=== PATIENT | female | born 1960 | race African-American/Black ===

== ENCOUNTER 2017-10-08 20:39 | Emergency (ER) | payer OTHER ==
[2017-10-08] MEDS ORDERED: TETRACAINE HCL 0.5% 2ML OPTH ONE (21:23)
[2017-10-08] MEDS ORDERED: TETANUS & DIPHTHERIA TOX,ADULT 0.5 ML VIAL ONE (21:24)
[2017-10-08] MEDS ORDERED: FLUORESCEIN SODIUM 0.6 MG/WRAP ONE (21:24)
--- NOTE | 2017-10-08 22:22 | ER ---
Nurse's Notes [facility] Name: Funmi Stoner Age: 57 yrs Sex: Female : 1960 Arrival Date: 10/08/2017 Time: 20:43 Bed 7 Private MD: Diagnosis: Injury of conjunctiva and corneal abrasion without foreign body, right eye Presentation: 10/08 20:45 Presenting complaint: Patient states: she has a contact lens stuck in her R eye since aa1 last night. Transition of care: patient was not received from another setting of care. Onset of symptoms was October 07, 2017. Care prior to arrival: None. 20:45 Method Of Arrival: Ambulatory aa1 20:45 Acuity: LINDSAY 4 aa1 Triage Assessment: 20:48 General: Appears in no apparent distress. comfortable, Behavior is calm, cooperative, aa1 appropriate for age. 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 SPECIALIST: 20:48 LMP N/A - Post-menopause aa1 Historical: - Allergies: 20:48 Sulfa (Sulfonamide Antibiotics); aa1 20:48 Albuterol; aa1 - Home Meds: 20:48 amlodipine 10 mg tab [Active]; lisinopril 20 mg Oral tab [Active]; metoprolol tartrate aa1 25 mg Oral tab [Active]; aspirin 81 mg Oral chew [Active]; Advair Diskus 100-50 mcg/dose Inhl dsdv [Active]; gabapentin 600 mg Oral tab [Active]; Prednisone Oral [Active]; Hydrocodone-Acetaminophen Oral [Active]; Klonopin 0.5 mg Oral tab [Active]; - PMHx: 20:48 Anxiety; Asthma; Diabetes - NIDDM; hot flashes; Hypertension; Irregular heart rate; aa1 - PSHx: 20:48 Tubal ligation; cardiac catherization; aa1 - Immunization history:: Flu vaccine is not up to date. Patient has never been vaccinated. - Social history:: Smoking status: Patient uses tobacco products, denies chronic smoking, but will smoke occasionally. Screenin:14 Abuse screen: Denies threats or abuse. Denies injuries from another. Nutritional bs1 screening: No deficits noted. Tuberculosis screening: Fall Risk None identified. Assessment: 21:12 General: Appears in no apparent distress. Behavior is cooperative, appropriate for age, bs1 anxious. Pain: Complains of pain in right eye. Neuro: Level of Consciousness is awake, alert, obeys commands, Oriented to person, place, time, situation, Appropriate for age Environmental Services Specialist are equal bilaterally Moves all extremities. Cardiovascular: Heart tones S1 S2 present Capillary refill < 3 seconds Patient's skin is warm and dry. Respiratory: Airway is patent Trachea midline Respiratory effort is even, unlabored, Respiratory pattern is regular, symmetrical, Breath sounds are clear bilaterally. GI: No deficits noted. No signs and/or symptoms were reported involving the gastrointestinal system. : No deficits noted. No signs and/or symptoms were reported regarding the genitourinary system. EENT: Eyes bilateral eyes equally red, patient states that right eye hurts. . Derm: Skin is intact. Musculoskeletal: Circulation, motion, and sensation intact. Capillary refill < 3 seconds, Range of motion: intact in all extremities. 22:12 Reassessment: Patient appears in no apparent distress at this time. No changes from bs1 previously documented assessment. Patient and/or family updated on plan of care and expected duration. Pain level reassessed. Patient is alert, oriented x 3, equal unlabored respirations, skin warm/dry/pink. 22:30 Reassessment: CORPORATE BANKING OFFICER at bedside performing eye exam. bs1 Vital Signs: 20:48 BP 124 / 76; Pulse 72; Resp 18; Temp 97.5; Pulse Ox 100% on R/A; Weight 111.13 kg; aa1 Height 5 ft. 5 in. (165.10 cm); Pain 7/10; 22:06 BP 132 / 92; Pulse 73; Resp 14; Pulse Ox 100% on R/A; Pain 0/10; bs1 20:48 Body Mass Index 40.77 (111.13 kg, 165.10 cm) aa1 Visual Acuity: 21:06 Left Eye Visual acuity 20/20, Normal, React To Light; Right Eye Visual acuity 20/40, mt Normal, React To Light; Both Eyes Visual acuity 20/20; Without Lenses; ED Course: 20:43 Patient arrived in ED. al2 20:46 Triage completed. aa1 20:48 Arm band placed on left wrist. Patient placed in an exam room, on a stretcher. aa1 20:50 Codey Roche NP is PHCP. pm1 20:50 Lencho Castillo MD is Attending Physician. pm1 21:01 Yi, Yaima, RN is Primary Nurse. bs1 21:14 Patient has correct armband on for positive identification. Bed in low position. Call bs1 light in reach. Side rails up X 1. Pulse ox on. NIBP on. 22:47 No provider procedures requiring assistance completed. Patient did not have IV access bs1 during this emergency room visit. 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 Exp: bs1 02/16/2020. Lot #: [id number]. } Route: IM; Site: right deltoid; 22:46 Follow up: Response: No adverse reaction bs1 22:00 Drug: Tetracaine Drops 0.5 % 1 drops Route: Ophthalmic; Site: right eye; bs1 22:46 Follow up: Response: No adverse reaction bs1 22:46 Drug: Gentamicin Drops 0.3 % 2 drops Route: Ophthalmic; Site: right eye; bs1 22:47 Follow up: Response: No adverse reaction bs1 Outcome: 22:22 Discharge ordered by MD. pm1 22:47 Discharged to home ambulatory. bs1 22:47 Condition: stable 22:47 Discharge instructions given to patient, Instructed on discharge instructions, follow up and referral plans. medication usage, Demonstrated understanding of instructions, follow-up care, medications, Prescriptions given X 2. 22:49 Patient left the ED. bs1 Signatures: Divya Roth, RN RN aa1 Codey Roche, CORPORATE BANKING OFFICER CORPORATE BANKING OFFICER pm1 Dionne Moore mt, Brittany, RN RN bs1 Iraida Kay
--- NOTE | 2017-10-08 22:23 | EDPHYS ---
Physician Documentation [facility] Name: Funmi Stoner Age: 57 yrs Sex: Female : 1960 Arrival Date: 10/08/2017 Time: 20:43 Bed 7 Private MD: ED Physician Lencho Castillo HPI: 10/08 22:00 This 57 yrs old Black Female presents to ER via Ambulatory with complaints of Eye pm1 Problem. 22:00 caused by contact lens, Pain. Onset: The symptoms/episode began/occurred yesterday. pm1 Duration: the symptoms are continuous. Aggravated by nothing. Alleviated by nothing. Associated signs and symptoms: Pertinent negatives: fever. Patient wears glasses, wears soft contacts. Severity of symptoms: in the emergency department the symptoms are unchanged. The patient has not experienced similar symptoms in the past. Patient feels that a contact was lost in her right eye yesterday. Patient continued to touch her eye with her finger nail to see if she could feel for it and remove it. 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: 20:48 LMP N/A - Post-menopause aa1 Historical: - Allergies: 20:48 Sulfa (Sulfonamide Antibiotics); aa1 20:48 Albuterol; aa1 - Home Meds: 20:48 amlodipine 10 mg tab [Active]; lisinopril 20 mg Oral tab [Active]; metoprolol tartrate aa1 25 mg Oral tab [Active]; aspirin 81 mg Oral chew [Active]; Advair Diskus 100-50 mcg/dose Inhl dsdv [Active]; gabapentin 600 mg Oral tab [Active]; Prednisone Oral [Active]; Hydrocodone-Acetaminophen Oral [Active]; Klonopin 0.5 mg Oral tab [Active]; - PMHx: 20:48 Anxiety; Asthma; Diabetes - NIDDM; hot flashes; Hypertension; Irregular heart rate; aa1 - PSHx: 20:48 Tubal ligation; cardiac catherization; aa1 - Immunization history:: Flu vaccine is not up to date. Patient has never been vaccinated. - Social history:: Smoking status: Patient uses tobacco products, denies chronic smoking, but will smoke occasionally. ROS: 22:00 Constitutional: Negative for fever, chills, and weight loss. pm1 22:00 ENT: Negative for injury, pain, and discharge, Neck: Negative for injury, pain, and swelling, Cardiovascular: Negative for chest pain, palpitations, and edema, Respiratory: Negative for shortness of breath, cough, wheezing, and pleuritic chest pain, Abdomen/GI: Negative for abdominal pain, nausea, vomiting, diarrhea, and constipation, Back: Negative for injury and pain, MS/Extremity: Negative for injury and deformity, Skin: Negative for injury, rash, and discoloration, Neuro: Negative for headache, weakness, numbness, tingling, and seizure. 22:00 Eyes: Positive for foreign body sensation, pain, Negative for blurry vision, discharge. Exam: 22:00 Visual Acuity: I have reviewed the nursing documentation. pm1 22:00 Constitutional: This is a well developed, well nourished patient who is awake, alert, and in no acute distress. Head/Face: Normocephalic, atraumatic. 22:00 ENT: Nares patent. No nasal discharge, no septal abnormalities noted. Tympanic membranes are normal and external auditory canals are clear. Oropharynx with no redness, swelling, or masses, exudates, or evidence of obstruction, uvula midline. Mucous membranes moist. Neck: Trachea midline, no thyromegaly or masses palpated, and no cervical lymphadenopathy. Supple, full range of motion without nuchal rigidity, or vertebral point tenderness. No Meningismus. Chest/axilla: Normal chest wall appearance and motion. Nontender with no deformity. No lesions are appreciated. Cardiovascular: Regular rate and rhythm with a normal S1 and S2. No gallops, murmurs, or rubs. Normal PMI, no JVD. No pulse deficits. Respiratory: Lungs have equal breath sounds bilaterally, clear to auscultation and percussion. No rales, rhonchi or wheezes noted. No increased work of breathing, no retractions or nasal flaring. Back: No spinal tenderness. No costovertebral tenderness. Full range of motion. Skin: Warm, dry with normal turgor. Normal color with no rashes, no lesions, and no evidence of cellulitis. MS/ Extremity: Pulses equal, no cyanosis. Neurovascular intact. Full, normal range of motion. 22:00 Eyes: Periorbital structures: appear normal, Pupils: no acute changes, equal, round, and reactive to light and accomodation, Extraocular movements: intact throughout, Conjunctiva: injected, Corneas: abrasion, that is small, approximately 2 mm(s), on the right, at 7 o'clock, foreign body, is not appreciated, a fluorescein strip employed to appreciate the findings, Sclera: no appreciated abnormality, Anterior chamber: normal. 22:00 Neuro: Orientation: is normal, Motor: is normal, Gait: is steady, at a normal pace, without difficulty. Vital Signs: 20:48 BP 124 / 76; Pulse 72; Resp 18; Temp 97.5; Pulse Ox 100% on R/A; Weight 111.13 kg; aa1 Height 5 ft. 5 in. (165.10 cm); Pain 7/10; 22:06 BP 132 / 92; Pulse 73; Resp 14; Pulse Ox 100% on R/A; Pain 0/10; bs1 20:48 Body Mass Index 40.77 (111.13 kg, 165.10 cm) aa1 Visual Acuity: 21:06 Left Eye Visual acuity 20/20, Normal, React To Light; Right Eye Visual acuity 20/40, mt Normal, React To Light; Both Eyes Visual acuity 20/20; Without Lenses; MDM: 20:54 Patient medically screened. pm1 22:21 Data reviewed: vital signs. Data interpreted: Pulse oximetry: on room air is 100 %. pm1 Interpretation: normal. Counseling: I had a detailed discussion with the patient and/or guardian regarding: the historical points, exam findings, and any diagnostic results supporting the discharge/admit diagnosis, the need for outpatient follow up, for definitive care, an opthalmologist, to return to the emergency department if symptoms worsen or persist or if there are any questions or concerns that arise at home. 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 Exp: bs1 02/16/2020. Lot #: [id number]. } Route: IM; Site: right deltoid; 22:46 Follow up: Response: No adverse reaction bs1 22:00 Drug: Tetracaine Drops 0.5 % 1 drops Route: Ophthalmic; Site: right eye; bs1 22:46 Follow up: Response: No adverse reaction bs1 22:46 Drug: Gentamicin Drops 0.3 % 2 drops Route: Ophthalmic; Site: right eye; bs1 22:47 Follow up: Response: No adverse reaction bs1 Disposition: 10/09 03:49 Co-signature as Attending Physician, Lencho Castillo MD. pkraiza Disposition: 10/08/17 22:22 Discharged to Home. Impression: Injury of conjunctiva and corneal abrasion without foreign body, right eye. - Condition is Stable. - Discharge Instructions: Corneal Abrasion. - Prescriptions for Vigamox 0.5 % Ophthalmic Drops - instill 1 drop by OPHTHALMIC route every 8 hours for 7 days; 5 milliliter. Tylenol- Codeine #3 300-30 mg Oral Tablet - take 2 tablets by ORAL route every 6 hours As needed; 20 tablet. - Medication Reconciliation Form, Thank You Letter, Antibiotic Education, Prescription Opioid Use form. - Follow up: Emergency Department; When: As needed; Reason: Worsening of condition. Follow up: Private Physician; When: 1 - 2 days; Reason: Recheck today's complaints, Continuance of care, Re-evaluation by your physician. - Problem is new. - Symptoms have improved. Signatures: Divya Roth, RN RN aa1 Lencho Castillo MD MD pkl Codey Roche NP ELECTRICAL ACCESSORIES ASSEMBLER pm1 Yaima Yi RN RN bs1
[2017-10-08] MEDS ORDERED: GENTAMICIN 0.3% OPTH DROP 5ML ONE (23:01)
== END 2017-10-08 22:49 | disposition home or self-care (01) ==
LOC: ER 20:39
DX: S05.01XA Injury of conjunctiva and corneal abrasion without foreign body, right eye, initial encounter (principal); I10 Essential (primary) hypertension; E11.9 Type 2 diabetes mellitus without complications; F41.9 Anxiety disorder, unspecified; J45.909 Unspecified asthma, uncomplicated; Z23 Encounter for immunization; Z72.0 Tobacco use; Z88.2 Allergy status to sulfonamides; Z88.8 Allergy status to other drugs, medicaments and biological substances
CPT/HCPCS: 90714; 99283

== ENCOUNTER 2017-11-12 10:17 | Emergency (ER) | payer OTHER ==
[2017-11-12] MEDS ORDERED: SUCRALFATE 1GM/10ML UCUP PO SCH (12:00)
[2017-11-12 12:09] LABS: Absolute Lymphocytes (CBC) 3.7 K/uL (0.7-4.9); Absolute Monocytes 0.8 K/uL (0.1-1.3); Absolute Neutrophil 4.2 K/uL (1.8-8.0); Basophils % 0.4 % (0-1.3); Eosinophils % 1.6 % (0-4.4); MCH 25.9 pg (27.0-35.0); MCV 79.4 fL (80-100); MPV 8.7 fL (7.6-11.3); Monocytes % 9.4 % (3.3-12.3); RBC Red Blood Cell Count 5.41 M/uL (3.86-4.86)
[2017-11-12 12:28] LABS: Bicarbonate 27 mEq/L (21-31); Glucose Level 84 mg/dL (65-120); Lipase 29 U/L (22-51); Sodium Level 140 mEq/L (135-145)
[2017-11-12 12:34] LABS: ALT/SGPT 43 IU/L (10-60); AST/SGOT 49 IU/L (10-42); Albumin 4.2 g/dL (3.2-5.5); Alkaline Phosphatase 77 IU/L (42-121); BUN Blood Urea Nitrogen 19 mg/dL (6-20); Bilirubin Direct 0.1 mg/dL (0-0.2); Bilirubin Total 0.4 mg/dL (0.3-1.2); Protein, Total 7.9 g/dL (6.0-8.3)
--- NOTE | 2017-11-12 14:33 | RAD REPORT ---
EXAM DESCRIPTION: CT - Stone Protocol - 11/12/2017 2:21 pm CLINICAL HISTORY: Abdominal pain, epigastric pain COMPARISON: None. TECHNIQUE: Axial 5 mm thick images were obtained without oral or IV contrast. The [id number] span s the entirety of the system partially obscuring uppermost abdomen and lung bases. All CT scans are performed using dose optimization technique as appropriate and may include automated exposure control or mA/KV adjustment according to patient size. FINDINGS: No hydronephrosis is present and no obstructing ureteral calculi. No suspicious renal mass es. Isodense masses and pyelonephritis are not excluded on a stone protocol CT scan. Urinary bladder is contracted. Uterus and ovaries show no suspicious findings. Tubal occlusion device is in place. Th ere are numerous phleboliths along the pelvic floor. Imaged portions of the liver, spleen and pancreas show no suspicious findings on non-contrast imaging . Gallbladder is contracted. Gallstones can be occult on CT imaging. No biliary tree dilatation. No s ignificant adrenal finding. No gastric dilatation. Edwards of the antrum are prominent. This is an area that is difficult to evalua te on CT imaging in the absence of oral and IV contrast. A mild antritis or gastritis would be possib le. There is no edema or stranding in the adjacent fatty tissues. Duodenum and remainder of small bow el unremarkable. Appendix is normal. No acute colon process. No mass or bulky lymphadenopathy. The patient has a very small incidental umbilical hernia. Disc and bony degenerative changes are present without acute finding. Vascular calcifications are seen. No acute lung base finding. No pericardial thickening or effusion. IMPRESSION: No obstruction, free air or surgically emergent finding. Edwards of the gastric antrum are prominent though this can be a peristalsis artifact. Given the epigas tric pain pattern, mild antritis or gastritis would be possible. Assessment is limited in the absence of oral and IV contrast. Remainder the GI system is unremarkable. Gallbladder is contracted and gallstones can be occult. No acute finding on noncontrast imaging. Isodense masses and pyelonephritis are not excluded on stone protocol technique.
[2017-11-12 14:43] LABS: Urine Bacteria <20 /HPF (<20); Urine RBC <5 /HPF (NONE SEEN)
[2017-11-12 14:44] LABS: Urine Culture Reflex Order NOT NEEDED
--- NOTE | 2017-11-12 15:51 | EDPHYS ---
Physician Documentation [facility] Name: Funmi Stoner Age: 57 yrs Sex: Female : 1960 Arrival Date: 11/12/2017 Time: 10:21 Bed 13 Private MD: Vini Sanches ED Physician Chris Ulrich HPI: 11/12 15:17 This 57 yrs old Black Female presents to ER via Ambulatory with complaints of Abdominal gs Pain. 15:17 The patient presents with abdominal pain in the epigastric area. Onset: The gs symptoms/episode began/occurred yesterday. The symptoms do not radiate. Associated signs and symptoms: Pertinent negatives: nausea and vomiting. The symptoms are described as crampy. The symptoms are described as burning. Modifying factors: The symptoms are alleviated by nothing, the symptoms are aggravated by nothing. Severity of pain: At its worst the pain was moderate in the emergency department the pain has improved moderately. The patient has experienced similar episodes in the past, a few times. 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 LMP N/A - Post-menopause hb Historical: - Allergies: 10:27 Albuterol; hb 10:27 Sulfa (Sulfonamide Antibiotics); hb - Home Meds: 10:27 Advair Diskus 100-50 mcg/dose Inhl dsdv [Active]; amlodipine 10 mg tab [Active]; hb aspirin 81 mg Oral chew [Active]; gabapentin 600 mg Oral tab [Active]; Hydrocodone-Acetaminophen Oral [Active]; Klonopin 0.5 mg Oral tab [Active]; lisinopril 20 mg Oral tab [Active]; metoprolol tartrate 25 mg Oral tab [Active]; Prednisone Oral [Active]; Cymbalta oral oral [Active]; - PMHx: 10:27 Anxiety; Asthma; Diabetes - NIDDM; hot flashes; Hypertension; Irregular heart rate; hb - PSHx: 10:27 Tubal ligation; cardiac catherization; hb - Immunization history:: Adult Immunizations up to date. - Social history:: Smoking status: Patient/guardian denies using tobacco. ROS: 15:17 All other systems are negative. gs Exam: 15:17 Head/Face: Normocephalic, atraumatic. Eyes: Pupils equal round and reactive to light, gs extra-ocular motions intact. Lids and lashes normal. Conjunctiva and sclera are non-icteric and not injected. Cornea within normal limits. Periorbital areas with no swelling, redness, or edema. ENT: Nares patent. No nasal discharge, no septal abnormalities noted. Tympanic membranes are normal and external auditory canals are clear. Oropharynx with no redness, swelling, or masses, exudates, or evidence of obstruction, uvula midline. Mucous membranes moist. Neck: Trachea midline, no thyromegaly or masses palpated, and no cervical lymphadenopathy. Supple, full range of motion without nuchal rigidity, or vertebral point tenderness. No Meningismus. Chest/axilla: Normal chest wall appearance and motion. Nontender with no deformity. No lesions are appreciated. Cardiovascular: Regular rate and rhythm with a normal S1 and S2. No gallops, murmurs, or rubs. Normal PMI, no JVD. No pulse deficits. Respiratory: Lungs have equal breath sounds bilaterally, clear to auscultation and percussion. No rales, rhonchi or wheezes noted. No increased work of breathing, no retractions or nasal flaring. Back: No spinal tenderness. No costovertebral tenderness. Full range of motion. Skin: Warm, dry with normal turgor. Normal color with no rashes, no lesions, and no evidence of cellulitis. MS/ Extremity: Pulses equal, no cyanosis. Neurovascular intact. Full, normal range of motion. Neuro: Awake and alert, GCS 15, oriented to person, place, time, and situation. Cranial nerves II-XII grossly intact. Motor strength 5/5 in all extremities. Sensory grossly intact. Cerebellar exam normal. Normal gait. 15:17 Constitutional: The patient appears alert, awake. 15:17 ECG was reviewed by the Attending Physician. 15:17 Abdomen/GI: Palpation: moderate abdominal tenderness, in the epigastric area. Vital Signs: 10:25 BP 118 / 79; Pulse 77; Resp 16; Temp 97.4(O); Pulse Ox 100% on R/A; Weight 66.22 kg; hb Height 5 ft. 5 in. (165.10 cm); Pain 10/10; 12:19 BP 101 / 79; Pulse 65; Resp 16; Pulse Ox 100% on R/A; ae1 13:00 BP 118 / 71; Pulse 71; Resp 18; Pulse Ox 100% on R/A; ae1 13:30 BP 113 / 76; Pulse 64; Resp 17; Pulse Ox 99% on R/A; ae1 15:08 BP 123 / 84; Pulse 65; Resp 17; Pulse Ox 100% on R/A; ae1 10:25 Body Mass Index 24.30 (66.22 kg, 165.10 cm) hb MDM: 10:41 Patient medically screened. 15:17 Differential diagnosis: diverticulitis, gastroesophageal reflux disease, non-specific gs abd pain. Data reviewed: vital signs, nurses notes. Response to treatment: the patient's symptoms have markedly improved after treatment, and as a result, I will discharge patient. 11/12 10:48 Order name: Basic Metabolic Panel; Complete Time: 13:36 11/12 10:48 Order name: CBC with Diff; Complete Time: 13:36 11/12 10:48 Order name: Hepatic Function; Complete Time: 13:36 11/12 10:48 Order name: Lipase; Complete Time: 13:36 11/12 10:48 Order name: Urine Microscopic Only; Complete Time: 15:50 11/12 13:47 Order name: Troponin (emerg Dept Use Only); Complete Time: 15:50 11/12 10:48 Order name: EKG; Complete Time: 10:49 11/12 10:48 Order name: EKG - Nurse/Tech; Complete Time: 12:31 11/12 10:48 Order name: IV Saline Lock; Complete Time: 11:44 11/12 10:48 Order name: Labs collected and sent; Complete Time: 12:31 11/12 10:48 Order name: Urine Dipstick-Ancillary (obtain specimen); Complete Time: 14:18 11/12 14:09 Order name: CT Stone Protocol; Complete Time: 14:37 11/12 14:25 Order name: Urine Dipstick--Ancillary (enter results) eb EC:17 Rate is 63 beats/min. Rhythm is regular. UT interval is normal. QRS interval is normal. gs T waves are Normal. No ST changes noted. Clinical impression: Abnormal EKG without significant change. Interpreted by me. Administered Medications: 11:44 Drug: CarafATE 1 grams Route: PO; ae1 13:39 Follow up: Response: Pain is unchanged, physician notified ae1 Disposition: 11/12/17 15:51 Discharged to Home. Impression: Epigastric pain. - Condition is Stable. - Discharge Instructions: Abdominal Pain, Adult. - Prescriptions for Carafate 100 mg/mL Oral suspension - take 10 milliliter by ORAL route 4 times per day As needed on an empty stomach 1 hour before meals and at bedtime; 250 milliliter. - Medication Reconciliation Form, Thank You Letter, Antibiotic Education, Prescription Opioid Use form. - Follow up: Private Physician; When: 2 - 3 days; Reason: Re-evaluation by your physician. Signatures: Dispatcher [employer] EDMS Tricia Oakes RN RN Mitchell Su RN RN ae1 Chris Ulrich MD MD
--- NOTE | 2017-11-12 15:51 | ER ---
Nurse's Notes [facility] Name: Funmi Stoner Age: 57 yrs Sex: Female : 1960 Arrival Date: 11/12/2017 Time: 10:21 Bed 13 Private MD: Vini Sanches Diagnosis: Epigastric pain Presentation: 11/12 10:23 Presenting complaint: Patient states: Intermittent epigastric pain x 2 days. Pain is hb worse after eating. Hx GERD. Recently started taking cider vinegar pills, black seed oil s pills, and detox cleanse pills. Transition of care: patient was not received from another setting of care. Onset of symptoms was November 11, 2017. Initial Sepsis Screen: Does the patient meet any 2 criteria? No. Patient's initial sepsis screen is negative. Does the patient have a suspected source of infection? No. Patient's initial sepsis screen is negative. Care prior to arrival: None. 10:23 Method Of Arrival: Ambulatory hb 10:23 Acuity: LINDSAY 3 hb Triage Assessment: 16:02 General: Appears. 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 N/A - Post-menopause hb Historical: - Allergies: 10:27 Albuterol; hb 10:27 Sulfa (Sulfonamide Antibiotics); hb - Home Meds: 10:27 Advair Diskus 100-50 mcg/dose Inhl dsdv [Active]; amlodipine 10 mg tab [Active]; hb aspirin 81 mg Oral chew [Active]; gabapentin 600 mg Oral tab [Active]; Hydrocodone-Acetaminophen Oral [Active]; Klonopin 0.5 mg Oral tab [Active]; lisinopril 20 mg Oral tab [Active]; metoprolol tartrate 25 mg Oral tab [Active]; Prednisone Oral [Active]; Cymbalta oral oral [Active]; - PMHx: 10:27 Anxiety; Asthma; Diabetes - NIDDM; hot flashes; Hypertension; Irregular heart rate; hb - PSHx: 10:27 Tubal ligation; cardiac catherization; hb - Immunization history:: Adult Immunizations up to date. - Social history:: Smoking status: Patient/guardian denies using tobacco. Screenin:16 Abuse screen: Denies threats or abuse. Nutritional screening: No deficits noted. ae1 Tuberculosis screening: Never had TB. Possible symptoms: recent fever, cough for more than 2 weeks. Fall Risk. Sepsis Screening: . Infection: Patient has suspected or documented infection. SIRS - Systemic Inflammatory Response Syndrome: 2 or more indicates positive screen:. Assessment: 10:50 General: Appears in no apparent distress. uncomfortable, obese, well groomed, Behavior ae1 is cooperative. Pain: Complains of pain in epigastric area. Neuro: Level of Consciousness is awake, alert, obeys commands, Oriented to person, place, time, situation. Cardiovascular: Heart tones S1 S2 present Patient's skin is warm and dry. Rhythm is regular. Respiratory: Airway is patent Respiratory effort is even, unlabored, Respiratory pattern is regular, symmetrical, Breath sounds are clear bilaterally. GI: Bowel sounds present X 4 quads. Abd is soft and non tender X 4 quads. Reports upper abdominal pain. : No signs and/or symptoms were reported regarding the genitourinary system. EENT: No signs and/or symptoms were reported regarding the EENT system. wears glasses. Derm: Skin is normal. Musculoskeletal: No signs and/or symptoms reported regarding the musculoskeletal system. 12:25 Reassessment: Patient and/or family updated on plan of care and expected duration. Pain ae1 level reassessed. Patient states she still has discomfort to the epigastric area. 13:00 Reassessment: Provider notified. Patient states feeling better. Patient states symptoms ae1 have improved. 14:44 Pain: Complains of pain in epigastric area Quality of pain is described as burning, ae1 Provider notified, new orders received. Vital Signs: 10:25 BP 118 / 79; Pulse 77; Resp 16; Temp 97.4(O); Pulse Ox 100% on R/A; Weight 66.22 kg; hb Height 5 ft. 5 in. (165.10 cm); Pain 10/10; 12:19 BP 101 / 79; Pulse 65; Resp 16; Pulse Ox 100% on R/A; ae1 13:00 BP 118 / 71; Pulse 71; Resp 18; Pulse Ox 100% on R/A; ae1 13:30 BP 113 / 76; Pulse 64; Resp 17; Pulse Ox 99% on R/A; ae1 15:08 BP 123 / 84; Pulse 65; Resp 17; Pulse Ox 100% on R/A; ae1 10:25 Body Mass Index 24.30 (66.22 kg, 165.10 cm) hb ED Course: 10:21 Patient arrived in ED. mr 10:21 Vini Sanches DO is Private Physician. mr 10:25 Triage completed. hb 10:27 Arm band placed on right wrist. hb 10:30 Chris Ulrich MD is Attending Physician. gs 10:37 Mitchell Su, RN is Primary Nurse. ae1 10:47 Bed in low position. Call light in reach. Side rails up X 1. Pulse ox on. NIBP on. ae1 11:00 Inserted saline lock: 22 gauge in right hand, using aseptic technique. Blood collected. ae1 14:20 CT completed. Patient moved to CT via wheelchair. Patient moved back from CT. cw1 14:20 CT Stone Protocol In Process Unspecified. EDMS 16:07 No provider procedures requiring assistance completed. IV discontinued, intact, ae1 bleeding controlled, No redness/swelling at site. Pressure dressing applied. Administered Medications: 11:44 Drug: CarafATE 1 grams Route: PO; ae1 13:39 Follow up: Response: Pain is unchanged, physician notified ae1 Outcome: 15:51 Discharge ordered by . gs 16:08 Discharged to home ambulatory. ae1 16:08 Condition: stable 16:08 Discharge instructions given to patient, Instructed on discharge instructions, follow up and referral plans. Demonstrated understanding of instructions. 16:09 Patient left the ED. ae1 Signatures: Dispatcher [employer] [facility] Kristan Borja Shaila Lazaro cw1 Tricia Oakes RN RN Mitchell Su, ANGEL RN ae1 Chris Ulrich MD MD
[2017-11-12 18:58] LABS: Urine Blood NEGATIVE (NEG); Urine Glucose NEGATIVE (NEG); Urine Protein NEGATIVE (NEG); Urine Specific Gravity 1.015 (1.005-1.030); Urine pH 5.5 (5.0-7.0)
--- NOTE | 2017-11-13 07:18 | EKG ---
Test Date: 2017-11-12 Test Time: 12:05:18 Wildlife Refuge Specialist: MEASUREMENT RESULTS: Intervals: Rate: 63 TX: 156 QRSD: 76 QT: 436 QTc: 446 [place]: P: 58 TX: 156 QRS: 70 T: 42 INTERPRETIVE STATEMENTS: Normal sinus rhythm Possible Left atrial enlargement Borderline ECG Compared to ECG 09/25/2017 15:26:56 No significant changes Electronically Signed On 11-13-17 07:17:28 CDT by Mario Alberto Whittington
== END 2017-11-12 16:09 | disposition home or self-care (01) ==
LOC: ER 10:17
DX: R10.13 Epigastric pain (principal); I10 Essential (primary) hypertension; E11.9 Type 2 diabetes mellitus without complications; F41.9 Anxiety disorder, unspecified; J45.909 Unspecified asthma, uncomplicated; Z79.82 Long term (current) use of aspirin; Z88.2 Allergy status to sulfonamides; Z88.8 Allergy status to other drugs, medicaments and biological substances
CPT/HCPCS: 36415; 74176; 76377; 80048; 80076; 81003; 81015; 83690; 84484; 85025; 93005; 99284

== ENCOUNTER 2018-04-16 14:01 | Emergency (ER) | payer OTHER ==
--- NOTE | 2018-04-16 15:32 | EKG ---
Test Date: 2018-04-16 Test Time: 14:15:08 Ticket Manager: BETHANY MEASUREMENT RESULTS: Intervals: Rate: 75 VT: 152 QRSD: 68 QT: 404 QTc: 451 [place]: P: 54 VT: 152 QRS: 63 T: 38 INTERPRETIVE STATEMENTS: Normal sinus rhythm Possible Left atrial enlargement Borderline ECG Compared to ECG 11/12/2017 12:05:18 No significant changes Electronically Signed On 04-16-18 15:31:15 CDT by Mario Alberto Whittington
[2018-04-16 15:35] LABS: Absolute Lymphocytes (CBC) 5.5 K/uL (0.7-4.9); Absolute Monocytes 1.1 K/uL (0.1-1.3); Absolute Neutrophil 4.5 K/uL (1.8-8.0); BUN Blood Urea Nitrogen 14 mg/dL (7-18); Basophils % 0.7 % (0-1.3); Bicarbonate 28 mmol/L (21-32); Eosinophils % 1.8 % (0-4.4); Glucose Level 85 mg/dL (74-106); Hematocrit 41.6 % (36.0-45.0); Lymphocytes % 48.2 % (15.3-44.8); MCH 26.7 pg (27.0-35.0); MCV 80.4 fL (80-100); MPV 10.3 fL (7.6-11.3); Monocytes % 9.9 % (3.3-12.3); NT PRO-BNP 300 pg/mL (<125); Potassium 4.4 mmol/L (3.5-5.1); RBC Red Blood Cell Count 5.17 M/uL (3.86-4.86); Sodium Level 142 mmol/L (136-145); Troponin (Emerg Dept Use Only) < 0.02 ng/mL (0.0-0.045)
--- NOTE | 2018-04-16 16:15 | RAD REPORT ---
EXAM DESCRIPTION: RAD - Chest Single View - 04/16/2018 4:04 pm CLINICAL HISTORY: CHEST PAIN Chest pain. COMPARISON: Chest Single View dated 09/25/2017; Chest Single View dated 07/06/2016 FINDINGS: Portable technique limits examination quality. The lungs are grossly clear. The heart is normal in size. No displaced fractures. IMPRESSION: No acute intrathoracic process suspected.
[2018-04-16 16:23] LABS: Platelet Estimate ADEQ; Urine White Blood Cell Casts OK
[2018-04-16 16:24] LABS: Blood Morphology Comment NOT SEEN (NOT SEEN)
--- NOTE | 2018-04-16 17:11 | ER ---
Nurse's Notes [facility] Name: Funmi Stoner Age: 57 yrs Sex: Female : 1960 Arrival Date: 04/16/2018 Time: 14:02 Bed 16 Private MD: Vini Sanches Diagnosis: Chest pain, unspecified Presentation: 04/16 14:07 Presenting complaint: Patient states: [place]. I recently found dm5 out I had a heart attack 30-90 days ago based on my EKG from my doctor's office. Pain is going into left arm. Rated at 5/10 at this time. Transition of care: patient was not received from another setting of care. Onset of symptoms was April 16, 2018 at 13:50. 14:07 Method Of Arrival: Ambulatory dm5 14:07 Acuity: LINDSAY 2 dm5 15:47 Risk Assessment: Do you want to hurt yourself or someone else? Patient reports no tw2 desire to harm self or others. Initial Sepsis Screen: Does the patient meet any 2 criteria? No. Patient's initial sepsis screen is negative. Does the patient have a suspected source of infection? No. Patient's initial sepsis screen is negative. Care prior to arrival: None. Triage Assessment: 14:29 General: Appears in no apparent distress. Behavior is calm, cooperative. Pain: dm5 Complains of pain in chest. Neuro: Level of Consciousness is awake, alert, obeys commands, Oriented to person, place, time, Moves all extremities. Cardiovascular: Reports tightness in chest Capillary refill < 3 seconds. Respiratory: Airway is patent Respiratory effort is even, unlabored, Respiratory pattern is regular, symmetrical. Derm: Skin is pink, warm \T\ dry. 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 tw2 Historical: - Allergies: 14:29 Albuterol; dm5 14:29 Sulfa (Sulfonamide Antibiotics); dm5 - Home Meds: 15:21 Advair Diskus 100-50 mcg/dose Inhl dsdv [Active]; amlodipine 10 mg tab [Active]; tw2 aspirin 81 mg Oral chew [Active]; Cymbalta Oral [Active]; gabapentin 600 mg Oral tab [Active]; Hydrocodone-Acetaminophen Oral [Active]; Klonopin 0.5 mg Oral tab [Active]; metoprolol tartrate 25 mg Oral tab [Active]; Prednisone Oral [Active]; lisinopril 20 mg Oral tab [Active]; - PMHx: 14:29 Anxiety; Asthma; Diabetes - NIDDM; hot flashes; Hypertension; Irregular heart rate; dm5 Myocardial infarction; - PSHx: 15:21 Tubal ligation; cardiac catherization; tw2 - Immunization history:: Adult Immunizations. - Social history:: Smoking status: . - Ebola Screening: : Patient denies travel to an Ebola-affected area in the 21 days before illness onset. - Family history:: not pertinent. - Hospitalizations: : No recent hospitalization is reported. Screenin:00 Abuse screen: Denies threats or abuse. Nutritional screening: No deficits noted. tw2 Tuberculosis screening: No symptoms or risk factors identified. Fall Risk Secondary diagnosis (15 points) impaired mobility. Assessment: 14:40 General: Appears in no apparent distress. Behavior is calm, cooperative. Pain: Pain dm5 radiates to left arm Pain began 30 min ago. 15:24 Reassessment: Patient appears in no apparent distress at this time. Patient and/or tw2 family updated on plan of care and expected duration. Pain level reassessed. Patient is alert, oriented x 3, equal unlabored respirations, skin warm/dry/pink. 15:25 General: Appears in no apparent distress. Behavior is calm. Pain: Complains of pain in tw2 chest. Neuro: Level of Consciousness is awake, alert, obeys commands, Oriented to person, place, time, situation. Cardiovascular: Reports chest pain, Heart tones S1 S2 Patient's skin is warm and dry. Respiratory: Airway is patent Respiratory effort is even, unlabored, Respiratory pattern is regular, symmetrical, Breath sounds are clear bilaterally. GI: Abdomen is round Bowel sounds present X 4 quads. : No signs and/or symptoms were reported regarding the genitourinary system. EENT: No signs and/or symptoms were reported regarding the EENT system. Derm: No signs and/or symptoms reported regarding the dermatologic system. Musculoskeletal: Range of motion: intact in all extremities. 16:36 Reassessment: Patient appears in no apparent distress at this time. Patient and/or tw2 family updated on plan of care and expected duration. Pain level reassessed. Patient is alert, oriented x 3, equal unlabored respirations, skin warm/dry/pink. 17:10 Reassessment: Patient appears in no apparent distress at this time. Patient and/or tw2 family updated on plan of care and expected duration. Pain level reassessed. Patient is alert, oriented x 3, equal unlabored respirations, skin warm/dry/pink. Vital Signs: 14:29 BP 102 / 72; Pulse 72; Resp 14; Pulse Ox 99% on R/A; Weight 113.4 kg (R); Height 5 ft. dm5 5 in. (165.10 cm); Pain 5/10; 14:45 BP 109 / 85; Pulse 75; Resp 17; Pulse Ox 100% on R/A; tw2 15:24 BP 113 / 75; Pulse 66; Resp 21; Pulse Ox 100% on R/A; tw2 15:46 Temp 97.7(O); tw2 16:34 BP 128 / 85; Pulse 73; Resp 19; Pulse Ox 97% on R/A; tw2 17:09 BP 123 / 87; Pulse 68; Resp 17; Pulse Ox 100% on R/A; tw2 14:29 Body Mass Index 41.60 (113.40 kg, 165.10 cm) dm5 ED Course: 14:02 Patient arrived in ED. sb2 14:02 Vini Sanches DO is Private Physician. sb2 14:15 EKG completed in triage. Results shown to MD. hb 14:28 Triage completed. dm5 14:29 Arm band placed on right wrist. dm5 14:31 EKG done, by ED staff, reviewed by Meir Irene MD. dh3 14:33 Meir Irene MD is Attending Physician. rn 14:40 Patient has correct armband on for positive identification. Call light in reach. dm5 radiation monitor on. Pulse ox on. NIBP on. 14:40 Inserted saline lock: 22 gauge in right hand, using aseptic technique. Blood collected. dm5 Missed attempt(s): 20 gauge in left forearm. Bleeding controlled, band aid applied, catheter tip intact. 14:55 Basic Metabolic Panel Sent. ss 14:55 CBC with Diff Sent. ss 15:05 Glo Champagne, ANGEL is Primary Nurse. tw2 15:48 No provider procedures requiring assistance completed. Patient maintains SpO2 tw2 saturation greater than 95% on room air. 16:03 XRAY Chest (1 view) In Process Unspecified. EDMS 17:16 IV discontinued, intact, bleeding controlled, No redness/swelling at site. Pressure tw2 dressing applied. Administered Medications: No medications were administered Outcome: 17:10 Discharge ordered by MD. rn 17:16 Discharged to home ambulatory, with significant other. tw2 17:16 Condition: stable 17:16 Discharge instructions given to patient, significant other, Instructed on discharge instructions, follow up and referral plans. Demonstrated understanding of instructions, follow-up care. 17:19 Patient left the ED. tw2 Signatures: Dispatcher [employer] EDTN Katina Gomes RN RN dm5 Meir Irene MD MD rn Smirch, Shelby, RN RN ss Tricia Oakes RN RN hb Wise, Tara, RN RN tw2 Yaz Small 3 Aurea Beck sb2 Corrections: (The following items were deleted from the chart) 14:27 14:20 EKG completed in triage. Results shown to MD. hb hb
--- NOTE | 2018-04-16 17:11 | EDPHYS ---
Physician Documentation [facility] Name: Funmi Stoner Age: 57 yrs Sex: Female : 1960 Arrival Date: 04/16/2018 Time: 14:02 Bed 16 Private MD: Vini Sanches ED Physician Meir Irene HPI: 04/16 15:51 This 57 yrs old Black Female presents to ER via Ambulatory with complaints of Chest rn Pain. 15:51 The patient or guardian reports chest pain that is located primarily in the substernal rn area. Onset: this morning. The pain does not radiate. Associated signs and symptoms: Pertinent positives: palpitations, Pertinent negatives: abdominal pain, diaphoresis, syncope, vomiting. The chest pain is described as a pressure. Duration: The patient or guardian reports multiple episodes, that are intermittent, the episodes last approximately 2 minute(s). Modifying factors: The symptoms are alleviated by nothing. the symptoms are aggravated by nothing. Severity of pain: At its worst the pain was mild in the emergency department the pain has resolved. The patient has not experienced similar symptoms in the past. Reports shopping, felt chest pressure/tightness, intermittent, lasts for 2 minutes, goes away on its own, not worse with exertion, has appt with cardiology in 2 days given her hx of palpitations (neg holter), and recent outpt ecg showed possible old infarct by pcp. Today was first time she had chest pressure so came in for evaluation, resolved prior to arrival.. 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 tw2 Historical: - Allergies: 14:29 Albuterol; dm5 14:29 Sulfa (Sulfonamide Antibiotics); dm5 - Home Meds: 15:21 Advair Diskus 100-50 mcg/dose Inhl dsdv [Active]; amlodipine 10 mg tab [Active]; tw2 aspirin 81 mg Oral chew [Active]; Cymbalta Oral [Active]; gabapentin 600 mg Oral tab [Active]; Hydrocodone-Acetaminophen Oral [Active]; Klonopin 0.5 mg Oral tab [Active]; metoprolol tartrate 25 mg Oral tab [Active]; Prednisone Oral [Active]; lisinopril 20 mg Oral tab [Active]; - PMHx: 14:29 Anxiety; Asthma; Diabetes - NIDDM; hot flashes; Hypertension; Irregular heart rate; dm5 Myocardial infarction; - PSHx: 15:21 Tubal ligation; cardiac catherization; tw2 - Immunization history:: Adult Immunizations. - Social history:: Smoking status: . - Ebola Screening: : Patient denies travel to an Ebola-affected area in the 21 days before illness onset. - Family history:: not pertinent. - Hospitalizations: : No recent hospitalization is reported. ROS: 15:54 Constitutional: Negative for fever, chills, and weight loss, Eyes: Negative for injury, rn pain, redness, and discharge, Neck: Negative for injury, pain, and swelling, Cardiovascular: + chest pain and palpitations Respiratory: Negative for shortness of breath, cough, wheezing, and pleuritic chest pain, Abdomen/GI: Negative for abdominal pain, nausea, vomiting, diarrhea, and constipation, MS/Extremity: Negative for injury and deformity, Skin: Negative for injury, rash, and discoloration, Neuro: Negative for headache, weakness, numbness, tingling, and seizure. Exam: 15:54 Constitutional: This is a well developed, well nourished patient who is awake, alert, rn and in no acute distress. Head/Face: Normocephalic, atraumatic. Eyes: Pupils equal round and reactive to light, extra-ocular motions intact. Lids and lashes normal. Conjunctiva and sclera are non-icteric and not injected. Cornea within normal limits. Periorbital areas with no swelling, redness, or edema. Cardiovascular: Regular rate and rhythm with a normal S1 and S2. No gallops, murmurs, or rubs. Normal PMI, no JVD. No pulse deficits. Respiratory: Lungs have equal breath sounds bilaterally, clear to auscultation and percussion. No rales, rhonchi or wheezes noted. No increased work of breathing, no retractions or nasal flaring. Abdomen/GI: Soft, non-tender, with normal bowel sounds. No distension or tympany. No guarding or rebound. No evidence of tenderness throughout. Skin: Warm, dry with normal turgor. Normal color with no rashes, no lesions, and no evidence of cellulitis. MS/ Extremity: Pulses equal, no cyanosis. Neurovascular intact. Full, normal range of motion. Equal circumference. Neuro: Awake and alert, GCS 15, oriented to person, place, time, and situation. Cranial nerves II-XII grossly intact. Motor strength 5/5 in all extremities. Sensory grossly intact. Vital Signs: 14:29 BP 102 / 72; Pulse 72; Resp 14; Pulse Ox 99% on R/A; Weight 113.4 kg (R); Height 5 ft. dm5 5 in. (165.10 cm); Pain 5/10; 14:45 BP 109 / 85; Pulse 75; Resp 17; Pulse Ox 100% on R/A; tw2 15:24 BP 113 / 75; Pulse 66; Resp 21; Pulse Ox 100% on R/A; tw2 15:46 Temp 97.7(O); tw2 16:34 BP 128 / 85; Pulse 73; Resp 19; Pulse Ox 97% on R/A; tw2 17:09 BP 123 / 87; Pulse 68; Resp 17; Pulse Ox 100% on R/A; tw2 14:29 Body Mass Index 41.60 (113.40 kg, 165.10 cm) dm5 MDM: 14:33 Patient medically screened. rn 17:07 Differential diagnosis: abnormal EKG, acute myocardial infarction, acute pericarditis, rn anxiety, coronary artery disease chest wall pain, congestive heart failure costochondritis, esophagitis, gastroesophageal reflux disease (GERD), pericarditis, pleurisy, pneumothorax, stable angina. Data reviewed: vital signs, nurses notes, lab test result(s), EKG, radiologic studies, plain films, and as a result, I will discharge patient. Counseling: I had a detailed discussion with the patient and/or guardian regarding: the historical points, exam findings, and any diagnostic results supporting the discharge/admit diagnosis, lab results, radiology results, the need for outpatient follow up, to return to the emergency department if symptoms worsen or persist or if there are any questions or concerns that arise at home. Response to treatment: the patient's symptoms have resolved after treatment, the patient's condition has returned to base line, the patient is now symptom free, and as a result, I will discharge patient. Special discussion: Based on the patient's history, exam, and Dx evaluation, there is no indication for emergent intervention or inpatient Tx. It is understood by the patient/guardian that if the Sx's persist or worsen they need to return immediately for re-evaluation. I discussed with the patient/guardian in detail that at this point there is no indication for admission to the hospital. It is understood, however, that if the symptoms persist or worsen the patient needs to return immediately for re-evaluation. ED course: Pt with neg w/u here, she has f/u appt in 2 days, understands needs to keep it because may need stress test or holter, asymptomatic, understands return precautions if worsens or changed prior to cardiology evaluation.. 04/16 14:44 Order name: Basic Metabolic Panel rn 04/16 14:44 Order name: CBC with Diff rn 04/16 14:44 Order name: NT PRO-BNP; Complete Time: 16:29 rn 04/16 14:44 Order name: Troponin (emerg Dept Use Only); Complete Time: 16:29 rn 04/16 14:45 Order name: Basic Metabolic Panel; Complete Time: 16:29 EDMS 04/16 14:45 Order name: CBC with Automated Diff; Complete Time: 16:29 EDMS 04/16 14:44 Order name: XRAY Chest (1 view); Complete Time: 16:29 rn 04/16 14:44 Order name: EKG; Complete Time: 14:45 rn 04/16 14:44 Order name: Cardiac monitoring; Complete Time: 14:56 rn 04/16 14:44 Order name: EKG - Nurse/Tech; Complete Time: 14:56 rn 04/16 14:44 Order name: IV Saline Lock; Complete Time: 14:56 rn 04/16 14:44 Order name: Labs collected and sent; Complete Time: 14:56 rn 04/16 14:44 Order name: O2 Per Protocol; Complete Time: 14:56 rn 04/16 16:02 Order name: CBC Smear Scan; Complete Time: 16:29 EDMS 04/16 14:44 Order name: O2 Sat Monitoring; Complete Time: 14:56 rn Administered Medications: No medications were administered Disposition: 04/16/18 17:10 Discharged to Home. Impression: Chest pain, unspecified. - Condition is Stable. - Discharge Instructions: Nonspecific Chest Pain. - Medication Reconciliation Form, Thank You Letter, Antibiotic Education, Prescription Opioid Use form. - Follow up: Private Physician; When: 1 - 2 days; Reason: Recheck today's complaints, Re-evaluation by your physician. - Problem is new. - Symptoms have improved. Signatures: Dispatcher [employer] Katina Dickson RN RN dm5 Meir Irene MD MD rn Glo Champagne RN RN tw2 Corrections: (The following items were deleted from the chart) 17:19 17:10 04/16/2018 17:10 Discharged to Home. Impression: Chest pain, unspecified. tw2 Condition is Stable. Forms are Medication Reconciliation Form, Thank You Letter, Antibiotic Education, Prescription Opioid Use. Follow up: Private Physician; When: 1 - 2 days; Reason: Recheck today's complaints, Re-evaluation by your physician. Problem is new. Symptoms have improved. rn
== END 2018-04-16 17:19 | disposition home or self-care (01) ==
LOC: ER 14:01
DX: R07.9 Chest pain, unspecified (principal); I10 Essential (primary) hypertension; E11.9 Type 2 diabetes mellitus without complications; F41.9 Anxiety disorder, unspecified; I25.2 Old myocardial infarction; J45.909 Unspecified asthma, uncomplicated; Z79.82 Long term (current) use of aspirin
CPT/HCPCS: 36415; 71045; 80048; 83880; 84484; 85025; 93005; 99285

== ENCOUNTER 2018-08-16 16:04 | Emergency (ER) | payer OTHER ==
[2018-08-16] MEDS ORDERED: MORPHINE 4 MG/ML SYR ONE (17:17)
[2018-08-16] MEDS ORDERED: ONDANSETRON 4 MG/2 ML VIAL ONE (17:17)
[2018-08-16] MEDS ORDERED: DIAZEPAM 5 MG TABLET ONE (17:17)
--- NOTE | 2018-08-16 17:22 | RAD REPORT ---
EXAM DESCRIPTION: RAD - Chest Single View - 08/16/2018 5:16 pm CLINICAL HISTORY: Chest pain, left arm pain and numbness COMPARISON: April 2018 TECHNIQUE: AP portable chest image was obtained 1709 hours . FINDINGS: Lungs are clear. Heart and vasculature are normal. No measurable pleural effusion and no p neumothorax. No acute bony abnormality seen. No acute aortic findings suspected. IMPRESSION: No acute cardiopulmonary process. No significant interval change.
[2018-08-16 17:32] LABS: Absolute Lymphocytes (CBC) 5.9 K/uL (0.7-4.9); Absolute Monocytes 0.9 K/uL (0.1-1.3); Absolute Neutrophil 4.8 K/uL (1.8-8.0); Basophils % 0.7 % (0-1.3); Eosinophils % 2.8 % (0-4.4); Hematocrit 41.3 % (36.0-45.0); Lymphocytes % 49.3 % (15.3-44.8); MPV 8.7 fL (7.6-11.3); Monocytes % 7.2 % (3.3-12.3); RBC Red Blood Cell Count 5.12 M/uL (3.86-4.86)
[2018-08-16 17:39] LABS: Protime INR 0.93
[2018-08-16 17:50] LABS: ALT/SGPT 60 U/L (12-78); AST/SGOT 47 U/L (15-37); Albumin 3.4 g/dL (3.4-5.0); Alkaline Phosphatase 91 U/L (45-117); BUN Blood Urea Nitrogen 18 mg/dL (7-18); Bicarbonate 23 mmol/L (21-32); Bilirubin Direct < 0.1 mg/dL (0-0.2); Bilirubin Total 0.2 mg/dL (0.2-1.0); Glucose Level 103 mg/dL (74-106); Magnesium 2.3 mg/dL (1.8-2.4); NT PRO-BNP 214 pg/mL (<125); Protein, Total 7.4 g/dL (6.4-8.2); Sodium Level 142 mmol/L (136-145); Troponin (Emerg Dept Use Only) < 0.02 ng/mL (0.0-0.045)
--- NOTE | 2018-08-16 18:21 | RAD REPORT ---
EXAM DESCRIPTION: CT - [id number] - 08/16/2018 6:10 pm CLINICAL HISTORY: Headache, neck pain COMPARISON: None. TECHNIQUE: Axial 5 mm thick images of the head were obtained. Axial 2 mm thick images of the cervic al spine were obtained with sagittal and coronal reconstruction images generated and reviewed. All CT scans are performed using dose optimization technique as appropriate and may include automated exposure control or mA/KV adjustment according to patient size. FINDINGS: No intracranial hemorrhage, mass, edema or acute intracranial finding. No suspicion for acute infarct ion. No extra-axial fluid collections. Mastoid air cells and paranasal sinuses are clear. No globe or orbit abnormality seen. Ventricles are normal. Cervical body height and alignment are normal. C5-6 and C6-7 disc space narrowing and endplate spurri ng changes are present. No fracture or acute bony abnormality. No significant bony foraminal encroach ment. No paraspinal mass or hematoma. IMPRESSION: Negative CT head examination for acute or significant finding. No fracture or acute cervical spine finding. C5-6 and C6-7 degenerative disc and endplate changes are present.
--- NOTE | 2018-08-16 18:44 | EDPHYS ---
Physician Documentation [facility] Name: Funmi Stoner Age: 58 yrs Sex: Female : 1960 Arrival Date: 08/16/2018 Time: 16:05 Bed 26 Private MD: Vini Sanches ED Physician Jesus Paul HPI: 08/16 16:54 This 58 yrs old Black Female presents to ER via Ambulatory with complaints of Numbness jmm Of Arm. 16:54 The patient or guardian complains of injury, pain. Onset: The symptoms/episode jmm began/occurred gradually, 3 day(s) ago. Treatment prior to arrival includes: no previous treatment. This is a 58 year old female with a history of anxiety, asthma, DM, chronic back pain, htn that presents to the ED with complaints of left shoulder pain radiating to her chest and left arm. Symptoms began this past Monday and was evaluated by PCP. Patient was also reevaluated by pain management yesterday. Patient also complaints of numbness to the left lateral thigh. Patient denies weakness to the extremity. . Historical: - Allergies: 16:21 Albuterol; ph 16:21 Sulfa (Sulfonamide Antibiotics); ph - Home Meds: 18:18 Advair Diskus 100-50 mcg/dose Inhl dsdv [Active]; aspirin 81 mg Oral chew [Active]; tw2 Cymbalta Oral [Active]; amlodipine 10 mg tab [Active]; Hydrocodone-Acetaminophen Oral [Active]; gabapentin 600 mg Oral tab [Active]; lisinopril 20 mg Oral tab [Active]; Klonopin 0.5 mg Oral tab [Active]; metoprolol tartrate 25 mg Oral tab [Active]; Prednisone Oral [Active]; - PMHx: 16:21 Anxiety; Asthma; Diabetes - NIDDM; hot flashes; Hypertension; Irregular heart rate; ph Myocardial infarction; - PSHx: 16:21 Tubal ligation; cardiac catherization; ph - Immunization history:: Adult Immunizations up to date. - Social history:: Smoking status: unknown. - Ebola Screening: : Patient negative for fever greater than or equal to 101.5 degrees Fahrenheit, and additional compatible Ebola Virus Disease symptoms Patient denies exposure to infectious person Patient denies travel to an Ebola-affected area in the 21 days before illness onset. ROS: 16:54 Constitutional: Negative for fever, chills, and weight loss. m 16:54 Respiratory: Negative for shortness of breath, cough, wheezing, and pleuritic chest pain, Abdomen/GI: Negative for abdominal pain, nausea, vomiting, diarrhea, and constipation, Back: Negative for injury and pain. 16:54 Cardiovascular: Positive for chest pain, with movement. 16:54 MS/extremity: Positive for pain, paresthesias. 16:54 All other systems are negative. Exam: 16:54 Head/Face: atraumatic. jmm 16:54 Chest/axilla: Normal chest wall appearance and motion. 16:54 Constitutional: The patient appears alert, awake, anxious, uncomfortable. 16:54 Neck: C-spine: appears grossly normal, ROM/movement: limited range of motion, that is mild, in any direction. 16:54 Cardiovascular: Rate: normal, Rhythm: regular. 16:54 Respiratory: the patient does not display signs of respiratory distress, Respirations: normal, Breath sounds: are clear throughout. 16:54 Abdomen/GI: Inspection: abdomen appears normal, Bowel sounds: normal, Palpation: abdomen is soft and non-tender. 16:54 Musculoskeletal/extremity: painful rom of the left shoulder, the left trapezius is tender to palpation, FROM appreciated to all extremities. 16:54 Skin: Appearance: Color: normal in color. 16:54 Neuro: Orientation: is normal, Mentation: is normal, Memory: is normal. 16:54 Psych: Behavior/mood is pleasant, cooperative. Vital Signs: 16:21 BP 146 / 113; Pulse 80; Resp 18; Temp 97.9; Pulse Ox 100% on R/A; Weight 107.5 kg; ph Height 5 ft. 5 in. (165.10 cm); Pain 10/10; 16:45 BP 153 / 106; Pulse 74; Resp 17; Pulse Ox 100% on R/A; rv 17:15 BP 137 / 80; Pulse 70; Resp 18; Pulse Ox 100% on R/A; rv 18:15 BP 124 / 82; Pulse 75; Resp 17; Pulse Ox 100% on R/A; tw2 16:21 Body Mass Index 39.44 (107.50 kg, 165.10 cm) ph MDM: 16:54 Patient medically screened. [facility] 18:40 Data reviewed: vital signs, nurses notes. Counseling: I had a detailed discussion with [facility] the patient and/or guardian regarding: the historical points, exam findings, and any diagnostic results supporting the discharge/admit diagnosis, lab results, radiology results, the need for outpatient follow up, to return to the emergency department if symptoms worsen or persist or if there are any questions or concerns that arise at home. ED course: Symptoms appear consistent with cervical radiculopathy. Due to paresthesias of the left lateral thigh, patient is advised to follow up with neurology for further evaluation. Patient's pain is relieved in the ED. I discussed findings with the patient. patient understood and agrees with the plan of care. . 08/16 16:55 Order name: Basic Metabolic Panel; Complete Time: 17:52 [facility] 08/16 16:55 Order name: CBC with Diff; Complete Time: 17:52 [facility] 08/16 16:55 Order name: LFT's; Complete Time: 17:52 [facility] 08/16 16:55 Order name: Magnesium; Complete Time: 17:52 [facility] 08/16 16:55 Order name: NT PRO-BNP; Complete Time: 17:52 [facility] 08/16 16:55 Order name: PT-INR; Complete Time: 17:52 [facility] 08/16 16:55 Order name: Troponin (emerg Dept Use Only); Complete Time: 17:52 [facility] 08/16 16:55 Order name: XRAY Chest (1 view); Complete Time: 17:52 [facility] 08/16 16:55 Order name: EKG; Complete Time: 16:56 [facility] 08/16 16:55 Order name: Cardiac monitoring; Complete Time: 17:10 [facility] 08/16 16:55 Order name: CT Head C Spine; Complete Time: 18:30 [facility] 08/16 16:55 Order name: EKG - Nurse/Tech; Complete Time: 17:10 [facility] 08/16 16:55 Order name: IV Saline Lock; Complete Time: 17:10 [facility] 08/16 16:55 Order name: Labs collected and sent; Complete Time: 17:11 [facility] 08/16 16:55 Order name: O2 Per Protocol; Complete Time: 17:11 [facility] 08/16 16:55 Order name: O2 Sat Monitoring; Complete Time: 17:11 jmm Administered Medications: 17:15 Drug: morphine 4 mg Route: IVP; Site: right hand; rv 18:32 Follow up: Response: Pain is decreased rv 17:15 Drug: Zofran 4 mg Route: IVP; Site: right hand; rv 18:33 Follow up: Response: Pain is decreased rv 17:15 Drug: Valium 5 mg Route: IVP; Site: right hand; rv 18:32 Follow up: Response: Pain is decreased rv Disposition: 08/17 06:42 Co-signature as Attending Physician, Jesus Paul MD I agree with the assessment and kdr plan of care. Disposition: 08/16/18 18:42 Discharged to Home. Impression: Radicular Pain, paresthesias. - Condition is Stable. - Discharge Instructions: Cervical Radiculopathy, Paresthesia. - Prescriptions for Zanaflex 4 mg Oral Tablet - take 1 tablet by ORAL route every 8 hours As needed; 20 tablet. - Medication Reconciliation Form, Thank You Letter, Antibiotic Education, Prescription Opioid Use form. - Follow up: Vini Sanches DO; When: Tomorrow; Reason: Recheck today's complaints, Continuance of care, Re-evaluation by your physician. Follow up: Tariq Odonnell MD; When: 1 - 2 days; Reason: Recheck today's complaints, Continuance of care, Re-evaluation by your physician. Signatures: Dispatcher [employer] EDJesus Hernandez MD MD kdr Mickail, Joel, PA PA jmm Rosemray Zayas RN RN Glo Champagne RN RN tw2 Aleksander Valerio RN RN rv Corrections: (The following items were deleted from the chart) 08/16 18:51 18:42 08/16/2018 18:42 Discharged to Home. Impression: Radicular Pain; paresthesias. tw2 Condition is Stable. Forms are Medication Reconciliation Form, Thank You Letter, Antibiotic Education, Prescription Opioid Use. Follow up: Vini Sanches; When: Tomorrow; Reason: Recheck today's complaints, Continuance of care, Re-evaluation by your physician. Follow up: Tariq Odonnell; When: 1 - 2 days; Reason: Recheck today's complaints, Continuance of care, Re-evaluation by your physician. jmm
--- NOTE | 2018-08-16 18:44 | ER ---
Nurse's Notes [facility] Name: Funmi Stoner Age: 58 yrs Sex: Female : 1960 Arrival Date: 08/16/2018 Time: 16:05 Bed 26 Private MD: Vini Sanches Diagnosis: Radicular Pain;paresthesias Presentation: 08/16 16:19 Presenting complaint: Patient states: L arm pain and numbness that radiates to L side ph of neck x 1 week, also c/o pain and numbness in L outer thigh, seen by PCP and pain management, states, " I take gabapentin and hydrocodone and it doesn't help.". Transition of care: patient was not received from another setting of care. Onset of symptoms was August 16, 2018. Risk Assessment: Do you want to hurt yourself or someone else? Patient reports no desire to harm self or others. Initial Sepsis Screen: Does the patient meet any 2 criteria? No. Patient's initial sepsis screen is negative. Does the patient have a suspected source of infection? No. Patient's initial sepsis screen is negative. Care prior to arrival: None. 16:19 Method Of Arrival: Ambulatory ph 16:19 Acuity: LINDSAY 3 ph Historical: - Allergies: 16:21 Albuterol; ph 16:21 Sulfa (Sulfonamide Antibiotics); ph - Home Meds: 18:18 Advair Diskus 100-50 mcg/dose Inhl dsdv [Active]; aspirin 81 mg Oral chew [Active]; tw2 Cymbalta Oral [Active]; amlodipine 10 mg tab [Active]; Hydrocodone-Acetaminophen Oral [Active]; gabapentin 600 mg Oral tab [Active]; lisinopril 20 mg Oral tab [Active]; Klonopin 0.5 mg Oral tab [Active]; metoprolol tartrate 25 mg Oral tab [Active]; Prednisone Oral [Active]; - PMHx: 16:21 Anxiety; Asthma; Diabetes - NIDDM; hot flashes; Hypertension; Irregular heart rate; ph Myocardial infarction; - PSHx: 16:21 Tubal ligation; cardiac catherization; ph - Immunization history:: Adult Immunizations up to date. - Social history:: Smoking status: unknown. - Ebola Screening: : Patient negative for fever greater than or equal to 101.5 degrees Fahrenheit, and additional compatible Ebola Virus Disease symptoms Patient denies exposure to infectious person Patient denies travel to an Ebola-affected area in the 21 days before illness onset. Screenin:26 Abuse screen: Denies threats or abuse. Denies injuries from another. Nutritional rv screening: No deficits noted. Tuberculosis screening: No symptoms or risk factors identified. Fall Risk None identified. Assessment: 17:25 General: Appears in no apparent distress. uncomfortable, Behavior is calm, cooperative. rv Pain: Complains of pain in left arm and left leg. Neuro: Level of Consciousness is awake, alert, obeys commands, Oriented to person, place, time, situation. Cardiovascular: Capillary refill < 3 seconds. Respiratory: Airway is patent. GI: No signs and/or symptoms were reported involving the gastrointestinal system. : No signs and/or symptoms were reported regarding the genitourinary system. EENT: No signs and/or symptoms were reported regarding the EENT system. Derm: Skin is intact. Musculoskeletal: Reports pain in left arm and left leg. 18:15 Reassessment: Patient appears in no apparent distress at this time. No changes from tw2 previously documented assessment. Patient and/or family updated on plan of care and expected duration. Pain level reassessed. Patient is alert, oriented x 3, equal unlabored respirations, skin warm/dry/pink. 18:51 Reassessment: Patient appears in no apparent distress at this time. Patient and/or tw2 family updated on plan of care and expected duration. Pain level reassessed. Patient is alert, oriented x 3, equal unlabored respirations, skin warm/dry/pink. Patient states feeling better. Patient states symptoms have improved. Vital Signs: 16:21 BP 146 / 113; Pulse 80; Resp 18; Temp 97.9; Pulse Ox 100% on R/A; Weight 107.5 kg; ph Height 5 ft. 5 in. (165.10 cm); Pain 10/10; 16:45 BP 153 / 106; Pulse 74; Resp 17; Pulse Ox 100% on R/A; rv 17:15 BP 137 / 80; Pulse 70; Resp 18; Pulse Ox 100% on R/A; rv 18:15 BP 124 / 82; Pulse 75; Resp 17; Pulse Ox 100% on R/A; tw2 16:21 Body Mass Index 39.44 (107.50 kg, 165.10 cm) ph ED Course: 16:05 Patient arrived in ED. sb2 16:07 Vini Sanches DO is Private Physician. sb2 16:13 Glo Champagne, ANGEL is Primary Nurse. tw2 16:21 Triage completed. ph 16:22 Arm band placed on Patient placed in an exam room, on a stretcher. ph 16:35 Huy Gibson PA is PHCP. jmm 16:35 Jesus Paul MD is Attending Physician. jmm 17:15 Inserted saline lock: 20 gauge in right hand, using aseptic technique. rv 17:19 XRAY Chest (1 view) In Process Unspecified. EDMS 17:27 Patient has correct armband on for positive identification. Placed in gown. Bed in low rv position. Call light in reach. Side rails up X 1. Pulse ox on. NIBP on. 18:[address] via wheelchair. nj 18:08 CT completed. Patient tolerated procedure well. Patient moved back from CT. nj 18:10 CT Head C Spine In Process Unspecified. EDMS 18:41 Vini Sanches DO is Referral Physician. jmm 18:41 Tariq Odonnell MD is Referral Physician. jmm 18:50 No provider procedures requiring assistance completed. IV discontinued, intact, tw2 bleeding controlled, No redness/swelling at site. Pressure dressing applied. Administered Medications: 17:15 Drug: morphine 4 mg Route: IVP; Site: right hand; rv 18:32 Follow up: Response: Pain is decreased rv 17:15 Drug: Zofran 4 mg Route: IVP; Site: right hand; rv 18:33 Follow up: Response: Pain is decreased rv 17:15 Drug: Valium 5 mg Route: IVP; Site: right hand; rv 18:32 Follow up: Response: Pain is decreased rv Outcome: 18:42 Discharge ordered by . jmm 18:50 Discharged to home ambulatory. tw2 18:50 Condition: stable 18:50 Discharge instructions given to patient, Instructed on discharge instructions, follow up and referral plans. no drinking with medication, no driving heavy equipment, medication usage, Demonstrated understanding of instructions, follow-up care, medications, Prescriptions given X 1. 18:51 Patient left the ED. tw2 Signatures: Dispatcher [employer] EDMS Hyu Gibson PA PA jmm Hall, Patricia, RN RN ph Glo Champagne RN RN tw2 Quan Matson Sheri sb2 Aleksander Valerio RN RN rv
--- NOTE | 2018-08-17 07:01 | EKG ---
Test Date: 2018-08-16 Test Time: 17:18:59 Concierge: DAVIDET MEASUREMENT RESULTS: Intervals: Rate: 61 DE: 154 QRSD: 78 QT: 458 QTc: 461 Antigo: P: 54 DE: 154 QRS: 54 T: 33 INTERPRETIVE STATEMENTS: Normal sinus rhythm Possible Left atrial enlargement Borderline ECG Compared to ECG 04/16/2018 14:15:08 No significant changes Electronically Signed On 08-17-18 06:53:33 DISPENSING AUDIOLOGIST by Mario Alberto Whittington
== END 2018-08-16 18:51 | disposition home or self-care (01) ==
LOC: ER 16:04
DX: M54.10 Radiculopathy, site unspecified (principal); R20.2 Paresthesia of skin; I10 Essential (primary) hypertension; E11.9 Type 2 diabetes mellitus without complications; J45.909 Unspecified asthma, uncomplicated; I25.2 Old myocardial infarction; Z79.82 Long term (current) use of aspirin; Z88.2 Allergy status to sulfonamides; Z88.8 Allergy status to other drugs, medicaments and biological substances
CPT/HCPCS: 36415; 70450; 71045; 72125; 80048; 80076; 83735; 83880; 84484; 85025; 85610; 93005; 96374; 96375; 99284; J2405

== ENCOUNTER 2018-10-28 22:04 | Emergency (ER) | payer OTHER ==
--- OUTSIDE RECORDS SUMMARY | 2018-10-28 22:06 | XMS REPORT ---
:1960 [facility] Address [address] [place] [address] [address] [place] [address] Care Team Providers Name Role Phone Unavailable Unavailable Unavailable Problems This patient has no known problems. Allergies, Adverse Reactions, Alerts This patient has no known allergies or adverse reactions. Medications This patient has no known medications.
[2018-10-28] MEDS ORDERED: METHYLPREDNISOLONE 125 MG INJ ONE (22:50)
[2018-10-28] MEDS ORDERED: LEVALBUTEROL 1.25 MG/3 ML NEB ONE (22:51)
[2018-10-28 23:25] LABS: Absolute Lymphocytes (CBC) 5.1 K/uL (0.7-4.9); Absolute Monocytes 1.2 K/uL (0.1-1.3); Eosinophils % 1.9 % (0-4.4); Lymphocytes % 48.3 % (15.3-44.8); MPV 9.2 fL (7.6-11.3); Monocytes % 11.2 % (3.3-12.3); RBC Red Blood Cell Count 5.11 M/uL (3.86-4.86)
[2018-10-28 23:41] LABS: BUN Blood Urea Nitrogen 22 mg/dL (7-18); Bicarbonate 26 mmol/L (21-32); Glucose Level 93 mg/dL (74-106); NT PRO-BNP 147 pg/mL (<125); Potassium 3.7 mmol/L (3.5-5.1); Sodium Level 143 mmol/L (136-145); Troponin (Emerg Dept Use Only) < 0.02 ng/mL (0.0-0.045)
--- NOTE | 2018-10-28 23:58 | ER ---
Nurse's Notes [facility] Name: Funmi Stoner Age: 58 yrs Sex: Female : 1960 Arrival Date: 10/28/2018 Time: 22:13 Bed 5 Private MD: Diagnosis: Unspecified asthma with (acute) exacerbation Presentation: 10/28 22:05 Presenting complaint: Patient states: that she has had a cough with green drainage for fc 3 days and is on Amoxil that her dr called in. Today she started to have episodes of shortness of breath and chest tightness which lasted only a few minutes. She used her inhaler a few times and then became very anxious. Transition of care: patient was not received from another setting of care. Onset of symptoms was October 28, 2018. Risk Assessment: Do you want to hurt yourself or someone else? Patient reports no desire to harm self or others. Initial Sepsis Screen: Does the patient meet any 2 criteria? RR > 20 per min. Yes Does the patient have a suspected source of infection? No. Patient's initial sepsis screen is negative. Care prior to arrival: None. 22:05 Method Of Arrival: EMS: [facility] 22:05 Acuity: LINDSAY 3 fc Historical: - Allergies: 22:21 Albuterol; fc 22:21 Sulfa (Sulfonamide Antibiotics); fc - Home Meds: 22:21 Advair Diskus 100-50 mcg/dose Inhl dsdv 1 puff 2 times per day [Active]; amlodipine 10 fc mg tab 1 tab once daily [Active]; lisinopril 20 mg Oral tab 1 tab once daily [Active]; metoprolol tartrate 25 mg Oral tab 1 tab 2 times per day [Active]; gabapentin 400 mg oral cap 1 cap 3 times per day [Active]; hydrocodone-acetaminophen 10-325 mg oral tab 1 tab 3-4 times a day [Active]; omeprazole 20 mg Oral cpDR 1 cap once daily [Active]; Furosemide Oral daily prn [Active]; Klonopin 0.5 mg Oral tab 1 tab 2 times per day [Active]; - PMHx: 22:21 Anxiety; Diabetes - NIDDM; hot flashes; Hypertension; Irregular heart rate; Myocardial fc infarction; Asthma; Rheumatoid Arthritis; Panic Attacks; - PSHx: 22:21 Tubal ligation; cardiac catherization; fc - Immunization history:: Last tetanus immunization: unknown, Flu vaccine is not up to date. - Social history:: Smoking status: Patient/guardian denies using tobacco, Patient/guardian denies using alcohol, street drugs. - Ebola Screening: : Patient negative for fever greater than or equal to 101.5 degrees Fahrenheit, and additional compatible Ebola Virus Disease symptoms Patient denies exposure to infectious person Patient denies travel to an Ebola-affected area in the 21 days before illness onset. - Family history:: not pertinent. - Hospitalizations: : No recent hospitalization is reported. Screenin:05 Abuse screen: Denies threats or abuse. Nutritional screening: No deficits noted. fc Tuberculosis screening: No symptoms or risk factors identified. Fall Risk None identified. Assessment: 22:21 Reassessment: Patient states feeling better. General: Appears in no apparent distress. lp1 comfortable, Behavior is calm, cooperative, appropriate for age. Pain: Complains of pain in chest. Neuro: Level of Consciousness is awake, alert, obeys commands, Oriented to person, place, time, situation. Cardiovascular: Patient's skin is warm and dry. Rhythm is sinus rhythm. Respiratory: Reports shortness of breath cough that is productive, Airway is patent Respiratory effort is even, unlabored, Respiratory pattern is regular, Breath sounds with wheezes bilaterally. Onset: The symptoms/episode began/occurred gradually, the patient has mild shortness of breath. GI: Abdomen is non-distended. : No signs and/or symptoms were reported regarding the genitourinary system. EENT: No signs and/or symptoms were reported regarding the EENT system. Derm: Skin is intact, Skin is dry, Skin is normal. Musculoskeletal: No deficits noted. 23:30 Reassessment: Patient and/or family updated on plan of care and expected duration. Pain lp1 level reassessed. Patient denies pain at this time. Patient states feeling better. Patient states symptoms have improved. 10/29 00:25 Reassessment: Patient appears in no apparent distress at this time. Patient and/or tl2 family updated on plan of care and expected duration. Pain level reassessed. Patient is alert, oriented x 3, equal unlabored respirations, skin warm/dry/pink. pt verbalized understanding of discharge instructions, need for follow up and prescription usage Patient states feeling better. Vital Signs: 10/28 22:05 BP 139 / 88; Pulse 74; Resp 22; Temp 98.0(O); Pulse Ox 100% on R/A; Weight 104.33 kg fc (R); Height 5 ft. 5 in. (165.10 cm) (R); Pain 8/10; 23:38 BP 109 / 71; Pulse 88; Resp 19; Pulse Ox 100% on R/A; tl2 10/29 00:25 BP 113 / 77; Pulse 87; Resp 18; Pulse Ox 100% on R/A; tl2 10/28 22:05 Body Mass Index 38.27 (104.33 kg, 165.10 cm) ED Course: 10/28 22:05 Arm band placed on Patient placed in an exam room, on a stretcher. fc 22:05 Patient has correct armband on for positive identification. Placed in gown. Bed in low fc position. Call light in reach. Side rails up X2. child monitor on. Pulse ox on. NIBP on. 22:05 No provider procedures requiring assistance completed. fc 22:13 Patient arrived in ED. fc 22:16 Triage completed. fc 22:17 Meir Irene MD is Attending Physician. rn 22:20 Karoline Bautista RN is Primary Nurse. lp1 22:42 Inserted saline lock: 22 gauge in right forearm, using aseptic technique. Blood tl2 collected. 23:24 X-ray completed. Portable x-ray completed in exam room. Patient tolerated procedure kw well. 23:32 Chest Single View In Process Unspecified. EDMS 10/29 00:25 IV discontinued, intact, bleeding controlled, No redness/swelling at site. Pressure tl2 dressing applied. Administered Medications: 10/28 22:45 Drug: SOLU-Medrol 125 mg Route: IVP; Site: right forearm; lp1 10/29 00:27 Follow up: Response: No adverse reaction; Marked relief of symptoms tl2 10/28 22:45 Drug: Xopenex (3) 1.25 mg Route: Inhalation; lp1 10/29 00:28 Follow up: Response: No adverse reaction; Marked relief of symptoms tl2 Outcome: 10/28 23:58 Discharge ordered by . rn 10/29 00:25 Discharged to home ambulatory, with family. tl2 Condition: stable Discharge instructions given to patient, family, Instructed on discharge instructions, follow up and referral plans. medication usage, Demonstrated understanding of instructions, follow-up care, medications, Prescriptions given X 1. 00:28 Patient left the ED. tl2 Signatures: Dispatcher [employer] EDMS Mia Sherman RN RN Meir Cantu MD MD rn Whitley, Kimberlee kw Pena, Laura, RN RN lp1 Rekha Lancaster RN RN tl2 Corrections: (The following items were deleted from the chart) 10/28 22:22 22:21 Respiratory: Reports shortness of breath cough that is productive, Airway is lp1 patent Respiratory effort is even, unlabored, Respiratory pattern is regular, Breath sounds with wheezes bilaterally. Onset: The symptoms/episode began/occurred gradually, lp1
--- NOTE | 2018-10-28 23:59 | EDPHYS ---
Physician Documentation [facility] Name: Funmi Stoner Age: 58 yrs Sex: Female : 1960 Arrival Date: 10/28/2018 Time: 22:13 Bed 5 Private MD: ED Physician Meir Irene HPI: 10/28 23:35 This 58 yrs old Black Female presents to ER via EMS with complaints of Shortness Of rn Breath. 23:35 The patient has shortness of breath at rest. rn 23:35 Onset: The symptoms/episode began/occurred 3 day(s) ago. Duration: The symptoms are rn continuous. The patient's shortness of breath is aggravated by coughing, exertion. Associated signs and symptoms: Pertinent positives: productive cough, Pertinent negatives: fever, hemoptysis. Severity of symptoms: At their worst the symptoms were moderate in the emergency department the symptoms are unchanged. The patient has experienced similar episodes in the past. REports cough and wheezing for 3 days, seen by pcp, put on amoxicillin, reports green sputum, no steroids recently. No hemoptysis. Reports felt short of breath, took her inhaler 3-4 times, and reports afterwards felt heart race and chest tightness. NO previous MO, HAd neg cath a few years ago. NO current chest pain, only sob. . Historical: - Allergies: 22:21 Albuterol; fc 22:21 Sulfa (Sulfonamide Antibiotics); fc - Home Meds: 22:21 Advair Diskus 100-50 mcg/dose Inhl dsdv 1 puff 2 times per day [Active]; amlodipine 10 fc mg tab 1 tab once daily [Active]; lisinopril 20 mg Oral tab 1 tab once daily [Active]; metoprolol tartrate 25 mg Oral tab 1 tab 2 times per day [Active]; gabapentin 400 mg oral cap 1 cap 3 times per day [Active]; hydrocodone-acetaminophen 10-325 mg oral tab 1 tab 3-4 times a day [Active]; omeprazole 20 mg Oral cpDR 1 cap once daily [Active]; Furosemide Oral daily prn [Active]; Klonopin 0.5 mg Oral tab 1 tab 2 times per day [Active]; - PMHx: 22:21 Anxiety; Diabetes - NIDDM; hot flashes; Hypertension; Irregular heart rate; Myocardial fc infarction; Asthma; Rheumatoid Arthritis; Panic Attacks; - PSHx: 22:21 Tubal ligation; cardiac catherization; fc - Immunization history:: Last tetanus immunization: unknown, Flu vaccine is not up to date. - Social history:: Smoking status: Patient/guardian denies using tobacco, Patient/guardian denies using alcohol, street drugs. - Ebola Screening: : Patient negative for fever greater than or equal to 101.5 degrees Fahrenheit, and additional compatible Ebola Virus Disease symptoms Patient denies exposure to infectious person Patient denies travel to an Ebola-affected area in the 21 days before illness onset. - Family history:: not pertinent. - Hospitalizations: : No recent hospitalization is reported. ROS: 23:35 Constitutional: Negative for fever, chills, and weight loss, Eyes: Negative for injury, rn pain, redness, and discharge, Neck: Negative for injury, pain, and swelling, Cardiovascular: Negative for edema Respiratory: + sob and cough Abdomen/GI: Negative for abdominal pain, nausea, vomiting, diarrhea, and constipation, MS/Extremity: Negative for injury and deformity, Skin: Negative for injury, rash, and discoloration, Neuro: Negative for headache, weakness, numbness, tingling, and seizure. Exam: 23:35 Constitutional: This is a well developed, well nourished patient who is awake, alert, rn and in no acute distress. Head/Face: Normocephalic, atraumatic. Eyes: Pupils equal round and reactive to light, extra-ocular motions intact. Lids and lashes normal. Conjunctiva and sclera are non-icteric and not injected. Cornea within normal limits. Periorbital areas with no swelling, redness, or edema. ENT: MMM, no stridor Cardiovascular: Regular rate and rhythm with a normal S1 and S2. No gallops, murmurs, or rubs. Normal PMI, no JVD. No pulse deficits. Respiratory: + bilateral wheezing, mild tachypnea, speaking full sentences. Abdomen/GI: soft, non-tender MS/ Extremity: Pulses equal, no cyanosis. Neurovascular intact. Full, normal range of motion. Equal circumference. Neuro: Awake and alert, GCS 15, oriented to person, place, time, and situation. Cranial nerves II-XII grossly intact. Motor strength 5/5 in all extremities. Sensory grossly intact. Vital Signs: 22:05 BP 139 / 88; Pulse 74; Resp 22; Temp 98.0(O); Pulse Ox 100% on R/A; Weight 104.33 kg fc (R); Height 5 ft. 5 in. (165.10 cm) (R); Pain 8/10; 23:38 BP 109 / 71; Pulse 88; Resp 19; Pulse Ox 100% on R/A; tl2 10/29 00:25 BP 113 / 77; Pulse 87; Resp 18; Pulse Ox 100% on R/A; tl2 10/28 22:05 Body Mass Index 38.27 (104.33 kg, 165.10 cm) fc MDM: 10/28 22:17 Patient medically screened. rn 23:57 Differential diagnosis: Anxiety Reaction Myocardial Infarction pneumonia, Pneumothorax rn pulmonary edema, reactive airway disease. Data reviewed: vital signs, nurses notes, lab test result(s), EKG, radiologic studies, plain films, and as a result, I will discharge patient. Counseling: I had a detailed discussion with the patient and/or guardian regarding: the historical points, exam findings, and any diagnostic results supporting the discharge/admit diagnosis, lab results, radiology results, the need for outpatient follow up, to return to the emergency department if symptoms worsen or persist or if there are any questions or concerns that arise at home. Special discussion: I discussed with the patient/guardian in detail that at this point there is no indication for admission to the hospital. It is understood, however, that if the symptoms persist or worsen the patient needs to return immediately for re-evaluation. ED course: Pt improved, already on abx, will prescribe steroids for asthma exacerbation. Trop and ecg without ischemia.. 10/28 23:16 Order name: Basic Metabolic Panel; Complete Time: 23:57 EDMS 10/28 23:16 Order name: Troponin (Emerg Dept Use Only); Complete Time: 23:57 EDMS 10/28 22:24 Order name: IV Start; Complete Time: 22:42 rn 10/28 22:24 Order name: EKG; Complete Time: 00:54 rn 10/28 23:04 Order name: Chest Single View EDMS 10/28 23:16 Order name: NT PRO-BNP; Complete Time: 23:57 EDMS 10/28 23:16 Order name: CBC with Automated Diff; Complete Time: 23:35 EDMS 10/28 22:24 Order name: EKG - Nurse/Tech; Complete Time: 22:31 rn Administered Medications: 22:45 Drug: SOLU-Medrol 125 mg Route: IVP; Site: right forearm; lp1 10/29 00:27 Follow up: Response: No adverse reaction; Marked relief of symptoms tl2 10/28 22:45 Drug: Xopenex (3) 1.25 mg Route: Inhalation; lp1 10/29 00:28 Follow up: Response: No adverse reaction; Marked relief of symptoms tl2 Disposition: 10/28/18 23:58 Discharged to Home. Impression: Unspecified asthma with (acute) exacerbation. - Condition is Stable. - Discharge Instructions: Asthma, Adult, Bronchospasm, Adult. - Prescriptions for Prednisone 20 mg Oral Tablet - take 3 tablet by ORAL route once daily for 5 days; 15 tablet. - Medication Reconciliation Form, Thank You Letter, Antibiotic Education, Prescription Opioid Use form. - Follow up: Private Physician; When: As needed; Reason: Recheck today's complaints, Re-evaluation by your physician. - Problem is an ongoing problem. - Symptoms have improved. Signatures: Dispatcher [employer] [facility] Mia Sherman RN RN Meir Irene MD MD rn Pena, Laura, RN RN lp1 Rekha Lancaster RN RN tl2 Corrections: (The following items were deleted from the chart) 00:28 10/28 23:58 10/28/2018 23:58 Discharged to Home. Impression: Unspecified asthma with tl2 (acute) exacerbation. Condition is Stable. Forms are Medication Reconciliation Form, Thank You Letter, Antibiotic Education, Prescription Opioid Use. Follow up: Private Physician; When: As needed; Reason: Recheck today's complaints, Re-evaluation by your physician. Problem is an ongoing problem. Symptoms have improved. rn
--- NOTE | 2018-10-29 08:11 | EKG ---
Test Date: 2018-10-28 Test Time: 22:13:17 Bright Cutter: ISACC MEASUREMENT RESULTS: Intervals: Rate: 71 NE: 138 QRSD: 82 QT: 430 QTc: 467 [place]: P: 50 NE: 138 QRS: 67 T: 45 INTERPRETIVE STATEMENTS: Normal sinus rhythm Possible Left atrial enlargement Borderline ECG Compared to ECG 08/16/2018 17:18:59 No significant changes Electronically Signed On 10-29-18 07:43:43 CDT by Mario Alberto Whittington
--- NOTE | 2018-10-29 08:14 | RAD REPORT ---
EXAM DESCRIPTION: RAD - Chest Single View - 10/28/2018 11:32 pm CLINICAL HISTORY: COUGH, CHEST PAIN Chest pain. COMPARISON: Chest Single View dated 08/16/2018; Chest Single View dated 04/16/2018; Chest Single View dated 09/25/2017; Chest Single View dated 07/06/2016 FINDINGS: Portable technique limits examination quality. The lungs are grossly clear. The heart is normal in size. No displaced fractures. IMPRESSION: No acute intrathoracic process suspected.
== END 2018-10-29 00:28 | disposition home or self-care (01) ==
LOC: ER 22:04
DX: J45.901 Unspecified asthma with (acute) exacerbation (principal); F41.9 Anxiety disorder, unspecified; E11.9 Type 2 diabetes mellitus without complications; I10 Essential (primary) hypertension; I25.2 Old myocardial infarction; Z88.2 Allergy status to sulfonamides; Z88.8 Allergy status to other drugs, medicaments and biological substances
CPT/HCPCS: 93005; 85025; 80048; 36415; 84484; 83880; 71045; 96374; 99285; J2930

== ENCOUNTER 2019-03-19 18:51 | Emergency (ER) | payer OTHER ==
--- OUTSIDE RECORDS SUMMARY | 2019-03-19 19:02 | XMS REPORT ---
:1960 [facility] Address [address] [place] [address] [address] [place] [address] Care Team Providers Name Role Phone Unavailable Unavailable Unavailable Problems This patient has no known problems. Allergies, Adverse Reactions, Alerts This patient has no known allergies or adverse reactions. Medications This patient has no known medications.
--- NOTE | 2019-03-19 20:05 | RAD REPORT ---
EXAM DESCRIPTION: RAD - Hand Right 3 View - 03/19/2019 7:56 pm CLINICAL HISTORY: Nontraumatic right hand pain COMPARISON: January 09, 2019 FINDINGS: No fracture is identified. There is no dislocation or periosteal reaction noted. No acute bone or joint finding seen. No significant change from the comparison. No air or foreign body in the soft tissues. IMPRESSION: Negative right hand examination. No identifiable change from January 09 imaging.
--- NOTE | 2019-03-19 20:44 | ER ---
Nurse's Notes [facility] Name: Funmi Stoner Age: 58 yrs Sex: Female : 1960 Arrival Date: 03/19/2019 Time: 18:53 Bed 20 Private MD: Diagnosis: Pain in right hand Presentation: 03/19 18:55 Presenting complaint: Worsening right hand pain and swelling x 2 days. Transition of hb care: patient was not received from another setting of care. Onset of symptoms was March 18, 2019. Risk Assessment: Do you want to hurt yourself or someone else? Patient reports no desire to harm self or others. Initial Sepsis Screen: Does the patient meet any 2 criteria? No. Patient's initial sepsis screen is negative. Does the patient have a suspected source of infection? No. Patient's initial sepsis screen is negative. Care prior to arrival: None. 18:55 Method Of Arrival: Ambulatory hb 18:55 Acuity: LINDSAY 3 hb Triage Assessment: 19:29 General: Appears in no apparent distress. comfortable, Behavior is calm, cooperative, cc3 appropriate for age. Pain: Complains of pain in right hand. Historical: - Allergies: 18:57 Sulfa (Sulfonamide Antibiotics); hb - Home Meds: 18:57 Advair Diskus 100-50 mcg/dose Inhl dsdv 1 puff 2 times per day [Active]; amlodipine 10 hb mg tab 1 tab once daily [Active]; Furosemide Oral daily prn [Active]; gabapentin 400 mg Oral cap 1 cap 3 times per day [Active]; hydrocodone-acetaminophen 10-325 mg Oral tab 1 tab 3-4 times a day [Active]; Klonopin 0.5 mg Oral tab 1 tab 2 times per day [Active]; lisinopril 20 mg Oral tab 1 tab once daily [Active]; metoprolol tartrate 25 mg Oral tab 1 tab 2 times per day [Active]; omeprazole 20 mg Oral cpDR 1 cap once daily [Active]; - PMHx: 18:57 Asthma; Anxiety; hot flashes; Hypertension; Diabetes - NIDDM; Irregular heart rate; hb Myocardial infarction; Rheumatoid Arthritis; Panic Attacks; - PSHx: 18:57 Tubal ligation; cardiac catherization; hb - Immunization history:: Adult Immunizations up to date. - Social history:: Smoking status: Patient/guardian denies using tobacco. - Ebola Screening: : No symptoms or risks identified at this time. Screenin:29 Abuse screen: Denies threats or abuse. Denies injuries from another. Nutritional cc3 screening: No deficits noted. Tuberculosis screening: No symptoms or risk factors identified. Fall Risk Ambulatory Aid- None/Bed Rest/Nurse Assist (0 pts). Gait- Normal/Bed Rest/Wheelchair (0 pts) Mental Status- Oriented to own ability (0 pts). Assessment: 19:10 General: Appears in no apparent distress. comfortable, Behavior is calm, cooperative, cc3 appropriate for age. Pain: Complains of pain in right hand. Neuro: Level of Consciousness is awake, alert, obeys commands, Oriented to person, place, time, situation, Appropriate for age. Cardiovascular: Denies chest pain, Capillary refill < 3 seconds Patient's skin is warm and dry. Respiratory: Airway is patent Respiratory effort is even, unlabored, Respiratory pattern is regular, symmetrical. GI: Abdomen is round non-distended. : No signs and/or symptoms were reported regarding the genitourinary system. EENT: No signs and/or symptoms were reported regarding the EENT system. Derm: Skin is intact, is healthy with good turgor, Skin is normal, black. Musculoskeletal: Circulation, motion, and sensation intact. Range of motion: limited in right hand. 20:18 Reassessment: Patient appears in no apparent distress at this time. Patient and/or cc3 family updated on plan of care and expected duration. Pain level reassessed. Patient is alert, oriented x 3, equal unlabored respirations, skin warm/dry/pink. 21:20 Reassessment: Patient appears in no apparent distress at this time. Patient and/or cc3 family updated on plan of care and expected duration. Pain level reassessed. Patient is alert, oriented x 3, equal unlabored respirations, skin warm/dry/pink. Dr. Hatch discharged the patient home with prescription given. No IV cannula in situ. Patient left ER vitally stable and ambulatory. No valuables left in the patient's room. Patient denies pain at this time. Patient states feeling better. Patient states symptoms have improved. Vital Signs: 18:57 BP 131 / 94; Pulse 78; Resp 16; Temp 97.2; Pulse Ox 100% on R/A; Weight 105.23 kg; hb Height 5 ft. 5 in. (165.10 cm); Pain 10/10; 19:27 BP 103 / 75; Pulse 74; Resp 16 S; Pulse Ox 99% on R/A; cc3 20:50 BP 123 / 74; Pulse 75; Resp 17 S; Pulse Ox 99% on R/A; cc3 18:57 Body Mass Index 38.61 (105.23 kg, 165.10 cm) hb ED Course: 18:53 Patient arrived in ED. rg4 18:56 Triage completed. hb 18:57 Arm band placed on left wrist. hb 19:06 Gigi Hatch MD is Attending Physician. tw4 19:07 Marcos Moraes, ANGEL is Primary Nurse. [facility] 19:09 Nehal Castillo is Primary Nurse. cc3 19:30 Patient has correct armband on for positive identification. Bed in low position. Call cc3 light in reach. Side rails up X 1. Pulse ox on. NIBP on. 20:36 Serge Bautista MD is Referral Physician. tw4 21:20 No provider procedures requiring assistance completed. Patient did not have IV access cc3 during this emergency room visit. Administered Medications: 21:10 CANCELLED (Patient Refused): Motrin 600 mg PO once cc3 Outcome: 20:36 Discharge ordered by . tw4 21:20 Discharged to home ambulatory. cc3 21:20 Condition: stable 21:20 Discharge instructions given to patient, Instructed on discharge instructions, follow up and referral plans. medication usage, Demonstrated understanding of instructions, follow-up care, medications, Prescriptions given X 1. 21:27 Patient left the ED. cc3 Signatures: Tricia Oakes, RN RN Faye Todd [facility] Gigi Hatch MD MD [facility] Marcos Moraes, ANGEL RN [facility] Nehal Castillo cc3
--- NOTE | 2019-03-19 20:45 | EDPHYS ---
Physician Documentation [facility] Name: Funmi Stoner Age: 58 yrs Sex: Female : 1960 Arrival Date: 03/19/2019 Time: 18:53 Bed 20 Private MD: ED Physician Gigi Hatch HPI: 03/19 20:33 This 58 yrs old Black Female presents to ER via Ambulatory with complaints of Hand Pain.tw4 20:33 The patient or guardian reports pain. The patient or guardian reports swelling, tw4 tenderness. The complaints affect the MCP of right middle finger. Context: resulted from an unknown cause. Onset: The symptoms/episode began/occurred 3 day(s) ago. Modifying factors: The symptoms are alleviated by nothing, the symptoms are aggravated by nothing. Associated signs and symptoms: The patient has no apparent associated signs or symptoms. Severity of symptoms: At their worst the symptoms were moderate, in the emergency department the symptoms are unchanged. The patient has not experienced similar symptoms in the past. Historical: - Allergies: 18:57 Sulfa (Sulfonamide Antibiotics); hb - Home Meds: 18:57 Advair Diskus 100-50 mcg/dose Inhl dsdv 1 puff 2 times per day [Active]; amlodipine 10 hb mg tab 1 tab once daily [Active]; Furosemide Oral daily prn [Active]; gabapentin 400 mg Oral cap 1 cap 3 times per day [Active]; hydrocodone-acetaminophen 10-325 mg Oral tab 1 tab 3-4 times a day [Active]; Klonopin 0.5 mg Oral tab 1 tab 2 times per day [Active]; lisinopril 20 mg Oral tab 1 tab once daily [Active]; metoprolol tartrate 25 mg Oral tab 1 tab 2 times per day [Active]; omeprazole 20 mg Oral cpDR 1 cap once daily [Active]; - PMHx: 18:57 Asthma; Anxiety; hot flashes; Hypertension; Diabetes - NIDDM; Irregular heart rate; hb Myocardial infarction; Rheumatoid Arthritis; Panic Attacks; - PSHx: 18:57 Tubal ligation; cardiac catherization; hb - Immunization history:: Adult Immunizations up to date. - Social history:: Smoking status: Patient/guardian denies using tobacco. - Ebola Screening: : No symptoms or risks identified at this time. ROS: 20:33 Constitutional: Negative for fever, chills, and weight loss, Eyes: Negative for injury, tw4 pain, redness, and discharge, Cardiovascular: Negative for chest pain, palpitations, and edema, Respiratory: Negative for shortness of breath, cough, wheezing, and pleuritic chest pain, Abdomen/GI: Negative for abdominal pain, nausea, vomiting, diarrhea, and constipation, Back: Negative for injury and pain, Skin: Negative for injury, rash, and discoloration, Neuro: Negative for headache, weakness, numbness, tingling, and seizure. 20:33 MS/extremity: Positive for pain, swelling, tenderness. Exam: 20:33 Constitutional: This is a well developed, well nourished patient who is awake, alert, tw4 and in no acute distress. Head/Face: Normocephalic, atraumatic. Chest/axilla: Normal chest wall appearance and motion. Nontender with no deformity. No lesions are appreciated. Cardiovascular: Regular rate and rhythm with a normal S1 and S2. No gallops, murmurs, or rubs. Normal PMI, no JVD. No pulse deficits. Respiratory: Lungs have equal breath sounds bilaterally, clear to auscultation and percussion. No rales, rhonchi or wheezes noted. No increased work of breathing, no retractions or nasal flaring. Abdomen/GI: Soft, non-tender, with normal bowel sounds. No distension or tympany. No guarding or rebound. No evidence of tenderness throughout. Back: No spinal tenderness. No costovertebral tenderness. Full range of motion. 20:33 Musculoskeletal/extremity: Extremities: noted in the palm of right hand: pain, tenderness, ROM: limited active range of motion due to pain, in the right hand, limited passive range of motion due to pain, in the right hand, Circulation is intact in all extremities. Vital Signs: 18:57 BP 131 / 94; Pulse 78; Resp 16; Temp 97.2; Pulse Ox 100% on R/A; Weight 105.23 kg; hb Height 5 ft. 5 in. (165.10 cm); Pain 10/10; 19:27 BP 103 / 75; Pulse 74; Resp 16 S; Pulse Ox 99% on R/A; cc3 20:50 BP 123 / 74; Pulse 75; Resp 17 S; Pulse Ox 99% on R/A; cc3 18:57 Body Mass Index 38.61 (105.23 kg, 165.10 cm) hb MDM: 19:06 Patient medically screened. tw4 20:33 Differential diagnosis: dislocation, open fracture. Data reviewed: vital signs, nurses tw4 notes. Data interpreted: Pulse oximetry: Interpretation: normal. Test interpretation: by ED physician or midlevel provider: plain radiologic studies. Counseling: I had a detailed discussion with the patient and/or guardian regarding: the historical points, exam findings, and any diagnostic results supporting the discharge/admit diagnosis. Special discussion: I discussed with the patient/guardian in detail that at this point there is no indication for admission to the hospital. It is understood, however, that if the symptoms persist or worsen the patient needs to return immediately for re-evaluation. 03/19 19:24 Order name: Hand Right 3 View XRAY tw4 Administered Medications: 21:10 CANCELLED (Patient Refused): Motrin 600 mg PO once cc3 Disposition: 03/19/19 20:36 Discharged to Home. Impression: Pain in right hand. - Condition is Stable. - Discharge Instructions: Musculoskeletal Pain, Pain Without a Known Cause. - Prescriptions for Tylenol- Codeine #3 300-30 mg Oral Tablet - take 2 tablet by ORAL route every 6 hours As needed; 6 tablet. - Medication Reconciliation Form, Thank You Letter, Antibiotic Education, Prescription Opioid Use form. - Follow up: Private Physician; When: Upon discharge from the Emergency Department; Reason: If symptoms return, Recheck today's complaints, Continuance of care. Follow up: Serge Bautista MD; When: Upon discharge from the Emergency Department; Reason: If symptoms return, Recheck today's complaints, Continuance of care. - Problem is new. - Symptoms have improved. Signatures: Dispatcher [employer] EDMS Tricia Oakes RN RN Gigi Perry MD MD tw4 Nehal Castillo cc3 Corrections: (The following items were deleted from the chart) 21:10 20:54 Motrin 600 mg PO once ordered. cc3 cc3 21:27 20:36 03/19/2019 20:36 Discharged to Home. Impression: Pain in right hand. Condition is cc3 Stable. Forms are Medication Reconciliation Form, Thank You Letter, Antibiotic Education, Prescription Opioid Use. Follow up: Private Physician; When: Upon discharge from the Emergency Department; Reason: If symptoms return, Recheck today's complaints, Continuance of care. Follow up: Serge Bautista; When: Upon discharge from the Emergency Department; Reason: If symptoms return, Recheck today's complaints, Continuance of care. Problem is new. Symptoms have improved. tw4
[2019-03-19] MEDS ORDERED: IBUPROFEN 400 MG TAB ONE (20:56)
[2019-03-19] MEDS ORDERED: IBUPROFEN 200 MG TAB PO ONE (20:56)
== END 2019-03-19 21:27 | disposition home or self-care (01) ==
LOC: ER 18:51
DX: M25.541 Pain in joints of right hand (principal); J45.909 Unspecified asthma, uncomplicated; E11.9 Type 2 diabetes mellitus without complications; I25.2 Old myocardial infarction; Z88.2 Allergy status to sulfonamides
CPT/HCPCS: 99283

== ENCOUNTER 2019-04-29 08:40 | Emergency (ER) | payer OTHER ==
[2019-04-29] MEDS ORDERED: NA CHLORIDE 0.9% 1,000 ML ONE (08:50)
[2019-04-29 09:12] LABS: Basophils % 0.6 % (0-1.3); Hematocrit 41.1 % (36.0-45.0); Lymphocytes % 35.1 % (15.3-44.8); MPV 9.1 fL (7.6-11.3); RBC Red Blood Cell Count 5.17 M/uL (3.86-4.86)
[2019-04-29 09:18] LABS: Protime INR 1.04
[2019-04-29] MEDS ORDERED: CEFTRIAXONE/SWI 1gm 2 GM/20 ML SYR ONE (09:21)
[2019-04-29] MEDS ORDERED: ALBUTEROL 2.5 MG/3 ML NEB SOL ONE ×2 (09:21→10:18)
[2019-04-29] MEDS ORDERED: IPRATROPIUM BROM 0.5MG/2.5ML ONE (09:21)
[2019-04-29] MEDS ORDERED: METHYLPREDNISOLONE 125 MG INJ ONE (09:21)
[2019-04-29] MEDS ORDERED: AZITHROMYCIN 500 MG/250 ML BAG IV SCH (09:30)
[2019-04-29 09:43] LABS: ALT/SGPT 58 U/L (12-78); AST/SGOT 44 U/L (15-37); Alkaline Phosphatase 81 U/L (45-117); BUN Blood Urea Nitrogen 11 mg/dL (7-18); Bicarbonate 24 mmol/L (21-32); Bilirubin Direct 0.2 mg/dL (0-0.2); Bilirubin Total 0.5 mg/dL (0.2-1.0); Glucose Level 109 mg/dL (74-106); Lipase 175 U/L (73-393); Magnesium 2.2 mg/dL (1.8-2.4); NT PRO-BNP 330 pg/mL (<125); Potassium 3.7 mmol/L (3.5-5.1); Protein, Total 8.1 g/dL (6.4-8.2); Sodium Level 139 mmol/L (136-145); Troponin (Emerg Dept Use Only) < 0.02 ng/mL (0.0-0.045)
--- NOTE | 2019-04-29 10:00 | EKG ---
Test Date: 2019-04-29 Test Time: 08:50:30 [employer] Coating: JAMA MEASUREMENT RESULTS: Intervals: Rate: 85 AL: 144 QRSD: 72 QT: 382 QTc: 454 [place]: P: 53 AL: 144 QRS: 76 T: 42 INTERPRETIVE STATEMENTS: Normal sinus rhythm Possible Left atrial enlargement Borderline ECG Compared to ECG 10/28/2018 22:13:17 No significant changes Electronically Signed On 04-29-19 09:59:51 CDT by Mario Alberto Whittington
[2019-04-29 10:18] LABS: Blood Morphology Comment NOTED (NOT SEEN); Hypochromasia 1+; Platelet Estimate ADEQ; Target Cells 1+
[2019-04-29] MEDS ORDERED: predniSONE 20 MG TAB ONE (10:18)
--- NOTE | 2019-04-29 10:26 | RAD REPORT ---
EXAM DESCRIPTION: RAD - Chest Single View - 04/29/2019 9:57 am CLINICAL HISTORY: Chest pain, cough and congestion COMPARISON: October 28 TECHNIQUE: AP portable chest image was obtained 0945 hours . FINDINGS: Body habitus and film technique are somewhat limiting factors. No acute lung parenchymal p rocess seen. Failure and volume overload are not suspected. Heart and vasculature are normal. No екатерина urable pleural effusion and no pneumothorax. No acute bony abnormality seen. No acute aortic findings suspected. IMPRESSION: No acute cardiopulmonary process. No significant change from comparison.
--- NOTE | 2019-04-29 10:49 | EDPHYS ---
Physician Documentation [facility] Name: Funmi Stoner Age: 58 yrs Sex: Female : 1960 Arrival Date: 04/29/2019 Time: 08:42 Bed 15 Private MD: Unknown, Unknown ED Physician Avel Kaminski HPI: 04/29 09:17 This 58 yrs old Black Female presents to ER via Ambulatory with complaints of Chest maycol Tightness, Congestion. 09:17 The patient or guardian reports chest pain that is located primarily in the anterior maycol chest wall, bilaterally. Onset: last night. The pain does not radiate. Associated signs and symptoms: The patient has no apparent associated signs or symptoms. The chest pain is described as a heaviness. Modifying factors: The symptoms are alleviated by nothing. the symptoms are aggravated by nothing. Severity of pain: At its worst the pain was mild moderate in the emergency department the pain is unchanged. The patient has experienced similar episodes in the past, multiple times. Historical: - Allergies: 08:54 Sulfa (Sulfonamide Antibiotics); ss - Home Meds: 08:54 Advair Diskus 100-50 mcg/dose Inhl dsdv 1 puff 2 times per day [Active]; amlodipine 10 ss mg tab 1 tab once daily [Active]; gabapentin 400 mg Oral cap 1 cap 3 times per day [Active]; Klonopin 0.5 mg Oral tab 1 tab 2 times per day [Active]; metoprolol tartrate 25 mg Oral tab 1 tab 2 times per day [Active]; omeprazole 20 mg Oral cpDR 1 cap once daily [Active]; lisinopril 20 mg Oral tab 1 tab once daily [Active]; hydrocodone-acetaminophen 10-325 mg Oral tab 1 tab 3-4 times a day [Active]; - PMHx: 08:54 Anxiety; Asthma; Hypertension; Myocardial infarction; Irregular heart rate; Panic ss Attacks; Rheumatoid Arthritis; - PSHx: 08:54 Tubal ligation; cardiac catherization; ss - Immunization history:: Adult Immunizations up to date. - Social history:: Smoking status: Patient/guardian denies using tobacco. - Ebola Screening: : Patient denies exposure to infectious person Patient denies travel to an Ebola-affected area in the 21 days before illness onset. - Family history:: not pertinent. ROS: 09:17 Constitutional: Negative for fever, chills, and weight loss, Eyes: Negative for injury, maycol pain, redness, and discharge, ENT: Negative for injury, pain, and discharge, Neck: Negative for injury, pain, and swelling, Abdomen/GI: Negative for abdominal pain, nausea, vomiting, diarrhea, and constipation, Back: Negative for injury and pain, : Negative for injury, bleeding, discharge, and swelling, MS/Extremity: Negative for injury and deformity, Skin: Negative for injury, rash, and discoloration, Neuro: Negative for headache, weakness, numbness, tingling, and seizure, Psych: Negative for depression, anxiety, suicide ideation, homicidal ideation, and hallucinations, Allergy/Immunology: Negative for hives, rash, and allergies, Endocrine: Negative for neck swelling, polydipsia, polyuria, polyphagia, and marked weight changes, Hematologic/Lymphatic: Negative for swollen nodes, abnormal bleeding, and unusual bruising. 09:17 Cardiovascular: Positive for chest pain. 09:17 Respiratory: Positive for cough, shortness of breath, at rest. Exam: 09:17 Constitutional: This is a well developed, well nourished patient who is awake, alert, maycol and in no acute distress. Head/Face: Normocephalic, atraumatic. Eyes: Pupils equal round and reactive to light, extra-ocular motions intact. Lids and lashes normal. Conjunctiva and sclera are non-icteric and not injected. Cornea within normal limits. Periorbital areas with no swelling, redness, or edema. ENT: Nares patent. No nasal discharge, no septal abnormalities noted. Tympanic membranes are normal and external auditory canals are clear. Oropharynx with no redness, swelling, or masses, exudates, or evidence of obstruction, uvula midline. Mucous membranes moist. Neck: Trachea midline, no thyromegaly or masses palpated, and no cervical lymphadenopathy. Supple, full range of motion without nuchal rigidity, or vertebral point tenderness. No Meningismus. Chest/axilla: Normal chest wall appearance and motion. Nontender with no deformity. No lesions are appreciated. Cardiovascular: Regular rate and rhythm with a normal S1 and S2. No gallops, murmurs, or rubs. Normal PMI, no JVD. No pulse deficits. Abdomen/GI: Soft, non-tender, with normal bowel sounds. No distension or tympany. No guarding or rebound. No evidence of tenderness throughout. Back: No spinal tenderness. No costovertebral tenderness. Full range of motion. Female : Normal external genitalia. Skin: Warm, dry with normal turgor. Normal color with no rashes, no lesions, and no evidence of cellulitis. MS/ Extremity: Pulses equal, no cyanosis. Neurovascular intact. Full, normal range of motion. Neuro: Awake and alert, GCS 15, oriented to person, place, time, and situation. Cranial nerves II-XII grossly intact. Motor strength 5/5 in all extremities. Sensory grossly intact. Cerebellar exam normal. Normal gait. Psych: Awake, alert, with orientation to person, place and time. Behavior, mood, and affect are within normal limits. 09:17 Respiratory: mild respiratory distress is noted, moderate respiratory distress is noted, Respirations: labored breathing, that is mild, Breath sounds: decreased breath sounds, rhonchi, + upper airway congestion. wheezing: inspiratory expiratory Vital Signs: 08:54 BP 141 / 93; Pulse 88; Resp 18; Temp 97.6(TE); Pulse Ox 99% on R/A; Height 5 ft. 5 in. ss (165.10 cm); Pain 8/10; 09:50 BP 120 / 70; Pulse 95; Resp 22; Pulse Ox 100% on Nebulizer Mask; sv 11:02 BP 109 / 59; Pulse 106; Resp 22; Pulse Ox 97% ; sv MDM: 08:47 Patient medically screened. [facility] 09:20 Data reviewed: vital signs, nurses notes, lab test result(s), EKG, radiologic studies, maycol plain films. 04/29 08:48 Order name: Basic Metabolic Panel [facility] 04/29 08:48 Order name: CBC with Diff [facility] 04/29 08:48 Order name: LFT's [facility] 04/29 08:48 Order name: Magnesium [facility] 04/29 08:48 Order name: NT PRO-BNP; Complete Time: 10:01 [facility] 04/29 08:48 Order name: PT-INR; Complete Time: 10: [facility] 04/29 08:48 Order name: Troponin (emerg Dept Use Only); Complete Time: 10:01 [facility] 04/29 08:48 Order name: Lipase; Complete Time: 10: [facility] 04/29 08:49 Order name: Basic Metabolic Panel; Complete Time: 10:01 [facility]MS 04/29 08:49 Order name: CBC with Automated Diff; Complete Time: 10:20 [facility]OR 04/29 08:49 Order name: Liver (Hepatic) Function; Complete Time: 10:01 [facility]OR 04/29 08:49 Order name: Magnesium; Complete Time: 10:01 [facility] 04/29 09:17 Order name: Blood Culture Adult (2) [facility] 04/29 09:17 Order name: Influenza Screen (a \T\ B); Complete Time: 10:08 [facility] 04/29 08:48 Order name: XRAY Chest (1 view); Complete Time: 10:47 [facility] 04/29 08:48 Order name: EKG; Complete Time: 08:49 [facility] 04/29 10:08 Order name: Manual Differential; Complete Time: 10:20 [facility]OR 04/29 10:14 Order name: Troponin (emerg Dept Use Only): due at 1100 sv 04/29 10:30 Order name: Urine Microscopic Only; Complete Time: 11:50 [facility] 04/29 10:30 Order name: Urine Culture [facility] 04/29 10:30 Order name: Urine Dipstick--Ancillary (enter results); Complete Time: 11:50 04/29 10:30 Order name: Urine --Ancillary (enter results); Complete Time: 11:50 04/29 08:48 Order name: Cardiac monitoring; Complete Time: 09:08 [facility] 04/29 08:48 Order name: EKG - Nurse/Tech; Complete Time: 09:08 [facility] 04/29 08:48 Order name: IV Saline Lock; Complete Time: 09:09 [facility] 04/29 08:48 Order name: Labs collected and sent; Complete Time: 09:09 [facility] 04/29 08:48 Order name: O2 Per Protocol; Complete Time: 09:09 [facility] 04/29 08:48 Order name: O2 Sat Monitoring; Complete Time: 09: [facility] 04/29 08:48 Order name: Urine Dipstick-Ancillary (obtain specimen); Complete Time: 10:28 [facility] Administered Medications: 09:40 Drug: NS 0.9% 1000 ml Route: IV; Rate: 125 ml/hr; Site: right forearm; sv 12:00 Follow up: Response: No adverse reaction; IV Status: Order to discontinue infusion sv 09:40 Drug: SOLU-Medrol 125 mg Route: IVP; Site: right forearm; sv 10:15 Follow up: Response: No adverse reaction sv 09:40 Drug: Albuterol - atroVENT (3:1) (2.5 mg - 0.5 mg) 3 ml Route: Nebulizer; sv 10:15 Follow up: Response: No adverse reaction sv 09:43 Drug: Rocephin 2 grams Route: IV; Rate: per protocol; Site: right forearm; sv 09:47 Follow up: Response: No adverse reaction; IV Status: Completed infusion; IV Intake: 20mlsv 09:47 Drug: Zithromax 500 mg Route: IVPB; Infused Over: 1 hrs; Site: right forearm; sv 10:59 Follow up: Response: No adverse reaction; IV Status: Completed infusion sv 11:02 Follow up: Response: No adverse reaction; IV Status: Completed infusion; IV Intake: sv 250ml 10:22 Drug: predniSONE 40 mg Route: PO; sv 10:28 Follow up: Response: No adverse reaction sv 10:22 Drug: Albuterol 5 mg Route: Inhalation; sv 12:06 Not Given (Physician Discretion; pt scheduled to have neck sx next week and is supposed sv to be off of it): Aspirin Chewable Tablet 162 mg PO once Disposition: 04/29/19 10:47 Discharged to Home. Impression: Asthma, Bronchitis, not specified as acute or chronic, Chest pain, unspecified. - Condition is Stable. - Discharge Instructions: Acute Bronchitis, Adult, Asthma, Adult, Nonspecific Chest Pain, How to Use an Inhaler, Metered Dose Inhaler with Spacer, Upper Respiratory Infection, Adult, Urinary Tract Infection, Adult, Chest Wall Pain, Itmp-sy-[id number], Urinary Tract Infection, Adult, Fpww-bn-Ywmq, Nonspecific Chest Pain, Rzdg-dj-Asvy, Upper Respiratory Infection, Adult, Rmlv-rn-Xrjz, Asthma, Adult, Hxfr-uq-Lmtu, Aspirin and Your Heart. - Prescriptions for Albuterol Sulfate 2.5 mg /3 mL (0.083 %) Inhalation Solution for Nebulization - inhale 1 unit by NEBULIZATION route every 8 hours As needed; 1 box. Prednisone 20 mg Oral Tablet - take 2 tablets by ORAL route once daily for 7 days; 14 tablet. Albuterol Sulfate 90 mcg/actuation - inhale 1-2 puff by INHALATION route every 4-6 hours; 1 Inhaler. Levaquin 500 mg Oral Tablet - take 1 tablet by ORAL route once daily for 7 days; 7 tablet. - Medication Reconciliation Form, Thank You Letter, Antibiotic Education, Prescription Opioid Use form. - Follow up: Private Physician; When: 2 - 3 days; Reason: Recheck today's complaints, Continuance of care, Re-evaluation by your physician. Follow up: [place] Garrison; When: 2 - 3 days; Reason: Recheck today's complaints, Re-evaluation by your physician. - Problem is new. - Symptoms have improved. Signatures: Dispatcher [employer] EDJulita Cano RN RN Avel Luna MD MD cha Smirch, Shelby, RN RN ss Corrections: (The following items were deleted from the chart) 12:07 10:47 04/29/2019 10:47 Discharged to Home. Impression: Asthma; Bronchitis, not sv specified as acute or chronic; Chest pain, unspecified. Condition is Stable. Discharge Instructions: Acute Bronchitis, Adult, Asthma, Adult, Nonspecific Chest Pain, How to Use an Inhaler, Metered Dose Inhaler with Spacer, Upper Respiratory Infection, Adult, Chest Wall Pain, Vnda-qi-Nmom, Nonspecific Chest Pain, Xpzb-vq-Vcms, Upper Respiratory Infection, Adult, Lngp-fy-Qgff, Asthma, Adult, Jkfe-rs-Xkci, Aspirin and Your Heart, Urinary Tract Infection, Adult, Urinary Tract Infection, Adult, Xbxp-bl-Gsiz. Prescriptions for Albuterol Sulfate 2.5 mg /3 mL (0.083 %) Inhalation Solution for Nebulization - inhale 1 unit by NEBULIZATION route every 8 hours As needed; 1 box, Prednisone 20 mg Oral Tablet - take 2 tablet by ORAL route once daily for 5 days; 10 tablet, Albuterol Sulfate 90 mcg/actuation - inhale 1-2 puff by INHALATION route every 4-6 hours; 1 Inhaler, Levaquin 500 mg Oral Tablet - take 1 tablet by ORAL route once daily for 7 days; 7 tablet. and Forms are Medication Reconciliation Form, Thank You Letter, Antibiotic Education, Prescription Opioid Use. Follow up: Private Physician; When: 2 - 3 days; Reason: Recheck today's complaints, Continuance of care, Re-evaluation by your physician. Follow up: [place] Garrison; When: 2 - 3 days; Reason: Recheck today's complaints, Re-evaluation by your physician. Problem is new. Symptoms have improved. maycol
--- NOTE | 2019-04-29 10:49 | ER ---
Nurse's Notes [facility] Name: Funmi Stoner Age: 58 yrs Sex: Female : 1960 Arrival Date: 04/29/2019 Time: 08:42 Bed 15 Private MD: Unknown, Unknown Diagnosis: Asthma;Bronchitis, not specified as acute or chronic;Chest pain, unspecified Presentation: 04/29 08:52 Presenting complaint: Patient states: cough, congestion x 3 days. Patient reports fever ss a few days ago, but has since resolved. Transition of care: patient was not received from another setting of care. Onset of symptoms was April 26, 2019. Risk Assessment: Do you want to hurt yourself or someone else? Patient reports no desire to harm self or others. Initial Sepsis Screen: Does the patient meet any 2 criteria? No. Patient's initial sepsis screen is negative. Does the patient have a suspected source of infection? No. Patient's initial sepsis screen is negative. Care prior to arrival: None. 08:52 Method Of Arrival: Ambulatory ss 08:52 Acuity: LINDSAY 3 ss Historical: - Allergies: 08:54 Sulfa (Sulfonamide Antibiotics); ss - Home Meds: 08:54 Advair Diskus 100-50 mcg/dose Inhl dsdv 1 puff 2 times per day [Active]; amlodipine 10 ss mg tab 1 tab once daily [Active]; gabapentin 400 mg Oral cap 1 cap 3 times per day [Active]; Klonopin 0.5 mg Oral tab 1 tab 2 times per day [Active]; metoprolol tartrate 25 mg Oral tab 1 tab 2 times per day [Active]; omeprazole 20 mg Oral cpDR 1 cap once daily [Active]; lisinopril 20 mg Oral tab 1 tab once daily [Active]; hydrocodone-acetaminophen 10-325 mg Oral tab 1 tab 3-4 times a day [Active]; - PMHx: 08:54 Anxiety; Asthma; Hypertension; Myocardial infarction; Irregular heart rate; Panic ss Attacks; Rheumatoid Arthritis; - PSHx: 08:54 Tubal ligation; cardiac catherization; ss - Immunization history:: Adult Immunizations up to date. - Social history:: Smoking status: Patient/guardian denies using tobacco. - Ebola Screening: : Patient denies exposure to infectious person Patient denies travel to an Ebola-affected area in the 21 days before illness onset. - Family history:: not pertinent. Screenin:08 Abuse screen: Denies threats or abuse. Denies injuries from another. Nutritional sv screening: No deficits noted. Tuberculosis screening: No symptoms or risk factors identified. Fall Risk None identified. Assessment: 08:50 General: Appears in no apparent distress. uncomfortable, well developed, Behavior is sv calm, cooperative, appropriate for age. Pain: Complains of pain in chest Pain radiates to left arm Pain currently is 8 out of 10 on a pain scale. Quality of pain is described as tingling, Pain began 2-3 days ago. Is intermittent. Neuro: Level of Consciousness is awake, alert, obeys commands, Oriented to person, place, time, situation, Gait is steady, Speech is normal. Cardiovascular: Patient's skin is warm and dry. Rhythm is sinus rhythm. Respiratory: Reports cough that is non-productive, pain with cough Airway is patent Respiratory effort is even, unlabored, Respiratory pattern is regular, symmetrical. Derm: Skin is pink, warm \T\ dry. 09:40 Reassessment: Patient appears in no apparent distress at this time. Patient and/or sv family updated on plan of care and expected duration. Pain level reassessed. Patient is alert, oriented x 3, equal unlabored respirations, skin warm/dry/pink. 10:22 Reassessment: Patient appears in no apparent distress at this time. Patient and/or sv family updated on plan of care and expected duration. Pain level reassessed. Patient is alert, oriented x 3, equal unlabored respirations, skin warm/dry/pink. Still reports SOB with exertion. Patient states symptoms have improved. 11:03 Reassessment: Patient appears in no apparent distress at this time. Patient and/or sv family updated on plan of care and expected duration. Pain level reassessed. Patient is alert, oriented x 3, equal unlabored respirations, skin warm/dry/pink. Pt up for discharge but troped that was to be repeated at this time is being sent to lab. Pt to be discharged once result is back and negative. Patient states symptoms have improved. 12:07 Reassessment: Patient appears in no apparent distress at this time. Patient and/or sv family updated on plan of care and expected duration. Pain level reassessed. Patient is alert, oriented x 3, equal unlabored respirations, skin warm/dry/pink. Patient states feeling better. Patient states symptoms have improved. Vital Signs: 08:54 BP 141 / 93; Pulse 88; Resp 18; Temp 97.6(TE); Pulse Ox 99% on R/A; Height 5 ft. 5 in. ss (165.10 cm); Pain 8/10; 09:50 BP 120 / 70; Pulse 95; Resp 22; Pulse Ox 100% on Nebulizer Mask; sv 11:02 BP 109 / 59; Pulse 106; Resp 22; Pulse Ox 97% ; sv ED Course: 08:42 Patient arrived in ED. ag5 08:43 Unknown, Unknown is Private Physician. ag5 08:46 Avel Kaminski MD is Attending Physician. maycol 08:47 Julita Bingham, ANGEL is Primary Nurse. sv 08:50 Patient has correct armband on for positive identification. Placed in gown. Bed in low sv position. Call light in reach. quality assurance monitor body on. Pulse ox on. NIBP on. Door closed. Warm blanket given. Head of bed elevated. 08:50 EKG done, by ED staff, reviewed by Avel Kaminski MD. Patient maintains SpO2 saturation sv greater than 95% on room air. 08:53 Triage completed. ss 08:54 Arm band placed on right wrist. ss 08:55 Inserted saline lock: 22 gauge in right forearm, using aseptic technique. ,using sv aseptic technique. diffusics Blood collected. Flushed right forearm with 5 ml normal saline. 09:08 Awaiting ED provider evaluation. sv 09:10 Basic Metabolic Panel Sent. sv 09:10 CBC with Diff Sent. sv 09:10 LFT's Sent. sv 09:10 Magnesium Sent. sv 09:13 ED physician to see patient. sv 09:20 Flu and/or RSV swab sent to lab. sg 09:25 First set of blood cultures drawn by me, by venipuncture 21G to left forearm. dh3 09:40 Second set of blood cultures drawn by me, by venipuncture 21G to left forearm. dh3 09:50 X-ray(s) taken. sv 09:55 XRAY Chest (1 view) In Process Unspecified. EDMS 10:24 Urine collected: clean catch specimen, clear. dh3 10:47 Chico Garrison MD is Referral Physician. maycol 11:02 Repeat lab(s) drawn. by ED staff, sent to lab. sv 12:07 No provider procedures requiring assistance completed. IV discontinued, intact, sv bleeding controlled, No redness/swelling at site. Pressure dressing applied. Administered Medications: 09:40 Drug: NS 0.9% 1000 ml Route: IV; Rate: 125 ml/hr; Site: right forearm; sv 12:00 Follow up: Response: No adverse reaction; IV Status: Order to discontinue infusion sv 09:40 Drug: SOLU-Medrol 125 mg Route: IVP; Site: right forearm; sv 10:15 Follow up: Response: No adverse reaction sv 09:40 Drug: Albuterol - atroVENT (3:1) (2.5 mg - 0.5 mg) 3 ml Route: Nebulizer; sv 10:15 Follow up: Response: No adverse reaction sv 09:43 Drug: Rocephin 2 grams Route: IV; Rate: per protocol; Site: right forearm; sv 09:47 Follow up: Response: No adverse reaction; IV Status: Completed infusion; IV Intake: 20mlsv 09:47 Drug: Zithromax 500 mg Route: IVPB; Infused Over: 1 hrs; Site: right forearm; sv 10:59 Follow up: Response: No adverse reaction; IV Status: Completed infusion sv 11:02 Follow up: Response: No adverse reaction; IV Status: Completed infusion; IV Intake: sv 250ml 10:22 Drug: predniSONE 40 mg Route: PO; sv 10:28 Follow up: Response: No adverse reaction sv 10:22 Drug: Albuterol 5 mg Route: Inhalation; sv 12:06 Not Given (Physician Discretion; pt scheduled to have neck sx next week and is supposed sv to be off of it): Aspirin Chewable Tablet 162 mg PO once Intake: 09:47 IV: 20ml; Total: 20ml. sv 11:02 IV: 250ml; Total: 270ml. sv Outcome: 10:47 Discharge ordered by . maycol 12:07 Discharged to home ambulatory, with family. sv 12:07 Condition: stable 12:07 Condition: improved 12:07 Discharge instructions given to patient, Instructed on discharge instructions, follow up and referral plans. medication usage, Demonstrated understanding of instructions, follow-up care, medications, Prescriptions given X 4. 12:07 Patient left the ED. sv Signatures: Dispatcher [employer] Julita Crow RN RN sv Gay, Steven, RN RN sg Anderson, Corey, MD MD cha Smirch, Shelby, RN RN Yaz Small [facility] Jodie De Leon [facility]
[2019-04-29] MEDS ORDERED: ASPIRIN 81 MG CHEWABLE TABLET ONE (10:57)
[2019-04-29 10:59] LABS: Urine Bacteria 20-50 /HPF (<20); Urine Culture Reflex Order NOT NEEDED; Urine RBC <5 /HPF (NONE SEEN)
[2019-04-29 11:32] LABS: Urine Blood NEGATIVE (NEG); Urine Glucose NEGATIVE (NEG); Urine Protein 1+ (NEG); Urine Specific Gravity >1.030 (1.005-1.030)
[2019-04-29 12:13] VITALS: TEMP 97.6
[2019-04-29 12:16] VITALS: BP 109/59; O2SAT 97
[2019-04-29] MEDS ORDERED: LORAZEPAM 1 MG TABLET ONE (18:21)
[2019-04-29] MEDS ORDERED: ALPRAZOLAM 1 MG TABLET ONE (18:35)
== END 2019-04-29 12:07 | disposition home or self-care (01) ==
LOC: ER 08:40
DX: J40 Bronchitis, not specified as acute or chronic (principal); J45.909 Unspecified asthma, uncomplicated; I10 Essential (primary) hypertension; I25.2 Old myocardial infarction; F41.9 Anxiety disorder, unspecified; Z88.2 Allergy status to sulfonamides
CPT/HCPCS: 96365; 96361; 93005; 87040 ×2; 87088; 85025; 87086; 80048; 36415; 83735; 81025; 85610; 80076; 84484 ×2; 83690; 83880; 87804 ×2; 71045; 94640; 96375; 99285; J0696; J0456; J7030; J2930; 81003; 81015; J7512

== ENCOUNTER 2019-04-29 17:35 | Emergency (ER) | payer OTHER ==
--- NOTE | 2019-04-29 18:27 | EDPHYS ---
Physician Documentation [facility] Name: Funmi Stoner Age: 58 yrs Sex: Female : 1960 Arrival Date: 04/29/2019 Time: 17:37 Bed 25 Private MD: Vini Sanches ED Physician Marleen Celeste HPI: 04/29 18:24 This 58 yrs old Black Female presents to ER via Ambulatory with complaints of ma2 SHAKY/MUSCLE SPASM. 18:24 Onset: The symptoms/episode began/occurred gradually, 1 day(s) ago. Severity of ma2 symptoms: At their worst the symptoms were very mild in the emergency department the symptoms are unchanged. The patient has not experienced similar symptoms in the past. Historical: - Allergies: 17:50 Sulfa (Sulfonamide Antibiotics); ss - PMHx: 17:50 Anxiety; Asthma; Diabetes - NIDDM; hot flashes; Hypertension; Irregular heart rate; ss Myocardial infarction; Panic Attacks; Rheumatoid Arthritis; - Immunization history:: Adult Immunizations up to date. - Social history:: Smoking status: unknown Patient uses Patient/guardian denies using alcohol, street drugs, The patient lives with family. - Ebola Screening: : No symptoms or risks identified at this time. - Family history:: not pertinent. ROS: 18:24 Constitutional: Negative for fever, chills, and weight loss. ma2 18:24 All other systems are negative. Exam: 18:24 Constitutional: This is a well developed, well nourished patient who is awake, alert, ma2 and in no acute distress. Head/Face: Normocephalic, atraumatic. Neck: Trachea midline, no thyromegaly or masses palpated, and no cervical lymphadenopathy. Supple, full range of motion without nuchal rigidity, or vertebral point tenderness. No Meningismus. Chest/axilla: Normal chest wall appearance and motion. Nontender with no deformity. No lesions are appreciated. Cardiovascular: Regular rate and rhythm with a normal S1 and S2. No gallops, murmurs, or rubs. Normal PMI, no JVD. No pulse deficits. Respiratory: Lungs have equal breath sounds bilaterally, clear to auscultation and percussion. No rales, rhonchi or wheezes noted. No increased work of breathing, no retractions or nasal flaring. Abdomen/GI: Soft, non-tender, with normal bowel sounds. No distension or tympany. No guarding or rebound. No evidence of tenderness throughout. Back: No spinal tenderness. No costovertebral tenderness. Full range of motion. MS/ Extremity: Pulses equal, no cyanosis. Neurovascular intact. Full, normal range of motion. Neuro: Awake and alert, GCS 15, oriented to person, place, time, and situation. Cranial nerves II-XII grossly intact. Motor strength 5/5 in all extremities. Sensory grossly intact. Cerebellar exam normal. Normal gait. Vital Signs: 17:50 BP 151 / 101; Pulse 98; Resp 24; Temp 97.8; Pulse Ox 98% ; Weight 111.13 kg; Height 5 ss ft. 5 in. (165.10 cm); 19:06 BP 126 / 84; Pulse 94; Resp 18; Pulse Ox 100% on R/A; aj1 17:50 Body Mass Index 40.77 (111.13 kg, 165.10 cm) ss MDM: 17:54 Patient medically screened. ma2 18:24 Differential Diagnosis muscle spasm. Data reviewed: vital signs, nurses notes. ma2 Counseling: I had a detailed discussion with the patient and/or guardian regarding: the historical points, exam findings, and any diagnostic results supporting the discharge/admit diagnosis, the presence of at least one elevated blood pressure reading (>120/80) during this emergency department visit, the need for outpatient follow up. Response to treatment: the patient's symptoms have mildly improved after treatment. 04/29 18:06 Order name: O2 Per Protocol: non rebreather; Complete Time: 18:20 ma2 Administered Medications: 18:26 Not Given (Patient Refused): Ativan 2 mg PO once aj1 18:40 Drug: XANax Tablet 2 mg Route: PO; aj1 20:27 Follow up: Response: No adverse reaction aj1 Disposition: 04/29/19 19:11 Discharged to Home. Impression: Muscle spasm. - Condition is Stable. - Discharge Instructions: Muscle Pain, Adult. - Prescriptions for Tylenol- Codeine #3 300-30 mg Oral Tablet - take 2 tablet by ORAL route every 6 hours As needed; 6 tablet. - Medication Reconciliation Form, Thank You Letter, Antibiotic Education, Prescription Opioid Use form. - Follow up: Private Physician; When: Tomorrow; Reason: Continuance of care. Signatures: Jessica Longoria RN RN aj1 Hemalatha Medina RN RN Marleen Celeste MD MD ma2 Corrections: (The following items were deleted from the chart) 18:30 18:26 04/29/2019 18:26 Discharged to Home. Impression: Other muscle spasm. Condition is ma2 Stable. Forms are Medication Reconciliation Form, Thank You Letter, Antibiotic Education, Prescription Opioid Use. Follow up: Private Physician; When: Tomorrow; Reason: Continuance of care. ma2 20:27 19:11 04/29/2019 19:11 Discharged to Home. Impression: Muscle spasm. Condition is aj1 Stable. Prescriptions for Tylenol-Codeine #3 300-30 mg Oral Tablet - take 2 tablet by ORAL route every 6 hours As needed; 6 tablet. and Forms are Medication Reconciliation Form, Thank You Letter, Antibiotic Education, Prescription Opioid Use. Follow up: Private Physician; When: Tomorrow; Reason: Continuance of care. ma2
--- NOTE | 2019-04-29 18:27 | ER ---
Nurse's Notes [facility] Name: Funmi Stoner Age: 58 yrs Sex: Female : 1960 Arrival Date: 04/29/2019 Time: 17:37 Bed 25 Private MD: Vini Sanches Diagnosis: Muscle spasm Presentation: 04/29 17:49 Presenting complaint: Patient states: PT SEEN THIS AM FOR URI, WENT TO PCP AND ss REDIRECTED TO ER FOR HAND CRAMPS. Transition of care: patient was not received from another setting of care. Onset of symptoms was April 29, 2019. Risk Assessment: Do you want to hurt yourself or someone else? Patient reports no desire to harm self or others. Initial Sepsis Screen: Does the patient meet any 2 criteria? No. Patient's initial sepsis screen is negative. Does the patient have a suspected source of infection? No. Patient's initial sepsis screen is negative. Care prior to arrival: None. 17:49 Method Of Arrival: Ambulatory ss 17:49 Acuity: LINDSAY 3 ss Historical: - Allergies: 17:50 Sulfa (Sulfonamide Antibiotics); ss - PMHx: 17:50 Anxiety; Asthma; Diabetes - NIDDM; hot flashes; Hypertension; Irregular heart rate; ss Myocardial infarction; Panic Attacks; Rheumatoid Arthritis; - Immunization history:: Adult Immunizations up to date. - Social history:: Smoking status: unknown Patient uses Patient/guardian denies using alcohol, street drugs, The patient lives with family. - Ebola Screening: : No symptoms or risks identified at this time. - Family history:: not pertinent. Screenin:00 Abuse screen: Denies threats or abuse. Denies injuries from another. Nutritional aj1 screening: No deficits noted. Tuberculosis screening: No symptoms or risk factors identified. 20:26 Fall Risk None identified. aj1 Assessment: 18:00 General: Appears in no apparent distress. uncomfortable, Behavior is cooperative, aj1 anxious. Pain: Complains of pain in right hand and left hand. Neuro: Level of Consciousness is awake, alert, obeys commands, Oriented to person, place, time, situation, Gait is steady, Speech is normal. Cardiovascular: Patient's skin is warm and dry. Respiratory: Airway is patent Respiratory effort is even, unlabored, Respiratory pattern is regular, symmetrical. GI: No signs and/or symptoms were reported involving the gastrointestinal system. : No signs and/or symptoms were reported regarding the genitourinary system. EENT: No signs and/or symptoms were reported regarding the EENT system. Derm: Skin is pink, warm \T\ dry. normal. Musculoskeletal: Reports cramping in both of her hands. 18:26 Reassessment: Patient states that she cannot take Ativan because it makes her more aj1 anxious. States that she has taken Xanax and Klonopin in the past without an issue. Notified Dr. Celeste. 19:05 Reassessment: Patient appears in no apparent distress at this time. No changes from aj1 previously documented assessment. Patient and/or family updated on plan of care and expected duration. Pain level reassessed. Patient is alert, oriented x 3, equal unlabored respirations, skin warm/dry/pink. 19:30 Reassessment: Patient discharge pending her ride arriving as patient received aj1 benzodiapine medication. 20:05 Reassessment: Patient appears in no apparent distress at this time. No changes from aj1 previously documented assessment. Patient and/or family updated on plan of care and expected duration. Pain level reassessed. Patient is alert, oriented x 3, equal unlabored respirations, skin warm/dry/pink. Vital Signs: 17:50 BP 151 / 101; Pulse 98; Resp 24; Temp 97.8; Pulse Ox 98% ; Weight 111.13 kg; Height 5 ss ft. 5 in. (165.10 cm); 19:06 BP 126 / 84; Pulse 94; Resp 18; Pulse Ox 100% on R/A; aj1 17:50 Body Mass Index 40.77 (111.13 kg, 165.10 cm) ED Course: 17:37 Patient arrived in ED. ag5 17:39 Vini Sanches DO is Private Physician. ag5 17:50 Triage completed. ss 17:50 Arm band placed on. ss 17:53 Jessica Longoria, ANGEL is Primary Nurse. aj1 17:54 Marleen Celeste MD is Attending Physician. ma2 18:00 Patient has correct armband on for positive identification. Bed in low position. Call aj1 light in reach. Side rails up X 1. 18:00 No provider procedures requiring assistance completed. aj1 20:26 Patient did not have IV access during this emergency room visit. aj1 Administered Medications: 18: Not Given (Patient Refused): Ativan 2 mg PO once aj1 18:40 Drug: XANax Tablet 2 mg Route: PO; aj1 20:27 Follow up: Response: No adverse reaction aj1 Outcome: 18:26 Discharge ordered by . ma2 19:11 Discharge ordered by . ma2 20:26 Discharged to home ambulatory. aj1 20:26 Condition: good 20:26 Discharge instructions given to patient, Instructed on discharge instructions, follow up and referral plans. no drinking with medication, no driving heavy equipment, medication usage, Demonstrated understanding of instructions, follow-up care, medications, Prescriptions given X 1. 20:27 Patient left the ED. aj1 Signatures: Jessica Longoria RN RN aj1 Hemalatha Medina RN RN ss Alzahri, Mohammad, MD MD ma2 Gaskin, Ajare ag5
[2019-04-29 20:43] VITALS: TEMP 97.8
[2019-04-29 20:44] VITALS: BP 126/84; O2SAT 100
== END 2019-04-29 20:27 | disposition home or self-care (01) ==
LOC: ER 17:35
DX: M62.838 Other muscle spasm (principal); Z88.2 Allergy status to sulfonamides
CPT/HCPCS: 99283

== ENCOUNTER 2019-04-30 08:36 | Observation (INO) | payer OTHER ==
--- NOTE | 2019-04-30 09:36 | EDPHYS ---
Physician Documentation [facility] Name: Funmi Stoner Age: 58 yrs Sex: Female : 1960 Arrival Date: 04/30/2019 Time: 08:39 Bed 20 Private MD: ED Physician Avel Kaminski HPI: 04/30 09:31 This 58 yrs old Black Female presents to ER via EMS with complaints of Shortness Of maycol Breath. 09:31 The patient has shortness of breath at rest, with light activity. Onset: The maycol symptoms/episode began/occurred 2 day(s) ago. Duration: The symptoms are continuous, and are steadily getting worse. The patient's shortness of breath has no apparent modifying factors. Associated signs and symptoms: The patient has no apparent associated signs or symptoms. Severity of symptoms: At their worst the symptoms were mild moderate in the emergency department the symptoms are unchanged. The patient has not experienced similar symptoms in the past. Historical: - Allergies: 08:43 Sulfa (Sulfonamide Antibiotics); hb - Home Meds: 08:43 Advair Diskus 100-50 mcg/dose Inhl dsdv 1 puff 2 times per day [Active]; amlodipine 10 hb mg tab 1 tab once daily [Active]; Furosemide Oral daily prn [Active]; gabapentin 400 mg Oral cap 1 cap 3 times per day [Active]; hydrocodone-acetaminophen 10-325 mg Oral tab 1 tab 3-4 times a day [Active]; Klonopin 0.5 mg Oral tab 1 tab 2 times per day [Active]; lisinopril 20 mg Oral tab 1 tab once daily [Active]; metoprolol tartrate 25 mg Oral tab 1 tab 2 times per day [Active]; omeprazole 20 mg Oral cpDR 1 cap once daily [Active]; - PMHx: 08:43 Anxiety; Asthma; Diabetes - NIDDM; hot flashes; Hypertension; Irregular heart rate; hb Myocardial infarction; Panic Attacks; Rheumatoid Arthritis; - Immunization history:: Adult Immunizations up to date. - Social history:: Smoking status: Patient/guardian denies using tobacco. - Ebola Screening: : No symptoms or risks identified at this time. - Family history:: not pertinent. ROS: 09:31 Constitutional: Negative for fever, chills, and weight loss, Eyes: Negative for injury, maycol pain, redness, and discharge, ENT: Negative for injury, pain, and discharge, Neck: Negative for injury, pain, and swelling, Cardiovascular: Negative for chest pain, palpitations, and edema, Abdomen/GI: Negative for abdominal pain, nausea, vomiting, diarrhea, and constipation, Back: Negative for injury and pain, : Negative for injury, bleeding, discharge, and swelling, MS/Extremity: Negative for injury and deformity, Skin: Negative for injury, rash, and discoloration, Neuro: Negative for headache, weakness, numbness, tingling, and seizure, Psych: Negative for depression, anxiety, suicide ideation, homicidal ideation, and hallucinations, Allergy/Immunology: Negative for hives, rash, and allergies, Endocrine: Negative for neck swelling, polydipsia, polyuria, polyphagia, and marked weight changes, Hematologic/Lymphatic: Negative for swollen nodes, abnormal bleeding, and unusual bruising. 09:31 Respiratory: Positive for cough, shortness of breath, wheezing, inspiratory, expiratory. Exam: 09:31 Constitutional: This is a well developed, well nourished patient who is awake, alert, maycol and in no acute distress. Head/Face: Normocephalic, atraumatic. Eyes: Pupils equal round and reactive to light, extra-ocular motions intact. Lids and lashes normal. Conjunctiva and sclera are non-icteric and not injected. Cornea within normal limits. Periorbital areas with no swelling, redness, or edema. ENT: Nares patent. No nasal discharge, no septal abnormalities noted. Tympanic membranes are normal and external auditory canals are clear. Oropharynx with no redness, swelling, or masses, exudates, or evidence of obstruction, uvula midline. Mucous membranes moist. Neck: Trachea midline, no thyromegaly or masses palpated, and no cervical lymphadenopathy. Supple, full range of motion without nuchal rigidity, or vertebral point tenderness. No Meningismus. Chest/axilla: Normal chest wall appearance and motion. Nontender with no deformity. No lesions are appreciated. Abdomen/GI: Soft, non-tender, with normal bowel sounds. No distension or tympany. No guarding or rebound. No evidence of tenderness throughout. Back: No spinal tenderness. No costovertebral tenderness. Full range of motion. Female : Normal external genitalia. Skin: Warm, dry with normal turgor. Normal color with no rashes, no lesions, and no evidence of cellulitis. MS/ Extremity: Pulses equal, no cyanosis. Neurovascular intact. Full, normal range of motion. Neuro: Awake and alert, GCS 15, oriented to person, place, time, and situation. Cranial nerves II-XII grossly intact. Motor strength 5/5 in all extremities. Sensory grossly intact. Cerebellar exam normal. Normal gait. Psych: Awake, alert, with orientation to person, place and time. Behavior, mood, and affect are within normal limits. 09:31 Cardiovascular: Rate: tachycardic, Rhythm: regular, Pulses: Pulses are 4+ in bilateral radial, brachial, femoral, popliteal, posterior tibial and and dorsalis pedis arteries.. Heart sounds: normal, normal S1and S2, no S3 or S4, no murmur, no rub, no gallop, Edema: is not appreciated, JVD: is not appreciated. Vital Signs: 08:41 BP 146 / 99; Pulse 118; Resp 24; Temp 98.2; Pulse Ox 97% on R/A; Weight 111.13 kg; hb Height 5 ft. 5 in. (165.10 cm); Pain 8/10; 10:00 BP 115 / 66; Pulse 101; Resp 18; Pulse Ox 95% on R/A; aj1 11:00 BP 125 / 65; Pulse 93; Resp 20; Pulse Ox 100% ; aj1 12:00 BP 143 / 82; Pulse 110; Resp 20; Pulse Ox 95% on R/A; aj1 13:00 BP 116 / 54; Pulse 102; Resp 20; Pulse Ox 100% on R/A; aj1 08:41 Body Mass Index 40.77 (111.13 kg, 165.10 cm) Procedures: 11:08 Peripheral line: by aseptic technique a peripheral line was placed in the left external maycol jugular vein. MDM: 09:01 Patient medically screened. [facility] 09:33 Data reviewed: vital signs, nurses notes, lab test result(s), EKG, radiologic studies, [facility] plain films. 04/30 09: Order name: Basic Metabolic Panel [facility] 04/30 09: Order name: CBC with Diff; Complete Time: 11:42 [facility] 04/30 09:26 Order name: LFT's [facility] 04/30 09: Order name: Magnesium [facility] 10/15 09:26 Order name: NT PRO-BNP [facility] 04/30 09:26 Order name: PT-INR; Complete Time: 11:42 [facility] 04/30 09:26 Order name: Troponin (emerg Dept Use Only) [facility] 04/30 09:26 Order name: XRAY Chest (1 view); Complete Time: 11:42 [facility] 04/30 09:26 Order name: EKG; Complete Time: 09:27 [facility] 04/30 09:26 Order name: Cardiac monitoring; Complete Time: 09:30 [facility] 04/30 09:26 Order name: EKG - Nurse/Tech; Complete Time: 09:30 [facility] 04/30 09:26 Order name: IV Saline Lock; Complete Time: 11:31 [facility] 04/30 09:26 Order name: Labs collected and sent; Complete Time: :31 [facility] 04/30 09:26 Order name: O2 Per Protocol; Complete Time: 09:30 [facility] 04/30 09:26 Order name: O2 Sat Monitoring; Complete Time: 09:30 [facility] Administered Medications: 11:30 Drug: levofloxacin 500 mg Volume: 100 ml; Route: IVPB; Infused Over: 60 mins; Site: aj left jugular; 13:27 Follow up: IV Status: Completed infusion; IV Intake: 100ml aj1 11:30 Drug: Decadron - Dexamethasone 10 mg Route: IVP; Site: left jugular; aj1 13:26 Follow up: Response: No adverse reaction aj1 11:31 Drug: SOLU-Medrol 125 mg Route: IVP; Site: left jugular; aj1 13:27 Follow up: Response: No adverse reaction aj1 11:31 Drug: Xopenex 3.75 mg Route: Inhalation; aj1 13:27 Follow up: Response: No adverse reaction aj1 11:31 Drug: AtroVENT Aerosol 0.5 mg Route: Inhalation; aj1 13:27 Follow up: Response: No adverse reaction aj1 Disposition: 04/30/19 09:34 Hospitalization ordered by Harlan Patton for Inpatient Admission. Preliminary diagnosis are Dyspnea, Asthma - failed outpatient treatment, Hypoxemia. - Bed requested for Telemetry/MedSurg (Inpatient). - Status is Inpatient Admission. aj1 - Condition is Fair. - Problem is new. - Symptoms have improved. UTI on Admission? No Signatures: Dispatcher [employer] Jessica Liu RN RN aj1 Brooklyn Farley RN RN dw Anderson, Corey, MD MD cha Baxter, Heather, RN ANGEL Corrections: (The following items were deleted from the chart) 12:36 09:34 Hospitalization Ordered by Harlan Patton DO for Inpatient Admission. Preliminary dw diagnosis is Dyspnea; Asthma - failed outpatient treatment; Hypoxemia. Bed requested for Telemetry/MedSurg (Inpatient). Status is Inpatient Admission. Condition is Fair. Problem is new. Symptoms have improved. UTI on Admission? No. maycol 13:59 12:36 04/30/2019 09:34 Hospitalization Ordered by Harlan Patton DO for Inpatient aj1 Admission. Preliminary diagnosis is Dyspnea; Asthma - failed outpatient treatment; Hypoxemia. Bed requested for Telemetry/MedSurg (Inpatient). Status is Inpatient Admission. Condition is Fair. Problem is new. Symptoms have improved. UTI on Admission? No. dw
--- NOTE | 2019-04-30 09:36 | ER ---
Nurse's Notes [facility] Name: Fumni Stoner Age: 58 yrs Sex: Female : 1960 Arrival Date: 04/30/2019 Time: 08:39 Bed 20 Private MD: Diagnosis: Dyspnea;Asthma-failed outpatient treatment;Hypoxemia Presentation: 04/30 08:39 Presenting complaint: EMS states: Worsening SOB x 3 days, seen in ED x 2 yesterday with hb same s/s, has not yet picked up prescriptions. BP 162/101, HR 110, R 30, SpO2 95% on RA, improved to 97% after A\T\A neb x 1. Transition of care: patient was not received from another setting of care. Onset of symptoms was April 30, 2019. Risk Assessment: Do you want to hurt yourself or someone else? Patient reports no desire to harm self or others. Care prior to arrival: Medication(s) given: Albuterol Neb x 1, Atrovent Neb. 08:39 Method Of Arrival: EMS: [facility] 08:39 Acuity: LINDSAY 3 hb 08:43 Initial Sepsis Screen: Does the patient meet any 2 criteria? No. Patient's initial hb sepsis screen is negative. Does the patient have a suspected source of infection? No. Patient's initial sepsis screen is negative. Historical: - Allergies: 08:43 Sulfa (Sulfonamide Antibiotics); hb - Home Meds: 08:43 Advair Diskus 100-50 mcg/dose Inhl dsdv 1 puff 2 times per day [Active]; amlodipine 10 hb mg tab 1 tab once daily [Active]; Furosemide Oral daily prn [Active]; gabapentin 400 mg Oral cap 1 cap 3 times per day [Active]; hydrocodone-acetaminophen 10-325 mg Oral tab 1 tab 3-4 times a day [Active]; Klonopin 0.5 mg Oral tab 1 tab 2 times per day [Active]; lisinopril 20 mg Oral tab 1 tab once daily [Active]; metoprolol tartrate 25 mg Oral tab 1 tab 2 times per day [Active]; omeprazole 20 mg Oral cpDR 1 cap once daily [Active]; - PMHx: 08:43 Anxiety; Asthma; Diabetes - NIDDM; hot flashes; Hypertension; Irregular heart rate; hb Myocardial infarction; Panic Attacks; Rheumatoid Arthritis; - Immunization history:: Adult Immunizations up to date. - Social history:: Smoking status: Patient/guardian denies using tobacco. - Ebola Screening: : No symptoms or risks identified at this time. - Family history:: not pertinent. Screenin:43 Abuse screen: Denies threats or abuse. Denies injuries from another. Nutritional hb screening: No deficits noted. Tuberculosis screening: No symptoms or risk factors identified. Fall Risk None identified. Assessment: 08:41 General: Appears in no apparent distress. distressed, uncomfortable, Behavior is calm, da2 cooperative, Reports Denies. Pain: Complains of pain in head Pain currently is 8 out of 10 on a pain scale. Quality of pain is described as throbbing, Pain began 1 hour ago. Is intermittent. Neuro: Level of Consciousness is awake, alert, obeys commands, Oriented to person, place, time. Cardiovascular: Patient's skin is warm and dry. Cardiovascular: Rhythm is sinus tachycardia. Respiratory: Airway is patent Breath sounds with wheezes bilaterally. 10:00 General: Appears in no apparent distress. uncomfortable, Behavior is calm, cooperative, aj1 appropriate for age. Pain: Complains of pain in face. Neuro: Level of Consciousness is awake, alert, obeys commands, Oriented to person, place, time, situation, Speech is normal, Facial symmetry appears normal. Cardiovascular: Denies chest pain, Heart tones S1 S2 present Patient's skin is warm and dry. Rhythm is sinus tachycardia. Respiratory: Reports shortness of breath at rest cough that is persistent Airway is patent Respiratory effort is even, unlabored, Respiratory pattern is regular, symmetrical, Breath sounds with wheezes bilaterally. the patient has mild shortness of breath. GI: No signs and/or symptoms were reported involving the gastrointestinal system. : No signs and/or symptoms were reported regarding the genitourinary system. EENT: No signs and/or symptoms were reported regarding the EENT system. Derm: No signs and/or symptoms reported regarding the dermatologic system. Skin is pink, warm \T\ dry. normal. Musculoskeletal: No signs and/or symptoms reported regarding the musculoskeletal system. Circulation, motion, and sensation intact. 11:00 Reassessment: Patient appears in no apparent distress at this time. No changes from aj1 previously documented assessment. Patient and/or family updated on plan of care and expected duration. Pain level reassessed. Patient is alert, oriented x 3, equal unlabored respirations, skin warm/dry/pink. 12:00 Reassessment: Patient appears in no apparent distress at this time. No changes from aj1 previously documented assessment. Patient and/or family updated on plan of care and expected duration. Pain level reassessed. Patient is alert, oriented x 3, equal unlabored respirations, skin warm/dry/pink. 13:00 Reassessment: Patient and/or family updated on plan of care and expected duration. Pain aj1 level reassessed. General: Appears in no apparent distress. uncomfortable, Behavior is calm, cooperative, appropriate for age. Neuro: Level of Consciousness is awake, alert, obeys commands, Oriented to person, place, time, situation. Cardiovascular: Patient's skin is warm and dry. Rhythm is sinus tachycardia. Respiratory: Airway is patent Respiratory effort is even, unlabored, Respiratory pattern is regular, symmetrical. Derm: No signs and/or symptoms reported regarding the dermatologic system. Skin is pink, warm \T\ dry. normal. Musculoskeletal: No signs and/or symptoms reported regarding the musculoskeletal system. Circulation, motion, and sensation intact. Vital Signs: 08:41 BP 146 / 99; Pulse 118; Resp 24; Temp 98.2; Pulse Ox 97% on R/A; Weight 111.13 kg; hb Height 5 ft. 5 in. (165.10 cm); Pain 8/10; 10:00 BP 115 / 66; Pulse 101; Resp 18; Pulse Ox 95% on R/A; aj1 11:00 BP 125 / 65; Pulse 93; Resp 20; Pulse Ox 100% ; aj1 12:00 BP 143 / 82; Pulse 110; Resp 20; Pulse Ox 95% on R/A; aj1 13:00 BP 116 / 54; Pulse 102; Resp 20; Pulse Ox 100% on R/A; aj1 08:41 Body Mass Index 40.77 (111.13 kg, 165.10 cm) hb Vitals: 09:48 Cardiac Rhythm Assessment Regular. da2 ED Course: 08:39 Patient arrived in ED. hb 08:40 EKG done, by traffic control technician. reviewed by Avel Kaminski MD. at1 08:41 Triage completed. hb 08:41 Arm band placed on. hb 08:41 Bed in low position. Call light in reach. Side rails up X 1. sinter feeder on. Pulse da2 ox on. NIBP on. Head of bed Elevated. 09:01 Avel Kaminski MD is Attending Physician. [facility] 09:33 Harlan Patton DO is Hospitalizing Provider. maycol 09:56 XRAY Chest (1 view) In Process Unspecified. EDMS 10:00 No provider procedures requiring assistance completed. aj1 10:00 Report received from ANGEL Dillard. aj1 10:15 Missed attempt(s): 22 gauge in left forearm. Bleeding controlled, band aid applied, aj1 catheter tip intact. 10:20 Missed attempt(s): 22 gauge in right wrist. Bleeding controlled, band aid applied, aj1 catheter tip intact. 10:34 Jessica Longoria RN is Primary Nurse. aj1 11:30 Inserted saline lock: 18 gauge in left EJ, using aseptic technique. ,using aseptic aj1 technique. by Dr. Kaminski. 13:23 Report given to ANGEL Madrid on 4th floor. aj1 13:25 Patient admitted, IV remains in place. aj1 Administered Medications: 11:30 Drug: levofloxacin 500 mg Volume: 100 ml; Route: IVPB; Infused Over: 60 mins; Site: aj1 left jugular; 13:27 Follow up: IV Status: Completed infusion; IV Intake: 100ml aj1 11:30 Drug: Decadron - Dexamethasone 10 mg Route: IVP; Site: left jugular; aj1 13:26 Follow up: Response: No adverse reaction aj1 11:31 Drug: SOLU-Medrol 125 mg Route: IVP; Site: left jugular; aj1 13:27 Follow up: Response: No adverse reaction aj1 11:31 Drug: Xopenex 3.75 mg Route: Inhalation; aj1 13:27 Follow up: Response: No adverse reaction aj1 11:31 Drug: AtroVENT Aerosol 0.5 mg Route: Inhalation; aj1 13:27 Follow up: Response: No adverse reaction aj1 Intake: 13:27 IV: 100ml; Total: 100ml. aj1 Outcome: 09:34 Decision to Hospitalize by Provider. maycol 13:26 Admitted to Tele accompanied by tech, via wheelchair, with chart. aj1 13:26 Condition: good 13:26 Discharge instructions given to patient, Instructed on the need for admit, Demonstrated understanding of instructions. 13:59 Patient left the ED. aj1 Signatures: Dispatcher [employer] Jessica Liu RN RN aj1 Avel Kaminski MD MD cha Gonzales, Amanda, centrifuge separator tender EKG Tat1 Tricia Oakes RN RN Acob, ANGEL Dillard RN da2 Corrections: (The following items were deleted from the chart) 08:48 08:39 Presenting complaint: EMS states: Worsening SOB x 3 days, seen in ED x 3 in last hb 24 hrs with same s/s, has not yet picked up prescriptions. BP 162/101, HR 110, R 30, SpO2 95% on RA, improved to 97% after A\T\A neb x 1 hb 09:49 09:48 Cardiac Rhythm Assessment Regular Sinus rhythm da2 da2
--- NOTE | 2019-04-30 10:34 | RAD REPORT ---
EXAM DESCRIPTION: RAD - Chest Single View - 04/30/2019 9:56 am COMPARISON: None. TECHNIQUE: AP portable chest image was obtained . FINDINGS: No focal lung parenchymal process. No failure or volume overload. Heart and vasculature ar e normal. No measurable pleural effusion and no pneumothorax. No acute bony abnormality seen. No acut e aortic findings suspected. No significant change from the prior study. IMPRESSION: No acute cardiopulmonary process.
--- NOTE | 2019-04-30 10:47 | P.HP ---
Certification for Inpatient Patient admitted to: Observation With expected LOS: <2 Midnights Patient will require the following post-hospital care: None Practitioner: I am a practitioner with admitting privileges, knowledge of patient current condition, hospital course, and medical plan of care. Services: Services provided to patient in accordance with Admission requirements found in Title 42 Section 412.3 of the Code of Federal Regulations Patient History Date of Service: 04/30/19 Primary Care Provider: Dr. Sanches Reason for admission: Shortness of breath History of Present Illness: 58-year-old female presented to the emergency room with shortness of breath. Patient with history of asthma, hypertension, chronic pain and anxiety. Patient presented to this ER with increasing shortness of breath. Patient reported cough, wheezing since Monday. She also reports granddaughter sick. Over the weekend she tried using her inhaler without any improvement. Yesterday shortness of breath got worse with exertion. She start to have increased phlegm as well. She was seen in the ER at the time and given treatments with improvement. She was sent home with medication. She was not able to get her medication last night. She spoke to her PCP who recommended to return if shortness of breath got worse. This morning she started to have increasing shortness of breath. She came to the ER for further evaluation. Increase cough, congestion with green phlegm noted. In the ER patient was evaluated. Increase wheezing noted. Vital signs stable. Due to failed outpatient treatment and worsening shortness of breath patient was admitted for further evaluation and treatment. When I saw the patient ER, she was much improved after given medication. Wheezing noted. Patient does not appear septic or with acute respiratory distress. Allergies Sulfa (Sulfonamide Ant Allergy (Mild, Uncoded 10/08/17 22:53) Unknown Albuterol Allergy (Uncoded 09/25/17 17:41) Unknown Sulfa (Sulfon Allergy (Uncoded 09/25/17 17:41) Unknown Sulfa (Sulfonamide Antibiotics) Allergy (Uncoded 11/12/17 16:13) Unknown Home medications list reviewed: Yes - Past Medical/Surgical History Diabetic: No -: Hypertension -: Asthma -: GERD -: Chronic pain -: Anxiety -: Former tobacco use -: Alcohol use -: Tubal ligation Psychosocial/ Personal History: Patient is single. She is currently disabled. - Family History Family History: Reviewed- Non-Contributory - Social History Smoking Status: Former smoker Alcohol use: Yes CD- Drugs: No Caffeine use: Yes Place of Residence: Home Review of Systems General: As per HPI Eyes: Unremarkable ENT: Nose Congestion, As per HPI Respiratory: Cough, Shortness of Breath, SOB with Excertion, Sputum, Wheezing, As per HPI Cardiovascular: Unremarkable Gastrointestinal: Unremarkable Genitourinary: Unremarkable Musculoskeletal: Back Pain, As per HPI Integumentary: Unremarkable Neurological: Unremarkable Lymphatics: Unremarkable Physical Examination - Physical Exam General: Alert, In no apparent distress, Oriented x3, Cooperative HEENT: Atraumatic, Normocephalic, PERRLA, Other (Dry mucous membranes) Neck: Supple, No Thyromegaly Respiratory: Expiratory wheezes (Bilateral), Inspiratory wheezes (Bilateral) Cardiovascular: Normal pulses, Regular rate/rhythm Gastrointestinal: Normal bowel sounds, Soft and benign, Non-distended, No tenderness, No masses, No rebound, No guarding Musculoskeletal: No erythema, No tenderness, No warmth Integumentary: No tenderness/swelling, No erythema, No warmth, No cyanosis Neurological: Normal speech, Normal strength at 5/5 x4 extr, Normal tone, Normal affect Lymphatics: No axilla or inguinal lymphadenopathy Assessment and Plan - Plan Impression: Cough, shortness of breath secondary to asthma exacerbation with failed outpatient treatment Hypertension GERD Chronic pain Former tobacco use Plan: Cough, shortness of breath secondary to asthma exacerbation with failed outpatient treatment: Patient will be admitted for observation. Will continue asthma treatment-prednisone/Brovana/albuterol/Atrovent. Will send cultures for further analysis. Will repeat chest x-ray. Will evaluate for infectious process. Continue DVT prophylaxis-Lovenox. Will continue to reassess and wean off oxygen. Will consult renal social worker to help arrange for nebulizer machine at discharge with medication. Anticipate discharge within the next 24 hr with clinical improvement. Hypertension: Continue home medication of lisinopril 20 mg daily, metoprolol XL 25 mg daily and Norvasc 10 mg daily. GERD: Will provide PPI. Chronic pain: Continue home medication of gabapentin 400 mg 3 times a day and hydrocodone. Former tobacco use: Patient no longer smokes. Discharge Plan: Home Plan to discharge in: 24 Hours - Advance Directives Does patient have a Living Will: No Does patient have a Durable POA for Healthcare: No - Code Status/Comfort Care Code Status Assessed: Yes (Patient is full code) Time Spent Managing Pts Care (In Minutes): 55
[2019-04-30 11:18] LABS: Absolute Lymphocytes (CBC) 3.2 K/uL (0.7-4.9); Basophils % 0.1 % (0-1.3); Hematocrit 40.6 % (36.0-45.0); Lymphocytes % 17.8 % (15.3-44.8); MPV 9.3 fL (7.6-11.3); RBC Red Blood Cell Count 5.05 M/uL (3.86-4.86)
[2019-04-30 11:31] LABS: Protime INR 0.96
[2019-04-30 12:05] LABS: ALT/SGPT 51 U/L (12-78); AST/SGOT 32 U/L (15-37); Albumin 3.5 g/dL (3.4-5.0); Alkaline Phosphatase 74 U/L (45-117); BUN Blood Urea Nitrogen 17 mg/dL (7-18); Bicarbonate 26 mmol/L (21-32); Bilirubin Direct 0.1 mg/dL (0-0.2); Bilirubin Total 0.2 mg/dL (0.2-1.0); Glucose Level 102 mg/dL (74-106); Magnesium 2.4 mg/dL (1.8-2.4); NT PRO-BNP 501 pg/mL (<125); Protein, Total 7.8 g/dL (6.4-8.2); Sodium Level 141 mmol/L (136-145); Troponin (Emerg Dept Use Only) < 0.02 ng/mL (0.0-0.045)
--- NOTE | 2019-04-30 12:12 | EKG ---
Test Date: 2019-04-30 Test Time: 08:35:10 Construction Field Engineer: MARTÍNEZ MEASUREMENT RESULTS: Intervals: Rate: 116 NJ: 140 QRSD: 68 QT: 346 QTc: 480 Blanco: P: 66 NJ: 140 QRS: 79 T: 46 INTERPRETIVE STATEMENTS: Sinus tachycardia Biatrial enlargement Abnormal ECG Compared to ECG 04/29/2019 08:50:30 Sinus rhythm no longer present Electronically Signed On 04-30-19 12:10:11 CDT by Addi Goldstein
[2019-04-30] MEDS ORDERED: ONDANSETRON 4 MG/2 ML VIAL IV PRN (12:53)
[2019-04-30] MEDS ORDERED: ACETAMINOPHEN 500 MG TAB PO PRN (12:53)
[2019-04-30] MEDS ORDERED: BENZONATATE 100 MG CAP PO PRN (12:53)
[2019-04-30] MEDS ORDERED: NA CHLORIDE 0.9% 1,000 ML IV SCH (12:53)
[2019-04-30] MEDS: GABAPENTIN 400 MG CAP PO SCH ×2 (13:59→21:27)
[2019-04-30] MEDS: GUAIFENESIN 600 MG SA TAB PO SCH ×2 (13:59→21:27)
[2019-04-30] MEDS: ENOXAPARIN 40 MG/0.4 ML SQ SCH (14:00)
[2019-04-30 14:17] VITALS: BMI 40.7
[2019-04-30] MEDS: predniSONE 20 MG TAB PO SCH ×2 (14:18→21:25)
[2019-04-30 14:52] LABS: Thyroid Stimulating Hormone 0.353 uIU/mL (0.360-3.740)
[2019-04-30 14:52] LABS: Urine Appearance CLEAR; Urine Bilirubin NEGATIVE (NEG); Urine Blood NEGATIVE (NEG); Urine Color YELLOW; Urine Glucose NEGATIVE (NEG); Urine Protein NEGATIVE (NEG); Urine Urobilinogen 0.2 mg/dL (0.2-1.0); Urine pH 5.5 (5.0-7.0)
[2019-04-30 14:53] LABS: Urine Microscopic Reflex ORDER UMIC
[2019-04-30] MEDS: HYDROCODONE/APAP 10/325 TAB PO PRN ×2 (15:05→21:30)
[2019-04-30 15:13] LABS: Urine Bacteria 20-50 /HPF (<20); Urine Culture Reflex Order REFLEXED; Urine Mucus 1+ /HPF (NONE SEEN); Urine RBC <5 /HPF (NONE SEEN)
[2019-04-30] MEDS: ALBUTEROL 2.5 MG/3 ML NEB SOL NEB PRN ×2 (15:45→19:40)
[2019-04-30] MEDS: IPRATROPIUM BROM 0.5MG/2.5ML NEB PRN ×2 (15:45→19:40)
[2019-04-30] MEDS ORDERED: NA CHLORIDE 0.9% 1,000 ML IV ONE (16:26)
[2019-04-30] MEDS ORDERED: LACTULOSE 20 GM/30 ML UCUP PO PRN (16:27)
[2019-04-30] MEDS ORDERED: Levofloxacin500mg IV 500 MG/100 ML BAG IV SCH (17:00)
[2019-04-30] MEDS: NA CHLORIDE 0.9% 1,000 ML IV SCH (18:00)
[2019-04-30] MEDS: ARFORMOTEROL TARTRATE 15 MCG/2 ML VIAL.NEB NEB SCH (19:40)
[2019-04-30] MEDS ORDERED: METOPROLOL XL 25 MG TAB PO SCH (21:00)
[2019-04-30] MEDS: ALPRAZOLAM 0.25 MG TABLET PO PRN (21:27)
[2019-05-01] MEDS: HYDROCODONE/APAP 10/325 TAB PO PRN ×2 (03:22→09:29)
[2019-05-01 04:38] LABS: Absolute Lymphocytes (CBC) 1.8 K/uL (0.7-4.9); Basophils % 0.1 % (0-1.3); Hematocrit 36.6 % (36.0-45.0); Lymphocytes % 14.4 % (15.3-44.8); MPV 9.8 fL (7.6-11.3); RBC Red Blood Cell Count 4.51 M/uL (3.86-4.86)
[2019-05-01 05:08] LABS: Magnesium 2.3 mg/dL (1.8-2.4)
[2019-05-01] MEDS: ALBUTEROL 2.5 MG/3 ML NEB SOL NEB PRN ×2 (05:20→11:15)
[2019-05-01] MEDS: IPRATROPIUM BROM 0.5MG/2.5ML NEB PRN ×2 (05:20→11:15)
[2019-05-01] MEDS: NA CHLORIDE 0.9% 1,000 ML IV SCH ×2 (06:14→13:00)
[2019-05-01] MEDS ORDERED: PANTOPRAZOLE 40MG TABLET PO SCH (07:30)
[2019-05-01] MEDS: ARFORMOTEROL TARTRATE 15 MCG/2 ML VIAL.NEB NEB SCH (08:00)
[2019-05-01] MEDS ORDERED: NA CHLORIDE 0.9% 1,000 ML IV ONE (08:14)
--- NOTE | 2019-05-01 08:32 | RAD REPORT ---
EXAM DESCRIPTION: Hansel Wilson And Ramu (2 Views)05/01/2019 7:04 am CLINICAL HISTORY: Shortness of breath COMPARISON: April 30, 2019 FINDINGS: Area of subsegmental atelectasis left lung base The remainder of the lungs appear clear of acute infiltrate. The heart is normal size
[2019-05-01] MEDS ORDERED: DOCUSATE NA 100 MG CAP PO SCH (09:00)
[2019-05-01] MEDS ORDERED: AMLODIPINE 10 MG TAB PO SCH (09:00)
[2019-05-01] MEDS: ENOXAPARIN 40 MG/0.4 ML SQ SCH (09:00)
[2019-05-01] MEDS ORDERED: LISINOPRIL 20 MG TAB PO SCH (09:00)
--- NOTE | 2019-05-01 09:16 | P.DS ---
Admission Date: 04/30/19 Discharge Date: 05/01/19 Primary Care Provider: Dr. Sanches Disposition: ROUTINE DISCHARGE Discharge Condition: GOOD Reason for Admission: Shortness of breath Consultations: none Procedures: CXR: COMPARISON: April 30, 2019 FINDINGS: Area of subsegmental atelectasis left lung base The remainder of the lungs appear clear of acute infiltrate. The heart is normal size Medical Problem List: Cough, shortness of breath secondary to asthma exacerbation with failed outpatient treatment UTI Hypertension GERD Chronic pain Former tobacco use Brief History of Present Illness: 58-year-old female presented to the emergency room with shortness of breath. Patient with history of asthma, hypertension, chronic pain and anxiety. Patient presented to this ER with increasing shortness of breath. Patient reported cough, wheezing since Monday. She also reports granddaughter sick. Over the weekend she tried using her inhaler without any improvement. Yesterday shortness of breath got worse with exertion. She start to have increased phlegm as well. She was seen in the ER at the time and given treatments with improvement. She was sent home with medication. She was not able to get her medication last night. She spoke to her PCP who recommended to return if shortness of breath got worse. This morning she started to have increasing shortness of breath. She came to the ER for further evaluation. Increase cough, congestion with green phlegm noted. In the ER patient was evaluated. Increase wheezing noted. Vital signs stable. Due to failed outpatient treatment and worsening shortness of breath patient was admitted for further evaluation and treatment. When I saw the patient ER, she was much improved after given medication. Wheezing noted. Patient does not appear septic or with acute respiratory distress. Upon further evaluation urinalysis was abnormal for UTI. Hospital Course: Patient presented with cough, shortness of breath. Patient recently seen in the ER and sent home with medication. Her condition did not improve. Patient was evaluated in the emergency room and found to have asthma exacerbation with failed outpatient treatment. Patient was given asthma treatment with improvement noted. Chest x-ray unremarkable. Influenza test and strep test negative. Pro calcitonin was negative. At discharge she is without any significant chest pain or shortness of breath. At discharge, social work will help to arrange for the patient to get a nebulizer machine. At discharge it was noted that the patient had allergy to sulfa. Albuterol has a small component of sulfa. Therefore at discharge patient will be switched over to Xopenex. At discharge patient will continue with Xopenex/Atrovent nebs 1 unit dose 3 times a day as needed for shortness of breath. Patient will continue with Advair 1 puff twice daily. Patient will also be given prednisone 20 mg 1 pill twice daily for 5 days then 1 pill once daily for 5 days. Education on asthma will be provided. Recommend to follow up with PCP in 1-2 weeks to follow up this hospitalization. Patient may benefit with pulmonology evaluation as an outpatient to further monitor. Patient also found to have a UTI. Pro calcitonin negative. White count elevated but improved. Patient was started on antibiotic therapy. At discharge she will continue with Levaquin 500 mg 1 pill once daily for 5 days. Recommend to follow up with her PCP to go over urine culture results. UTI prevention will be provided. Patient appeared slightly dehydrated. She was given IV fluids during the course of her stay. Renal function stable at this time. Patient with hypertension. Blood pressure remained stable. At discharge she will continue with her medications of lisinopril 20 mg daily, metoprolol XL 25 mg daily, and Norvasc 10 mg daily. Recommend to monitor her blood pressure closely. Further adjustment can be done by her PCP. Patient with underlying GERD. Patient may continue with her medication- Prilosec daily. Patient with chronic pain. Patient may continue with gabapentin 400 mg 3 times a day and hydrocodone as directed. Patient to follow up with her specialist as the patient will have surgery in the future to her neck. Vital Signs/Physical Exam: Temp Pulse Resp BP Pulse Ox 97.8 F 91 H 20 145/73 H 95 05/01/19 04:00 05/01/19 04:00 05/01/19 04:16 05/01/19 04:00 05/01/19 04:16 General: Alert, In no apparent distress, Oriented x3, Cooperative HEENT: Atraumatic Neck: Supple Respiratory: Clear to auscultation bilaterally, Normal air movement Cardiovascular: Normal pulses, Regular rate/rhythm Gastrointestinal: Normal bowel sounds, Soft and benign, Non-distended, No tenderness, No masses, No rebound, No guarding Musculoskeletal: No erythema, No tenderness, No warmth Integumentary: No tenderness/swelling, No erythema, No warmth, No cyanosis Neurological: Normal speech, Normal strength at 5/5 x4 extr, Normal tone, Normal affect Laboratory Data at Discharge: WBC 12.2 K/uL (4.3-10.9) H D 05/01/19 03:43 Hgb 12.0 g/dL (12.0-15.0) 05/01/19 03:43 Hct 36.6 % (36.0-45.0) 05/01/19 03:43 Plt Count 244 K/uL (152-406) 05/01/19 03:43 PT 11.3 SECONDS (9.5-12.5) 04/30/19 11:05 INR 0.96 04/30/19 11:05 Sodium 141 mmol/L (136-145) 05/01/19 03:43 Potassium 4.0 mmol/L (3.5-5.1) 05/01/19 03:43 BUN 18 mg/dL (7-18) 05/01/19 03:43 Creatinine 1.02 mg/dL (0.55-1.3) 05/01/19 03:43 Glucose 149 mg/dL (74-106) H 05/01/19 03:43 Magnesium 2.3 mg/dL (1.8-2.4) 05/01/19 03:43 Total Bilirubin 0.2 mg/dL (0.2-1.0) 04/30/19 11:05 AST 32 U/L (15-37) 04/30/19 11:05 ALT 51 U/L (12-78) 04/30/19 11:05 Alkaline Phosphatase 74 U/L (45-117) 04/30/19 11:05 Home Medications: ALPRAZolam [Xanax*] 1 tab PO DAILY 04/30/19 Amlodipine [Norvasc*] 1 tab PO DAILY 04/30/19 Fluticasone/Salmeterol [Advair Hfa 45-21 Mcg Inhaler] 1 puff IH BID 04/30/19 Gabapentin [Neurontin*] 1 tab PO TID 04/30/19 Hydrocodone APAP 325 [[place] 103[address]*] 1 tab PO QID 04/30/19 Lisinopril [Prinivil*] 1 tab PO DAILY 04/30/19 Metoprolol Succinate 1 tab PO DAILY 04/30/19 Omeprazole [Prilosec] 2 tab PO DAILY 04/30/19 Ipratropium Neb [Atrovent*] 0.5 mg NEB TID PRN #90 amp 05/01/19 Levalbuterol HCl [Xopenex] 0.63 mg IH TID PRN #90 vial.neb 05/01/19 levoFLOXacin [Levaquin] 500 mg PO DAILY #5 tab 05/01/19 predniSONE [Prednisone*] 20 mg PO SEECOM #15 tab 05/01/19 New Medications: Ipratropium Neb [Atrovent*] 0.5 mg NEB TID PRN #90 amp PRN Reason: Shortness Of Breath Levalbuterol HCl [Xopenex] 0.63 mg IH TID PRN #90 vial.neb PRN Reason: Shortness Of Breath levoFLOXacin [Levaquin] 500 mg PO DAILY #5 tab predniSONE [Prednisone*] 20 mg PO SEECOM #15 tab Patient Discharge Instructions: 1. Recommend follow up with PCP in 1 week to follow up this hospitalization. 2. Patient presented with cough, shortness of breath. Patient recently seen in the ER and sent home with medication. Her condition did not improve. Patient was evaluated in the emergency room and found to have asthma exacerbation with failed outpatient treatment. Patient was given asthma treatment with improvement noted. Chest x-ray unremarkable. Influenza test and strep test negative. Pro calcitonin was negative. At discharge she is without any significant chest pain or shortness of breath. At discharge, social work will help to arrange for the patient to get a nebulizer machine. At discharge it was noted that the patient had allergy to sulfa. Albuterol has a small component of sulfa. Therefore at discharge patient will be switched over to Xopenex. At discharge patient will continue with Xopenex/ Atrovent nebs 1 unit dose 3 times a day as needed for shortness of breath. Patient will continue with Advair 1 puff twice daily. Patient will also be given prednisone 20 mg 1 pill twice daily for 5 days then 1 pill once daily for 5 days. Education on asthma will be provided. Recommend to follow up with PCP in 1-2 weeks to follow up this hospitalization. Patient may benefit with pulmonology evaluation as an outpatient to further monitor. 3. Patient also found to have a UTI. Pro calcitonin negative. White count elevated but improved. Patient was started on antibiotic therapy. At discharge she will continue with Levaquin 500 mg 1 pill once daily for 5 days. Recommend to follow up with her PCP to go over urine culture results. UTI prevention will be provided. 4. Patient appeared slightly dehydrated. She was given IV fluids during the course of her stay. Renal function stable at this time. 5. Patient with hypertension. Blood pressure remained stable. At discharge she will continue with her medications of lisinopril 20 mg daily, metoprolol XL 25 mg daily, and Norvasc 10 mg daily. Recommend to monitor her blood pressure closely. Further adjustment can be done by her PCP. 6. Patient with underlying GERD. Patient may continue with her medication-Prilosec daily. 7. Patient with chronic pain. Patient may continue with gabapentin 400 mg 3 times a day and hydrocodone as directed. Patient to follow up with her specialist as the patient will have surgery in the future to her neck. Diet: AHA Activity: Ad mora Time spent managing pt's care (in minutes): 55
[2019-05-01 09:19] VITALS: O2SAT 94
[2019-05-01] MEDS: GUAIFENESIN 600 MG SA TAB PO SCH (09:26)
[2019-05-01] MEDS: GABAPENTIN 400 MG CAP PO SCH ×2 (09:26→13:12)
[2019-05-01] MEDS: predniSONE 20 MG TAB PO SCH (09:27)
[2019-05-01] MEDS: ALPRAZOLAM 0.25 MG TABLET PO PRN (13:19)
[2019-05-01 16:23] VITALS: BP 129/58; TEMP 97.5
--- OUTSIDE RECORDS SUMMARY | 2019-05-25 21:10 | XMS REPORT ---
:1960 [facility] Address [address] [place] [address] Care Team Providers Name Role Phone Unavailable Unavailable Unavailable Problems This patient has no known problems. Allergies, Adverse Reactions, Alerts This patient has no known allergies or adverse reactions. Medications This patient has no known medications.
== END 2019-05-01 16:55 | disposition home or self-care (01) ==
LOC: ER 08:36 → ERHOLD 10:31 → 4TH 13:28
PROVIDERS: ADMIT Family Medicine; ATTEND Family Medicine
DX: J45.901 Unspecified asthma with (acute) exacerbation (principal); N39.0 Urinary tract infection, site not specified; I10 Essential (primary) hypertension; K21.9 Gastro-esophageal reflux disease without esophagitis; G89.29 Other chronic pain; Z87.891 Personal history of nicotine dependence; E86.0 Dehydration; Z88.2 Allergy status to sulfonamides
CPT/HCPCS: 96365; 93005; 87070; 87088; 85025 ×2; 80048 ×2; 36415; 83735 ×2; 85610; 80076; 87081; 83605 ×4; 84443; 84484; 84439; 84145; 83880; 87804 ×2; 71045; 71046; 94640; 96375; 99285; 96366; J7605 ×2; J7030 ×4; G0378 ×3; 81003; 81015; 87086; J1650; J7512

== ENCOUNTER 2019-09-01 21:18 | Emergency (ER) | payer OTHER ==
--- OUTSIDE RECORDS SUMMARY | 2019-09-01 21:20 | XMS REPORT ---
:1960 [facility] Address [address] [place] [address] [address] [place] [address] Care Team Providers Name Role Phone Unavailable Unavailable Unavailable Problems This patient has no known problems. Allergies, Adverse Reactions, Alerts This patient has no known allergies or adverse reactions. Medications This patient has no known medications.
--- OUTSIDE RECORDS SUMMARY | 2019-09-01 21:20 | XMS REPORT | Summary of Care ---
:1960 Author Organization [facility] Address [address] [place] [address] Care Team Providers Name Role Phone Leonel Howe Primary Care Provider Reason for Visit Reason Comments Follow-up Encounter Details Date Type Department Care Team Description 08/01/2019 Office Visit [facility]aryanViv, Postmenopausal bleeding (Primary Dx); Healthcare- [facility] Encounter to discuss test results [address], [address] [facility] [address] [id number] [place], [place] [phone] Allergies Active Allergy Reactions Severity Noted Date Comments Sulfa (Sulfonamide Antibiotics) Unknown - See comments 03/14/2007 documented as of this encounter (statuses as of 08/01/2019) Medications Medication Sig Dispensed Refills Start Date End Date Status amLODIPine (NORVASC) 10 Take 10 mg by 0 Active mg tablet mouth daily. aspirin 81 mg EC tablet Take 81 mg by 0 Active mouth daily. HYDROcodone-acetaminophe Take 1 Tab by 0 Active n (NORCO) 10-325 mg mouth every 6 tablet (six) hours as needed. lisinopril Take 20 mg by 0 Active (PRINIVIL,ZESTRIL) 20 mg mouth daily. tablet metoprolol succinate XL Take 25 mg by 0 Active (TOPROL XL) 25 mg 24 hr mouth daily. tablet clonazePAM 0.5 mg tablet 0 11/23/2017 Active DULoxetine 30 mg capsule 0 11/02/2017 Active ADVAIR HFA 45-21 2 10/24/2017 Active mcg/actuation inhaler methylPREDNISolone Take by mouth 21 Each 0 08/28/2018 Active (MEDROL, ANT,) 4 mg SEE-INSTRUCTIONS tabletsIndications: . follow package Radiculopathy affecting directions upper extremity ALPRAZolam (XANAX) 1 mg Take 1 mg by 0 Active tablet mouth 2 (two) times daily. gabapentin 400 mg Take 1 capsule 0 Active capsule by mouth. clindamycin 300 mg TAKE 1 CAPSULE 0 05/23/2019 Active capsule BY MOUTH EVERY 8 HOURS FOR 7 DAYS albuterol (VENTOLIN HFA) INHALE 2 PUFFS 4 0 02/04/2019 Active 90 mcg/actuation inhaler TIMES A DAY NEEDED DYSPNEA ipratropium 0.02 % 2.5 mL. 0 Active nebulizer solution levoFLOXacin 500 mg 0 04/29/2019 Active tablet montelukast 10 mg tablet 0 05/06/2019 Active predniSONE 20 mg tablet 0 05/29/2019 Active omeprazole 40 mg capsule 0 06/02/2019 Active COMP-AIR NEBULIZER USE DIRECTED 0 05/01/2019 Active COMPRESSOR Meghna FOR BREATHING TREATMENTS levalbuterol 0.63 mg/3 USE 1 VIAL IN 0 05/06/2019 Active mL nebulizer solution NEBULIZER 3 TIMES A DAY (J45.50) azelastine 0.05 % 0 06/10/2019 Active ophthalmic solution documented as of this encounter (statuses as of 08/01/2019) Active Problems Problem Noted Date Morbid obesity with body mass index of 40.0-49.9 07/01/2019 documented as of this encounter (statuses as of 08/01/2019) Resolved Problems Problem Noted Date Resolved Date Chest pain 10/13/2005 08/01/2019 Overview: ICD10 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 documented as of this encounter Last Filed Vital Signs Vital Sign Reading Time Taken Comments Blood Pressure 115/75 08/01/2019 11:47 AM SURGICAL ASST Pulse - - Temperature 36.9 C (98.4 F) 08/01/2019 11:47 AM SURGICAL ASST Respiratory Rate 18 08/01/2019 11:47 AM SURGICAL ASST Oxygen Saturation - - Inhaled Oxygen Concentration - - Weight 116.6 kg (257 lb) 08/01/2019 11:47 AM SURGICAL ASST Height 165.1 cm (5' 5") 08/01/2019 11:47 AM SURGICAL ASST Body Mass Index 42.77 08/01/2019 11:47 AM SURGICAL ASST documented in this encounter Patient Instructions Patient InstructionsLyubov Okeefe MA - 08/01/2019 11:15 AM CST Hysteroscopy Hysteroscopy is a procedure that is done to see inside your uterus. It can help find the cause of problems in the uterus. This helps your healthcare provider decide on the best treatment. In some casesit can be used to perform treatment. Hysteroscopy may be done in your healthcare provider's office or in the hospital. Why might I need hysteroscopy? Hysteroscopy may be done based on the results of other tests. It can help find the cause of problems. These can include: Unusually heavy or long menstrual periods Bleeding between periods Postmenopausal bleeding Trouble becoming (infertility) or carrying a to term To locate an IUD (intrauterine device) To perform sterilization What are the risks and complications of hysteroscopy? Problems with the procedure are rare. But all procedures have risks. Risks of hysteroscopy include: Infection Bleeding Tearing of the uterine wall Damage to internal organs Scarring of the uterus Fluid overload Problems with anesthesia, the medicine that prevents pain during the procedure How do I get ready for hysteroscopy? Tell your healthcare provider if you have any health problems. These include diabetes, heart disease, or bleeding problems. Tell your healthcare provider about all the medicines you take. This includes any qdxo-abd-oacctdw medicines, prescription medicines, vitamins, herbs , or supplements. You may be told not to use vaginal creams or medicine. And you may be told not to have sex or wash out your vagina (douche). You may be told not to eat or drink the night before the procedure. You may be tested for and infection. You may be asked to sign a consent form. You may be given a pain reliever to take an hour before the procedure. This helps relieve cramping that may occur. What happens during a hysteroscopy? Youll lie on an exam table with your feet in stirrups. You may be given general anesthesia or medicines to help you relax or sleep. In some cases, an IV(intravenous) line will be put into a vein in your arm or hand. This line is then used to give fluids and medicines. A tool called a speculum is inserted into the vagina to hold it open. A tool called a dilator maybe used to widen the cervix. Numbingmedicine may be applied to the cervix. A long, thin lighted tube (hysteroscope) is inserted through the vagina and into the uterus. It is used to see inside the uterus. Images of the uterus are viewed on a monitor. A gas or fluid may be injected into the uterus to expand it. Other tools may be put through the hysteroscope. These are used to take tissue samples, remove growths, or place implants for the purpose of sterilization. What happens after hysteroscopy? You may have cramps and bleeding for 24 hours after the procedure. This is normal. Use pads instead of tampons. Don't douche or use tampons until your healthcare provider says its OK. Don't use any vaginal medicines until you are told its OK. Ask your healthcare provider when its OK to have sex again. Call your healthcare provider if you have: Heavy bleeding (more than 1 pad an hour for 2 or more hours) A fever of 100.4F (38.0C) or higher, or as directed by your provider Increasing belly (abdominal) pain or soreness Bad-smelling discharge Follow-up care Schedule a follow-up visit with your healthcare provider. Based on your test results, you may need more treatment. Be sure to follow instructions and keep your appointments. [employer] last reviewed this educational content on 12/15/201619993575-3817 [employer]. [address] [place] [address], [place] [address]. All rights reserved. This information is not intended as a substitute for professional medical care. Always follow your healthcare professional's instructions. Endometrial Biopsy Endometrial biopsy is a procedure used to study the lining of the uterus. The uterus is also called the endometrium. The biopsy is usually done in your healthcare providers office. During the biopsy, small tissue samples are taken from inside the uterus. These are then sent to a lab for study. If any problems are found, you and your healthcare provider will discuss treatment options. The biopsy usually takes only a fewminutes, and you can often go back to your normal routine as soon as the procedure is over. Reasons for the procedure Endometrial biopsy may help pinpoint the cause of certain problems. These include: Abnormal Pap test results Bleeding after menopause Bleeding associated with hormone therapy Having certain types of cancer Heavy or irregular menstrual periods Prolonged bleeding Trouble getting (fertility problems) Damage to the uterine wall (very rare) What are the risks? Problems with endometrial biopsy are rare, but can include: Bleeding Damage to the uterine wall (very rare) Infection Getting ready for the procedure Yourhealthcare providerwill ask about your health and any medicines you take , like blood thinners. Before your biopsy, you may have tests to make sure you re not or have an infection. You may also be asked to sign a consent form. You should do the following 1 to 2 days before the biopsy: Don't use creams or other vaginal medicines. Don't douche. Ask your healthcare provider if you should take pain medicines shortly before the test. During the biopsy During the biopsy, you will likely experience the following: You will be asked to lie on an exam table with your knees bent, just as you do for a Pap test. You may have a brief pelvic exam. An instrument called a speculum is then inserted into the vagina to hold it open. An antiseptic solution may be applied to the cervix. The cervix may also be numbed with an anesthetic or dilated to widen the opening. A small tube is passed through the cervix into the uterus. It is normal to feel some cramping when the tube is inserted. But tell your healthcare provider if you have severe cramping or are very uncomfortable. Using mild suction, samples are taken from the uterine lining. You may feel pinching or additional cramping when this is done. The tube and speculum are then removed and the samples are sent to a lab for study. After the procedure After the procedure, you may experience the following: If you feel lightheaded or dizzy, you can rest on the table until youre ready to get dressed. For a few hours, you may feel some mild cramping. This can usually be relieved with [id number] pain medicines. You may have some bleeding for a few days. Use pads instead of tampons. Dont douche or use any vaginal medicines unless your healthcare provider says its OK. Ask your healthcare provider when its OK to have sex again. Follow-up care It will take about a week for the biopsy results to come back from the lab. Then you and your healthcare provider can discuss the results. These may show that no treatment is required. Or you may be scheduled for a follow-up appointment and more tests. If your biopsy was done for fertility problems, be sure to record the day when your next period begins. Call your healthcare provider Call your healthcare provider if you have any of the following: Fever of100.4F (38C) or higher, or as directed by your healthcare provider Foul-smelling or unusual vaginal discharge Heavy bleeding (soaking more than 1 pad an hour for 2 hours) Severe cramping or increasing pain [employer] last reviewed this educational content on 12/15/201619995764-0129 [employer]. [address] [place] [address]. All rights reserved. This information is not intended as a substitute for professional medical care. Always follow your healthcare professional's instructions. ICAL ASST documented in this encounter Progress Notes Viv Yates PA-C - 08/01/2019 11:15 AM CST Chief complaint: Chief Complaint Patient presents with Follow-up HPI Funmi Stoner is a 59 year old female coming in to discuss results from her pap smear and blood work. Patient also had medical records sent over here from [place] from her previous EMBX. Patient is concerned since she has went through menopause almost 10 years ago and is still having on and off spotting. Patient also reports has not had any sexual activity x 3 years. 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 Palpitation Substance abuse THC / Cocaine Family History Problem Relation Age of Onset Hypertension Mother Heart Mother Thyroid Father Kidney disease Diabetes Father High cholesterol Father Thyroid Other Diabetes Other Hypertension Other Coronary Heart Disease Other Arthritis NoFHx Asthma NoFHx defects NoFHx Breast Cancer NoFHx Colon Cancer NoFHx Ovarian Cancer NoFHx Uterine Cancer NoFHx Cancer NoFHx Depression NoFHx Genetic NoFHx Mental retardation NoFHx Neurological NoFHx Osteoporosis NoFHx Psychiatry NoFHx Other - see comments NoFHx Family Status Relation Name Status Mo Alive Fa OTHER Brothers NoFHx (Not Specified) Past Surgical History: Procedure Laterality Date COLONOSCOPY 2014 polyps / negative ESOPHAGOGASTRODUODENOSCOPY 11/2017 OR EXC TUMOR SOFT TISS FACE&SCALP SUBFASCIAL 2+CM SPINE SURGERY 2019 TUBAL LIGATION Social History Socioeconomic History Marital status: Single Spouse name: Not on file Number of children: Not on file Years of education: 11 Highest education level: Not on file Occupational History Occupation: Disabled Comment: [employer] Social Needs Financial resource strain: Not on file Food insecurity: Worry: Not on file Inability: Not on file Transportation needs: Medical: Not on file Non-medical: Not on file Tobacco Use Smoking status: Former Smoker Types: Cigarettes Smokeless tobacco: Never Used Tobacco comment: quit smoking 2019 Substance and Sexual Activity Alcohol use: Not Currently Alcohol/week: 0.0 standard drinks Drug use: Not Currently Types: Marijuana, Cocaine Comment: past use Sexual activity: Not Currently Partners: Male Comment: No sex in > 3 year Lifestyle Physical activity: Days per week: Not on file Minutes per session: Not on file Stress: Not on file Relationships Social connections: Talks on phone: Not on file Gets together: Not on file Attends hindu service: Not on file Active member of club or organization: Not on file Attends meetings of clubs or organizations: Not on file Relationship status: Not on file Intimate partner violence: Fear of current or ex partner: Not on file Emotionally abused: Not on file Physically abused: Not on file Forced sexual activity: Not on file Other Topics Concern Service Not Asked Blood Transfusions Not Asked Caffeine Concern Not Asked Occupational Exposure Not Asked Hobby Hazards Not Asked Sleep Concern Not Asked Stress Concern Not Asked Weight Concern Not Asked Special Diet Not Asked Back Care Not Asked Exercise Not Asked Bike Helmet Not Asked Seat Belt Yes Self-Exams Yes Social History Narrative Denies domestic or physical violence within the home Gnosticism Preference: Presybeterian Social History Substance and Sexual Activity Sexual Activity Not Currently Partners: Male Comment: No sex in > 3 year Labs none Radiology none Allergies Funmi is allergic to sulfa (sulfonamide antibiotics). Medications Funmi has a current medication list which includes the following prescription(s): albuterol, alprazolam, azelastine, clindamycin, comp-air nebulizer compressor, gabapentin, ipratropium, levalbuterol, levofloxacin, montelukast, omeprazole, prednisone, methylprednisolone, advair hfa, clonazepam, duloxetine, metoprolol succinate xl, lisinopril, amlodipine, aspirin, and hydrocodone-acetaminophen. Review of Systems Constitutional: Negative for appetite change, fatigue and fever. HENT: Negative for rhinorrhea and sore throat. Eyes: Negative for pain and itching. Respiratory: Negative for cough, chest tightness and shortness of breath. Breasts: Negative for discharge, mass and pain. Cardiovascular: Negative for chest pain, palpitations and leg swelling. Gastrointestinal: Negative for abdominal pain, constipation, diarrhea and nausea. Genitourinary: Positive for vaginal bleeding. Negative for bladder incontinence , dysuria, vaginal discharge, difficulty urinating, vaginal pain and pelvic pain. Musculoskeletal: Negative for gait problem and myalgias. Skin: Negative for rash. Neurological: Negative for dizziness and headaches. Psychiatric/Behavioral: Negative for suicidal ideas. The patient is not nervous/ anxious. Endocrine: Negative for hair loss. BP 115/75 (BP Location: Left arm, Patient Position: Sitting, BP CUFF SIZE: Adult Small) | Temp 36.9C (98.4 F) (Oral) | Resp 18 | Ht 5' 5" (1.651 m) | Wt 257 lb (116.6 kg) | BMI 42.77 kg/m Pregravid BMI: Could not be calculated Physical Exam Vitals reviewed. Constitutional: She is oriented to person, place, and time. Her body habitus is obese. Pulmonary/Chest: Normal inspiratory effort. Neuro/Psychiatric: She has a normal mood and affect. She is oriented to person, place, and time. Skin: Skin normal. Assessment/Plan Postmenopausal bleeding (primary encounter diagnosis) Encounter to discuss test results TSH and prolactin wnl Pap and HPV neg. Repeat in 5 years. Mammogram and US no done yet. Will have PSS help in scheduling APPOINTMENT. Discussed being evaluated with EMBX or hysteroscopy. Patient reports will do research and let us know next week if she wants to do either or. Patient to FOLLOW-UP with Dr. Castillo for possible EMBX or preop for hysteroscopy in [place]. Return to clinic in 1 wk Discussed treatment options. Reviewed patient instructions and provided printed copy. This visit did involve counseling and coordination that comprised more than 50% of the visit time. Viv Yates PA-C 08/01/2019 1:33 PM documented in this encounter Plan of Treatment Date Type Specialty Care Team Description 07/01/2020 Office Visit Obstetrics & Gynecology Viv Yates PA-C [address] [place] [phone] Health Maintenance Due Date Last Done Comments HEPATITIS C (HCV) SCREEN 1960 DTaP,Tdap,and Td Vaccines (1 1973 - Tdap) Breast Cancer Screening 2002 (MAMMOGRAM) COLONOSCOPY 2012 Zoster Recombinant Vaccine 2012 (SHINGRIX) (1 of 2) LUNG CANCER SCREEN: 2017 Recommended for age 55-80 with 30 + pack year history INFLUENZA VACCINE (#1) 2019 PAP SMEAR 07/01/2022 07/01/2019, 02/03/2016 PNEUMOCOCCAL 0-64 YEARS Aged Out No longer eligible based COMBINED SERIES on patient's age to complete this topic documented as of this encounter Results Not on filedocumented in this encounter Visit Diagnoses Diagnosis Postmenopausal bleeding - Primary Encounter to discuss test results Other specified counseling documented in this encounter Insurance Payer Benefit Plan Subscriber ID Effective Phone Address Type / Group Dates MEDICARE MEDICARE PART xxxxxxxxxxx 2016-Jessica [phone] Medicare A & B nt [id number] ISA GOLDMAN [id number] [facility] xxxxxxxxx 2015-Jessica Medicaid [facility] STAR PLUS nt PLAN - MANAGED MEDICAID documented as of this encounter
--- OUTSIDE RECORDS SUMMARY | 2019-09-01 21:20 | XMS REPORT | Summary of Care ---
:1960 Author Organization [facility] Address [address] [place] [address] Care Team Providers Name Role Phone Leonel Howe Primary Care Provider Reason for Visit Reason Comments Medical Records Encounter Details Date Type Department Care Team Description 07/30/2019 Case Management [facility] Viv Yates, Medical Records Healthcare- [address] [place] [phone] [place], [place] [phone] Allergies Active Allergy Reactions Severity Noted Date Comments Sulfa (Sulfonamide Antibiotics) Unknown - See comments 03/14/2007 documented as of this encounter (statuses as of 07/30/2019) Medications Medication Sig Dispensed Refills Start Date [...] as of this encounter (statuses as of 07/30/2019) Active Problems Problem Noted Date Morbid obesity with body mass index of 40.0-49.9 07/01/2019 Chest pain 10/13/2005 Overview: ICD10 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 She was concerned about postcoidal bleeding with intercourse. Patient reports she went through menopause over 2 years ago. 05/26/2015- biopsy of uterine lining EMBX DX: endometrium biopsy-scan fragmented pieces of inactive endometrium in a background of predominantly blood cloth. No evidence of hyperplasia, atypia, or malignancy identified. Clinical correlation is recommended due to relatively scant sampling of endometiral glands present for evaluation. US on 10/23/14 3.8 cm myometrial fibroid. Otherwise unremarkable pelvic us documented in this encounter Plan of Treatment Date Type Specialty Care Team Description 07/01/2020 Office Visit Obstetrics & Gynecology Viv Yates PA-C [address] [place] [phone] Health Maintenance Due Date Last Done [...] Results Not on filedocumented in this encounter Insurance Payer Benefit Plan Subscriber ID Effective Phone Address Type / Group Dates MEDICARE MEDICARE PART xxxxxxxxxxx 2016-Jessica [phone] Medicare A & B nt [id number] ISA GOLDMAN [id number] [facility] xxxxxxxxx [facility] STAR PLUS nt PLAN - MANAGED MEDICAID documented as of this encounter
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
--- OUTSIDE RECORDS SUMMARY | 2019-09-01 21:21 | XMS REPORT | Summary of Care ---
:1960 Author Organization [facility] - Health Address [address] [place] [address] Care Team Providers Name Role Phone Leonel Howe Primary Care Provider Encounter Details Date Type Department Care Team Description 08/08/2019 Orders Only [facility] Doctor Unassigned, No [address] [facility] [place] [address] [address] [place] [address] Allergies Active Allergy Reactions Severity Noted Date Comments Sulfa (Sulfonamide Antibiotics) Unknown - See comments 03/14/2007 documented as of this encounter (statuses as of 08/08/2019) Medications Medication Sig Dispensed Refills Start Date [...] as of this encounter (statuses as of 08/08/2019) Active Problems Problem Noted Date Morbid obesity with body mass index of 40.0-49.9 07/01/2019 documented as of this encounter (statuses as of 08/08/2019) Resolved Problems Problem Noted Date Resolved Date Chest pain 10/13/2005 08/01/2019 Overview: ICD10 Diagnosis Term General Doc Utility documented as of this encounter (statuses as of 08/08/2019) Social History Tobacco Use Types Packs/Day Years [...] Signs Not on filedocumented in this encounter Plan of Treatment Date Type Specialty Care Team Description 08/12/2019 Appointment Radiology Viv Yates PA-C [address] [place] [phone] 08/12/2019 Appointment Radiology Viv Yates PA-C [address] [facility] [place] [phone] 09/09/2019 Office Visit Obstetrics & Gynecology Chio Castillo MD [address] [place] [address]. [facility] [address] [place] [address] [phone] 07/01/2020 Office Visit Obstetrics & Gynecology Viv Yates PA-C [address] [facility] [place] [phone] Health Maintenance Due Date Last Done Comments [...] this topic documented as of this encounter Procedures Procedure Name Priority Date/Time Associated Diagnosis Comments EXTERNAL PROVIDER Routine 08/08/2019 12:01 AM PRICING CONSULTANT RECORDS documented in this encounter Results Not on filedocumented in this encounter Insurance Payer Benefit Plan Subscriber ID Effective Phone Address Type / Group Dates MEDICARE MEDICARE PART xxxxxxxxxxx 2016-Jessica [phone] Medicare A & B nt [id number] ISA GOLDMAN [id number] [facility] xxxxxxxxx 2015-Jessica Medicaid [facility] STAR PLUS nt PLAN - MANAGED MEDICAID documented as of this encounter
[2019-09-01] MEDS ORDERED: LORazepam 2 MG/ML VIAL ONE (22:07)
[2019-09-01 22:15] LABS: Protime INR 0.98
[2019-09-01 22:16] LABS: Absolute Lymphocytes (CBC) 5.5 K/uL (0.7-4.9); Basophils % 0.8 % (0-1.3); Hematocrit 42.6 % (36.0-45.0); Lymphocytes % 52.7 % (15.3-44.8); MPV 9.2 fL (7.6-11.3); RBC Red Blood Cell Count 5.17 M/uL (3.86-4.86)
[2019-09-01 22:31] LABS: ALT/SGPT 65 U/L (12-78); AST/SGOT 65 U/L (15-37); Albumin 3.6 g/dL (3.4-5.0); Alkaline Phosphatase 78 U/L (45-117); BUN Blood Urea Nitrogen 15 mg/dL (7-18); Bicarbonate 26 mmol/L (21-32); Bilirubin Direct < 0.1 mg/dL (0-0.2); Bilirubin Total 0.2 mg/dL (0.2-1.0); Glucose Level 96 mg/dL (74-106); Magnesium 2.2 mg/dL (1.8-2.4); NT PRO-BNP 360 pg/mL (<125); Potassium 3.7 mmol/L (3.5-5.1); Protein, Total 7.5 g/dL (6.4-8.2); Sodium Level 142 mmol/L (136-145); Troponin (Emerg Dept Use Only) < 0.02 ng/mL (0.0-0.045)
--- NOTE | 2019-09-02 02:09 | ER ---
Nurse's Notes [facility] Name: Funmi Stoner Age: 59 yrs Sex: Female : 1960 Arrival Date: 09/01/2019 Time: 21:19 Bed 20 Private MD: Diagnosis: Chest pain, unspecified;Palpitations Presentation: 09/01 21:33 Presenting complaint: Patient states: she thought she was having an anxiety attack but bb then she felt like her heart was beating irregularly and she is having chest tightness. Transition of care: patient was not received from another setting of care. Onset of symptoms was September 01, 2019 at 20:00. Risk Assessment: Do you want to hurt yourself or someone else? Patient reports no desire to harm self or others. Initial Sepsis Screen: Does the patient meet any 2 criteria? No. Patient's initial sepsis screen is negative. Does the patient have a suspected source of infection? No. Patient's initial sepsis screen is negative. Care prior to arrival: None. 21:33 Method Of Arrival: Ambulatory bb 21:33 Acuity: LINDSAY 3 bb Historical: - Allergies: 21:39 Sulfa (Sulfonamide Antibiotics); bb - Home Meds: 21:39 Advair Diskus 100-50 mcg/dose Inhl dsdv 1 puff 2 times per day [Active]; amlodipine 10 bb mg tab 1 tab once daily [Active]; gabapentin 400 mg Oral cap 1 cap 3 times per day [Active]; hydrocodone-acetaminophen 10-325 mg Oral tab 1 tab 3-4 times a day [Active]; lisinopril 20 mg Oral tab 1 tab once daily [Active]; metoprolol tartrate 25 mg Oral tab 1 tab 2 times per day [Active]; omeprazole 20 mg Oral cpDR 1 cap once daily [Active]; Albuterol Inhl [Active]; Xanax Oral [Active]; Aspirin Oral [Active]; - PMHx: 21:39 Anxiety; Asthma; Diabetes - NIDDM; hot flashes; Hypertension; Irregular heart rate; bb Myocardial infarction; Panic Attacks; Rheumatoid Arthritis; 21:41 heart valve problem; bb - PSHx: 21:39 C2 disc removal; bb - Immunization history:: Adult Immunizations up to date, Flu vaccine is not up to date. - Coronavirus screen:: The patient has NOT traveled to [place] in the past 14 days. Proceed with normal triage process as indicated. - Social history:: Smoking status: Patient denies any tobacco usage or history of. - Ebola Screening: : No symptoms or risks identified at this time. Screenin:40 Abuse screen: Denies threats or abuse. Denies injuries from another. Nutritional rr5 screening: No deficits noted. Tuberculosis screening: No symptoms or risk factors identified. Fall Risk IV access (20 points). Total Schroeder Fall Scale indicates No Risk (0-24 pts). Assessment: 21:40 General: Appears in no apparent distress. uncomfortable, Behavior is cooperative, rr5 anxious. Pain: Complains of pain in chest Pain does not radiate. Pain currently is 8 out of 10 on a pain scale. Quality of pain is described as aching, Pain began gradually, Is intermittent. 21:40 Neuro: Level of Consciousness is awake, alert, obeys commands, Oriented to person, rr5 place, time, situation, Reports anxiety attack. Cardiovascular: Reports chest pain, tightness Capillary refill < 3 seconds Patient's skin is warm and dry. Respiratory: Airway is patent Respiratory effort is even, unlabored, Respiratory pattern is regular, symmetrical. GI: No signs and/or symptoms were reported involving the gastrointestinal system. : No signs and/or symptoms were reported regarding the genitourinary system. EENT: No signs and/or symptoms were reported regarding the EENT system. Derm: Skin is intact, is healthy with good turgor, Skin temperature is warm. Musculoskeletal: Circulation, motion, and sensation intact. Capillary refill < 3 seconds. 23:21 Reassessment: Patient appears in no apparent distress at this time. Patient is alert, rr5 oriented x 3, equal unlabored respirations, skin warm/dry/pink. for repeat troponin at 0100H Patient denies pain at this time. Patient states feeling better. Patient states symptoms have improved. 09/02 01:25 Reassessment: Patient appears in no apparent distress at this time. Patient and/or rr5 family updated on plan of care and expected duration. Pain level reassessed. no complaints made, repeat ECG and troponin done and sent. 02:18 Reassessment: Patient appears in no apparent distress at this time. Patient is alert, rr5 oriented x 3, equal unlabored respirations, skin warm/dry/pink. discharge instruction given and explained without complaints made, verbalized understading Patient states feeling better. Patient states symptoms have improved. Vital Signs: 09/01 21:39 BP 123 / 83; Pulse 79; Resp 18 S; Temp 98.2(O); Pulse Ox 98% on R/A; Weight 112.49 kg bb (R); Height 5 ft. 5 in. (165.10 cm); Pain 8/10; 22:00 BP 122 / 90; Pulse 78; Resp 17; Pulse Ox 99% ; rr5 23:00 BP 101 / 57; Pulse 72; Resp 17; Pulse Ox 98% on R/A; Pain 0/10; rr5 0217 00:00 BP 107 / 61; Pulse 69; Resp 17; Pulse Ox 99% on R/A; rr5 01:05 BP 119 / 65; Pulse 70; Resp 17; Pulse Ox 99% ; rr5 02:18 BP 106 / 77; Pulse 75; Resp 16; Temp 98; Pulse Ox 99% ; Pain 0/10; rr5 09/01 21:39 Body Mass Index 41.27 (112.49 kg, 165.10 cm) bb ED Course: 09/01 21:19 Patient arrived in ED. cl3 21:27 Pramod Diez, ANGEL is Primary Nurse. rr5 21:35 Triage completed. bb 21:39 Arm band placed on Patient placed in an exam room, on a stretcher, on medical sales, bb on pulse oximetry. EKG completed in triage. Results shown to MD. Family accompanied patient. 21:44 Lashanda Mosqueda FNP-C is [facility]. snw 21:44 Marleen Celeste MD is Attending Physician. snw 21:45 Patient has correct armband on for positive identification. Placed in gown. Bed in low rr5 position. Call light in reach. Side rails up X2. quality coordinator on. Pulse ox on. NIBP on. 22:00 Inserted saline lock: 22 gauge in left hand, using aseptic technique. Blood collected. rr5 09/02 00:46 XRAY Chest (1 view) In Process Unspecified. EDMS 01:15 Inserted saline lock: 24 gauge in right wrist, using aseptic technique. Blood collected.ds4 01:27 Troponin (emerg Dept Use Only) Sent. ds4 01:57 Troponin (emerg Dept Use Only) Sent. ds4 02:19 No provider procedures requiring assistance completed. IV discontinued, intact, rr5 bleeding controlled, No redness/swelling at site. Pressure dressing applied. Patient maintains SpO2 saturation greater than 95% on room air. Administered Medications: 09/01 22:10 Drug: Ativan 0.5 mg Route: IVP; Site: left hand; rr5 23:10 Follow up: Response: No adverse reaction rr5 Outcome: 09/02 02:08 Discharge ordered by MD. burden 02:20 Patient left the ED. rr5 Signatures: Dispatcher [employer] EDMS Lashanda Mosqueda, FISH CLEANER MACHINE TENDER-C FISH CLEANER MACHINE TENDER-Csnw Haydee Medina RN RN Donal Linn ds4 Pramod Diez RN RN rr5 Dara Majano cl3 Corrections: (The following items were deleted from the chart) 09/01 23:25 23:00 BP 101 / 57; Pulse 72bpm; Resp 17bpm; Pulse Ox 98% RA; rr5 rr5
--- NOTE | 2019-09-02 02:10 | EDPHYS ---
Physician Documentation [facility] Name: Funmi Stoner Age: 59 yrs Sex: Female : 1960 Arrival Date: 09/01/2019 Time: 21:19 Bed 20 Private MD: ED Physician Marleen Celeste HPI: 09/01 21:57 This 59 yrs old Black Female presents to ER via Ambulatory with complaints of Chest snw Pain. 21:57 Onset: The symptoms/episode began/occurred acutely. Associated signs and symptoms: snw Pertinent positives: palpitations. It is unknown whether or not the patient has had similar symptoms in the past. The patient has been recently seen by a physician:. stopped ASA a few days ago as she is scheduled for endoscopy and colonoscopy (5 yr check up 2nd to polyps). Historical: - Allergies: 21:39 Sulfa (Sulfonamide Antibiotics); bb - Home Meds: 21:39 Advair Diskus 100-50 mcg/dose Inhl dsdv 1 puff 2 times per day [Active]; amlodipine 10 bb mg tab 1 tab once daily [Active]; gabapentin 400 mg Oral cap 1 cap 3 times per day [Active]; hydrocodone-acetaminophen 10-325 mg Oral tab 1 tab 3-4 times a day [Active]; lisinopril 20 mg Oral tab 1 tab once daily [Active]; metoprolol tartrate 25 mg Oral tab 1 tab 2 times per day [Active]; omeprazole 20 mg Oral cpDR 1 cap once daily [Active]; Albuterol Inhl [Active]; Xanax Oral [Active]; Aspirin Oral [Active]; - PMHx: 21:39 Anxiety; Asthma; Diabetes - NIDDM; hot flashes; Hypertension; Irregular heart rate; bb Myocardial infarction; Panic Attacks; Rheumatoid Arthritis; 21:41 heart valve problem; bb - PSHx: 21:39 C2 disc removal; bb - Immunization history:: Adult Immunizations up to date, Flu vaccine is not up to date. - Coronavirus screen:: The patient has NOT traveled to [place] in the past 14 days. Proceed with normal triage process as indicated. - Social history:: Smoking status: Patient denies any tobacco usage or history of. - Ebola Screening: : No symptoms or risks identified at this time. ROS: 21:57 Constitutional: Negative for fever, chills, and weight loss, Eyes: Negative for injury, snw pain, redness, and discharge, ENT: Negative for injury, pain, and discharge, Neck: Negative for injury, pain, and swelling, Respiratory: Negative for shortness of breath, cough, wheezing, and pleuritic chest pain, Abdomen/GI: Negative for abdominal pain, nausea, vomiting, diarrhea, and constipation, Back: Negative for injury and pain, : Negative for injury, bleeding, discharge, and swelling, MS/Extremity: Negative for injury and deformity, Skin: Negative for injury, rash, and discoloration, Neuro: Negative for headache, weakness, numbness, tingling, and seizure, Psych: Negative for depression, anxiety, suicide ideation, homicidal ideation, and hallucinations. 21:57 Cardiovascular: Positive for chest pain, "fluttering" midsternal. Exam: 21:56 Constitutional: This is a well developed, well nourished patient who is awake, alert, snw and in no acute distress. Head/Face: Normocephalic, atraumatic. Eyes: Pupils equal round and reactive to light, extra-ocular motions intact. Lids and lashes normal. Conjunctiva and sclera are non-icteric and not injected. Cornea within normal limits. Periorbital areas with no swelling, redness, or edema. ENT: Nares patent. No nasal discharge, no septal abnormalities noted. Tympanic membranes are normal and external auditory canals are clear. Oropharynx with no redness, swelling, or masses, exudates, or evidence of obstruction, uvula midline. Mucous membranes moist. Neck: Trachea midline, no thyromegaly or masses palpated, and no cervical lymphadenopathy. Supple, full range of motion without nuchal rigidity, or vertebral point tenderness. No Meningismus. Chest/axilla: Normal chest wall appearance and motion. Nontender with no deformity. No lesions are appreciated. Respiratory: Lungs have equal breath sounds bilaterally, clear to auscultation and percussion. No rales, rhonchi or wheezes noted. No increased work of breathing, no retractions or nasal flaring. Abdomen/GI: Soft, non-tender, with normal bowel sounds. No distension or tympany. No guarding or rebound. No evidence of tenderness throughout. Back: No spinal tenderness. No costovertebral tenderness. Full range of motion. Skin: Warm, dry with normal turgor. Normal color with no rashes, no lesions, and no evidence of cellulitis. MS/ Extremity: Pulses equal, no cyanosis. Neurovascular intact. Full, normal range of motion. Neuro: Awake and alert, GCS 15, oriented to person, place, time, and situation. Cranial nerves II-XII grossly intact. Motor strength 5/5 in all extremities. Sensory grossly intact. Cerebellar exam normal. Normal gait. Psych: Awake, alert, with orientation to person, place and time. Behavior, mood, and affect are within normal limits. 21:56 Cardiovascular: Rate: normal, Rhythm: regular, Pulses: no pulse deficits are appreciated, Heart sounds: normal, Edema: is not appreciated. Vital Signs: 21:39 BP 123 / 83; Pulse 79; Resp 18 S; Temp 98.2(O); Pulse Ox 98% on R/A; Weight 112.49 kg bb (R); Height 5 ft. 5 in. (165.10 cm); Pain 8/10; 22:00 BP 122 / 90; Pulse 78; Resp 17; Pulse Ox 99% ; rr5 23:00 BP 101 / 57; Pulse 72; Resp 17; Pulse Ox 98% on R/A; Pain 0/10; rr5 0217 00:00 BP 107 / 61; Pulse 69; Resp 17; Pulse Ox 99% on R/A; rr5 01:05 BP 119 / 65; Pulse 70; Resp 17; Pulse Ox 99% ; rr5 02:18 BP 106 / 77; Pulse 75; Resp 16; Temp 98; Pulse Ox 99% ; Pain 0/10; rr5 09/01 21:39 Body Mass Index 41.27 (112.49 kg, 165.10 cm) bb MDM: 09/01 21:49 Patient medically screened. snw 09/02 02:08 Data reviewed: vital signs, nurses notes. Data interpreted: Pulse oximetry: on room air snw is 99 %. Interpretation: normal. Counseling: I had a detailed discussion with the patient and/or guardian regarding: the historical points, exam findings, and any diagnostic results supporting the discharge/admit diagnosis, lab results, radiology results, the need for outpatient follow up, to return to the emergency department if symptoms worsen or persist or if there are any questions or concerns that arise at home. Special discussion: Based on the patient's history, exam, and Dx evaluation, there is no indication for emergent intervention or inpatient Tx. It is understood by the patient/guardian that if the Sx's persist or worsen they need to return immediately for re-evaluation. Based on the history and exam findings, there is no indication for further emergent testing or inpatient evaluation. I discussed with the patient/guardian the need to see the dyeing machine tender for further evaluation of the symptoms. I discussed with the patient/guardian the need to see the primary care provider for further evaluation of the symptoms. 09/01 21:48 Order name: Basic Metabolic Panel [facility] 09/01 21:48 Order name: CBC with Diff 09/01 21:48 Order name: LFT's 09/01 21:48 Order name: Magnesium [facility] 09/01 21:48 Order name: NT PRO-BNP [facility] 09/01 21:48 Order name: PT-INR [facility] 09/01 21:48 Order name: Troponin (emerg Dept Use Only) [facility] 09/01 22:23 Order name: CBC with Automated Diff; Complete Time: 22:28 EDSD 09/01 22:23 Order name: Protime (+INR); Complete Time: 22:28 EDSD 09/01 22:32 Order name: Basic Metabolic Panel; Complete Time: 22:37 EDSD 09/01 22:32 Order name: Liver (Hepatic) Function; Complete Time: 22:37 EDSD 09/01 22:32 Order name: Troponin (Emerg Dept Use Only); Complete Time: 22:37 EDSD 09/01 22:32 Order name: NT PRO-BNP; Complete Time: 22:37 SD 09/01 22:32 Order name: Magnesium; Complete Time: 22:37 EDSD 09/01 21:48 Order name: XRAY Chest (1 view) [facility] 09/01 21:48 Order name: EKG; Complete Time: 21:50 09/01 21:48 Order name: Cardiac monitoring; Complete Time: 22:10 [facility] 09/01 21:48 Order name: EKG - Nurse/Tech; Complete Time: 22:10 [facility] 09/01 21:48 Order name: IV Saline Lock; Complete Time: 22:10 [facility] 09/01 21:48 Order name: Labs collected and sent; Complete Time: 22:10 snw 09/01 21:48 Order name: O2 Per Protocol; Complete Time: 22:10 snw 09/01 21:48 Order name: O2 Sat Monitoring; Complete Time: 22:10 snw 09/02 00:37 Order name: Repeat Cardiac Enzymes at: 0100, EKG at that time as well; Complete Time: snw 01:12 09/02 01:05 Order name: Troponin (emerg Dept Use Only); Complete Time: 02:03 rv 09/02 01:24 Order name: EKG; Complete Time: 01:25 snw Administered Medications: 09/01 22:10 Drug: Ativan 0.5 mg Route: IVP; Site: left hand; rr5 23:10 Follow up: Response: No adverse reaction rr5 Disposition: 09/02 19:03 Co-signature as Attending Physician, Marleen Celeste MD. ma2 Disposition: 09/02/19 02:08 Discharged to Home. Impression: Chest pain, unspecified, Palpitations. - Condition is Stable. - Discharge Instructions: Nonspecific Chest Pain, Palpitations, Aspirin and Your Heart. - Medication Reconciliation Form, Thank You Letter, Antibiotic Education, Prescription Opioid Use form. - Follow up: Emergency Department; When: As needed; Reason: Worsening of condition. Follow up: Private Physician; When: 2 - 3 days; Reason: Recheck today's complaints, Continuance of care, Re-evaluation by your physician. Signatures: Dispatcher [employer] EDMS Lashanda Mosqueda, FARZAD-C OUTSIDE CUTTER HAND-Csnw Haydee Medina RN RN bb Alzahri, Mohammad, MD MD ma2 Pramod Diez RN RN rr5 Corrections: (The following items were deleted from the chart) 02:20 02:08 09/02/2019 02:08 Discharged to Home. Impression: Chest pain, unspecified; rr5 Palpitations. Condition is Stable. Discharge Instructions: Nonspecific Chest Pain, Palpitations, Aspirin and Your Heart. Forms are Medication Reconciliation Form, Thank You Letter, Antibiotic Education, Prescription Opioid Use. Follow up: Emergency Department; When: As needed; Reason: Worsening of condition. Follow up: Private Physician; When: 2 - 3 days; Reason: Recheck today's complaints, Continuance of care, Re-evaluation by your physician. snw
[2019-09-02 02:37] VITALS: O2SAT 99
[2019-09-02 02:40] VITALS: BP 106/77; TEMP 98
--- NOTE | 2019-09-02 08:04 | RAD REPORT ---
EXAM DESCRIPTION: [place] Single View09/01/2019 10:24 pm CLINICAL HISTORY: Chest pain COMPARISON: 2018 FINDINGS: The lungs appear clear of acute infiltrate. The heart is normal size IMPRESSION: No acute abnormalities displayed
--- NOTE | 2019-09-02 08:09 | EKG ---
Test Date: 2019-09-02 Test Time: 01:33:23 Pill Packer: ISACC MEASUREMENT RESULTS: Intervals: Rate: 68 GA: 172 QRSD: 74 QT: 432 QTc: 459 [place]: P: 50 GA: 172 QRS: 66 T: 43 INTERPRETIVE STATEMENTS: Normal sinus rhythm Possible Left atrial enlargement Borderline ECG Compared to ECG 09/01/2019 21:30:09 No significant changes Electronically Signed On 09-02-19 08:08:34 PHOTOGRAPHIC DOUBLE by Mario Alberto Whittington
--- NOTE | 2019-09-02 08:10 | EKG ---
Test Date: 2019-09-01 Test Time: 21:30:09 Solar Pool Heating Installer: RV MEASUREMENT RESULTS: Intervals: Rate: 76 DC: 156 QRSD: 78 QT: 410 QTc: 461 [place]: P: 50 DC: 156 QRS: 68 T: 36 INTERPRETIVE STATEMENTS: Normal sinus rhythm Possible Left atrial enlargement Borderline ECG Compared to ECG 04/30/2019 08:35:10 Sinus tachycardia no longer present Electronically Signed On 09-02-19 08:09:07 NEON TUBE PUMPER by Mario Alberto Whittington
== END 2019-09-02 02:20 | disposition home or self-care (01) ==
LOC: ER 21:18
DX: R07.9 Chest pain, unspecified (principal); R00.2 Palpitations; Z88.2 Allergy status to sulfonamides; I25.2 Old myocardial infarction; F41.9 Anxiety disorder, unspecified; J45.909 Unspecified asthma, uncomplicated
CPT/HCPCS: 36415; 71045; 80048; 80076; 83735; 83880; 84484; 85025; 85610; 93005; 96374; 99285

== ENCOUNTER 2019-11-26 09:31 | Emergency (ER) | payer OTHER ==
[2019-11-26] MEDS ORDERED: DIAZEPAM 5 MG TABLET ONE (09:58)
[2019-11-26] MEDS ORDERED: MORPHINE 4 MG/ML SYR ONE (09:59)
--- OUTSIDE RECORDS SUMMARY | 2019-11-26 10:16 | XMS REPORT ---
:1960 Author Organization [facility] t Address [address] [place] [address] [address] [place] [address] Care Team Providers Name Role Phone Unavailable Unavailable Unavailable Problems This patient has no known problems. Allergies, Adverse Reactions, Alerts This patient has no known allergies or adverse reactions. Medications This patient has no known medications.
[2019-11-26] MEDS ORDERED: FENTANYL CITR 100 MCG/2 ML ONE (10:48)
--- NOTE | 2019-11-26 11:13 | EKG ---
Test Date: 2019-11-26 Test Time: 10:57:31 [employer] Teacher: YURY T MEASUREMENT RESULTS: Intervals: Rate: 71 CA: 154 QRSD: 76 QT: 420 QTc: 456 [place]: P: 48 CA: 154 QRS: 64 T: 47 INTERPRETIVE STATEMENTS: Normal sinus rhythm Possible Left atrial enlargement Borderline ECG Compared to ECG 09/02/2019 01:33:23 No significant changes Electronically Signed On 11-26-19 11:12:21 CDT by Addi Goldstein
[2019-11-26 11:35] LABS: Absolute Lymphocytes (CBC) 3.3 K/uL (0.7-4.9); Lymphocytes % 33.6 % (15.3-44.8); MPV 8.7 fL (7.6-11.3); RBC Red Blood Cell Count 4.81 M/uL (3.86-4.86)
[2019-11-26 11:36] LABS: Protime INR 0.9
--- NOTE | 2019-11-26 11:58 | RAD REPORT ---
EXAM DESCRIPTION: CT - Angio Aorta For Dissection - 11/26/2019 11:37 am CLINICAL HISTORY: Chest pain radiating to the back. left thoracic pain COMPARISON: No comparisons TECHNIQUE: CT angiography of the aorta was performed with MIPs. All CT scans are performed using dose optimization technique as appropriate and may include automated exposure control or mA/KV adjustment according to patient size. FINDINGS: A left aortic arch is present with normal branching pattern of the great vessels.No acute aortic finding is seen such as aneurysm, penetrating ulcer or dissection. The celiac axis, SMA, MARIA C and renal arteries are patent. Moderate atheromatous plaquing is noted distal abdominal aorta and lef t common iliac artery. No evidence of pulmonary embolism. The lungs are clear. The liver demonstrates no focal mass or biliary dilatation.The spleen, pancreas, adrenal glands and k idneys are within normal limits for arterial phase imaging. No bowel obstruction, free fluid or abscess.Normal appendix.No pathologic enlarged lymphadenopathy id entified. Mild lower lumbar spondylosis IMPRESSION: No acute aortic finding is demonstrated.
[2019-11-26 12:02] LABS: ALT/SGPT 46 U/L (12-78); AST/SGOT 44 U/L (15-37); Albumin 3.4 g/dL (3.4-5.0); Alkaline Phosphatase 69 U/L (45-117); BUN Blood Urea Nitrogen 12 mg/dL (7-18); Bicarbonate 24 mmol/L (21-32); Bilirubin Direct 0.1 mg/dL (0-0.2); Bilirubin Total 0.3 mg/dL (0.2-1.0); Glucose Level 95 mg/dL (74-106); Magnesium 2.2 mg/dL (1.8-2.4); NT PRO-BNP 207 pg/mL (<125); Potassium 4.2 mmol/L (3.5-5.1); Protein, Total 7.7 g/dL (6.4-8.2); Sodium Level 141 mmol/L (136-145); Troponin (Emerg Dept Use Only) < 0.02 ng/mL (0.0-0.045)
--- NOTE | 2019-11-26 12:13 | ER ---
Nurse's Notes [facility] Name: Funmi Stoner Age: 59 yrs Sex: Female : 1960 Arrival Date: 11/26/2019 Time: 09:39 Bed 13 Private MD: Diagnosis: Strain of muscle and tendon of back wall of thorax Presentation: 11/25 09:39 Chief complaint: EMS states: SPONTANEOUS LEFT LUMBAR PAIN. Coronavirus screen: Proceed bp with normal triage. Ebola Screen: No symptoms or risks identified at this time. Initial Sepsis Screen: Does the patient meet any 2 criteria? No. Patient's initial sepsis screen is negative. Does the patient have a suspected source of infection? No. Patient's initial sepsis screen is negative. Risk Assessment: Do you want to hurt yourself or someone else? Patient reports no desire to harm self or others. Onset of symptoms is unknown. 09:39 Method Of Arrival: EMS: [facility] bp 09:39 Acuity: LINDSAY 4 bp Triage Assessment: 09:41 General: Appears in no apparent distress. uncomfortable, Behavior is cooperative, bp appropriate for age, anxious. Pain: Complains of pain in left low back. EENT: No deficits noted. Neuro: No deficits noted. Cardiovascular: No deficits noted. Respiratory: No deficits noted. GI: No signs and/or symptoms were reported involving the gastrointestinal system. : No signs and/or symptoms were reported regarding the genitourinary system. Derm: No deficits noted. Musculoskeletal: Circulation, motion, and sensation intact. Range of motion: intact in all extremities. Historical: - Allergies: 09:41 Sulfa (Sulfonamide Antibiotics); bp - PMHx: 09:41 Anxiety; Asthma; Diabetes - NIDDM; Heart Valve problem; hot flashes; Hypertension; bp Irregular heart rate; Myocardial infarction; Panic Attacks; Rheumatoid Arthritis; - Immunization history:: Adult Immunizations up to date. - Social history:: Smoking status: Patient denies any tobacco usage or history of. Screenin:43 Abuse screen: Denies threats or abuse. Denies injuries from another. Nutritional bp screening: No deficits noted. Tuberculosis screening: No symptoms or risk factors identified. Fall Risk None identified. Assessment: 09:43 General: SEE TRIAGE NOTE. Neuro: Level of Consciousness is awake, alert, obeys bp commands, Oriented to Appropriate for age. 10:33 Reassessment: ALL CURRENT ORDERS COMPLETE, PT STATES NO RELIEF OF S/S. bp 11:30 Reassessment: PIV PLACED, CT PENDING. bp 12:43 Reassessment: PT D/C HOME VIA W/C, DX WITH MUSCLE AND TENDON STRAIN. bp Vital Signs: 09:39 BP 138 / 78; Pulse 75; Resp 16; Temp 97.7; Pulse Ox 98% ; Weight 110.22 kg; Height 5 bp ft. 5 in. (165.10 cm); 10:33 BP 122 / 68; Pulse 71; Resp 16; Pulse Ox 97% ; bp 11:29 BP 119 / 71; Pulse 73; Resp 16; Pulse Ox 100% ; bp 12:43 BP 118 / 81; Pulse 76; Resp 16; Pulse Ox 98% ; bp 09:39 Body Mass Index 40.44 (110.22 kg, 165.10 cm) bp ED Course: 09:39 Patient arrived in ED. bp 09:39 Huy Gibson PA is PHCP. jm 09:39 Avel Kaminski MD is Attending Physician. jmm 09:40 Triage completed. bp 09:41 Arm band placed on. bp 09:43 Patient has correct armband on for positive identification. Bed in low position. Call bp light in reach. Side rails up X2. 09:49 Marco Solis, ANGEL is Primary Nurse. bp 11:29 Inserted saline lock: 22 gauge in right forearm, using aseptic technique. Blood bp collected. 11:38 CT Aorta for Dissection In Process Unspecified. EDMS 12:43 No provider procedures requiring assistance completed. IV discontinued, intact, bp bleeding controlled, No redness/swelling at site. Pressure dressing applied. Administered Medications: 09:55 Drug: morphine 4 mg Route: IM; Site: right deltoid; bp 10:34 Follow up: Response: No adverse reaction bp 09:55 Drug: Valium 5 mg Route: PO; bp 10:34 Follow up: Response: No adverse reaction bp 11:31 Drug: fentaNYL (PF) 25 mcg Route: IVP; Site: right forearm; bp 12:45 Follow up: Response: Pain is decreased bp Outcome: 12:12 Discharge ordered by . jmm 12:43 Discharged to home via wheelchair. bp 12:43 Condition: stable 12:43 Discharge instructions given to patient, Instructed on discharge instructions, follow up and referral plans. medication usage, Demonstrated understanding of instructions, follow-up care, medications, Prescriptions given X 1. 12:46 Patient left the ED. bp Signatures: Dispatcher [employer] EDHuy Cummins PA PA jmm Peltier, Brian, RN RN bp
--- NOTE | 2019-11-26 12:13 | EDPHYS ---
Physician Documentation [facility] Name: Funmi Stoner Age: 59 yrs Sex: Female : 1960 Arrival Date: 11/26/2019 Time: 09:39 Bed 13 Private MD: ED Physician Avel Kaminski HPI: 11/25 09:39 This 59 yrs old Black Female presents to ER via EMS with complaints of Back Pain. jmm 09:39 The patient presents with pain that is acute. Onset: The symptoms/episode jmm began/occurred acutely, this morning. The pain does not radiate. Associated signs and symptoms: Pertinent negatives: chest pain. This is a 59 year old female with no chronic medical conditions that presents to the ED with complaints of left upper back pain beginning this morning upon turning. Patient states she felt her back pulls yesterday but had no pain at the time. Patient states pain was not alieved with home gabapentin. Historical: - Allergies: 09:41 Sulfa (Sulfonamide Antibiotics); bp - PMHx: 09:41 Anxiety; Asthma; Diabetes - NIDDM; Heart Valve problem; hot flashes; Hypertension; bp Irregular heart rate; Myocardial infarction; Panic Attacks; Rheumatoid Arthritis; - Immunization history:: Adult Immunizations up to date. - Social history:: Smoking status: Patient denies any tobacco usage or history of. ROS: 09:39 Constitutional: Negative for fever, chills, and weight loss, Cardiovascular: Negative jmm for chest pain, palpitations, and edema, Respiratory: Negative for shortness of breath, cough, wheezing, and pleuritic chest pain, Abdomen/GI: Negative for abdominal pain, nausea, vomiting, diarrhea, and constipation. 09:39 Back: Positive for pain with movement. 09:39 All other systems are negative. Exam: 09:39 Head/Face: atraumatic. Eyes: EOMI, no conjunctival erythema appreciated ENT: Moist jmm Mucus Membranes Neck: Trachea midline, Supple Chest/axilla: Normal chest wall appearance and motion. Cardiovascular: Regular rate and rhythm. No edema appreciated Respiratory: Normal respirations, no respiratory distress appreciated Abdomen/GI: Non distended, soft Back: Normal ROM Skin: General appearance color normal MS/ Extremity: Moves all extremities, no obvious deformities appreciated, no edema noted to the lower extremities Neuro: Awake and alert, normal gait Psych: Behavior is normal, Mood is normal, Patient is cooperative and pleasant 09:39 Constitutional: The patient appears alert, awake, anxious, in obvious pain, uncomfortable. 09:39 Back: left paraspinal thoracic pain on palpation. . Vital Signs: 09:39 BP 138 / 78; Pulse 75; Resp 16; Temp 97.7; Pulse Ox 98% ; Weight 110.22 kg; Height 5 bp ft. 5 in. (165.10 cm); 10:33 BP 122 / 68; Pulse 71; Resp 16; Pulse Ox 97% ; bp 11:29 BP 119 / 71; Pulse 73; Resp 16; Pulse Ox 100% ; bp 12:43 BP 118 / 81; Pulse 76; Resp 16; Pulse Ox 98% ; bp 09:39 Body Mass Index 40.44 (110.22 kg, 165.10 cm) bp MDM: 09:39 Patient medically screened. [facility] 12:10 Data reviewed: vital signs, nurses notes. [facility] 12:10 Counseling: I had a detailed discussion with the patient and/or guardian regarding: the [facility] historical points, exam findings, and any diagnostic results supporting the discharge/admit diagnosis, lab results, radiology results, the need for outpatient follow up, to return to the emergency department if symptoms worsen or persist or if there are any questions or concerns that arise at home. ED course: Pain is alleviated in the ED. CT aorta negative. Most likely Musculoskeletal. Patient advised to follow up with pcp and otherwise given strict return precautions. Patient understood and agrees with the plan of care. . 11/25 10:36 Order name: Basic Metabolic Panel; Complete Time: 12:04 [facility] 11/25 10:36 Order name: CBC with Diff; Complete Time: 11: [facility] 11/25 10:36 Order name: LFT's; Complete Time: 12:04 [facility] 11/25 10:36 Order name: Magnesium; Complete Time: 12:04 [facility] 11/25 10:36 Order name: NT PRO-BNP; Complete Time: 12:04 [facility] 11/25 10:36 Order name: PT-INR; Complete Time: 11:52 [facility] 11/25 10:36 Order name: Saline Lock; Complete Time: 11:31 [facility] 11/25 10:36 Order name: Troponin (emerg Dept Use Only); Complete Time: 12:04 [facility] 11/25 10:36 Order name: EKG; Complete Time: 10:37 [facility] 11/25 10:37 Order name: CT Aorta for Dissection; Complete Time: 12:04 [facility] 11/25 11:37 Order name: CREATININE WHOLE BLOOD; Complete Time: 11:52 [facility] 11/25 10:36 Order name: Cardiac monitoring; Complete Time: 11:31 [facility] 11/25 10:36 Order name: EKG - Nurse/Tech; Complete Time: 10:58 [facility] 11/25 10:36 Order name: Labs collected and sent; Complete Time: 11:31 [facility] 11/25 10:36 Order name: O2 Per Protocol; Complete Time: 10:58 [facility] 11/25 10:36 Order name: O2 Sat Monitoring; Complete Time: :58 [facility] Administered Medications: 09:55 Drug: morphine 4 mg Route: IM; Site: right deltoid; bp 10:34 Follow up: Response: No adverse reaction bp 09:55 Drug: Valium 5 mg Route: PO; bp 10:34 Follow up: Response: No adverse reaction bp 11:31 Drug: fentaNYL (PF) 25 mcg Route: IVP; Site: right forearm; bp 12:45 Follow up: Response: Pain is decreased bp Disposition: 11/26 09:45 Co-signature as Attending Physician, Avel Kaminski MD I agree with the assessment and maycol plan of care. Disposition: 11/26/19 12:12 Discharged to Home. Impression: Strain of muscle and tendon of back wall of thorax. - Condition is Stable. - Discharge Instructions: Thoracic Strain. - Prescriptions for Zanaflex 4 mg Oral Tablet - take 1 tablet by ORAL route every 8 hours As needed; 20 tablet. - Medication Reconciliation Form, Thank You Letter, Antibiotic Education, Prescription Opioid Use form. - Follow up: Private Physician; When: 2 - 3 days; Reason: Recheck today's complaints, Continuance of care, Re-evaluation by your physician. Signatures: Dispatcher [employer] Avel Fleming MD MD cha Mickail, Joel, PA PA Marco Crocker, ANGEL RN bp Corrections: (The following items were deleted from the chart) 11/25 12:46 12:12 11/26/2019 12:12 Discharged to Home. Impression: Strain of muscle and tendon of bp back wall of thorax. Condition is Stable. Forms are Medication Reconciliation Form, Thank You Letter, Antibiotic Education, Prescription Opioid Use. Follow up: Private Physician; When: 2 - 3 days; Reason: Recheck today's complaints, Continuance of care, Re-evaluation by your physician. crystal
[2019-11-26 13:00] VITALS: TEMP 97.7
[2019-11-26 13:05] VITALS: BP 118/81; O2SAT 98
== END 2019-11-26 12:46 | disposition home or self-care (01) ==
LOC: ER 09:31
DX: S29.012A Strain of muscle and tendon of back wall of thorax, initial encounter (principal); I10 Essential (primary) hypertension; Z88.2 Allergy status to sulfonamides
CPT/HCPCS: 93005; 85025; 80048; 36415; 83735; 85610; 82565; 80076; 84484; 83880; 71275; 74175; 96372; 96374; 99284; Q9967; J3010

== ENCOUNTER 2020-04-04 20:20 | Emergency (ER) | payer OTHER ==
--- OUTSIDE RECORDS SUMMARY | 2020-04-04 20:22 | XMS REPORT | Continuity of Care Document ---
:1960 Author Organization [facility] t Address [address] [place] [address] Care Team Providers Name Role Phone Doctor Unassigned, Name Attending Clinician Unavailable Milan HALL Attending Clinician Payers Payer Name Policy Type Policy Number Effective Date Expiration Date S ource Problems This patient has no known problems. Allergies, Adverse Reactions, Alerts Allergy Allergy Status Severity Reaction(s) Onset Inactive Treating Comm ents Source Name Type Date Date Clinician Sulfa DA Active U [facility] (Sulfona 7 [facility] 00:00: [facility] Antibiot 00 are ics) [facility] Medications This patient has no known medications. Procedures This patient has no known procedures. Encounters Start End Encounter Admission Attending Care Care Encounter Source Date/Time Date/Time Type Type Clinicians Facility Department ID 2019-08-08 2019-08-08 Orders Doctor NGUYEN [id number] 14 00:00:00 00:00:00 Only UnassignedSOFIE [id number] [place] [facility] [id number] 2019-08-01 2019-08-01 Office FARIBA Yates [id number] 11:39:15 12:11:37 Visit Viv Mike [id number] Yesy [id number] [place] [id number] [facility] [address] Building Results Test Description Test Time Test Comments Results Result Comments Source CBC W/AUTO DIFF 2020-03-21 06:30:00 Test Item Value Reference Range Interpretation Comme nts WHITE BLOOD CELL (test code = WBC) 11.3 x10 3/uL 4.8-10.8 H RED BLOOD CELL (test code = RBC) 5.37 x10 6/uL 4.20-5.40 N HEMOGLOBIN (test code = HGB) 13.9 g/dL 14.5-20 L HEMATOCRIT (test code = HCT) 42.8 % 37.0-47.0 N MEAN CELL VOLUME (test code = MCV) 79.7 fL 81.0-99.0 L MEAN CELL HGB (test code = MCH) 25.9 pg 27-31 L MEAN CELL HGB CONCENTRATION (test code = MCHC) 32.5 G/DL 33-36.5 L RED CELL DISTRIBUTION WIDTH (test code = RDW) 13.4 % 12.9-16. 9 N PLATELET COUNT (test code = PLT) 293 150-440 N MEAN PLATELET VOLUME (test code = MPV) 10.8 fL 8.9-12.4 N NEUTROPHIL % (test code = NT%) 72.0 % 42.2-75.2 N LYMPHOCYTE % (test code = LY%) 23.2 % 20.5-51.1 N MONOCYTE % (test code = MO%) 4.2 % 1.7-9.3 N EOSINOPHIL % (test code = EO%) 0.0 % 0.0-7.0 N BASOPHIL % (test code = BA%) 0.3 % 0-2.5 N NEUTROPHIL # (test code = NT#) 8.12 x10 3/uL 1.80-7.70 H LYMPHOCYTE # (test code = LY#) 2.61 x10 3/uL 1.00-4.80 N MONOCYTE # (test code = MO#) 0.47 x10 3/uL 0.00-0.80 N EOSINOPHIL # (test code = EO#) 0.00 x10 3/uL 0.00-0.45 N BASOPHIL # (test code = BA#) 0.03 x10 3/uL 0.0-0.20 N RENAL FUNCTION [id number] 06:28:00 Test Item Value Reference Range Interpretation Comments SODIUM (test code = 143 MMOL/L 136-143 N NA) POTASSIUM (test 4.3 MMOL/L 3.5-5.1 N code = K) CHLORIDE (test code 106 MMOL/L 98-107 N = CL) CARBON DIOXIDE 22 mmol/L 24-31 L (test code = CO2) GLUCOSE (test code 93 mg/dL 70-104 N = GLU) BLOOD UREA NITROGEN 20.9 MG/DL 7.0-21.0 N (test code = BUN) GLOMERULAR >=60 max >60 The estimated FILTRATION RATE estimate glomerular (test code = GFR) filtration rate is computed usingpatient ra ce, age (>18), sex, and serum creatinin e. If anyof the ne eded data elements a re missing the Laboratory dwaine ot compute an estimation of t he glomerular filtration rate . CREATININE (test 1.0 mg/dL 0.8-1.5 N code = CREAT) ALBUMIN (test code 4.0 G/DL 3.5-5.0 N = ALB) CALCIUM (test code 9.1 mg/dL 8.8-10.2 N = CA) PHOSPHOROUS (test 3.4 mg/dL 2.7-4.5 N code = PHOS) LACTIC [id number] 20:39:00 Test Item Value Reference Range Interpretation Comments LACTIC ACID (test code = LACT) 12.1 mg/dL 4.5-18.0 N CBC W/MANUAL [id number] 15:38:00 Test Item Value Reference Range Interpretation Comments WHITE BLOOD CELL (test code = 15.7 x10 3/uL 4.8-10.8 H WBC) RED BLOOD CELL (test code = 5.66 x10 6/uL 4.20-5.40 H RBC) HEMOGLOBIN (test code = HGB) 14.6 g/dL 14.5-20 N HEMATOCRIT (test code = HCT) 45.0 % 37.0-47.0 N MEAN CELL VOLUME (test code = 79.5 fL 81.0-99.0 L MCV) MEAN CELL HGB (test code = MCH) 25.8 pg 27-31 L MEAN CELL HGB CONCENTRATION 32.4 G/DL 33-36.5 L (test code = MCHC) RED CELL DISTRIBUTION WIDTH 13.6 % 12.9-16.9 N (test code = RDW) PLATELET COUNT (test code = 328 150-440 N PLT) MEAN PLATELET VOLUME (test code 10.7 fL 8.9-12.4 N = MPV) TOTAL CELLS COUNTED (test code 100 #CELLS = TCC) SEGMENTED NEUTROPHILS (test 54 % 43-65 N code = SEG) LYMPHOCYTE (test code = LYMPH) 37 % 20.5-45.5 N MONOCYTE (test code = MON) 8 % 5.5-11.7 N EOSINOPHIL (test code = EOS) 1 % 0.9-2.9 N MICROCYTOSIS (test code = MICR) 1+ NONE SEEN A COMPREHENSIVE METABOLIC [id number] 13:50:00 Test Item Value Reference Range Interpretation Comments SODIUM (test code = 135 MMOL/L 136-143 L NA) POTASSIUM (test code 4.2 MMOL/L 3.5-5.1 N = K) CHLORIDE (test code = 97 MMOL/L 98-107 L CL) CARBON DIOXIDE (test 23 mmol/L 24-31 L code = CO2) GLUCOSE (test code = 94 mg/dL 70-104 N GLU) BLOOD UREA NITROGEN 27.9 MG/DL 7.0-21.0 H (test code = BUN) GLOMERULAR FILTRATION 33 >60 L The es timated RATE (test code = glomerular filtration GFR) rate is compute d usingpatient ra ce, age (>18), sex, and serum creatinine. If anyof the needed data elements are mi ssing the Laboratory cannot compute an gen mation of the glomerul ar filtration rate . CREATININE (test code 2.0 mg/dL 0.8-1.5 H = CREAT) TOTAL PROTEIN (test 8.3 g/dL 6.3-8.3 N code = PROT) ALBUMIN (test code = 4.5 G/DL 3.5-5.0 N ALB) CALCIUM (test code = 9.6 mg/dL 8.8-10.2 N CA) BILIRUBIN TOTAL (test 0.6 mg/dL 0.2-1.0 N code = BILT) SGOT/AST (test code = 44 IU/L 10-34 H AST) SGPT/ALT (test code = 35 U/L 10-36 N ALT) ALKALINE PHOSPHATASE 63 U/L 32-104 N (test code = ALKP) [id number] 13:50:00 Test Item Value Reference Range Interpretation Comments LIPASE (test code = LIP) 50 U/L 0-190 N CBC W/MANUAL [id number] 13:47:00 Test Item Value Reference Range Interpretation Comments WHITE BLOOD CELL (test code = 15.7 x10 3/uL 4.8-10.8 H WBC) RED BLOOD CELL (test code = 5.66 x10 6/uL 4.20-5.40 H RBC) HEMOGLOBIN (test code = HGB) 14.6 g/dL 14.5-20 N HEMATOCRIT (test code = HCT) 45.0 % 37.0-47.0 N MEAN CELL VOLUME (test code = 79.5 fL 81.0-99.0 L MCV) MEAN CELL HGB (test code = MCH) 25.8 pg 27-31 L MEAN CELL HGB CONCENTRATION 32.4 G/DL 33-36.5 L (test code = MCHC) RED CELL DISTRIBUTION WIDTH 13.6 % 12.9-16.9 N (test code = RDW) PLATELET COUNT (test code = 328 150-440 N PLT) MEAN PLATELET VOLUME (test code 10.7 fL 8.9-12.4 N = MPV) TOTAL CELLS COUNTED (test code #CELLS = TCC) SEGMENTED NEUTROPHILS (test % 43-65 code = SEG) LYMPHOCYTE (test code = LYMPH) % 20.5-45.5 CBC W/MANUAL [id number] 13:47:00 Test Item Value Reference Range Interpretation Comments WHITE BLOOD CELL (test code = 15.7 x10 3/uL 4.8-10.8 H WBC) RED BLOOD CELL (test code = 5.66 x10 6/uL 4.20-5.40 H RBC) HEMOGLOBIN (test code = HGB) 14.6 g/dL 14.5-20 N HEMATOCRIT (test code = HCT) 45.0 % 37.0-47.0 N MEAN CELL VOLUME (test code = 79.5 fL 81.0-99.0 L MCV) MEAN CELL HGB (test code = MCH) 25.8 pg 27-31 L MEAN CELL HGB CONCENTRATION 32.4 G/DL 33-36.5 L (test code = MCHC) RED CELL DISTRIBUTION WIDTH 13.6 % 12.9-16.9 N (test code = RDW) PLATELET COUNT (test code = 328 150-440 N PLT) MEAN PLATELET VOLUME (test code 10.7 fL 8.9-12.4 N = MPV) TOTAL CELLS COUNTED (test code #CELLS = TCC) SEGMENTED NEUTROPHILS (test % 43-65 code = SEG) LYMPHOCYTE (test code = LYMPH) % 20.5-45.5 SURGICAL [id number] 13:17:00 RUN DATE: 03/19/20 [facility] - LAB PAGE 1 RUN TIME: 1317 Specimen Inquiry RUN USER: INTERFACE PATIENT: USMAN JARQUIN LOC: P.5N POD B U #: [id number] AGE/SX: 59/F ROOM: [facility] RE03/17/20[facility] DR: Anthony Friedman MD : 64 BED: 1 DIS: 03/18/20 STATUS: DIS IN TLOC: SPEC #: [id number] RECD: 03/17/20-1425 STATUS: SON SUBRAMANIAN #: [id number] KEYANA: 03/17/20-[address]: Anthony Friedman MD ENTERED: 03/17/20142 SP TYPE: SURG OTHR DR: Dru Olmedo MD ORDERED: PATHGM5/2, PATH SPEC, H E STAIN/2, IRON STAIN, PAS STAIN, TRICHROME STAIN, PAS WO.STAIN HISTOLOGY: TISSUE ID BLK PCS JESSICA LEV / PROCEDURE DISPOSITION ____ ___ ___ ___ ___ LIVER WEDGE BX A 1 2 1 STOMACH RESECT B 1 1 TISSUES: A. LIVER WEDGE BIOPSY - Liver Biopsy B. STOMACH SUBTOTAL RESECTION - Partial Stomach CLINICAL HISTORY Morbid Obesity FINAL DIAGNOSIS STOMACH, SLEEVE GASTRECTOMY: - MILD CHRONIC GASTRITIS LIVER, WEDGE BIOPSY: - MILD PERIPORTAL HEPATITIS, GRADE 1 Comment: The NAFLD score is 2 (steatosis 0-1; lobular inflammation 1; hepatocyte ballooning 0). No alpha-1 anti-trypsin deposits are identified on the PAS with diastase stain. No increased iron staining is seen on the iron stain. No fibrosis is identified on the trichrome stain. All controls show appropriate reactivity. Classic steatohepatitis requires the presence of steatosis, inflammation, and hepatocellular injury in the form of hepatocyte ballooning and/or pericellular fibrosis. The NAFLD score is defined as the scores for steatosis (0-3), lobular inflammation (0-3), and hepatocellular ballooning (0-2). Fibrosis is staged using the Brunt methodology (1 - perisinusoidal fibrosis, focal or extensive ;2 - perisinusoidal fibrosis and portal fibrosis, focal or extensive; 3 - bridging fibrosis; 4- cirrhosis). CPT 71902 X 2, 67867 X 3 CONTINUED ON NEXT PAGE RUN DATE: 03/19/20 [facility] - LAB PAGE 2 RUN TIME: 1317 Specimen Inquiry RUN USER: INTERFACE SPEC #: [id number] PATIENT: USMAN JARQUIN #[id number] (Continued) GROSS DESCRIPTION Received are two containers of formalin labeled with the patient's name and medical record number. Specimen A: Received labeled "liver biopsy" is a 1.3 x 0.9 x 0.5 cm piece of khan soft tissue. It is bisected and has a dull khan surface without a discrete lesion. It is entirely submitted in "A". Specimen B: Received labeled "partial stomach" is an unopened stomach which is 27 x 5 cm. The omentum is absent, and there is a full length staple line along the lesser curvature. The serosa is khan to red. The rugal folds are prominent khan. There are no mucosal lesions seen grossly. Business Transformation Analyst sections are submitted in "B". /yari-------- ---- Signed SIGNATURE ON FILE Stephanie Aldana MD 03/19/20 1317 END OF REPORT BASIC METABOLIC [id number] 04:39:00 Test Item Value Reference Range Interpretation Comments SODIUM (test code 135 MMOL/L 136-143 L = NA) POTASSIUM (test 4.9 MMOL/L 3.5-5.1 N code = K) CHLORIDE (test 101 MMOL/L 98-107 N code = CL) CARBON DIOXIDE 25 mmol/L 24-31 N (test code = CO2) GLUCOSE (test code 126 mg/dL 70-104 H = GLU) BLOOD UREA 10.5 MG/DL 7.0-21.0 N NITROGEN (test code = BUN) GLOMERULAR >=60 max >60 The estimated FILTRATION RATE estimate glomerular (test code = GFR) filtration rate is computed usingpatient ra ce, age (>18), sex, and serum creatinin e. If anyof the neede d data elements a re missing the Laboratory dwaine ot compute an estimation of t he glomerular filtration rate . CREATININE (test 0.8 mg/dL 0.8-1.5 N code = CREAT) CALCIUM (test code 9.4 mg/dL 8.8-10.2 N = CA) [id number] 04:39:00 Test Item Value Reference Range Interpretation Comments PHOSPHOROUS (test code = PHOS) 4.3 mg/dL 2.7-4.5 N [id number] 04:39:00 Test Item Value Reference Range Interpretation Comments MAGNESIUM (test code = MAG) 2.1 mg/dL 1.4-2.6 N CBC W/AUTO [id number] 04:31:00 Test Item Value Reference Range Interpretation Comments WHITE BLOOD CELL (test code = 10.5 x10 3/uL 4.8-10.8 N WBC) RED BLOOD CELL (test code = 5.19 x10 6/uL 4.20-5.40 N RBC) HEMOGLOBIN (test code = HGB) 13.5 g/dL 14.5-20 L HEMATOCRIT (test code = HCT) 42.0 % 37.0-47.0 N MEAN CELL VOLUME (test code = 80.9 fL 81.0-99.0 L MCV) MEAN CELL HGB (test code = MCH) 26.0 pg 27-31 L MEAN CELL HGB CONCENTRATION 32.1 G/DL 33-36.5 L (test code = MCHC) RED CELL DISTRIBUTION WIDTH 13.6 % 12.9-16.9 N (test code = RDW) PLATELET COUNT (test code = 322 150-440 N PLT) MEAN PLATELET VOLUME (test code 10.3 fL 8.9-12.4 N = MPV) NEUTROPHIL % (test code = NT%) 65.8 % 42.2-75.2 N LYMPHOCYTE % (test code = LY%) 25.0 % 20.5-51.1 N MONOCYTE % (test code = MO%) 8.9 % 1.7-9.3 N EOSINOPHIL % (test code = EO%) 0.0 % 0.0-7.0 N BASOPHIL % (test code = BA%) 0.1 % 0-2.5 N NEUTROPHIL # (test code = NT#) 6.94 x10 3/uL 1.80-7.70 N LYMPHOCYTE # (test code = LY#) 2.63 x10 3/uL 1.00-4.80 N MONOCYTE # (test code = MO#) 0.94 x10 3/uL 0.00-0.80 H EOSINOPHIL # (test code = EO#) 0.00 x10 3/uL 0.00-0.45 N BASOPHIL # (test code = BA#) 0.01 x10 3/uL 0.0-0.20 N Novel Coronavirus [id number] 07:15:00 Test Item Value Reference Interpretation Comments Range Novel Not Detected Not Detected Testing was per formed using Coronavirus 2019 the Aptima SARS-CoV-2 nCoV (test code assay.This t est was developed = COVID19) and its perform ance characteristics determined by [facility]. This test has not be enFDA cleared or approved. Th is test has been authorized byA under an Emergency Us e Authorization ( EUA). This testis only aut horized for the duration of time the declarationthat circumstances exist justifyin g the authorization o fthe emergency use of in vitro diagnostic tests fordetect ion of SARS-CoV-2 viru s and/or diagnosis of COVID-19infecti on under section 564(b)( 1) of the Act, 21 U.S.C.360bbb -3(b)(1), unless the auth orization is terminated orre voked sooner. When diagnostic testing is negative, thepo ssibility of a false negative result should be consideredin the context of a patient's recent exposures and t hepresence of clinical signs and symptoms consistent with COVID-19. An individual with out symptoms of COVID-19 and who is not shedding SARS-C oV-2 virus would expect to have anegative (not detected) result in this assay. Novel Coronavirus 07:15:00 Test Item Value Reference Interpretation Comments Range Novel Not Detected Not Detected Testing was per formed using Coronavirus 2019 the Aptima SARS-CoV-2 nCoV (test code assay.This t est was developed = COVID19) and its perform ance characteristics determined by [facility]. This test has not be enFDA cleared or approved. Th is test has been authorized byFDA under an Emergency Us e Authorization ( EUA). This testis only aut horized for the duration of time the declarationthat circumstances exist justifyin g the authorization o fthe emergency use of in vitro diagnostic tests fordetect ion of SARS-CoV-2 viru s and/or diagnosis of COVID-19infecti on under section 564(b)( 1) of the Act, 21 U.S.C.360bbb -3(b)(1), unless the auth orization is terminated orre voked sooner. When diagnostic testing is negative, thepo ssibility of a false negative result should be consideredin the context of a patient's recent exposures and t hepresence of clinical signs and symptoms consistent with COVID-19. An individual with out symptoms of COVID-19 and who is not shedding SARS-C oV-2 virus would expect to have anegative (not detected) result in this assay. BASIC METABOLIC [id number] 13:23:00 Test Item Value Reference Range Interpretation Comments SODIUM (test code 138 MMOL/L 136-143 N = NA) POTASSIUM (test 4.3 MMOL/L 3.5-5.1 N code = K) CHLORIDE (test 103 MMOL/L 98-107 N code = CL) CARBON DIOXIDE 21 mmol/L 24-31 L (test code = CO2) GLUCOSE (test code 89 mg/dL 70-104 N = GLU) BLOOD UREA 14.4 MG/DL 7.0-21.0 N NITROGEN (test code = BUN) GLOMERULAR >=60 max >60 The estimated FILTRATION RATE estimate glomerular (test code = GFR) filtration rate is computed usingpatient ra ce, age (>18), sex, and serum creatinin e. If anyof the neede d data elements a re missing the Laboratory dwaine ot compute an estimation of t he glomerular filtration rate . CREATININE (test 0.8 mg/dL 0.8-1.5 N code = CREAT) CALCIUM (test code 9.5 mg/dL 8.8-10.2 N = CA) UA RFLX MICR CULT IF [id number] 13:07:00 Test Item Value Reference Range Interpretation Comments UA COLOR (test code = YELLOW DISCRIPT YELLOW COLU) UA APPEARANCE (test code = CLEAR DISCRIPT CLEAR APPU) UA GLUCOSE DIPSTICK (test NEGATIVE mg/dL NEGATIVE code = DGLUU) UA BILIRUBIN DIPSTICK NEGATIVE NEGATIVE (test code = BILU) UA KETONE DIPSTICK (test NEGATIVE mg/dL NEGATIVE code = KETU) UA SPECIFIC GRAVITY (test 1.010 1.005-1.030 code = SGU) UA BLOOD DIPSTICK (test NEGATIVE NEGATIVE code = CHAD) UA PH DIPSTICK (test code 5.5 5.0-9.0 = JOSEFA) UA PROTEIN DIPSTICK (test NEGATIVE mg/dL NEGATIVE code = PROU) UA UROBILINOGEN DIPSTICK 0.2 mg/dL 0.2-1.0 (test code = URO) UA NITRITE DIPSTICK (test NEGATIVE NEGATIVE code = NORMA) UA LEUKOCYTE ESTERASE SMALL NEGATIVE A DIPSTICK (test code = LEUU) UA WBC (test code = WBCU) 0-2 #WBC/HPF 0-2 UA RBC (test code = RBCU) NONE SEEN #RBC/HPF 0-2 UA BACTERIA (test code = OCCASIONAL /HPF NONE-TRACE A BACU) UA SQUAMOUS CELLS (test OCCASIONAL /LPF NONE-TRACE code = SQU) Indication for culture: Dysuria/FrequencyPROTHROMBIN [id number] 12:54:00 Test Item Value Reference Range Interpretation Comments PROTHROMBIN TIME 11.3 SECONDS 10.3-12.9 N PATIENT (test code = PTP) INTERNATIONAL 1.00 INR UNIT 0.9-1.11 N The INR is us eful only NORMAL RATIO (test for monit oring code = INR) anticoagulant therapy.It may be unreliable in t he initial phase o f antigoagulation and in unstable patien ts. Indication for Anticoagulation Recommend ed INR 1. Prevention o f venous thomboembolism 2.0-3.0in high -risk patients; treat ment of venousthrombosi s and pulmonary embol ism aftera course o f heparin; preven tion of systemicembolis m in a variety of cond itions, including atria l fibrillation an d prothetic tissu e heart valves, 2. Pros thetic mechanical hear t valves; 2.5-3.5recurren t systemic emboli sm. THROMBOPLASTIN TIME [id number] 12:54:00 Test Item Value Reference Range Interpretation Comments THROMBOPLASTIN TIME 30.4 SECONDS 23.8-34.8 N INTERPRE TATIVE PARTIAL (test code = DATA: erapeutic PTT) range: Unfractionated heparin:55 - 80 seconds Argatroban:1.5 to 3 times the basel ine PTT UA RFLX MICR CULT IF [id number] 12:53:00 Test Item Value Reference Range Interpretation Comments UA COLOR (test code = COLU) YELLOW DISCRIPT YELLOW UA APPEARANCE (test code = CLEAR DISCRIPT CLEAR APPU) UA GLUCOSE DIPSTICK (test NEGATIVE mg/dL NEGATIVE code = DGLUU) UA BILIRUBIN DIPSTICK (test NEGATIVE NEGATIVE code = BILU) UA KETONE DIPSTICK (test code NEGATIVE mg/dL NEGATIVE = KETU) UA SPECIFIC GRAVITY (test 1.010 1.005-1.030 code = SGU) UA BLOOD DIPSTICK (test code NEGATIVE NEGATIVE = CHAD) UA PH DIPSTICK (test code = 5.5 5.0-9.0 JOSEFA) UA PROTEIN DIPSTICK (test NEGATIVE mg/dL NEGATIVE code = PROU) UA UROBILINOGEN DIPSTICK 0.2 mg/dL 0.2-1.0 (test code = URO) UA NITRITE DIPSTICK (test NEGATIVE NEGATIVE code = NORMA) UA LEUKOCYTE ESTERASE SMALL NEGATIVE A DIPSTICK (test code = LEUU) UA WBC (test code = WBCU) #WBC/HPF 0-2 UA RBC (test code = RBCU) #RBC/HPF 0-2 UA BACTERIA (test code = /HPF NONE-TRACE BACU) UA SQUAMOUS CELLS (test code /LPF NONE-TRACE = SQU) Indication for culture: Dysuria/FrequencyCBC W/AUTO [id number] 12:44:00 Test Item Value Reference Range Interpretation Comments WHITE BLOOD CELL (test code = 8.4 x10 3/uL 4.8-10.8 N WBC) RED BLOOD CELL (test code = 4.85 x10 6/uL 4.20-5.40 N RBC) HEMOGLOBIN (test code = HGB) 12.8 g/dL 14.5-20 L HEMATOCRIT (test code = HCT) 39.6 % 37.0-47.0 N MEAN CELL VOLUME (test code = 81.6 fL 81.0-99.0 N MCV) MEAN CELL HGB (test code = MCH) 26.4 pg 27-31 L MEAN CELL HGB CONCENTRATION 32.3 G/DL 33-36.5 L (test code = MCHC) RED CELL DISTRIBUTION WIDTH 13.7 % 12.9-16.9 N (test code = RDW) PLATELET COUNT (test code = 363 150-440 N PLT) MEAN PLATELET VOLUME (test code 10.6 fL 8.9-12.4 N = MPV) NEUTROPHIL % (test code = NT%) 37.6 % 42.2-75.2 L LYMPHOCYTE % (test code = LY%) 45.7 % 20.5-51.1 N MONOCYTE % (test code = MO%) 12.6 % 1.7-9.3 H EOSINOPHIL % (test code = EO%) 3.0 % 0.0-7.0 N BASOPHIL % (test code = BA%) 0.7 % 0-2.5 N NEUTROPHIL # (test code = NT#) 3.17 x10 3/uL 1.80-7.70 N LYMPHOCYTE # (test code = LY#) 3.85 x10 3/uL 1.00-4.80 N MONOCYTE # (test code = MO#) 1.06 x10 3/uL 0.00-0.80 H EOSINOPHIL # (test code = EO#) 0.25 x10 3/uL 0.00-0.45 N BASOPHIL # (test code = BA#) 0.06 x10 3/uL 0.0-0.20 N SURGICAL [id number] 08:30:00 RUN DATE: 02/19/20 [facility] - LAB PAGE 1 RUN TIME: 0830 Specimen Inquiry RUN USER: INTERFACE PATIENT: USMAN JARQUIN LOC: EMA U #: [id number] AGE/SX: 59/F ROOM: RE02/14/20[facility] DR: Anthony Friedman MD : 64 BED: DIS: STATUS: [facility] TLOC: SPEC #: [id number] RECD: 02/17/20 STATUS: SON SUBRAMANIAN #: [id number] KEYANA: 02/14/20-[address] [facility] [address]: Anthony Friedman MD ENTERED: 02/17/2038 TYPE: SURG OTHR DR: Dru Olmedo MD ORDERED: PATHGM4/2, PATH SPEC, H E STAIN/2 HISTOLOGY: TISSUE ID BLK PCS JESSICA LEV / PROCEDURE DISPOSITION ____ ___ ___ ___ ___ ANTRUM BIOPSYA 1 3 RECTAL BX B 1 2 TISSUES: A. ANTRUM BIOPSY - Gastric Antrum Bx B. RECTAL BX - Rectal BX CLINICAL HISTORY GERD FINAL DIAGNOSIS A. STOMACH, ANTRUM, BIOPSY: - REACTIVE GASTROPATHY. - NEGATIVE FOR HELICOBACTER PYLORI BY SPECIAL STAIN. - NO INTESTINAL METAPLASIA, DYSPLASIA OR MALIGNANCY IS IDENTIFIED. B. RECTUM, BIOPSY: - COLORECTAL MUCOSA WITH NO DIAGNOSTIC ABNORMALITY. - NO ACTIVE COLITIS, FEATURES OF MICROSCOPIC COLITIS, PARASITES, GRANULOMA, DYSPLASIAOR MALIGNANCY IS IDENTIFIED. CPT: 05379I8, [id number] GROSS DESCRIPTION Received are twocontainers of formalin each labeled with the patient's name. Specimen A labeled "gastric antrum biopsy" are two khan soft tissue biopsies which are 0.2 and 0.3 cm in greatest dimension each. They are submitted in toto in A. Specimen B labeled "rectal biopsy" are three khan soft tissue biopsies varying from 0.1 cm up to 0.2 cm in greatest dimension. They are submitted in toto in B. /dexter hardwick SignedSIGNATURE ON FILE Stephanie Aldana MD 02/19/20 0830 END OF REPORT Novel Coronavirus [id number] 03:20:00 Test Item Value Reference Range Interpretation Comments Novel Coronavirus Negative Negative Positive r esults are 2019 Inhouse (test indicativ e of the presence code = [id number]) ofSARS-CoV -2 RNA, clinical correlation wit h patient historyand othe r diagnostic info rmation is necessary to determinepatien t infection status. Positiv e results do not rule out bacterial infection or co -infection with other viru ses. Negative result s do not preclude SARS-C oV-2 infection andsh ould not be used as the faina e basis for patient managementdecis ions. Negative result s must be combined with otherclinical observations, p atient history, and epidemiological information . Detection of SARS-CoV-2 RNA may be affe cted bysample collec tion methods, storag e conditions, and /or stageof infection. Allegra l RNA mutations, vacc inations, antiviraltherap eutics, antibiotics, chemotherapeuti c orimmunosuppres dominique drugs have not been e valuated for effectson d etection. Results are for the identification of SARS-CoV-2 RNA usingthe [employer] M2000 Sy stem under the FDA Emergen cy UseAuthorizatio n. The testing is perf ormed by personneltrafrankie d in the procedures for the [employer] M2000 molecular diagnostic SARS-CoV-2 assa y in vitro.Positive results are indicative of t he presence [id number] A, clinical correlation wit h patient historyand othe r diagnostic info rmation is necessary to determinepatien t infection status. Positiv e results do not rule out bacterial infection or co -infection with other viru ses. Negative result s do not preclude SARS-C oV-2 infection andsh ould not be used as the faina e basis for patient managementdecis ions. Negative result s must be combined with otherclinical observations, p atient history, and epidemiological information . Detection of SARS-CoV-2 RNA may be affe cted bysample colleel tion methods, storag e conditions, and /or stageof infection. Vi ral RNA mutations, vacc inations, antiviraltherap eutics, antibiotics, chemotherapeuti c orimmunosuppres dominique drugs have not been e valuated for effectson d etection. Results are for the identification of SARS-CoV-2 RNA usingthe [employer] M2000 Sy stem under the FDA Emergen cy UseAuthorizatio n. The testing is perf ormed by personneltrafrankie d in the procedures for the [id number] molecular diagnostic SARS-CoV-2 assa y in vitro.
--- NOTE | 2020-04-04 22:50 | EDPHYS ---
Physician Documentation [facility] Name: Funmi Stoner Age: 59 yrs Sex: Female : 1960 Arrival Date: 04/04/2020 Time: 20:23 Bed 25 Private MD: Dru Olmeod ED Physician Marco Ball HPI: 04/04 22:36 This 59 yrs old Black Female presents to ER via Wheelchair with complaints of Wound mh7 Check, Post Surgical Pain. 22:37 Patient presents to ED for recheck of: pain at surgical incision site. The affected mh7 area is on the left upper quadrant. Previous treatment: Gastric Sleeve surgery on 03/17/2020. Progress: The patient reports excellent improvement in the affected area. There has been resolution, improvement, or non-development of any drainage, fever, pain, redness or swelling. Patient had laproscopic gastric sleeve surgery on 03/17/2020. She notice localized pain at site on left upper abdomen that started 3 days ago. She has been applying ointment and squeezing area with production of small amount of discharge when she does. Denies swelling, redness, warmth, fever, nausea, vomiting, abdominal pain, chest pain, SOB, or dysuria.. Historical: - Allergies: 20:42 Sulfa (Sulfonamide Antibiotics); ca1 - PMHx: 20:42 Anxiety; Asthma; Diabetes - NIDDM; Heart Valve problem; hot flashes; Hypertension; ca1 Irregular heart rate; Myocardial infarction; Panic Attacks; Rheumatoid Arthritis; - PSHx: 20:42 GASTRIC SLEEVE; ca1 - Immunization history:: Adult Immunizations up to date. - Social history:: Smoking status: Patient/guardian denies using tobacco, the patient reports quitting approximately 5 years ago. ROS: 22:37 Constitutional: Negative for fever, chills, and weight loss, Eyes: Negative for injury, mh7 pain, redness, and discharge, ENT: Negative for injury, pain, and discharge, Neck: Negative for injury, pain, and swelling, Cardiovascular: Negative for chest pain, palpitations, and edema, Respiratory: Negative for shortness of breath, cough, wheezing, and pleuritic chest pain, Abdomen/GI: Negative for abdominal pain, nausea, vomiting, diarrhea, and constipation, Back: Negative for injury and pain, : Negative for injury, bleeding, discharge, and swelling, MS/Extremity: Negative for injury and deformity, Neuro: Negative for headache, weakness, numbness, tingling, and seizure, Psych: Negative for depression, anxiety, suicide ideation, homicidal ideation, and hallucinations, Allergy/Immunology: Negative for hives, rash, and allergies, Endocrine: Negative for neck swelling, polydipsia, polyuria, polyphagia, and marked weight changes, Hematologic/Lymphatic: Negative for swollen nodes, abnormal bleeding, and unusual bruising. Exam: 22:37 Constitutional: This is a well developed, well nourished patient who is awake, alert, mh7 and in no acute distress. Head/Face: Normocephalic, atraumatic. Eyes: Pupils equal round and reactive to light, extra-ocular motions intact. Lids and lashes normal. Conjunctiva and sclera are non-icteric and not injected. Cornea within normal limits. Periorbital areas with no swelling, redness, or edema. Neck: Trachea midline, no thyromegaly or masses palpated, and no cervical lymphadenopathy. Supple, full range of motion without nuchal rigidity, or vertebral point tenderness. No Meningismus. Chest/axilla: Normal chest wall appearance and motion. Nontender with no deformity. No lesions are appreciated. Cardiovascular: Regular rate and rhythm with a normal S1 and S2. No gallops, murmurs, or rubs. Normal PMI, no JVD. No pulse deficits. Respiratory: Lungs have equal breath sounds bilaterally, clear to auscultation and percussion. No rales, rhonchi or wheezes noted. No increased work of breathing, no retractions or nasal flaring. 22:37 Back: No spinal tenderness. No costovertebral tenderness. Full range of motion. 22:37 MS/ Extremity: Pulses equal, no cyanosis. Neurovascular intact. Full, normal range of motion. Neuro: Awake and alert, GCS 15, oriented to person, place, time, and situation. Cranial nerves II-XII grossly intact. Motor strength 5/5 in all extremities. Sensory grossly intact. Cerebellar exam normal. Normal gait. Psych: Awake, alert, with orientation to person, place and time. Behavior, mood, and affect are within normal limits. 22:37 Constitutional: The patient appears 22:37 Abdomen/GI: Inspection: scar(s), are noted in the right upper quadrant and left upper quadrant, Bowel sounds: normal, in all quadrants, Palpation: nontender, in all quadrants, Rectal exam: the exam is deferred, because of patient request, Indicators: McBurney's point is not tender, Wu's sign is negative, Rovsing's sign is negative, Obturator sign is negative, Psoas sign is negative, Liver: no appreciated palpable abnormalities, Hernia: not appreciated. 22:37 Skin: Wound recheck: 1 cm LUQ surgical site wound with mild tenderness. No swelling, discharge, erythema, induration, bleeding, warmth.. Vital Signs: 20:36 BP 131 / 86; Pulse 70; Resp 16 S; Temp 98.8(O); Pulse Ox 100% on R/A; Weight 106.14 kg ca1 (R); Height 5 ft. 5 in. (165.10 cm) (R); Pain 10/10; 21:45 BP 135 / 81; Pulse 74; Resp 18; Temp 98.1; Pulse Ox 98% ; Pain 10/10; jv1 22:45 BP 132 / 84; Pulse 75; Resp 18; Temp 98.1; Pulse Ox 99% ; Pain 8/10; jv1 20:36 Body Mass Index 38.94 (106.14 kg, 165.10 cm) ca1 MDM: 22:32 Patient medically screened. 7 22:37 Differential diagnosis: cellulitis, postoperative wound infection, wound dehiscence, mh7 abscess. Data reviewed: vital signs, nurses notes. 22:48 Data interpreted: Pulse oximetry: on room air is 100 %. Interpretation: normal. mh7 Counseling: I had a detailed discussion with the patient and/or guardian regarding: the historical points, exam findings, and any diagnostic results supporting the discharge/admit diagnosis, the need for outpatient follow up, to return to the emergency department if symptoms worsen or persist or if there are any questions or concerns that arise at home. Refusal of service: The patient/guardian displays adequate decision making capability and despite a detailed discussion of alternatives, benefits, risks, and consequences refuses: all lab tests. 04/04 22:51 Order name: Dressing - Wound; Complete Time: 23:30 jv1 Administered Medications: No medications were administered Disposition: 04/04/20 22:49 Discharged to Home. Impression: Postoperative Wound Check. - Condition is Stable. - Discharge Instructions: Wound Check, Wound Care. - Medication Reconciliation Form, Thank You Letter, Antibiotic Education, Prescription Opioid Use form. - Follow up: Private Physician; When: 1 - 2 days; Reason: Worsening of condition, Recheck today's complaints, Continuance of care, Re-evaluation by your physician. - Problem is an ongoing problem. - Symptoms are unchanged. Signatures: Prema Valerio RN RN jv1 Acalize, ANGEL Bishop RN ca1 Marco Ball MD MD mh7 Corrections: (The following items were deleted from the chart) 23:39 22:49 04/04/2020 22:49 Discharged to Home. Impression: Postoperative Wound Check. jv1 Condition is Stable. Forms are Medication Reconciliation Form, Thank You Letter, Antibiotic Education, Prescription Opioid Use. Follow up: Private Physician; When: 1 - 2 days; Reason: Worsening of condition, Recheck today's complaints, Continuance of care, Re-evaluation by your physician. Problem is an ongoing problem. Symptoms are unchanged. mh7
--- NOTE | 2020-04-04 22:50 | ER ---
Nurse's Notes [facility] Name: Funmi Stoner Age: 59 yrs Sex: Female : 1960 Arrival Date: 04/04/2020 Time: 20:23 Bed 25 Private MD: Dru Olmedo Diagnosis: Postoperative Wound Check Presentation: 04/04 20:36 Chief complaint: Patient states: Laparoscopic Weight loss surgery on the March, it is a gastric sleeve. On of the surgical incision is red, swollen, tender and leaking pus drainage. Pain on the surgical incision site. Pain on the L side of the abdomen where the incision is. Started 3 days ago. Denies fever. Coronavirus screen: Client denies travel out of the [place] in the last 14 days. At this time, the client does not indicate any symptoms associated with coronavirus-19. Ebola Screen: Patient negative for fever greater than or equal to 101.5 degrees Fahrenheit, and additional compatible Ebola Virus Disease symptoms Patient denies exposure to infectious person. Patient denies travel to an Ebola-affected area in the 21 days before illness onset. No symptoms or risks identified at this time. Initial Sepsis Screen: Does the patient meet any 2 criteria? No. Patient's initial sepsis screen is negative. Does the patient have a suspected source of infection? No. Patient's initial sepsis screen is negative. Risk Assessment: Do you want to hurt yourself or someone else? Patient reports no desire to harm self or others. Onset of symptoms was April 04, 2020. 20:36 Method Of Arrival: Wheelchair ca1 20:36 Acuity: LINDSAY 3 ca1 Triage Assessment: 21:56 General: Appears distressed, uncomfortable, obese, unkempt, Behavior is calm, jv1 cooperative, appropriate for age. Pain: Complains of pain in left upper quadrant of the abdomen Pain does not radiate. Pain currently is 10 out of 10 on a pain scale. Quality of pain is described as aching, Pain began 1 day ago. EENT: No signs and/or symptoms were reported regarding the EENT system. Neuro: Level of Consciousness is awake, alert, obeys commands, Oriented to person, place, time, situation, Appropriate for age Toppiece Cutter are equal bilaterally. Cardiovascular: Denies chest pain, Heart tones S1 S2 Capillary refill < 3 seconds. Respiratory: Airway is patent Trachea midline Respiratory effort is even, unlabored, Respiratory pattern is regular, symmetrical. GI: Abdomen is round noted of surgical site that is red and has discharge Bowel sounds present X 4 quads. Abd is soft Abdomen is tender to palpation in left upper quadrant. : No signs and/or symptoms were reported regarding the genitourinary system. Derm: Wound noted left upper quadrant Reports pain. Musculoskeletal: No signs and/or symptoms reported regarding the musculoskeletal system. Historical: - Allergies: 20:42 Sulfa (Sulfonamide Antibiotics); ca1 - PMHx: 20:42 Anxiety; Asthma; Diabetes - NIDDM; Heart Valve problem; hot flashes; Hypertension; ca1 Irregular heart rate; Myocardial infarction; Panic Attacks; Rheumatoid Arthritis; - PSHx: 20:42 GASTRIC SLEEVE; ca1 - Immunization history:: Adult Immunizations up to date. - Social history:: Smoking status: Patient/guardian denies using tobacco, the patient reports quitting approximately 5 years ago. Screenin:56 Abuse screen: Denies threats or abuse. Nutritional screening: On. Tuberculosis jv1 screening: No symptoms or risk factors identified. Fall Risk None identified. Assessment: 21:45 General: Appears uncomfortable, obese, well developed, Behavior is calm, cooperative, jv1 appropriate for age. Pain: Complains of pain in right upper quadrant and left upper quadrant Pain does not radiate. Neuro: Level of Consciousness is awake, alert, obeys commands, Oriented to person, place, time, situation, Appropriate for age Toppiece Cutter are equal bilaterally Moves all extremities. Cardiovascular: Denies chest pain, Heart tones S1 S2 Capillary refill < 3 seconds. Respiratory: Airway is patent Respiratory effort is even, unlabored, Respiratory pattern is regular, symmetrical, Breath sounds are clear bilaterally. GI: has a wound with minimal discharge on the left upper quadrant. pt stated from surgery Bowel sounds present X 4 quads. Abd is soft Abdomen is tender to palpation in left upper quadrant. : No signs and/or symptoms were reported regarding the genitourinary system. EENT: No signs and/or symptoms were reported regarding the EENT system. Derm: Wound noted left upper quadrant. Musculoskeletal: No signs and/or symptoms reported regarding the musculoskeletal system. 22:45 Reassessment: Patient appears in no apparent distress at this time. No changes from jv1 previously documented assessment. Patient and/or family updated on plan of care and expected duration. Pain level reassessed. Patient is alert, oriented x 3, equal unlabored respirations, skin warm/dry/pink. 23:00 Reassessment: wound dressing done. jv1 Vital Signs: 20:36 BP 131 / 86; Pulse 70; Resp 16 S; Temp 98.8(O); Pulse Ox 100% on R/A; Weight 106.14 kg ca1 (R); Height 5 ft. 5 in. (165.10 cm) (R); Pain 10/10; 21:45 BP 135 / 81; Pulse 74; Resp 18; Temp 98.1; Pulse Ox 98% ; Pain 10/10; jv1 22:45 BP 132 / 84; Pulse 75; Resp 18; Temp 98.1; Pulse Ox 99% ; Pain 8/10; jv1 20:36 Body Mass Index 38.94 (106.14 kg, 165.10 cm) ca1 ED Course: 20:23 Patient arrived in ED. am2 20:23 Dru Olmedo MD is Private Physician. am2 20:41 Triage completed. ca1 20:42 Arm band placed on right wrist. ca1 21:57 Marco Ball MD is Attending Physician. mh7 22:00 Patient has correct armband on for positive identification. Placed in gown. Bed in low jv1 position. Call light in reach. Side rails up X2. 23:35 No provider procedures requiring assistance completed. Patient did not have IV access jv1 during this emergency room visit. Administered Medications: No medications were administered Outcome: 22:49 Discharge ordered by [facility] 23:37 Transferred jv1 23:37 Condition: stable 23:37 Discharge instructions given to patient, Instructed on discharge instructions, follow up and referral plans. wound care, Demonstrated understanding of instructions, follow-up care, wound care, Prescriptions given X no prescriptions given 23:39 Patient left the ED. jv1 Signatures: Maryellen Mejia am2 Prema Valerio RN RN jv1 Edna Valero RN RN ca1 Marco Ball MD MD [facility] Corrections: (The following items were deleted from the chart) 23:37 23:35 Reassessment: wound dressing done jv1 jv1
[2020-04-04 23:53] VITALS: TEMP 98.1
[2020-04-04 23:55] VITALS: BP 132/84; O2SAT 99
== END 2020-04-04 23:39 | disposition home or self-care (01) ==
LOC: ER 20:20
DX: Z48.01 Encounter for change or removal of surgical wound dressing (principal); Z98.84 Bariatric surgery status; I10 Essential (primary) hypertension; Z88.2 Allergy status to sulfonamides
CPT/HCPCS: 99285

== ENCOUNTER 2020-06-22 14:46 | Emergency (ER) | payer OTHER ==
--- OUTSIDE RECORDS SUMMARY | 2020-06-22 15:25 | XMS REPORT | Continuity of Care Document ---
:1960 Author Organization [facility] t Address [address] [place] [address] Care Team Providers Name Role Phone Doctor Unassigned, Name Attending Clinician Unavailable Milan HALL Attending Clinician Payers Payer Name Policy Type Policy Number Effective Date Expiration Date S ource Problems This patient has no known problems. Allergies, Adverse Reactions, Alerts Allergy Allergy Status Severity Reaction(s) Onset Inactive Treating Comm ents Source Name Type Date Date Clinician Sulfa DA Active U [facility] (Sulfona 7 [facility] 00:00: [facility] Antibiot 00 are ics) [facility] Medications This patient has no known medications. Procedures This patient has no known procedures. Encounters Start End Encounter Admission Attending Care Care Encounter Source Date/Time Date/Time Type Type Clinicians Facility Department ID 2019-08-08 2019-08-08 Orders Doctor NGUYEN [id number] 00:00:00 00:00:00 Only UnassignedSOFIE [id number] [place] [facility] [id number] 2019-08-01 2019-08-01 Office FARIBA Yates [id number] 11:39:15 12:11:37 Visit Viv Mike [id number] [place] [id number] [place] [id number] formerly [facility] [address] Results Test Description Test Time [...] 0.03 x10 3/uL 0.0-0.20 N RENAL FUNCTION [id number] 06:28:00 Test Item Value Reference Range Interpretation [...] mg/dL 2.7-4.5 N code = PHOS) LACTIC [id number] 20:39:00 Test Item Value Reference Range Interpretation Comments LACTIC ACID (test code = LACT) 12.1 mg/dL 4.5-18.0 N CBC W/MANUAL [id number] 15:38:00 Test Item Value Reference Range Interpretation [...] MICR) 1+ NONE SEEN A COMPREHENSIVE METABOLIC [id number] 13:50:00 Test Item Value Reference Range Interpretation [...] U/L 32-104 N (test code = ALKP) [id number] 13:50:00 Test Item Value Reference Range Interpretation Comments LIPASE (test code = LIP) 50 U/L 0-190 N CBC W/MANUAL [id number] 13:47:00 Test Item Value Reference Range Interpretation [...] code = LYMPH) % 20.5-45.5 CBC W/MANUAL [id number] 13:47:00 Test Item Value Reference Range Interpretation [...] (test code = LYMPH) % 20.5-45.5 SURGICAL [id number] 13:17:00 RUN DATE: 03/19/20 [facility] - LAB PAGE 1 RUN TIME: 1317 Specimen Inquiry RUN USER: INTERFACE PATIENT: USMAN JARQUIN LOC: P.5N POD B U #: [id number] AGE/SX: 59/F ROOM: [facility] RE03/17/20[facility] DR: Anthony Friedman MD : [birth year] BED: 1 DIS: 03/18/20 STATUS: DIS IN TLOC: SPEC #: [id number] RECD: 03/17/20-1425 STATUS: SON SUBRAMANIAN #: [id number] KEYANA: 03/17/20-[address]: Anthony Friedman MD [...] 3 - bridging fibrosis; 4- cirrhosis). CPT 68765 X 2, 84967 X 3 CONTINUED ON NEXT PAGE RUN DATE: 03/19/20 [facility] - LAB PAGE 2 RUN TIME: 1317 Specimen Inquiry RUN USER: INTERFACE SPEC #: [id number] PATIENT: USMAN JARQUIN #[id number] (Continued) GROSS DESCRIPTION Received are two containers [...] There are no mucosal lesions seen grossly. Twister Operator sections are submitted in "B". /yari-------- ---- Signed SIGNATURE ON FILE Stephanie Aldana MD 03/19/20 1317 END OF REPORT BASIC METABOLIC [id number] 04:39:00 Test Item Value Reference Range Interpretation [...] code 9.4 mg/dL 8.8-10.2 N = CA) [id number] 04:39:00 Test Item Value Reference Range Interpretation Comments PHOSPHOROUS (test code = PHOS) 4.3 mg/dL 2.7-4.5 N [id number] 04:39:00 Test Item Value Reference Range Interpretation Comments MAGNESIUM (test code = MAG) 2.1 mg/dL 1.4-2.6 N CBC W/AUTO [id number] 04:31:00 Test Item Value Reference Range Interpretation [...] 0.01 x10 3/uL 0.0-0.20 N Novel Coronavirus [id number] 07:15:00 Test Item Value Reference Interpretation Comments [...] detected) result in this assay. BASIC METABOLIC [id number] 13:23:00 Test Item Value Reference Range Interpretation [...] = CA) UA RFLX MICR CULT IF [id number] 13:07:00 Test Item Value Reference Range Interpretation [...] code = SQU) Indication for culture: Dysuria/FrequencyPROTHROMBIN [id number] 12:54:00 Test Item Value Reference Range Interpretation [...] 2.5-3.5recurren t systemic emboli sm. THROMBOPLASTIN TIME [id number] 12:54:00 Test Item Value Reference Range Interpretation Comments THROMBOPLASTIN TIME 30.4 SECONDS 23.8-34.8 N INTERPRE TATIVE PARTIAL (test code = DATA: erapeutic PTT) range: Unfractionated heparin:55 - 80 seconds Argatroban:1.5 to 3 times the basel ine PTT UA RFLX MICR CULT IF [id number] 12:53:00 Test Item Value Reference Range Interpretation [...] = SQU) Indication for culture: Dysuria/FrequencyCBC W/AUTO [id number] 12:44:00 Test Item Value Reference Range Interpretation [...] BA#) 0.06 x10 3/uL 0.0-0.20 N SURGICAL [id number] 08:30:00 RUN DATE: 02/19/20 [facility] - LAB PAGE 1 RUN TIME: 0830 Specimen Inquiry RUN USER: INTERFACE PATIENT: USMAN JARQUIN LOC: EMA U #: [id number] AGE/SX: 59/F ROOM: RE02/14/20[facility] DR: Anthony Friedman MD : 64 BED: DIS: [facility]US[facility] TLOC: SPEC #: [id number] RECD: 02/17/20 STATUS: SON SUBRAMANIAN #: [id number] KEYANA: 02/14/20-1425 [facility] DR: Anthony Friedman MD ENTERED: 02/17/2055 TYPE: SURG OTHR DR: Dru Olmedo MD [...] PARASITES, GRANULOMA, DYSPLASIAOR MALIGNANCY IS IDENTIFIED. CPT: 66503R7, 80073 GROSS DESCRIPTION Received are twocontainers of formalin [...] 02/19/20 0830 END OF REPORT Novel Coronavirus [id number] 03:20:00 Test Item Value Reference Range Interpretation Comments Novel Coronavirus Negative Negative Positive r esults are 2019 Inhouse (test indicativ e of the presence code = [id number]) ofSARS-CoV -2 RNA, clinical correlation wit h [...] results are indicative of t he presence [id number] RN A, clinical correlation wit h patient [...] for the identification of SARS-CoV-2 RNA usingthe [facility] M2000 Sy stem under the FDA Emergen cy UseAuthorizatio n. The testing is perf ormed by personneltrafrankie d in the procedures for the [employer] molecular diagnostic SARS-CoV-2 assa y in vitro.
--- NOTE | 2020-06-22 16:10 | RAD REPORT ---
EXAM DESCRIPTION: CT - Head Brain Wo Cont - 06/22/2020 3:48 pm CLINICAL HISTORY: Head injury status post fall. Headache COMPARISON: 2019 TECHNIQUE: Computed axial tomography of the head was obtained. IV contrast was not requested. All CT scans are performed using dose optimization technique as appropriate and may include automated exposure control or mA/KV adjustment according to patient size. FINDINGS: An intracranial bleed is not seen . The ventricles are normal in caliber. No extra-axial fluid collection is noted. Fluid within the sinuses/ mastoids is not seen. IMPRESSION: No acute intracranial abnormality is seen. If patient's symptoms persist MRI of the bra in would be recommended.
--- NOTE | 2020-06-22 16:13 | RAD REPORT ---
EXAM DESCRIPTION: CT - Facial Bones W/ Mpr - 06/22/2020 3:49 pm CLINICAL HISTORY: Facial injury status post fall with facial pain COMPARISON: None TECHNIQUE: Computed axial tomography of the face was obtained. Coronal and sagittal reconstruction w as performed. All CT scans are performed using dose optimization technique as appropriate and may include automated exposure control or mA/KV adjustment according to patient size. FINDINGS: A fracture is not seen. A TMJ dislocation is not noted. The globes are intact. Fluid within the sinuses is not seen. IMPRESSION: Negative for a facial fracture.
--- NOTE | 2020-06-22 16:35 | RAD REPORT ---
EXAM DESCRIPTION: RAD - Pelvis - 06/22/2020 4:27 pm CLINICAL HISTORY: Pelvic pain status post injury FINDINGS: No fracture or dislocation is seen.
--- NOTE | 2020-06-22 16:36 | RAD REPORT ---
EXAM DESCRIPTION: RAD - Hip Left 2 View - 06/22/2020 4:27 pm CLINICAL HISTORY: Left hip pain status post injury FINDINGS: No fracture or dislocation is seen. If the patient continues to have symptoms to suggest an occult fracture MRI would be recommended
[2020-06-22] MEDS ORDERED: MEPERIDINE HCL 50 MG/ML ONE (16:48)
--- NOTE | 2020-06-22 17:24 | EDPHYS ---
Physician Documentation [facility] Name: Funmi Stoner Age: 60 yrs Sex: Female : 1960 Arrival Date: 06/22/2020 Time: 14:49 Bed 8 Private MD: ED Physician Meir Irene HPI: 06/22 15:53 This 60 yrs old Black Female presents to ER via Wheelchair with complaints of Hip Pain, rn fall, facial trauma. 15:53 Details of fall: The patient fell from an upright position. Onset: The symptoms/episode rn began/occurred 3 day(s) ago. Associated injuries: The patient sustained injury to the head, left hip. Severity of symptoms: At their worst the symptoms were mild, in the emergency department the symptoms are unchanged. The patient has not experienced similar symptoms in the past. The patient has not recently seen a physician. Reports fall from standing 5 days ago when trying to get her new dog inside. Fell onto her face and left hip. Reports facial pain and hip pain that have worsened. + facial tingling at jaw since fall. Reports family member told her she was slurring her words earlier but attributes it to pain and tingling. Also was ambulatory after fall, but soreness has increased and now painful to walk on left hip. No focal weakness/speech problem/vision problem/headache.. Historical: - Allergies: 15:08 Sulfa (Sulfonamide Antibiotics); ca1 - PMHx: 15:08 Anxiety; Asthma; Diabetes - NIDDM; Heart Valve problem; hot flashes; Hypertension; ca1 Irregular heart rate; Myocardial infarction; Panic Attacks; Rheumatoid Arthritis; - PSHx: 15:08 GASTRIC SLEEVE; Hernia repair; neck surgery; ca1 - Immunization history:: Adult Immunizations up to date, Flu vaccine is not up to date. Patient has never been vaccinated. - Social history:: Smoking status: Patient denies any tobacco usage or history of. - Family history:: not pertinent. - Hospitalizations: : No recent hospitalization is reported. ROS: 15:53 Constitutional: Negative for fever, chills, and weight loss, Eyes: Negative for injury, rn pain, redness, and discharge, ENT: + injury and pain to face/jaw Neck: Negative for injury, pain, and swelling, Cardiovascular: Negative for chest pain, palpitations, and edema, Respiratory: Negative for shortness of breath, cough, wheezing, and pleuritic chest pain, Abdomen/GI: Negative for abdominal pain, nausea, vomiting, diarrhea, and constipation, Back: Negative for injury and pain, MS/Extremity: + left hip pain and injury Skin: Negative for injury, rash, and discoloration, Neuro: Negative for headache, weakness, and seizure. Exam: 15:53 Constitutional: This is a well developed, well nourished patient who is awake, alert, rn and in no acute distress. Head/Face: Normocephalic, atraumatic. Eyes: Pupils equal round and reactive to light, extra-ocular motions intact. Lids and lashes normal. Conjunctiva and sclera are non-icteric and not injected. Cornea within normal limits. Periorbital areas with no swelling, redness, or edema. Neck: Trachea midline, no masses palpated, and no cervical lymphadenopathy. Supple, full range of motion without nuchal rigidity, or vertebral point tenderness. No Meningismus. Cardiovascular: Regular rate and rhythm. No pulse deficits. Respiratory: Speaking full and clear sentences. No increased work of breathing, no retractions or nasal flaring. Abdomen/GI: soft, non-tender Skin: Warm, dry MS/ Extremity: Pulses equal, no cyanosis. Neurovascular intact.+ able to flex and extend at left hip, + rotational pain left hip, no hematoma or gross abnormality. Neuro: Awake and alert, GCS 15, oriented to person, place, time, and situation. Cranial nerves II-XII grossly intact. Motor strength 5/5 in all extremities. Sensory grossly intact. Cerebellar exam normal. Vital Signs: 14:50 BP 134 / 78; Pulse 76; Resp 16 S; Temp 97.8(TE); Pulse Ox 100% on R/A; Weight 81.65 kg ca1 (R); Height 5 ft. 5 in. (165.10 cm) (R); Pain 10/10; 17:29 BP 153 / 94; Pulse 81; Resp 17; Pulse Ox 100% ; jl7 14:50 Body Mass Index 29.95 (81.65 kg, 165.10 cm) ca1 NIH Stroke Scale Scores: 15:12 NIHSS Score: 0 jl7 MDM: 14:55 Patient medically screened. rn 17:18 Differential diagnosis: closed head injury, contusion, fracture, sprain, strain. Data rn reviewed: vital signs, nurses notes, radiologic studies, CT scan, plain films, and as a result, I will discharge patient. Counseling: I had a detailed discussion with the patient and/or guardian regarding: the historical points, exam findings, and any diagnostic results supporting the discharge/admit diagnosis, radiology results, the need for outpatient follow up, to return to the emergency department if symptoms worsen or persist or if there are any questions or concerns that arise at home. Special discussion: I discussed with the patient/guardian in detail that at this point there is no indication for admission to the hospital. It is understood, however, that if the symptoms persist or worsen the patient needs to return immediately for re-evaluation. ED course: No acute findings on ct head/face or plain films, will dc home with addition of muscle relaxer. . 06/22 15:04 Order name: CT Head Brain wo Cont rn 06/22 15:04 Order name: CT Facial Bones W/O Con rn 06/22 15:04 Order name: XRAY Hip LEFT 2 view rn 06/22 15:04 Order name: XRAY Pelvis rn 06/22 16:15 Order name: CT; Complete Time: 16:31 EDWA 06/22 16:17 Order name: CT; Complete Time: 16:31 EDWA 06/22 16:38 Order name: [facility] 06/22 16:38 Order name: [facility] Administered Medications: 16:42 Drug: Demerol 50 mg Route: IM; Site: left deltoid; jl7 17:00 Follow up: Response: No adverse reaction; Pain is decreased jl7 Disposition: 06/22/20 17:19 Discharged to Home. Impression: Facial contusion, Contusion of left hip. - Condition is Stable. - Discharge Instructions: Contusion. - Prescriptions for Cyclobenzaprine 10 mg Oral Tablet - take 1 tablet by ORAL route every 8 hours As needed; 20 tablet. - Medication Reconciliation Form, Thank You Letter, Antibiotic Education, Prescription Opioid Use form. - Follow up: Private Physician; When: As needed; Reason: Recheck today's complaints, Re-evaluation by your physician. - Problem is new. - Symptoms have improved. NIH Stroke Scale - NIH Stroke Score Date: 06/22/2020 Time: 15:12 Total Score = 0 1a. Level of Consciousness (LOC) - 0(Alert) 1b. Level of Consciousness (LOC) (Year \T\ Age) - 0(Both) 1c. LOC Commands (Open \T\ Closes Eyes/Medical Staff Services Coordinator) - 0(Both) 2. Best Gaze (Lateral Gaze Paresis) - 0(Normal) 3. Visual Field Loss - 0(No visual loss) 4. Facial Palsy - 0(Normal) 5a. Left Arm: Motor (10-second hold) - 0(No drift) 5b. Right Arm: Motor (10-second hold) - 0(No drift) 6a. Left Leg: Motor (5-second hold - always test supine) - 0(No drift) 6b. Right Leg: Motor (5-second hold - always test supine) - 0(No drift) 7. Limb Ataxia (finger/nose \T\ heel/hooper - test with eyes open) - 0(Absent) 8. Sensory Loss (pinprick arms/legs/face) - 0(Normal) 9. Best Language: Aphasia (description/naming/reading) - 0(No aphasia) 10. Dysarthria (speech clarity - read or repeat words) - 0(Normal) 11. Extinction and Inattention (visual/tactile/auditory/spatial/personal) - 0(No abnormality) Initials: jlElle Signatures: Dispatcher [employer] EDMS Meir Irene MD MD rn Leal, Jahala, RN RN jl7 Edna Valero RN RN ca1 Corrections: (The following items were deleted from the chart) 17:31 17:19 06/22/2020 17:19 Discharged to Home. Impression: Facial contusion; jl7 Contusion of left hip. Condition is Stable. Forms are Medication Reconciliation Form, Thank You Letter, Antibiotic Education, Prescription Opioid Use. Follow up: Private Physician; When: As needed; Reason: Recheck today's complaints, Re-evaluation by your physician. Problem is new. Symptoms have improved. rn
--- NOTE | 2020-06-22 17:24 | ER ---
Nurse's Notes [facility] Name: Funmi Stoner Age: 60 yrs Sex: Female : 1960 Arrival Date: 06/22/2020 Time: 14:49 Bed 8 Private MD: Diagnosis: Facial contusion;Contusion of left hip Presentation: 06/22 14:50 Chief complaint: Patient states: I tripped and fell 4 days ago, landed on my face, did ca1 not seek medical consult. Been hurting on my L hip since. Today, I woke up at 1230 PM with slurring of speech, it just doesn't seem right the way I speak. I slept at 1201 AM last night after I took my Gabapentin, Hydrocodone and Xanax. Van Negative on triage. Negative facial droop. Negative slurring during triage. A\T\Ox4. Coronavirus screen: Client denies travel out of the [place] in the last 14 days. At this time, the client does not indicate any symptoms associated with coronavirus-19. Ebola Screen: Patient negative for fever greater than or equal to 101.5 degrees Fahrenheit, and additional compatible Ebola Virus Disease symptoms Patient denies exposure to infectious person. Patient denies travel to an Ebola-affected area in the 21 days before illness onset. No symptoms or risks identified at this time. Initial Sepsis Screen: Does the patient meet any 2 criteria? No. Patient's initial sepsis screen is negative. Does the patient have a suspected source of infection? No. Patient's initial sepsis screen is negative. Risk Assessment: Do you want to hurt yourself or someone else? Patient reports no desire to harm self or others. Onset of symptoms was June 22, 2020 at 12:30. 14:50 Method Of Arrival: Wheelchair ca1 14:50 Acuity: LINDSAY 2 ca1 Historical: - Allergies: 15:08 Sulfa (Sulfonamide Antibiotics); ca1 - PMHx: 15:08 Anxiety; Asthma; Diabetes - NIDDM; Heart Valve problem; hot flashes; Hypertension; ca1 Irregular heart rate; Myocardial infarction; Panic Attacks; Rheumatoid Arthritis; - PSHx: 15:08 GASTRIC SLEEVE; Hernia repair; neck surgery; ca1 - Immunization history:: Adult Immunizations up to date, Flu vaccine is not up to date. Patient has never been vaccinated. - Social history:: Smoking status: Patient denies any tobacco usage or history of. - Family history:: not pertinent. - Hospitalizations: : No recent hospitalization is reported. Screenin:12 Abuse screen: Denies threats or abuse. Denies injuries from another. Nutritional jl7 screening: No deficits noted. Tuberculosis screening: No symptoms or risk factors identified. Fall Risk Fall in past 12 months (25 points). No secondary diagnosis (0 pts). No IV (0 pts). Ambulatory Aid- Crutches/Cane/Walker (15 pts). Gait- Normal/Bed Rest/Wheelchair (0 pts) Mental Status- Oriented to own ability (0 pts). Total Schroeder Fall Scale indicates Low Risk Score (25-44 pts). Fall prevention measures have been instituted. Side Rails Up X 2 Placed close to Nursing Station Frequent Obs/Assesments occuring As available Patient and Family Educated on Fall Prevention Program and strategies. Assessment: 15:12 VAN Scoring: Arm Drift: Patients demonstrates NO arm weakness. Patient is VAN Negative. jl7 T-PA (Activase) Screening: Contraindications: Other: no deficits noted Rapidly improving condition or minor deficit: Yes. General: Appears in no apparent distress. uncomfortable, Behavior is calm, cooperative, appropriate for age. Pain: Complains of pain in left chucho, shoulder, arm, hip Pain currently is 10 out of 10 on a pain scale. Neuro: Level of Consciousness is awake, alert, obeys commands, Oriented to person, place, time, situation, Speech is normal. Cardiovascular: Patient's skin is warm and dry. Respiratory: Airway is patent Respiratory effort is even, unlabored, Respiratory pattern is regular, symmetrical. Derm: Skin is pink, warm \T\ dry. 15:20 The patient has not been NPO before screening. The patient is currently on the jl7 following diet: Regular The patient is alert, and able to follow commands. The patient does not exhibit slurred or garbled speech. The patient is not exhibiting difficulty speaking. The patient does not exhibit difficulty understanding words. The patient is able to swallow own secretions with no drooling or need for suction. Patient tolerated one teaspoon of water. No drooling, immediate coughing, gurgling, or clearing of the throat was noted. The patient tolerated 90mL of water. No drooling, immediate coughing, gurgling, or clearing of the throat was noted. The patient passed the bedside swallow screening. Oral medications may be given as ordered. Contact Physician for further diet orders. Provider notified of bedside swallow screening results: Meir Irene MD. 16:30 Reassessment: Patient appears in no apparent distress at this time. No changes from jl7 previously documented assessment. Patient and/or family updated on plan of care and expected duration. Pain level reassessed. Patient is alert, oriented x 3, equal unlabored respirations, skin warm/dry/pink. Vital Signs: 14:50 BP 134 / 78; Pulse 76; Resp 16 S; Temp 97.8(TE); Pulse Ox 100% on R/A; Weight 81.65 kg ca1 (R); Height 5 ft. 5 in. (165.10 cm) (R); Pain 10/10; 17:29 BP 153 / 94; Pulse 81; Resp 17; Pulse Ox 100% ; jl7 14:50 Body Mass Index 29.95 (81.65 kg, 165.10 cm) ca1 NIH Stroke Scale Scores: 15:12 NIHSS Score: 0 jl7 ED Course: 14:49 Patient arrived in ED. ag5 14:50 Arm band placed on right wrist. ca1 14:55 Meir Irene MD is Attending Physician. rn 15:07 Triage completed. ca1 15:12 Andrei Howe RN is Primary Nurse. jl7 15:12 Patient has correct armband on for positive identification. Bed in low position. Call jl7 light in reach. Side rails up X 1. Pulse ox on. NIBP on. 16:30 No provider procedures requiring assistance completed. Patient did not have IV access jl7 during this emergency room visit. Administered Medications: 16:42 Drug: Demerol 50 mg Route: IM; Site: left deltoid; jl7 17:00 Follow up: Response: No adverse reaction; Pain is decreased jl7 Outcome: 17:19 Discharge ordered by . rn 17:31 Discharged to home via wheelchair, with family. jl7 17:31 Condition: stable 17:31 Discharge instructions given to patient, family, Instructed on discharge instructions, follow up and referral plans. medication usage, Demonstrated understanding of instructions, follow-up care, medications, Prescriptions given X 1. 17:31 Patient left the ED. jl7 NIH Stroke Scale - NIH Stroke Score Date: 06/22/2020 Time: 15:12 Total Score = 0 1a. Level of Consciousness (LOC) - 0(Alert) 1b. Level of Consciousness (LOC) (Year \T\ Age) - 0(Both) 1c. LOC Commands (Open \T\ Closes Eyes/Centrifuge Separator Operator) - 0(Both) 2. Best Gaze (Lateral Gaze Paresis) - 0(Normal) 3. Visual Field Loss - 0(No visual loss) 4. Facial Palsy - 0(Normal) 5a. Left Arm: Motor (10-second hold) - 0(No drift) 5b. Right Arm: Motor (10-second hold) - 0(No drift) 6a. Left Leg: Motor (5-second hold - always test supine) - 0(No drift) 6b. Right Leg: Motor (5-second hold - always test supine) - 0(No drift) 7. Limb Ataxia (finger/nose \T\ heel/hooper - test with eyes open) - 0(Absent) 8. Sensory Loss (pinprick arms/legs/face) - 0(Normal) 9. Best Language: Aphasia (description/naming/reading) - 0(No aphasia) 10. Dysarthria (speech clarity - read or repeat words) - 0(Normal) 11. Extinction and Inattention (visual/tactile/auditory/spatial/personal) - 0(No abnormality) Initials: jl7 Signatures: Meir Irene MD MD rn Leal, Jahala, RN RN jl7 Edna Valero RN RN ca1 Gaskin, Ajare ag5
[2020-06-25 21:51] VITALS: TEMP 97.8; O2SAT 100
[2020-06-25 21:53] VITALS: BP 153/94
== END 2020-06-22 17:31 | disposition home or self-care (01) ==
LOC: ER 14:46
DX: S00.83XA Contusion of other part of head, initial encounter (principal); S70.02XA Contusion of left hip, initial encounter; W18.30XA Fall on same level, unspecified, initial encounter; Y93.89 Activity, other specified; Y92.9 Unspecified place or not applicable; Z88.2 Allergy status to sulfonamides; I10 Essential (primary) hypertension
CPT/HCPCS: 70450; 70486; 76377; 72170; 73502; 96372; 99283; J2175

== ENCOUNTER 2022-06-23 04:00 | Emergency (ER) | payer OTHER ==
--- OUTSIDE RECORDS SUMMARY | 2022-06-23 04:04 | XMS REPORT | Continuity of Care Document ---
:1960 Author Organization [facility] t Address [address] [place] [address] Care Team Providers Name Role Phone HIRAM BLANK Attending Clinician Unavailable Rodo White Attending Clinician Unavailable Anthony Friedman Attending Clinician Unavailable RAINE Attending Clinician Unavailable VIV OCAMPO Attending Clinician Unavailable UNKNOWN Attending Clinician Unavailable Doctor Unassigned, [place] Attending Clinician Unavailable Viv Ocampo PA-C Attending Clinician HIRAM BLANK Admitting Clinician Unavailable Rodo White Admitting Clinician Unavailable Dru Olmedo Admitting Clinician Unavailable RAINE Admitting Clinician Unavailable Payers Payer Name Policy Type Policy Number Effective Date Expiration Date S [facility] [id number] 2019 DUAL COMPLETE HMO 00:00:00 MEDICAID [facility] [id number] 2018 00:00:00 [facility] [id number] 2019 00:00:00 Problems This patient has no known problems. Allergies, Adverse Reactions, Alerts Allergy Allergy Status Severity Reaction(s) Onset Inactive Treating Comm ents Source Name Type Date Date Clinician Sulfa DA Active U 2019-0 [facility] (Sulfona 7-28 [facility] 00:00: [facility] Antibiot 00 are ics) [facility] Sulfa DA Active U SWOLLEN [facility] (Sulfona THROAT, 7-28 [facility] BLISTERS 00:00: [facility] Antibiot 00 are ics) [facility] SULFA Drug Active Unknown-Cmnt Univ ers (SULFONA Class 8-29 ity of [facility] 00:00: [place] ANTIBIOT 00 Medical ICS) Branch Medications This patient has no known medications. Procedures Procedure Date / Time Performed Performing Clinician Sour e [id number] [id number]-03-17 00:00:00 [facility] [id number] 2020-03-17 00:00:00 [facility] Encounters Start End Encounter Admission Attending Care Care Encounter Source Date/Time Date/Time Type Type Clinicians Facility Department ID 2021-05-13 Outpatient Nicky RAMOS [facility] EMILIANO [id number] Univers 10:58:11 HIRAM Webber [facility] 2020-03-20 [facility] [id number] [facility] 15:12:00 Rodo 93 [facility] 2020-03-17 Inpatient [facility] DAYS [id number] [facility] 10:30:00 , Anthony 82 [facility] 2020-02-14 Inpatient [facility] ENDO [id number] [facility] 14:00:00 , Anthony 25 [facility] 2022-01-26 2022-01-26 Outpatient DAVIDESanjayVITO HARVEY [facility] [id number] [place] 10:47:00 10:47:00 0713 [facility] 2020-07-23 2020-07-23 Outpatient Nicky OCAMPO [facility] [id number] Univers 13:00:00 13:00:00 VIV sanjay [facility] 2020-07-01 2020-07-01 Outpatient Nicky OCAMPO [facility] [id number] Univers 13:30:00 13:30:00 VIV sanjay [facility] 2020-07-01 2020-07-01 Outpatient Nicky OCAMPO [facility] [id number] Univers 13:30:00 13:30:00 VIV sanjay [facility] 2020-03-20 2020-03-20 Outpatient MARGARITA WhiteNW REF [id number] [facility] 20:36:00 20:36:00 Rodo 14 [facility] 2020-03-09 2020-03-09 Outpatient [facility] 3DAY BP0 [id number] [facility] 09:00:00 09:00:00 , Anthony 38 [facility] 2020-02-11 2020-02-11 Outpatient UNKNOWN HCACL LABO [id number] [facility] 14:10:00 14:10:00 78 [facility] 2019-08-08 2019-08-08 Orders Doctor NGUYEN [id number] 00:00:00 00:00:00 Only Unassigned, SOFIE [id number] [place] [facility] [id number] [facility] 2019-08-01 2019-08-01 Office [place] NJMARIA ANTONIA [id number] 11:39:15 12:11:37 Visit Viv Mike [id number] Yesy [id number] Professio [id number] 2019-08-01 2019-08-01 Outpatient Nicky OCAMPO [facility] [id number] Univers 11:15:00 12:11:37 VIV doyle [facility] Results Test Description Test Time Test Comments [...] 0.03 x10 3/uL 0.0-0.20 N RENAL FUNCTION [id number] 06:28:00 Test Item Value Reference Range Interpretation [...] mg/dL 2.7-4.5 N code = PHOS) LACTIC [id number] 20:39:00 Test Item Value Reference Range Interpretation Comments LACTIC ACID (test code = LACT) 12.1 mg/dL 4.5-18.0 N CBC W/MANUAL [id number] 15:38:00 Test Item Value Reference Range Interpretation [...] MICR) 1+ NONE SEEN A COMPREHENSIVE METABOLIC [id number] 13:50:00 Test Item Value Reference Range Interpretation [...] U/L 32-104 N (test code = ALKP) [id number] 13:50:00 Test Item Value Reference Range Interpretation Comments LIPASE (test code = LIP) 50 U/L 0-190 N CBC W/MANUAL [id number] 13:47:00 Test Item Value Reference Range Interpretation [...] code = LYMPH) % 20.5-45.5 CBC W/MANUAL [id number] 13:47:00 Test Item Value Reference Range Interpretation [...] (test code = LYMPH) % 20.5-45.5 SURGICAL [id number] 13:17:00 RUN DATE: 03/19/20 [facility] - LAB PAGE 1 RUN TIME: 1317 Specimen Inquiry RUN USER: INTERFACE ------ ------PATIENT: USMAN JARQUIN LOC: PRichmondN POD B U #: [id number] AGE/SX: 59/F ROOM: [facility]72 RE03/17/20REG DR: Anthony Friedman MD : 64 BED: 1 DIS: 03/18/20 STATUS: DIS IN TLOC: --------- --- SPEC #: [id number] RECD: 03/17/20 STATUS: SON REPetra #: [id number] KEYNAA: 03/17/20-[address]: Roxana Friedman MD ENTERED: 03/17/20 SP TYPE: SURG OTHR DR: Dru Olmedo MD ORDERED: PATHGM5/2, PATH SPEC,H E STAIN/2, IRON STAIN, PAS STAIN, TRICHROME STAIN, PAS WO.STAIN HISTOLOGY: TISSUE ID BLK PCS JESSICA LEV / PROCEDURE DISPOSITION ____ ___ ___ ___ ___ LIVER WEDGE BX A 1 2 1 STOMACH RESECT B 1 1 TISSUES: A. LIVER WEDGE BIOPSY - Liver Biopsy B. STOMACH SUBTOTAL RESECTION - Partial Stomach CLINICAL HISTORY Morbid Obesity FINAL DIAGNOSIS STOMACH, SLEEVE G ASTRECTOMY: - MILD CHRONIC GASTRITIS LIVER, WEDGE BIOPSY: - MILD PERIPORTAL HEPATITIS, GRADE 1 Comment: The NAFLD score is 2 (steatosis 0-1; lobular inflammation 1; hepatocyte ballooning 0). No wivly-3pfzo-fybjojn deposits are identified on the PAS with [...] (1 - perisinusoidal fibrosis, focal or extensive ; 2 - perisinusoidal fibrosis and portal fibrosis, focal or extensive; 3 - bridging fibrosis; 4- cirrhosis). CPT 05555 X 2, 43521 X 3 CONTINUED ON NEXT PAGE RUN DATE: 03/19/20 [facility] - LAB PAGE 2 RUN TIME: 1317 Specimen Inquiry RUN USER: INTERFACE SPEC #: [id number] PATIENT: USMAN JAQRUINL #[id number] (Continued) GROSS DESCRIPTION Received are two containers [...] There are no mucosal lesions seen grossly. Ironer Or Presser sections are submitted in "B". Pia Signed SIGNATURE ON FILE Stephanie Aldana MD 03/19/20 1317 END OF REPORT BASIC METABOLIC [id number] 04:39:00 Test Item Value Reference Range Interpretation [...] code 9.4 mg/dL 8.8-10.2 N = CA) [id number] 04:39:00 Test Item Value Reference Range Interpretation Comments PHOSPHOROUS (test code = PHOS) 4.3 mg/dL 2.7-4.5 N [id number] 04:39:00 Test Item Value Reference Range Interpretation Comments MAGNESIUM (test code = MAG) 2.1 mg/dL 1.4-2.6 N CBC W/AUTO [id number] 04:31:00 Test Item Value Reference Range Interpretation [...] 0.01 x10 3/uL 0.0-0.20 N Novel Coronavirus 07:15:00 Test Item Value Reference [...] detected) result in this assay. BASIC METABOLIC [id number] 13:23:00 Test Item Value Reference Range Interpretation [...] = CA) UA RFLX MICR CULT IF [id number] 13:07:00 Test Item Value Reference Range Interpretation [...] code = SQU) Indication for culture: Dysuria/FrequencyPROTHROMBIN [id number] 12:54:00 Test Item Value Reference Range Interpretation Comments PROTHROMBIN TIME 11.3 SECONDS 10.3-12.9 N PATIENT (test code = PTP) INTERNATIONAL 1.00 INR UNIT 0.9-1.11 N The INR is us eful only NORMAL RATIO (test for monit oring code = INR) anticoagulant therapy.It may be unreliable in t he initial phase o f antigoagulation and in unstable patien ts. Indication for Anticoagulation Recommended INR 1. Prevention of v enous thomboembolism 2.0-3.0in high- risk patients; treat ment of venousthrombosi s and pulmonary embol ism aftera course o f heparin; preven tion of systemicembolis m in a variety of cond itions, including atria l fibrillation an d prothetic tissu e heart valves, 2. Pros thetic mechanical hear t valves; 2.5-3.5recurren t systemic emboli sm. THROMBOPLASTIN TIME [id number] 12:54:00 Test Item Value Reference Range Interpretation Comments THROMBOPLASTIN TIME 30.4 SECONDS 23.8-34.8 N INTERPRE TATIVE PARTIAL (test code = DATA:Th erapeutic PTT) range: Unfractionated heparin:55 - 80 seconds Argatroban:1.5 to 3 times the basel ine PTT UA RFLX MICR CULT IF [id number] 12:53:00 Test Item Value Reference Range Interpretation [...] = SQU) Indication for culture: Dysuria/FrequencyCBC W/AUTO [id number] 12:44:00 Test Item Value Reference Range Interpretation [...] BA#) 0.06 x10 3/uL 0.0-0.20 N SURGICAL [id number] 08:30:00 RUN DATE: 02/19/20 [facility] - LAB PAGE 1 RUN TIME: 829 Specimen Inquiry RUN USER: INTERFACE ------- -----PATIENT: USMAN JARQUIN LOC: EMA U #: [id number] AGE/SX: 59/F ROOM: RE02/14/20[facility] DR:Anthony Friedman MD : 64 BED: DIS: [facility]: SPEC #: [id number] RECD: 02/17/20 STATUS: LIENAlessio MORIS #: [id number] KEYANA: 02/14/20- 1425 [facility] DR: Anthony Friedman MD ENTERED: 02/17/20 SP TYPE: SURG OTHR DR: Dru Olmedo MD ORDERED: PATHGM4/2, PATH SPEC, H E STAIN/2 HISTOLOGY: TISSUE ID BLK PCS JESSICA LEV / PROCEDURE DISPOSITION ____ ___ ___ ___ ___ ANTRUM BIOPSY A 1 3 RECTAL BX B 1 2 [...] COLITIS, FEATURES OF MICROSCOPIC COLITIS, PARASITES, GRANULOMA, DYSPLASIA OR MALIGNANCY IS IDENTIFIED. CPT: 80011S0, 65137 GROSS DESCRIPTION Received are two containers of formalin each labeled with the patient's [...] They are submitted in toto in B. /reena Signed SIGNATURE ON FILE Stephanie Aldana MD 02/19/20 0830 END OF REPORT Novel Coronavirus 03:20:00 Test Item Value Reference Range Interpretation Comments Novel Coronavirus Negative Negative Positive r esults are 2019 Inhouse (test indicativ e of the presence code = [id number]) ofSARS-CoV -2 RNA, clinical correlation wit h [...] n. The testing is perf ormed by personneltraine d in the procedures for the [employer] M2000 molecular diagnostic SARS-CoV-2 assa y in vitro. Novel Coronavirus [id number] 03:20:00 Test Item Value Reference Range Interpretation Comments Novel Coronavirus Negative Negative Positive r esults are 2019 Inhouse (test indicativ e of the presence code = [id number]) ofSARS-CoV -2 RNA, clinical correlation wit h [...] n. The testing is perf ormed by personneltraine d in the procedures for the [employer] M2000 molecular diagnostic SARS-CoV-2 assa y in vitro.Positive results are indicative of t he presence mcHSPY-EyA-3 RN A, clinical correlation wit h patient [...] for the identification of SARS-CoV-2 RNA usingthe [employer] M2000 Sy stem under the FDA Emergen cy UseAuthorizatio n. The testing is perf ormed by bianca d in the procedures for the [employer] molecular diagnostic SARS-CoV-2 assa y in vitro.
[2022-06-23] MEDS ORDERED: TDAP (DIPHTH,PERTUSS(ACELL),TET VAC) 0.5 ML VIAL IMVAC ONE ×2 (05:09→05:18)
[2022-06-23] MEDS ORDERED: AMOX/K CLAV 875 MG TAB ONE (05:16)
[2022-06-23] MEDS ORDERED: LIDOCAINE 1% MPF 5 ML VIAL ONE (05:24)
[2022-06-23] MEDS ORDERED: HYDROCODONE/APAP 10/325 TAB ONE (05:38)
--- NOTE | 2022-06-23 05:46 | ER ---
Nurse's Notes [facility] Name: Funmi Stoner Age: 62 yrs Sex: Female : 1960 Arrival Date: 06/23/2022 Time: 04:06 Bed 6 Private MD: Dru Olmedo Diagnosis: Contusion of left thumb without damage to nail;Bitten by dog-right thighm left knee, punctures Presentation: 06/23 04:20 Chief complaint: Patient states: she was bit by a unfamiliar dog while taking the trash bb out just prior to arrival pt has bite peñaloza on medial right upper extremity and she fell to the ground. Coronavirus screen: At this time, the client does not indicate any symptoms associated with coronavirus-19. Ebola Screen: No symptoms or risks identified at this time. Initial Sepsis Screen: Does the patient meet any 2 criteria? No. Patient's initial sepsis screen is negative. Does the patient have a suspected source of infection? No. Patient's initial sepsis screen is negative. Risk Assessment: Do you want to hurt yourself or someone else? Patient reports no desire to harm self or others. Onset of symptoms was June 23, 2022. 04:20 Method Of Arrival: Ambulatory bb 04:20 Acuity: LINDSAY 4 bb 04:21 Chief complaint:. tw5 Triage Assessment: 04:23 Bite description: bite sustained to right leg by a dog, animal information: bb vaccination(s) is unknown. Historical: - Allergies: 04:23 Sulfa (Sulfonamide Antibiotics); bb - Home Meds: 04:23 Advair Diskus 100-50 mcg/dose Inhl dsdv 1 puff 2 times per day [Active]; Aspirin Oral bb [Active]; Albuterol Inhl [Active]; gabapentin 400 mg Oral cap 1 cap 3 times per day [Active]; hydrocodone-acetaminophen 10-325 mg Oral tab 1 tab 3-4 times a day [Active]; lisinopril 20 mg Oral tab 1 tab once daily [Active]; metoprolol tartrate 25 mg Oral tab 1 tab 2 times per day [Active]; Xanax Oral [Active]; - PMHx: 04:23 Anxiety; Asthma; Diabetes - NIDDM; Heart Valve problem; hot flashes; Hypertension; bb Irregular heart rate; Myocardial infarction; Panic Attacks; Rheumatoid Arthritis; - Immunization history:: Last tetanus immunization: unknown. - Social history:: Smoking status: Patient reports the use of cigarette tobacco products. Screenin:08 Abuse screen: Denies threats or abuse. Denies injuries from another. Nutritional ll3 screening: No deficits noted. Tuberculosis screening: No symptoms or risk factors identified. Fall Risk None identified. Assessment: 04:23 General: See triage assessment. ll3 Vital Signs: 04:20 BP 141 / 91; Pulse 88; Resp 16 S; Temp 98.4(O); Pulse Ox 88% on R/A; Weight 77.11 kg bb (R); Height 5 ft. 5 in. (165.10 cm) (R); Pain 10/10; 05:36 BP 144 / 90; Pulse 72; Resp 16; Pulse Ox 97% on R/A; kl 06:07 BP 144 / 90; Pulse 73; Resp 15; Pulse Ox 96% on R/A; ll3 04:20 Body Mass Index 28.29 (77.11 kg, 165.10 cm) ED Course: 04:06 Patient arrived in ED. es 04:06 Dru Olmedo MD is Private Physician. es 04:21 Aida Orozco is Primary Nurse. tw5 04:[address] [place] [employer] regarding the dog bite. tw5 04:23 Triage completed. bb 04:23 Arm band placed on. bb 05:02 Avel Kaminski MD is Attending Physician. maycol 05:44 Hand Left 3 View XRAY In Process Unspecified. EDMS 05:44 Femur Right XRAY In Process Unspecified. EDMS 05:45 Dru Olmedo MD is Referral Physician. maycol 05:45 Octaviano Sims MD is Referral Physician. maycol 06:08 Patient has correct armband on for positive identification. Bed in low position. Call ll3 light in reach. Side rails up X 1. Adult w/ patient. 06:08 Assist provider with laceration repair on left leg and right leg that was 2.5 cm. or ll3 less using sutures. Set up tray. Performed by Avel Kaminski MD Dressed with band aid, Neosporin, Patient tolerated well. Patient did not have IV access during this emergency room visit. 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 Exp: kl 01/28/2023. Lot #: [id number]. } Route: IM; Site: right deltoid; 05:26 Drug: Augmentin (Amoxicillin-Clavulanate) 875 mg Route: PO; kl 05:38 Drug: Lidocaine (1 %) 5 ml {Note: administered by dr kaminski.} Volume: 5 ml; Route: kl Infiltration; 05:38 Drug: Keller (HYDROcodone-acetaminophen) 10 mg-325 mg 1 tabs Route: PO; ll3 06:10 Follow up: Response: No adverse reaction; Pain is decreased ll3 05:47 Drug: Neosporin (cihglfwi-ihgiekcndu-frnvgmkhx) Ointment 1 application Route: Topical; Site: affected area; 06:10 Follow up: Response: No adverse reaction ll3 Medication: 06:10 Vaccine Information Statement (VIS) provided today. Questions and/or concerns ll3 addressed. VIS edition date: February 19, 2021. Outcome: 05:46 Discharge ordered by MD. severino 06:08 Discharged to home ambulatory, with significant other. ll3 06:08 Condition: stable 06:08 Discharge instructions given to patient, family, Instructed on discharge instructions, follow up and referral plans. medication usage, Demonstrated understanding of instructions, follow-up care, medications, Prescriptions given X 2. 06:11 Patient left the ED. ll3 Signatures: Dispatcher [employer] Jacquelin Silverman RN RN kl Anderson, Corey, MD MD cha Salyer, Edna es Ballard, Brenda, RN RN bb Wood, Tiffany [facility] Alexandra Ralph RN RN ll3 Corrections: (The following items were deleted from the chart) 04:23 04:22 called Darwin LEONE tw5 tw5 06:07 06:06 General: See triage assessment. ll3 ll3
--- NOTE | 2022-06-23 05:47 | EDPHYS ---
Physician Documentation [facility] Nickolas Name: Funmi Stoner Age: 62 yrs Sex: Female : 1960 Arrival Date: 06/23/2022 Time: 04:06 Bed 6 Private MD: Dru Olmedo ED Physician Avel Kaminski HPI: 06/23 05:35 This 62 yrs old Black Female presents to ER via Ambulatory with complaints of Dog Bite. maycol 05:35 The patient was bitten on the right leg and left leg. Onset: The symptoms/episode maycol began/occurred just prior to arrival. Animal information: Patient/Caregiver unable to provide information related to the animal. The appearance of the animal is unknown is unknown. Secondary to the bite the patient reports multiple puncture wounds. Associated signs and symptoms: The patient has no apparent associated signs or symptoms. The patient has not experienced similar symptoms in the past. Historical: - Allergies: 04:23 Sulfa (Sulfonamide Antibiotics); bb - Home Meds: 04:23 Advair Diskus 100-50 mcg/dose Inhl dsdv 1 puff 2 times per day [Active]; Aspirin Oral bb [Active]; Albuterol Inhl [Active]; gabapentin 400 mg Oral cap 1 cap 3 times per day [Active]; hydrocodone-acetaminophen 10-325 mg Oral tab 1 tab 3-4 times a day [Active]; lisinopril 20 mg Oral tab 1 tab once daily [Active]; metoprolol tartrate 25 mg Oral tab 1 tab 2 times per day [Active]; Xanax Oral [Active]; - PMHx: 04:23 Anxiety; Asthma; Diabetes - NIDDM; Heart Valve problem; hot flashes; Hypertension; bb Irregular heart rate; Myocardial infarction; Panic Attacks; Rheumatoid Arthritis; - Immunization history:: Last tetanus immunization: unknown. - Social history:: Smoking status: Patient reports the use of cigarette tobacco products. ROS: 05:36 Constitutional: Negative for fever, chills, and weight loss, Eyes: Negative for injury, maycol pain, redness, and discharge, ENT: Negative for injury, pain, and discharge, Neck: Negative for injury, pain, and swelling, Cardiovascular: Negative for chest pain, palpitations, and edema, Respiratory: Negative for shortness of breath, cough, wheezing, and pleuritic chest pain, Abdomen/GI: Negative for abdominal pain, nausea, vomiting, diarrhea, and constipation, Back: Negative for injury and pain, : Negative for injury, bleeding, discharge, and swelling, Skin: Negative for injury, rash, and discoloration, Neuro: Negative for headache, weakness, numbness, tingling, and seizure, Psych: Negative for depression, anxiety, suicide ideation, homicidal ideation, and hallucinations, Allergy/Immunology: Negative for hives, rash, and allergies, Endocrine: Negative for neck swelling, polydipsia, polyuria, polyphagia, and marked weight changes, Hematologic/Lymphatic: Negative for swollen nodes, abnormal bleeding, and unusual bruising. 05:36 MS/extremity: Positive for pain, puncture, swelling, tenderness, of the left hand. Exam: 05:36 Constitutional: This is a well developed, well nourished patient who is awake, alert, maycol and in no acute distress. Head/Face: Normocephalic, atraumatic. Eyes: Pupils equal round and reactive to light, extra-ocular motions intact. Lids and lashes normal. Conjunctiva and sclera are non-icteric and not injected. Cornea within normal limits. Periorbital areas with no swelling, redness, or edema. ENT: Nares patent. No nasal discharge, no septal abnormalities noted. Tympanic membranes are normal and external auditory canals are clear. Oropharynx with no redness, swelling, or masses, exudates, or evidence of obstruction, uvula midline. Mucous membranes moist. Neck: Trachea midline, no thyromegaly or masses palpated, and no cervical lymphadenopathy. Supple, full range of motion without nuchal rigidity, or vertebral point tenderness. No Meningismus. Chest/axilla: Normal chest wall appearance and motion. Nontender with no deformity. No lesions are appreciated. Cardiovascular: Regular rate and rhythm with a normal S1 and S2. No gallops, murmurs, or rubs. Normal PMI, no JVD. No pulse deficits. Respiratory: Lungs have equal breath sounds bilaterally, clear to auscultation and percussion. No rales, rhonchi or wheezes noted. No increased work of breathing, no retractions or nasal flaring. Abdomen/GI: Soft, non-tender, with normal bowel sounds. No distension or tympany. No guarding or rebound. No evidence of tenderness throughout. Back: No spinal tenderness. No costovertebral tenderness. Full range of motion. Female : Normal external genitalia. Skin: Warm, dry with normal turgor. Normal color with no rashes, no lesions, and no evidence of cellulitis. Neuro: Awake and alert, GCS 15, oriented to person, place, time, and situation. Cranial nerves II-XII grossly intact. Motor strength 5/5 in all extremities. Sensory grossly intact. Cerebellar exam normal. Normal gait. Psych: Awake, alert, with orientation to person, place and time. Behavior, mood, and affect are within normal limits. 05:36 Musculoskeletal/extremity: Extremities: noted in the right leg and left leg: pain, puncture, ROM: intact in all extremities, full active range of motion, limited active range of motion due to pain, Circulation is intact in all extremities. Sensation intact. Compartment Syndrome exam of affected extremity: is normal. Vital Signs: 04:20 BP 141 / 91; Pulse 88; Resp 16 S; Temp 98.4(O); Pulse Ox 88% on R/A; Weight 77.11 kg bb (R); Height 5 ft. 5 in. (165.10 cm) (R); Pain 10/10; 05:36 BP 144 / 90; Pulse 72; Resp 16; Pulse Ox 97% on R/A; kl 06:07 BP 144 / 90; Pulse 73; Resp 15; Pulse Ox 96% on R/A; ll3 04:20 Body Mass Index 28.29 (77.11 kg, 165.10 cm) Laceration: 05:43 Wound Repair of 0.2cm ( 0.1in ) subcutaneous laceration to lateral aspect of right maycol thigh and right quadriceps. Irregularly shaped.. Distal neuro/vascular/tendon intact. Anesthesia: Local anesthetic administered with 5 mls of 1% lidocaine. Wound prep: Moderate cleansing by ne. Skin closed with 2 6-0 Prolene using interrupted sutures and sterile technique. Dressed with Neosporin. Patient tolerated well. MDM: 05:02 Patient medically screened. [facility] 05:44 Differential diagnosis: superficial laceration, contusion. Data reviewed: vital signs, [facility] nurses notes, radiologic studies, plain films. Data interpreted: monitor car operator: not applicable for this patient encounter. Pulse oximetry: on room air is 97 %. Test interpretation: by ED physician or midlevel provider: plain radiologic studies. Counseling: I had a detailed discussion with the patient and/or guardian regarding: the historical points, exam findings, and any diagnostic results supporting the discharge/admit diagnosis, lab results, radiology results, the need for outpatient follow up, for definitive care, a general surgeon. 06/23 05:20 Order name: Hand Left 3 View XRAY [facility] 06/23 05:22 Order name: Femur Right XRAY [facility] 06/23 04:44 Order name: Wound Care; Complete Time: 06:11 tw5 06/23 05:20 Order name: Dressing - Wound; Complete Time: 06:11 maycol 06/23 05:20 Order name: Gloves, Sterile; Complete Time: 05: maycol 06/23 05:20 Order name: Prolene, Sutures; Complete Time: : [facility] 06/23 05:20 Order name: Setup Suture Tray; Complete Time: : maycol Administered Medications: 05:26 Drug: Tetanus-Diphtheria Toxoid Adult 0.5 ml {Licensed Chemical Spray Technician: [employer]). Exp: kl 01/28/2023. Lot #: [id number]. } Route: IM; Site: right deltoid; 05:26 Drug: Augmentin (Amoxicillin-Clavulanate) 875 mg Route: PO; 05:38 Drug: Lidocaine (1 %) 5 ml {Note: administered by dr kaminski.} Volume: 5 ml; Route: kl Infiltration; 05:38 Drug: [place] (HYDROcodone-acetaminophen) 10 mg-325 mg 1 tabs Route: PO; ll3 06:10 Follow up: Response: No adverse reaction; Pain is decreased ll3 05:47 Drug: Neosporin (wrjvqset-xrsaowhalu-dxvxdldsx) Ointment 1 application Route: Topical; Site: affected area; 06:10 Follow up: Response: No adverse reaction ll3 Disposition Summary: 06/23/22 05:46 Discharge Ordered Location: Home maycol Problem: new maycol Symptoms: have improved maycol Condition: Stable maycol Diagnosis - Contusion of left thumb without damage to nail maycol - Bitten by dog - right thighm left knee, punctures maycol Followup: maycol - With: - When: 2 - 3 days - Reason: Recheck today's complaints, Continuance of care, Re-evaluation by your physician Followup: maycol - With: Octaviano Sims MD - When: 2 - 3 days - Reason: Recheck today's complaints, Re-evaluation by your physician Discharge Instructions: - Discharge Summary Sheet maycol - Animal Bite, Adult, [id number] maycol - Animal Bite, Adult [facility] Forms: - Medication Reconciliation Form maycol - Thank You Letter maycol - Antibiotic Education maycol - Prescription Opioid Use [facility] Prescriptions: - Augmentin 875-125 mg Oral Tablet - take 1 tablet by ORAL route every 12 hours for 10 days; 14 tablet; Refills: 0, [facility] Product Selection Permitted - Ibuprofen 600 mg Oral Tablet - take 1 tablet by ORAL route every 6 hours As needed take with food; 20 tablet; [facility] Refills: 0, Product Selection Permitted Signatures: Dispatcher [employer] EDJacquelin Stockton, RN Avel Andre MD MD cha Ballard, Brenda RN Aiad Bazan tw5 Alexandra Ralph RN RN ll3
--- NOTE | 2022-06-23 14:38 | RAD REPORT ---
EXAM DESCRIPTION: RAD - Hand Left 3 View - 06/23/2022 5:42 am COMPARISON: None. CLINICAL HISTORY: [facility] MAIN PAIN FINDINGS: 3 views of the left hand demonstrate no acute fracture or dislocation. No significant join t effusion. Soft tissues are unremarkable. IMPRESSION: No acute findings of the left hand. Electronically signed by: Ubaldo Meyer MD 06/23/2022 6:32 AM WAFER CUTTER Due to temporary technical issues with the PACS/Fluency reporting system, reports are being signed by the in house radiologists without review as a courtesy to insure prompt reporting. The interpreting radiologist is fully responsible for the content of the report.
--- NOTE | 2022-06-23 15:09 | RAD REPORT ---
EXAM DESCRIPTION: RAD - Femur Right - 06/23/2022 5:42 am COMPARISON: None. CLINICAL HISTORY: [facility] MAIN PAIN Femur Right FINDINGS: 4 views of the right femur demonstrate no acute fracture or dislocation. No significant kadi int effusion. Fluid and gas are noted in the medial thigh measuring approximately 6.5 cm. IMPRESSION: Fluid and gas in the medial thigh may indicate abscess. Consider further evaluation with ultrasound or contrast-enhanced CT. Electronically signed by: Ubaldo Meyer MD 06/23/2022 6:33 AM RETIREMENT ADMINISTRATOR Due to temporary technical issues with the PACS/Fluency reporting system, reports are being signed by the in house radiologists without review as a courtesy to insure prompt reporting. The interpreting radiologist is fully responsible for the content of the report.
== END 2022-06-23 06:11 | disposition home or self-care (01) ==
LOC: ER 04:00
PROC: 0JQP0ZZ Repair Left Lower Leg Subcutaneous Tissue and Fascia, Open Approach (ICD-10-PCS; principal; 2022-06-23)
PROC: 0JQN0ZZ Repair Right Lower Leg Subcutaneous Tissue and Fascia, Open Approach (ICD-10-PCS; 2022-06-23)
DX: S60.012A Contusion of left thumb without damage to nail, initial encounter (principal); S81.812A Laceration without foreign body, left lower leg, initial encounter; S81.811A Laceration without foreign body, right lower leg, initial encounter; W54.0XXA Bitten by dog, initial encounter; Z23 Encounter for immunization
CPT/HCPCS: 73130; 73552; 90471; 99284; 12001; J2001

== ENCOUNTER 2022-07-25 10:40 | Emergency (ER) | payer OTHER ==
--- OUTSIDE RECORDS SUMMARY | 2022-07-25 10:58 | XMS REPORT | Continuity of Care Document ---
:1960 Author Organization [facility] t Address [address] [place] [address] Care Team Providers Name Role Phone HIRAM BLANK Attending Clinician Unavailable Rodo White Attending Clinician Unavailable Anthony Friedman Attending Clinician Unavailable RAINE Attending Clinician Unavailable VIV OCAMPO Attending Clinician Unavailable UNKNOWN Attending Clinician Unavailable Doctor Unassigned, [place] Attending Clinician Unavailable Viv Ocampo PA-C Attending Clinician HIRAM BLANK Admitting Clinician Unavailable Rodo White Admitting Clinician Unavailable Dru Olmedo Admitting Clinician Unavailable RAINE Admitting Clinician Unavailable Payers Payer Name Policy Type Policy Number Effective Date Expiration Date [facility] [id number] 2019 DUAL COMPLETE HMO 00:00:00 [place] [id number] 2018 00:00:00 [facility] [id number] 2019 00:00:00 Problems This patient has no known problems. Allergies, Adverse Reactions, Alerts Allergy Allergy Status Severity Reaction(s) Onset Inactive Treating Comm ents Source Name Type Date Date Clinician Sulfa DA Active U [facility] (Sulfona 7- [facility] 00:00: [facility] Antibiot 00 are ics) [facility] DA Active U [facility] (Sulfona THROAT, 7-28 [place] mid BLISTERS 00:00: [facility] Antibiot 00 are ics) [place] SULFA Drug Active Unknown-[facility] (SULFONA Class 8-29 ity of MIDE 00:00: [place] ANTIBIOT 00 Medical ICS) Branch Medications This patient has no known medications. Procedures Procedure Date / Time Performed Performing Clinician Sour e [id number] [id number] 2020-03-17 00:00:00 [facility] [id number] 2020-03-17 00:00:00 [facility] Encounters Start End Encounter Admission Attending Care Care Encounter Source Date/Time Date/Time Type Type Clinicians Facility Department ID 2021-05-13 Outpatient Nicky RAMOS [facility] EMILIANO [id number] [id number] 15:12:00 Rodo 93 [facility] 2020-03-17 Inpatient [facility] DAYS [id number] [facility] 10:30:00 , Anthony 82 [facility] 2020-02-14 Inpatient [facility] ENDO [id number] [facility] 14:00:00 , Anthony 25 [facility] 2022-01-26 2022-01-26 Outpatient RAINE HARVEY [facility] [id number] [place] 10:47:00 10:47:00 0713 [facility] 2020-07-23 2020-07-23 Outpatient Nicky OCAMPO [facility] [id number] Univers 13:00:00 13:00:00 VIV sanjay [facility] 2020-07-01 2020-07-01 Outpatient Nicky OCAMPO [facility] [id number] Univers 13:30:00 13:30:00 VIV sanjay [facility] 2020-07-01 2020-07-01 Outpatient Nicky OCAMPO [facility] [id number] Univers 13:30:00 13:30:00 VIV sanjay [facility] 2020-03-20 2020-03-20 Outpatient MARGARITA WhiteNW REF [id number] [facility] 20:36:00 20:36:00 Rodo 14 [facility] are [facility] 2020-03-09 2020-03-09 Outpatient [facility] 3DAY BP0 [id number] [facility] 09:00:00 09:00:00 , Anthony 38 [facility] 2020-02-11 2020-02-11 Outpatient UNKNOWN HCACL LABO [id number] [facility] 14:10:00 14:10:00 78 [facility] 2019-08-08 2019-08-08 Orders Doctor NGUYEN [id number] 00:00:00 00:00:00 Only Unassigned, SOFIE [id number] [place] [facility] [id number] 2019-08-01 2019-08-01 Office FARIBA Ocampo [id number] 11:39:15 12:11:37 Visit Viv Mike [id number] Yesy [id number] Professio [id number] [address] 2019-08-01 2019-08-01 Outpatient Nicky OCAMPO [facility] [id number] Univers 11:15:00 12:11:37 VIV doyle [facility] Results Test Description Test Time Test Comments [...] 0.03 x10 3/uL 0.0-0.20 N RENAL FUNCTION [id number] 06:28:00 Test Item Value Reference Range Interpretation [...] mg/dL 2.7-4.5 N code = PHOS) LACTIC [id number] 20:39:00 Test Item Value Reference Range Interpretation Comments LACTIC ACID (test code = LACT) 12.1 mg/dL 4.5-18.0 N CBC W/MANUAL [id number] 15:38:00 Test Item Value Reference Range Interpretation [...] MICR) 1+ NONE SEEN A COMPREHENSIVE METABOLIC [id number] 13:50:00 Test Item Value Reference Range Interpretation [...] U/L 32-104 N (test code = ALKP) [id number] 13:50:00 Test Item Value Reference Range Interpretation Comments LIPASE (test code = LIP) 50 U/L 0-190 N CBC W/MANUAL [id number] 13:47:00 Test Item Value Reference Range Interpretation [...] code = LYMPH) % 20.5-45.5 CBC W/MANUAL [id number] 13:47:00 Test Item Value Reference Range Interpretation [...] (test code = LYMPH) % 20.5-45.5 SURGICAL [id number] 13:17:00 RUN DATE: 03/19/20 [facility] - LAB PAGE 1 RUN TIME: 1317 Specimen Inquiry RUN USER: INTERFACE ------ ------PATIENT: USMAN JARQUIN LOC: PAsif5N POD B U #: [id number] AGE/SX: 59/F ROOM: [facility] RE03/17/20REG DR: Anthony Friedman MD : 64 BED: 1 DIS: 03/18/20 STATUS: DIS IN TLOC: --------- --- SPEC #: [id number] RECD: 03/17/20 STATUS: SON SUBRAMANIAN #: [id number] KEYANA: 03/17/20-[address]: Roxana Friedman MD ENTERED: [...] HISTORY Morbid Obesity FINAL DIAGNOSIS STOMACH, SLEEVE GAS TRECTOMY: - MILD CHRONIC GASTRITIS LIVER, WEDGE BIOPSY: [...] 3 - bridging fibrosis; 4- cirrhosis). CPT 80454 X 2, 88231 X 3 CONTINUED ON NEXT PAGE RUN DATE: 03/19/20 [place] [facility] - LAB PAGE 2 RUN TIME: 1317 Specimen Inquiry RUN USER: INTERFACE SPEC #: [id number] PATIENT: USMAN JARQUINL #[id number] (Continued) GROSS DESCRIPTION Received are two containers of formalin labeled with the patient's name and medical record number. Specimen A: Received labeled "liver biopsy" is a 1.3 x 0.9 x 0.5 cm piece oftan soft tissue. It is bisected and has a dull khan surface without a discrete lesion. It is entirelysubmitted in "A". Specimen B: Received labeled "partial stomach" is an unopened stomach which is 27 x 5 cm. The omentum is absent, and there is a full length staple line along the lesser curvature. Theserosa is khan to red. The rugal folds are prominent khan. There are no mucosal lesions seen grossly. R epresentative sections are submitted in "B". /yari Signed SIGNATURE ON FILE Stephanie Aldana MD 03/19/20 1317 END OF REPORT BASIC METABOLIC [id number] 04:39:00 Test Item Value Reference Range Interpretation [...] code 9.4 mg/dL 8.8-10.2 N = CA) [id number] 04:39:00 Test Item Value Reference Range Interpretation Comments PHOSPHOROUS (test code = PHOS) 4.3 mg/dL 2.7-4.5 N [id number] 04:39:00 Test Item Value Reference Range Interpretation Comments MAGNESIUM (test code = MAG) 2.1 mg/dL 1.4-2.6 N CBC W/AUTO [id number] 04:31:00 Test Item Value Reference Range Interpretation [...] detected) result in this assay. BASIC METABOLIC [id number] 13:23:00 Test Item Value Reference Range Interpretation [...] = CA) UA RFLX MICR CULT IF [id number] 13:07:00 Test Item Value Reference Range Interpretation [...] code = SQU) Indication for culture: Dysuria/FrequencyPROTHROMBIN [id number] 12:54:00 Test Item Value Reference Range Interpretation [...] 2.5-3.5recurren t systemic emboli sm. THROMBOPLASTIN TIME [id number] 12:54:00 Test Item Value Reference Range Interpretation Comments THROMBOPLASTIN TIME 30.4 SECONDS 23.8-34.8 N INTERPRE TATIVE PARTIAL (test code = DATA:Th erapeutic PTT) range: Unfractionated heparin:55 - 80 seconds Argatroban:1.5 to 3 times the basel ine PTT UA RFLX MICR CULT IF [id number] 12:53:00 Test Item Value Reference Range Interpretation [...] = SQU) Indication for culture: Dysuria/FrequencyCBC W/AUTO [id number] 12:44:00 Test Item Value Reference Range Interpretation [...] BA#) 0.06 x10 3/uL 0.0-0.20 N SURGICAL [id number] 08:30:00 RUN DATE: 02/19/20 [facility] - LAB PAGE 1 RUN TIME: 829 Specimen Inquiry RUN USER: INTERFACE -------- ----PATIENT: USMAN JARQUIN LOC: EMA U #: [id number] AGE/SX: 59/F ROOM: RE02/14/20REG DR: Anthony Friedman MD : 64 BED: DIS: STATUS: [facility] TLOC: SPEC #: [id number] RECD: 02/17/20 STATUS: SON MORIS #: [id number] KEYANA: 02/14/20- 1425 [facility] DR: Anthony Friedman MD ENTERED: 02/17/20 [...] GRANULOMA, DYSPLASIA OR MALIGNANCY IS IDENTIFIED. CPT: 03683I6, 99622 GROSS DESCRIPTION Received are two containers of [...] indicativ e of the presence code = [id number]) ofSARS-CoV -2 RNA, clinical correlation wit h [...] usingthe Clemens M2000 Sy stem under the [facility] Emergen cy UseAuthorizatio n. The testing is perf ormed by personneltraine d in the procedures for the Clemens M2000 molecular diagnostic SARS-CoV-2 assa y in vitro.Positive results are indicative of t he presence oaSEOF-CeX-3 RN A, clinical correlation wit h patient [...] SARS-CoV-2 assa y in vitro. Novel Coronavirus [id number] 03:20:00 Test Item Value Reference Range Interpretation Comments Novel Coronavirus Negative Negative Positive r esults are 2019 Inhouse (test indicativ e of the presence code = [id number]) ofSARS-CoV -2 RNA, clinical correlation wit h [...] for the identification of SARS-CoV-2 RNA usingthe [employer] M2000 Sy stem under the FDA Emergen cy UseAuthorizatio n. The testing is perf ormed by personneltraine d in the procedures for the [employer] molecular diagnostic SARS-CoV-2 assa y in vitro.
--- NOTE | 2022-07-25 11:42 | RAD REPORT ---
EXAM DESCRIPTION: CT - CTHCSPWOC - 07/25/2022 11:22 am CLINICAL HISTORY: fall, headache, neck pain, head and neck injury COMPARISON: Head C Spine Mpr Wo Con dated 08/16/2018; Head Brain Wo Cont dated 06/22/2020 TECHNIQUE: Axial 5 mm thick images of the head were obtained. Axial 2 mm thick images of the cervic al spine were obtained with sagittal and coronal reconstruction images generated and reviewed. All CT scans are performed using dose optimization technique as appropriate and may include automated exposure control or mA/KV adjustment according to patient size. FINDINGS: No intracranial hemorrhage, mass, edema or acute intracranial finding. Physiologic basal g anglia calcifications are present. No suspicion for acute infarction. No significant atrophy or chron ic ischemic change identifiable. Ventricles are normal. No extra-axial fluid collections. Mastoid air cells and paranasal sinuses are clear. No globe or orbit abnormality seen. Postsurgical fusion changes are present with hardware in the C3-4 disc space. This is new from the comparison. Cervical bodies are normal in height. There is reversal of the usual cervical lordosis with the apex at C5-6. C5-6 and C6-7 disc spaces are narrowed with endplate spurring. Uncovertebral joint hypertrophy is minimal. No significant foraminal stenosis. No facet joint alignment abnormality . There are facet joint degenerative changes are present. No other significant disc space narrowing. No fracture or acute bony abnormality. Central canal detail is inherently limited. No paraspinal mass or hematoma. IMPRESSION: Negative CT head examination for acute or significant finding. Negative CT cervical spine examination for acute or significant finding. Nonacute findings detailed in the body of the report.
--- NOTE | 2022-07-25 11:47 | EDPHYS ---
Physician Documentation [facility] Name: Funmi Stoner Age: 62 yrs Sex: Female : 1960 Arrival Date: 07/25/2022 Time: 10:45 Bed IW2 Private MD: ED Physician Avel Kaminski HPI: 07/25 11:13 This 62 yrs old Black Female presents to ER via Wheelchair with complaints of Fall snw Injury. 11:13 Details of fall: The patient fell from an upright position, Cooking. Onset: The snw symptoms/episode began/occurred last night. Associated injuries: The patient sustained injury to the head, neck injury, tenderness. Severity of symptoms: At their worst the symptoms were moderate, in the emergency department the symptoms are unchanged. The patient has experienced similar episodes in the past. appt for the end of Jul with neurosurg and PCP. Historical: - Allergies: 10:56 Sulfa (Sulfonamide Antibiotics); iw - Home Meds: 10:56 Advair Diskus 100-50 mcg/dose Inhl dsdv 1 puff 2 times per day [Active]; Albuterol Inhl iw [Active]; Aspirin Oral [Active]; gabapentin 400 mg Oral cap 1 cap 3 times per day [Active]; hydrocodone-acetaminophen 10-325 mg Oral tab 1 tab 3-4 times a day [Active]; lisinopril 20 mg Oral tab 1 tab once daily [Active]; metoprolol tartrate 25 mg Oral tab 1 tab 2 times per day [Active]; Xanax Oral [Active]; - PMHx: 10:56 Anxiety; hot flashes; Diabetes - NIDDM; Myocardial infarction; Irregular heart rate; iw Rheumatoid Arthritis; Panic Attacks; Heart Valve problem; Asthma; Hypertension; - PSHx: 10:57 neck; back; weight loss surgery; iw - Social history:: Smoking status: Patient/guardian denies using tobacco. ROS: 11:14 Constitutional: Negative for fever, chills, and weight loss, Eyes: Negative for injury, snw pain, redness, and discharge, ENT: Negative for injury, pain, and discharge. 11:14 Cardiovascular: Negative for chest pain, palpitations, and edema, Respiratory: Negative for shortness of breath, cough, wheezing, and pleuritic chest pain, Abdomen/GI: Negative for abdominal pain, nausea, vomiting, diarrhea, and constipation, Back: Negative for injury and pain, : Negative for injury, bleeding, discharge, and swelling, MS/Extremity: Negative for injury and deformity, Skin: Negative for injury, rash, and discoloration. 11:14 Neck: Positive for tenderness, of the left trapezius. 11:14 Neuro: Positive for headache, tingling, of the left base of the skull, right base of the skull and left arm. Exam: 11:12 Constitutional: This is a well developed, well nourished patient who is awake, alert, snw and in no acute distress. Head/Face: Normocephalic, atraumatic. Eyes: Pupils equal round and reactive to light, extra-ocular motions intact. Lids and lashes normal. Conjunctiva and sclera are non-icteric and not injected. Cornea within normal limits. Periorbital areas with no swelling, redness, or edema. ENT: Nares patent. No nasal discharge, no septal abnormalities noted. Tympanic membranes are normal and external auditory canals are clear. Oropharynx with no redness, swelling, or masses, exudates, or evidence of obstruction, uvula midline. Mucous membranes moist. Neck: Trachea midline, no thyromegaly or masses palpated, and no cervical lymphadenopathy. Supple, full range of motion without nuchal rigidity, or vertebral point tenderness. No Meningismus. Chest/axilla: Normal chest wall appearance and motion. Nontender with no deformity. No lesions are appreciated. Cardiovascular: Regular rate and rhythm with a normal S1 and S2. No gallops, murmurs, or rubs. Normal PMI, no JVD. No pulse deficits. Respiratory: Lungs have equal breath sounds bilaterally, clear to auscultation and percussion. No rales, rhonchi or wheezes noted. No increased work of breathing, no retractions or nasal flaring. Abdomen/GI: Soft, non-tender, with normal bowel sounds. No distension or tympany. No guarding or rebound. No evidence of tenderness throughout. Back: No spinal tenderness. No costovertebral tenderness. Full range of motion. Skin: Warm, dry with normal turgor. Normal color with no rashes, no lesions, and no evidence of cellulitis. MS/ Extremity: Pulses equal, no cyanosis. Neurovascular intact. Full, normal range of motion. Psych: Awake, alert, with orientation to person, place and time. Behavior, mood, and affect are within normal limits. 11:12 Neuro: Orientation: is normal, Mentation: is normal, Memory: is normal, Motor: is normal, Sensation: left sided neck tenderness with radiculopathy and numbness to fingers. Vital Signs: 10:55 BP 103 / 61; Pulse 71; Resp 16; Temp 98.0; Pulse Ox 100% on R/A; Weight 77.11 kg; iw Height 5 ft. 5 in. (165.10 cm); Pain 9/10; 10:58 BP 92 / 74 LA Standing; Pulse 73; iw 10:55 Body Mass Index 28.29 (77.11 kg, 165.10 cm) iw MDM: 10:53 Patient medically screened. snw 11:15 Differential diagnosis: closed head injury, sprain, strain. Data reviewed: vital signs, snw nurses notes. Data reviewed: pt states her blood pressure gets low with her norco, xanax, and blood pressure meds. This has happened multiple times. Data interpreted: Pulse oximetry: on room air is 100 %. Interpretation: normal. Counseling: I had a detailed discussion with the patient and/or guardian regarding: the historical points, exam findings, and any diagnostic results supporting the discharge/admit diagnosis. 11:45 Special discussion: Based on the patient's history, exam and DX evaluation, there is no snw indication for emergent intervention or inpatient TX. It is understood by the patient/guardian that if the SXs persist or worsen they need to return immediately for re-evaluation. 07/25 11:02 Order name: CT Head C Spine; Complete Time: 11:44 snw 07/25 11:02 Order name: PO challenge; Complete Time: 11:21 snw Administered Medications: 12:15 Drug: Ketorolac 60 mg Route: IM; Site: left gluteus; iw Disposition Summary: 07/25/22 11:46 Discharge Ordered Location: Home snw Condition: Stable snw Diagnosis - Dehydration snw - Fall on same level from slipping, tripping and stumbling with subsequent striking snw against object - Cervical disc disorder with radiculopathy snw Followup: snw - With: Emergency Department - When: As needed - Reason: Worsening of condition Followup: snw - With: Private Physician - When: 1 week - Reason: Recheck today's complaints, Continuance of care, Re-evaluation by your physician Discharge Instructions: - Discharge Summary Sheet snw - Dehydration, Adult snw - Fall Prevention in the Home, Adult snw - Orthostatic Hypotension snw - Rehydration, Adult snw Forms: - Medication Reconciliation Form snw - Thank You Letter snw - Antibiotic Education snw - Prescription Opioid Use snw Prescriptions: - Mobic 7.5 mg Oral Tablet - take 1 tablet by ORAL route once daily take with food; 20 tablet; Refills: 0, snw Product Selection Permitted Signatures: Dispatcher [employer] EDLashanda Katz, EGYPTOLOGIST-C EGYPTOLOGIST-Csnw Lilliana Stoner RN RN iw
--- NOTE | 2022-07-25 11:47 | ER ---
Nurse's Notes [facility] Name: Funmi Stoner Age: 62 yrs Sex: Female : 1960 Arrival Date: 07/25/2022 Time: 10:45 Bed IW2 Private MD: Diagnosis: Dehydration;Fall on same level from slipping, tripping and stumbling with subsequent striking against object;Cervical disc disorder with radiculopathy Presentation: 07/25 10:54 Chief complaint: Patient states: fell last night in the kitchen, now my head hurts and iw i'm sore on my left shoulder, I passed out while I was cooking, has happened before. 10:54 Acuity: LINDSAY 3 iw 10:55 Coronavirus screen: At this time, the client does not indicate any symptoms associated iw with coronavirus-19. Ebola Screen: Patient negative for fever greater than or equal to 101.5 degrees Fahrenheit, and additional compatible Ebola Virus Disease symptoms Patient denies exposure to infectious person. Patient denies travel to an Ebola-affected area in the 21 days before illness onset. No symptoms or risks identified at this time. Initial Sepsis Screen: Does the patient meet any 2 criteria? No. Patient's initial sepsis screen is negative. Does the patient have a suspected source of infection? No. Patient's initial sepsis screen is negative. Risk Assessment: Do you want to hurt yourself or someone else? Patient reports no desire to harm self or others. Onset of symptoms was July 24, 2022. 10:55 Method Of Arrival: Wheelchair iw Historical: - Allergies: 10:56 Sulfa (Sulfonamide Antibiotics); iw - Home Meds: 10:56 Advair Diskus 100-50 mcg/dose Inhl dsdv 1 puff 2 times per day [Active]; Albuterol Inhl iw [Active]; Aspirin Oral [Active]; gabapentin 400 mg Oral cap 1 cap 3 times per day [Active]; hydrocodone-acetaminophen 10-325 mg Oral tab 1 tab 3-4 times a day [Active]; lisinopril 20 mg Oral tab 1 tab once daily [Active]; metoprolol tartrate 25 mg Oral tab 1 tab 2 times per day [Active]; Xanax Oral [Active]; - PMHx: 10:56 Anxiety; hot flashes; Diabetes - NIDDM; Myocardial infarction; Irregular heart rate; iw Rheumatoid Arthritis; Panic Attacks; Heart Valve problem; Asthma; Hypertension; - PSHx: 10:57 neck; back; weight loss surgery; iw - Social history:: Smoking status: Patient/guardian denies using tobacco. Vital Signs: 10:55 BP 103 / 61; Pulse 71; Resp 16; Temp 98.0; Pulse Ox 100% on R/A; Weight 77.11 kg; iw Height 5 ft. 5 in. (165.10 cm); Pain 9/10; 10:58 BP 92 / 74 LA Standing; Pulse 73; iw 10:55 Body Mass Index 28.29 (77.11 kg, 165.10 cm) iw ED Course: 10:45 Patient arrived in ED. rg4 10:51 Lashanda Martinez FNP-C is PHCP. snw 10:51 Avel Kaminski MD is Attending Physician. snw 10:55 Triage completed. iw 10:58 Arm band placed on. iw 11:21 Lilliana Stoner RN is Primary Nurse. iw 11:24 CT Head C Spine In Process Unspecified. EDMS Administered Medications: 12:15 Drug: Ketorolac 60 mg Route: IM; Site: left gluteus; iw Outcome: 11:46 Discharge ordered by . snw 12:56 Patient left the ED. iw Signatures: Dispatcher [employer] EDMS Lashanda Martinez FNP-C DIRECTOR OF CATH LAB-Csnw Lilliana Stoner RN RN iw Faye Todd rg4 Corrections: (The following items were deleted from the chart) 10:57 10:55 Pulse 71bpm; Resp 16bpm; Pulse Ox 100% RA; Temp 98.0F; 77.11 kg; Height 5 ft. 5 iw in.; BMI: 28.2; Pain 9/10; iw
[2022-07-25] MEDS ORDERED: KETOROLAC 30 MG/ML INJ ONE (12:13)
[2022-07-25 13:00] VITALS: TEMP 98; O2SAT 100
[2022-07-25 13:01] VITALS: BP 92/74
== END 2022-07-25 12:56 | disposition home or self-care (01) ==
LOC: ER 10:40
DX: E86.0 Dehydration (principal); M50.10 Cervical disc disorder with radiculopathy, unspecified cervical region; W01.10XA Fall on same level from slipping, tripping and stumbling with subsequent striking against unspecified object, initial encounter; Z88.2 Allergy status to sulfonamides; E11.9 Type 2 diabetes mellitus without complications; I10 Essential (primary) hypertension; F41.9 Anxiety disorder, unspecified; Z79.82 Long term (current) use of aspirin
CPT/HCPCS: 70450; 72125; 96372; 99283

== ENCOUNTER 2022-12-24 22:22 | Emergency (ER) | payer OTHER ==
--- OUTSIDE RECORDS SUMMARY | 2022-12-24 22:26 | XMS REPORT | Continuity of Care Document ---
:1960 Author Organization [facility] t Address [address] [facility] [address] [place] [address] Care Team Providers Name Role Phone HIRAM BLANK Attending Clinician Unavailable Rodo White Attending Clinician Unavailable Anthony Friedman Attending Clinician Unavailable RAINE Attending Clinician Unavailable VIV OCAMPO Attending Clinician Unavailable UNKNOWN Attending Clinician Unavailable Doctor Unassigned, [place] Attending Clinician Unavailable Viv Ocampo PA-C Attending Clinician HIRAM BLANK Admitting Clinician Unavailable Rodo White Admitting Clinician Unavailable Dru Olmedo Admitting Clinician Unavailable RAINE Admitting Clinician Unavailable Payers Payer Name Policy Type Policy Number Effective Date Expiration Date S [facility] [id number] 2019 DUAL COMPLETE HMO 00:00:00 [place] [id number] 2018 00:00:00 [facility] [id number] 2019 00:00:00 Problems This patient has no known problems. Allergies, Adverse Reactions, Alerts Allergy Allergy Status Severity Reaction(s) Onset Inactive Treating Comm ents Source Name Type Date Date Clinician Sulfa DA Active U [facility] (Sulfona 7-28 [facility] 00:00: [facility] Antibiot 00 are ics) [facility] Sulfa DA Active U SWOLLEN [facility] (Sulfona THROAT, 7-28 [facility] BLISTERS 00:00: [facility] Antibiot 00 are ics) [facility] SULFA Drug Active Unknown-[facility] ers (SULFONA Class 8-29 ity of [facility] 00:00: [place] ANTIBIOT 00 [facility]) Branch Medications This patient has no known medications. Procedures Procedure Date / Time Performed Performing Clinician Sour e [id number] 2020-03-17 [id number] 2020-03-17 00:00:00 [facility] [id number] 2020-03-17 00:00:00 [facility] Encounters Start End Encounter Admission Attending Care Care Encounter Source Date/Time Date/Time Type Type Clinicians Facility Department ID 2021-05-13 Outpatient Nicky RAMOS [facility] EMILIANO [id number] [facility] 10:58[facility] [id number] [facility] 15:12:00 Rodo 93 [facility] 2020-03-17 Inpatient [facility] DAYS [id number] [facility] 10:30:00 , Anthony 82 [facility] [place] 2020-02-14 Inpatient [facility] ENDO [id number] [facility] 14:00:00 , Anthony 25 [facility] 2022-01-26 2022-01-26 Outpatient RAINE HARVEY [facility] [id number] [place] 10:47:00 10:47:00 0713 [facility] 2020-07-23 2020-07-23 Outpatient Nicky OCAMPO [facility] [id number] Univers 13:00:00 13:00:00 VIV doyle [facility] 2020-07-01 2020-07-01 Outpatient Nicky OCAMPO [facility] [id number] Univers 13:30:00 13:30:00 VIV doyle [facility] 2020-07-01 2020-07-01 Outpatient Nicky OCAMPO [facility] [id number] Univers 13:30:00 13:30:00 VIV sanjay [facility] 2020-03-20 2020-03-20 Outpatient MARGARITA WhiteNW REF [id number] [facility] 20:36:00 20:36:00 Rodo 14 [facility] 2020-03-09 2020-03-09 Outpatient [facility] 3DAY [id number] [facility] 09:00:00 09:00:00 , Anthony 38 [facility] 2020-02-11 2020-02-11 Outpatient UNKNOWN HCACL LABO [id number] [facility] 14:10:00 14:10:00 78 [facility] 2019-08-08 2019-08-08 Orders Doctor NGUYEN [id number] 00:00:00 00:00:00 Only Unassigned, SOFIE [id number] [facility] [id number] 2019-08-01 2019-08-01 Office FARIBA Ocampo [id number] 11:39:15 12:11:37 Visit Viv Mike [id number] Yesy 4.2.7.2.686 Professio [id number] [address] 2019-08-01 2019-08-01 Outpatient Nicky OCAMPO [facility] [id number] Univers 11:15:00 12:11:37 VIV doyle [facility] Results Test Description Test Time Test Comments [...] 0.03 x10 3/uL 0.0-0.20 N RENAL FUNCTION [id number] 06:28:00 Test Item Value Reference Range Interpretation [...] mg/dL 2.7-4.5 N code = PHOS) LACTIC [id number] 20:39:00 Test Item Value Reference Range Interpretation Comments LACTIC ACID (test code = LACT) 12.1 mg/dL 4.5-18.0 N CBC W/MANUAL [id number] 15:38:00 Test Item Value Reference Range Interpretation [...] MICR) 1+ NONE SEEN A COMPREHENSIVE METABOLIC [id number] 13:50:00 Test Item Value Reference Range Interpretation [...] U/L 32-104 N (test code = ALKP) [id number] 13:50:00 Test Item Value Reference Range Interpretation Comments LIPASE (test code = LIP) 50 U/L 0-190 N CBC W/MANUAL [id number] 13:47:00 Test Item Value Reference Range Interpretation [...] code = LYMPH) % 20.5-45.5 CBC W/MANUAL [id number] 13:47:00 Test Item Value Reference Range Interpretation [...] (test code = LYMPH) % 20.5-45.5 SURGICAL [id number] 13:17:00 RUN DATE: 03/19/20 [facility] - LAB PAGE 1 RUN TIME: 1317 Specimen Inquiry RUN USER: INTERFACE -------- ----PATIENT: USMAN JARQUIN LOC: PRichmondN POD B U #: [id number] AGE/SX: 59/F ROOM: [facility] RE03/17/20REG DR: Anthony Friedman MD : 64 BED: 1 DIS: 03/18/20 STATUS: DIS IN TLOC: SPEC #: [id number] RECD: 03/17/20 STATUS: SON SUBRAMANIAN #: [id number] KEYANA: 03/17/20-[address]: Anthony Friedman KMD ENTERED: 03/17/20 SP TYPE: SURG OTHR DR: Dru Olmedo MD ORDERED: PATHGM5/2, PATH SPEC, HE STAIN/2, IRON STAIN, PAS STAIN, TRICHROME STAIN, PAS WO.STAIN HISTOLOGY: TISSUE ID BLK PCS JESSICA LEV/ PROCEDURE DISPOSITION ____ ___ ___ ___ ___ LIVER WEDGE BX A 1 2 1 STOMACH RESECT B 1 1 TISSUES: A. LIVER WEDGE BIOPSY - Liver Biopsy B. STOMACH SUBTOTAL RESECTION - Partial Stomach CLINICAL HISTORY Morbid Obesity FINAL DIAGNOSIS STOMACH, SLEEVE GASTR ECTOMY: - MILD CHRONIC GASTRITIS LIVER, WEDGE BIOPSY: [...] (0-3), lobular inflammation (0-3), and hepatocellular ballooning (0-2).Fibrosis is staged using the Brunt methodology (1 - perisinusoidal fibrosis, focal or extensive ; 2 - perisinusoidal fibrosis and portal fibrosis, focal or extensive; 3 - bridging fibrosis; 4- cirrhosis). CPT 19479 X 2, 13953 X 3 CONTINUED ON NEXT PAGE RUN DATE: 03/19/20 [facility] - LAB PAGE 2 RUN TIME: 1317 Specimen Inquiry RUN USER: INTERFACE SPEC #: [id number] PATIENT: USMAN JARQUIN #[id number] (Continued) GROSS DESCRIPTION Received are two containers [...] stomach" is an unopened stomach which is 27x 5 cm. The omentum is absent, and there is a full length staple line along the lesser curvature. The serosa is khan to red. The rugal folds are prominent khan. There are no mucosal lesions seen grossly. Drone Pilot sections are submitted in "B". Pia Signed SIGNATURE ON FILE Stephanie Aldana MD 03/19/20 1317 END OF REPORT BASIC METABOLIC [id number] 04:39:00 Test Item Value Reference Range Interpretation [...] code 9.4 mg/dL 8.8-10.2 N = CA) [id number] 04:39:00 Test Item Value Reference Range Interpretation Comments PHOSPHOROUS (test code = PHOS) 4.3 mg/dL 2.7-4.5 N [id number] 04:39:00 Test Item Value Reference Range Interpretation Comments MAGNESIUM (test code = MAG) 2.1 mg/dL 1.4-2.6 N CBC W/AUTO [id number] 04:31:00 Test Item Value Reference Range Interpretation [...] detected) result in this assay. BASIC METABOLIC [id number] 13:23:00 Test Item Value Reference Range Interpretation [...] = CA) UA RFLX MICR CULT IF [id number] 13:07:00 Test Item Value Reference Range Interpretation [...] code = SQU) Indication for culture: Dysuria/FrequencyPROTHROMBIN [id number] 12:54:00 Test Item Value Reference Range Interpretation [...] 2.5-3.5recurren t systemic emboli sm. THROMBOPLASTIN TIME [id number] 12:54:00 Test Item Value Reference Range Interpretation Comments THROMBOPLASTIN TIME 30.4 SECONDS 23.8-34.8 N INTERPRE TATIVE PARTIAL (test code = DATA:Th erapeutic PTT) range: Unfractionated heparin:55 - 80 seconds Argatroban:1.5 to 3 times the basel ine PTT UA RFLX MICR CULT IF [id number] 12:53:00 Test Item Value Reference Range Interpretation [...] = SQU) Indication for culture: Dysuria/FrequencyCBC W/AUTO [id number] 12:44:00 Test Item Value Reference Range Interpretation [...] BA#) 0.06 x10 3/uL 0.0-0.20 N SURGICAL [id number] 08:30:00 RUN DATE: 02/19/20 [facility] - LAB PAGE 1 RUN TIME: 829 Specimen Inquiry RUN USER: INTERFACE ------- -----PATIENT: USMAN JARQUIN LOC: EMA U #: [id number] AGE/SX: 59/F ROOM: RE02/14/20[facility] DR: Anthony Friedman MD : 64 BED: DIS: STATUS: [facility] TLOC: SPEC #: [id number] RECD: 02/17/20 STATUS: LIENAlessio MORIS #: [id number] KEYANA: 02/14/20- [address] [facility] [address]: Anthony Friedman MD ENTERED: 02/17/20 [...] GRANULOMA, DYSPLASIA OR MALIGNANCY IS IDENTIFIED. CPT: 75137Y2, 09687 GROSS DESCRIPTION Received are two containers of formalin each labeled with the patient's name. Specimen A labeled "gastric antrum biopsy" are two khan soft tissuebiopsies which are 0.2 and 0.3 cm in [...] indicativ e of the presence code = [id number]) ofSARS-CoV -2 RNA, clinical correlation wit h [...] personneltraine d in the procedures for the CEDU000 molecular diagnostic SARS-CoV-2 assa y in vitro. Novel Coronavirus [id number] 03:20:00 Test Item Value Reference Range Interpretation Comments Novel Coronavirus Negative Negative Positive r esults are 2019 Inhouse (test indicativ e of the presence code = [id number]) ofSARS-CoV -2 RNA, clinical correlation wit h [...] results are indicative of t he presence [id number] RN A, clinical correlation wit h patient [...] for the identification of SARS-CoV-2 RNA usingthe Incl[employer] M2000 Sy stem under the FDA Emergen cy UseAuthorizatio n. The testing is perf ormed by bianca kaiser in the procedures for the CEDU000 molecular diagnostic SARS-CoV-2 assa y in vitro. Notes Date/Time Note Provider Source 2020-03-20 12:59:00-00:00 [facility] EMERGENCY PROVIDER REPORT REPORT#:[id number] REPORT STATUS: Signed DATE:03/20/20 TIME: 1259 PATIENT: USMAN JARQUIN UNIT #: [id number] ROOM: [facility] BED: 1 AGE: 59 SEX: F PCP PHYS: Dru Olmedo MD SERVICE AUTHOR: Santo Zimmer MD * ALL edits or amendments must be made on the el [employer]/computer document * HPI-General Illness Free Text HPI Notes Free Text HPI Notes 59-year-old female presents to the [facility] emergency department for evaluation. She had a recent gastric sleeve performed by Dr. Tayler valle on 03/17/2020. She states that since going home , she has been unable to keep anything down and has been having reflux to both solids and liquids si nce surgery. She does state that she has some mild epiga stric and periumbilical abdominal pain, but this has improved since surgery. She denies any diarrhea, hematochezia. Denies flank pain, dysuria. She states th at she has had a bowel movement for the last 5 days , although she is passing gas. Denies an y fever, chills, chest pain, shortness of breath or any other complaints at this time. General Initial Greet Date/Time 03/20/20 1246 Presentation Chief Complaint Reflux Review of Systems ROS Statements All systems rev neg except as marked. Review of Systems Constitutional Denies: Chills, Fatigue. Ears/Nose/Throat Denies: Nose bleeding, Sore throat. Respiratory Denies: Cough, productive, Shortness of breath. Cardiovascular Denies: Chest pain, Palpitations. GI Reports: Abdominal pain, Nausea, Vomiting. Denie s: Bloody/tarry stool, Diarrhea. Female Denies: Dysuria, Flank pain. Musculoskeletal Denies: Back pain. Hematologic Denies: Bleeding. Skin Denies: Rash. Neurologic Denies: Headache. Past Medical History - Adult Stated Complaint NUMBNESS, WEAKNESS Allergies Coded Allergies: Sulfa (Sulfonamide Antibiotics) (SWOLLEN THROAT, BLISTERS 02/11/20) Home Medications Reported Medications Lisinopril (Zestril) 20 MG PO DAILY Amlodipine (Norvasc) 10 MG PO DAILY Metoprolol Tartrate (Lopressor) 25 MG PO BID Omeprazole Er (Prilosec) 40 MG PO DAILY Fluticasone Propionate/Salmeterol (Advair Diskus 100/50 Mcg/Act) Alprazolam (Xanax) 1 MG PO BID PRN ANXIETY Hydrocodone/Apap (Hydrocodon e/Apap 2.5-108 Mg/5ML) 10 MG PO TID PRN PAIN SCALE 4 -6 Montelukast (Singulair) 10 MG PO DAILY Additional Medical History HTN, arrhythmias, anxiety, pneumonia Additional Surgical History Gastric sleeve, tubal ligation Alcohol Use Denies EtOH use Smoking status for patients 13 years old or olde r: Never Smoker Physical Exam Vital Signs Vital Signs First Documented: Result Date Time Pulse Ox 100 03/20 1245 B/P 107/40 03/20 1245 B/P Mean 62 03/20 1245 O2 Delivery Room air 03/20 1245 Temp 36.9 03/20 1245 Pulse 66 03/20 1245 Resp 14 03/20 1245 Last Documented: Result Date Time Pulse Ox 99 03/20 1415 B/P 110/59 03/20 1415 B/P Mean 76 03/20 1415 O2 Delivery Room air 03/20 1415 Pulse 64 03/20 1415 Resp 14 03/20 1415 Temp 36.9 03/20 1245 Review of Vital Signs Reviewed, Vital signs norm al Physical Exam General/Const General/Const Awake, Alert, No acute distress, Well appearing, Cooperative MS Head Head Atraumatic, Normocephalic Ears/Nose/Throat Ears/Nose/Throat Airway patent, Mucous membrane s moist MS Neck Neck Supple, No meningismus Resp/Chest Respiratory/Chest Breath sounds NL, Breath soun ds = bilat, No respiratory distress, No rales, No wheezing Cardiovascular Cardiovascular Heart rate NL, Regular rhythm, H eart sounds NL, No gallop, No rubs Abdomen/GI Abdomen/GI Some mild epigastric and periumbilic al tenderness. Patient had gastric sleeve and umbilical hernia repaired 03/17. Incision sites closed, clean, dry. No surrounding erythema/warmth. No guarding /rigidity anywhere. MS Upper Extrem Upper Extremity/MS Inspection NL, Full range of motion MS Lower Extrem Lower Ext/Pelvis/MS Inspection NL, Full range o f motion, No swelling, Non- tender Interpretation Diagnostics Lab Results Interpretation Results Laboratory Tests 03/20/20 1300: [Embedded Image Not Available] Laboratory Tests: 03/20 1300 Chemistry Sodium (136 - 143 MMOL/L) 135 L Potassium (3.5 - 5.1 MMOL/L) 4.2 Chloride (98 - 107 MMOL/L) 97 L Carbon Dioxide (24 - 31 mmol/L) 23 L BUN (7.0 - 21.0 MG/DL) 27.9 H Creatinine (0.8 - 1.5 mg/dL) 2.0 H Glomerular Filtr Rate (>60) 33 L Glucose (70 - 104 mg/dL) 94 Calcium (8.8 - 10.2 mg/dL) 9.6 Total Bilirubin (0.2 - 1.0 mg/dL) 0.6 AST (10 - 34 IU/L) 44 H ALT (10 - 36 U/L) 35 Total Alk Phosphatase (32 - 104 U/L) 63 Total Protein (6.3 - 8.3 g/dL) 8.3 Albumin (3.5 - 5.0 G/DL) 4.5 Lipase (0 - 190 U/L) 50 Hematology WBC (4.8 - 10.8 x10 3/uL) 15.7 H RBC (4.20 - 5.40 x10 6/uL) 5.66 H Hgb (14.5 - 20 g/dL) 14.6 Hct (37.0 - 47.0 %) 45.0 MCV (81.0 - 99.0 fL) 79.5 L MCH (27 - 31 pg) 25.8 L MCHC (33 - 36.5 G/DL) 32.4 L RDW (12.9 - 16.9 %) 13.6 Plt Count (150 - 440) 328 MPV (8.9 - 12.4 fL) 10.7 Total Counted (#CELLS) 100 Seg Neutrophils % (43 - 65 %) 54 Lymphocytes % (Manual) (20.5 - 45.5 %) 37 Monocytes % (Manual) (5.5 - 11.7 %) 8 Eosinophils % (Manual) (0.9 - 2.9 %) 1 Microcytosis (NONE SEEN) 1+ H Re-Evaluation MDM Free Text MDM Notes Additional Text Physical examination as above. Patient is pain-f ree while resting in the hospital bed, and only has some mild tenderness which has decreased over the last several days consistent with normal postoperative pain, upon palpation of abdomen. Main complaint is reflux after solid or liquid ingestion. Labs obtained showing mild leukocytosis which may be reactive. LFTs unremarkable, AST minimally bumped at 44, will continue to tulio nd in the hospital. Most significantly, creatinine elevated 2.0. This is new. As patient is unable to tolerate p.o. intake, we edis l admit for IV hydration and trending of creatinine and LFTs as well as serial exams as necessary. D iscussed case with Dr. Anthony Friedman. He is agreeable to plan. Patient ad mitted to Dr. White for further management/workup. Re-Evaluation/Progress #1 Text/Dict Note Resting comfortably in bed. No pain currently wh ile laying still. States she does have some epigastric pain whenever she move s. Time of Re-Eval 1351 ED Course Medication(s) Ordered Medication(s) Ordered: Central Nervous System Agents Sig/Antwon Start time Last Medication Dose Route Stop Time Status Admin Morphine Sulfate 2 MG X1ED STA 03/20 1313 DC 0 03/20 IV 03/20 1314 1320 Morphine Sulfate 0.2 MG X1ED STA 03/20 1256 CAN IV 03/20 1257 Electrolytic, Caloric, And Sepideh Sig/Antwon Start time Last Medication Dose Route Stop Time Status Admin Sodium Chloride 1,000 ML ONCE ONE 03/20 1300 DC 03/20 IV 03/20 1301 1311 Gastrointestinal Drugs Sig/Antwon Start time Last Medication Dose Route Stop Time Status Admin Ondansetron HCl 4 MG X1ED STA 03/20 1257 DC IV 03/20 1258 1314 Patient Discharge Departure Vital Signs/Condition Vital Signs First Documented: Result Date Time Pulse Ox 100 03/20 1245 B/P 107/40 03/20 1245 B/P Mean 62 03/20 1245 O2 Delivery Room air 03/20 1245 Temp 36.9 03/20 1245 Pulse 66 03/20 1245 Resp 14 03/20 1245 Last Documented: Result Date Time Pulse Ox 99 03/20 1415 B/P 110/59 03/20 1415 B/P Mean 76 03/20 1415 O2 Delivery Room air 03/20 1415 Pulse 64 03/20 1415 Resp 14 03/20 1415 Temp 36.9 03/20 1245 All vital signs available at the time of this en try have been reviewed. Clinical Impression Clinical Impression Primary Impression: Postoperative complication Secondary Impressions: Epigastric discomfort, Na usea and vomiting, Reflux involving intestinal tract Disposition Decision Admit Admit Physician Name Rodo White MD )( Admission Accepts Yes )( Accepted Time 1509 )( Accepted Date 03/20/20 Discharge/Care Plan Referrals Dru Olmedo MD (PCP/Family) Electronically Signed by Santo Zimmer MD on at 0720 RPT #:[id number] END OF REPORT 2020-03-20 09:14:00-00:00 [id number] [facility] [address] [place] [address] PATIENT NAME: USMAN JARQUIN ADMIT DATE: 08/05 ACCOUNT NO: [id number] ROOM NO: P.0572 AGE: 59 REPORT TYPE: OPERATIVE REPORT SEX: F ADMITTING PHYSICIAN:Anthony Friedman MD ATTENDING PHYSICIAN:Anthony Friedman MD OPERATION DATE: 03/17/2020 PREOPERATIVE DIAGNOSIS: Pain, status post laparo scopic gastric sleeve. POSTOPERATIVE DIAGNOSIS: Pain, status post lapar oscopic gastric sleeve. PROCEDURE PERFORMED: Placement of infusion demetra ter into the abdominal wall x 2. SURGEON: Anthony Friedman M.D. ROOFING LABORER: ANESTHESIA: General endotracheal. ESTIMATED BLOOD LOSS: None. INDICATIONS FOR PROCEDURE: The patient is a 59-y ear-old woman who underwent a laparoscopic sleeve gastrectomy that requires mu ltiple port placements in the mid abdomen. It causes significant amount of pos toperative pain. The patient is also morbidly obese, causing an incre ased risk for deep vein thrombosis and pneumonia related to postoperative pain. PROCEDURE IN DETAIL: After t he laparoscopic sleeve gastrectomy was completed, I passed two dilators and palacio ths through a left subcostal skin incision into the abdominal wall and passed th e sheaths down to the umbilical area. I removed the dilators, leaving the sheath s in place. I passed the catheters into the sheaths and removed the sheaths, leaving the cat heters in place in the abdominal wall. Dictated By: Anthony Friedman MD WT: OP:P.YOLANDA/KETTY/MILES Conf#: [id number]/DID#: [id number] Authenticated by Anthony Friedman MD On 10:28:33 AM at 1028 PATIENT NAME: USMAN JARQUINL ACCOUNT #: [id number] 2020-03-20 09:13:00-00:00 [id number] [facility] [address] [place] [address] [place] [address] PATIENT NAME: USMAN JARQUINL ADMIT DATE: 08/05 ACCOUNT NO: [id number] ROOM NO: P.[facility] AGE: 59 REPORT TYPE: OPERATIVE REPORT SEX: F ADMITTING PHYSICIAN:Anthony Friedman MD ATTENDING PHYSICIAN:Anthony Friedman MD OPERATION DATE: 03/17/2020 PROCEDURES PERFORMED: 1. Laparoscopic sleeve gastrectomy. 2. Laparoscopic umbilical hernia repair. 3. Laparoscopic wedge liver biopsy. 4. Laparoscopic omentopexy. 5. Esophagogastroduodenoscopy PREOPERATIVE DIAGNOSES: 1. Gastroesophageal reflux disease. 2. Hypertension. 3. Morbid obesity. POSTOPERATIVE DIAGNOSES: 1. Gastroesophageal reflux disease. 2. Hypertension. 3. Morbid obesity. 4. Umbilical hernia. 5. Hepatomegaly. SURGEON: Anthony Friedman MD GROUNDWATER PROGRAMS DIRECTOR: Arcelia Aj, licensed surgical territory manager. ANESTHESIA: General endotracheal with local. ESTIMATED BLOOD LOSS: Minimal. INDICATION FOR PROCEDURE: The patient is a 59-year-old woman with a history of gastroesophageal reflux dise ase and hypertension related to her morbid obesity. The patient has a body mass index of 41. The patient was also found to have a 1 cm umbilical hernia and hepatomegaly on inspecti on of the abdomen during the operation. PROCEDURE IN DETAIL: The patient was given preop erative IV antibiotics and subcutaneous heparin. Patient was brought in the operating room and placed on the operating table in the s upine position. Sequential compression devices were applied to both legs and activated. The patient was placed on general endotracheal anesthesia. The patient abd omen was sterilely prepped and draped. We injected the skin and subcutaneous tissues ov er the left lateral subcostal area with Marcaine. We made a 5-mm incis ion with the scalpel. We passed a 5-mm optical trocar through the a bdominal wall using a laparoscope to visualize each PATIENT NAME: USMAN JARQUIN MICK ACCOUNT #: [id number] layer of the abdominal wall as the port was inserted and insufflated the abdomen to 15 mmHg pressure of CO2. We placed a 15-mm po rt and a 5-mm port at the umbilicus and a 5-mm port on the right lateral s ubcostal area under direct laparoscopic vision using Marcaine for local ane sthesia. We used the LigaSure device to dissect the greater omentum off of the greater curvature of the stomach from 3 cm proximal to the pyloru s up to the angle of His. We dissected the gastric fat pad off of the proximal stomach. We also looked at the esophageal hiatus and found there to be no signi ficant hiatal hernia present. We inserted a 40-Kiswahili bougie in the mouth, pas sed it down the esophagus and into the stomach. We positioned the boug ie along the lesser curvature with the tip of the bougie at the pylorus. We placed a la paroscopic Covidien stapler with a 60 mm black load and Connie-Strip staple line reinforcement on the stomach 3 cm proximal to the pylorus and directing the stapler towards the angle of His, bringing the stapler adjacent to the bougie. Aft er firing the first stapler load, we continued firing the laparoscopic Covid ien stapler with 60 mm black loads and Connie-Strip staple line reinforcement a long the bougie until the stomach was completely divid ed up to the angle of His, leaving a 1 cm segment of stomach between the esophagus and the staple gonzales e. We removed the bougie and inserted an upper endoscope into the mouth, pass ed it down the esophagus and into the gastric sleeve. We inflated the gastric sleeve with air through the endoscope and passed saline over the staple line and we saw no leakage of air from the staple line. The inside of the sleeve w as hemostatic and properly constructed. We removed the upper endoscope. We irrigated and suctioned the abdomen, sharp and burning. It was found to be h emostatic. We sutured the omentum to the lateral aspec t of the spleen with a 2-0 Vicryl suture to keep the skin straight. We removed th e partial stomach specimen from the abdomen through the 15 mm port site and we closed the fascial op ening of the 15-mm port site with a suture passer and #1 Vicryl sutur e under direct laparoscopic vision. We deflated the abdomen and removed the ports. We c losed the skin incisions with 4-0 Monocryl suture in a subcuticular fashion. W e applied Dermabond to the wounds. The patient was awakened from ge neral anesthesia, extubated, and taken to the PACU in stable condition. ADDENDUM: Prior to completion of the sleeve nazario rectomy, we removed a small piece of the liver edge from the left lateral se gment of the liver using the LigaSure device. The liver specimen was sent to pathology. We placed a 15-mm port through the umbilical hernia defect at the beginning of the operation and at the end of operation, we removed the 15-mm port and #1 Ethibond suture across the hernia defect in a [id number]-fr-[id number] fashion u sing the suture passer. Dictated By: Anthony Friedman MD WT: OP:PMIKAYLA/KETTY/MILES Conf#: [id number]/DID#: [id number] Authenticated by Anthony Friedman MD On 10:29:05 AM at 1029 PATIENT NAME: USMAN JARQUIN ACCOUNT #: [id number] 2020-03-18 09:02:00-00:00 [id number] [place] [address] PATIENT NAME: USMAN JARQUIN ADMIT DATE: 08/05 ACCOUNT NO: [id number] ROOM NO: [id number] AGE: 59 REPORT TYPE: DISCHARGE SUMMARY SEX: F ADMITTING PHYSICIAN:Anthony Friedman MD ATTENDING PHYSICIAN:Anthony Friedman MD ADMISSION DATE: 03/17/2020 DISCHARGE DATE: 03/18/2020 HISTORY AND HOSPITAL COURSE: The patient is a 59-year-old woman, who underwent a laparoscopic sleeve gastrectomy and umbilical hernia repair. She had an uneventful postoperative cou rse and was discharged home on postoperative day #1 on a bariatric liquid diet. Please see h er home medication reconciliation form for other medications. She will follow up with u s in 2 weeks. Dictated By: Anthony Friedman MD WT: DS:SINDY/KETTY/MILES Conf#: [id number]/DID#: [id number] Authenticated by Anthony Friedman MD On 10:28:32 AM at 1028 PATIENT NAME: USMAN JARQUIN ACCOUNT #: [id number] 2020-03-09 11:07:00-00:00 [place] [address] PATIENT NAME: USMAN JARQUIN ADMIT DATE: 08/05 ACCOUNT NO: [id number] [facility]: [facility] AGE: 59 REPORT TYPE: eELECTROCARDIOGRAM SEX: F ADMITTING PHYSICIAN: Anthony Friedman MD ATTENDING PHYSICIAN: Anthony Friedman MD Order: [id number] Test Reason : SDS Test Date/Time Stamp: MonMar 09 2020 11:07:32 Blood Pressure : / mmHG Vent. Rate : 075 BPM Atrial Rate : 075 BPM P-R Int : 160 ms QRS Dur : 080 ms QT Int : 420 ms P-R-T Axes : 071 072 053 degree s QTc Int : 469 ms Normal sinus rhythm Possible Left atrial enlargement Borderline ECG No previous ECGs available Confirmed by UBALDO DWYER ([id number]) on 03/17/2020 2: 01:50 PM Referred By: Anthony Friedman Confirmed by:UBALDO DWYER Electronically Signed by Ubaldo Dwyer MD on at 1402 PATIENT NAME: USMAN JARQUIN ACCOUNT #: [id number] 2020-02-14 13:51:00-00:00 [id number] [place] [address] PATIENT NAME: USMAN JARQUIN MICK ADMIT DATE: ACCOUNT NO: [id number] ROOM NO: AGE: 59 REPORT TYPE: ENDOSCOPY REPORT SEX: F ADMITTING PHYSICIAN: ATTENDING PHYSICIAN:Anthony Friedman MD [facility] Patient Name: Herbie Choudhary Attending MD: Anthony Friedman MD Procedure Date: 02/14/2020 1:51 PM 5 Date of : 06/19 Admit Type: Preadmit Age: 59 Room: Room 1 Gender: Female Note Status: Finalized Procedure: Upper GI endoscopy Pre Procedure Diagnosis: Heartburn Assistants: Anthony Friedman MD, Bailee vo RN (Nurse), Lorenzo Pereira, Stretch Press Operator, Genesis Jones MD Referring MD: Anthony Friedman MD Anesthesia: General Anesthesia Procedure: Pre-Anesthesia Assessment: - Prior to the procedure, a History and Physica l was performed, and patient medications and allergies were reviewed. The patient is compete nt. The risks and benefits of the procedure and th e sedation options and risks were discussed with the patient. All questions were answered and inform ed consent was obtained. Patient identification an d proposed procedure were verified by the physici an, the nurse and the anesthesiologist in the [facility] room. Mental Status Examination: alert and oriented. Airway Examination: normal oropharyng eal airway and neck mobility. Respiratory Examinati on: clear to auscultation. CV Examination: normal. Prophylactic Antibiotics: The patient does not require prophylactic antibiotics. Prior Anticoagulants: The patient has taken no previo us anticoagulant or antiplatelet agents. ASA Grade Assessment: III - A patient with severe systemi c disease. After reviewing the risks and benefits , the patient was deemed in satisfactory conditio n to undergo the procedure. The anesthesia plan was to use general anesthesia. Immediately prior to administration of medications, the patient was re-assessed for adequacy to receive sedatives. The PATIENT NAME: USMAN JARQUIN ACCOUNT #: [id number] heart rate, respiratory rate, oxygen saturation s, blood pressure, adequacy of pulmonary ventilati on, and response to care were monitored throughout the procedure. The physical status of the patient was re-assessed after the procedure. The benefits, risks, and alternatives to the procedure were discussed and informed consent w as obtained from the patient. I've assesed the pat ient on this date and reviewed the medical history, drug history, and previous anesthesia experience. Af ter obtaining informed consent, the scope was passe d under direct vision. Throughout the procedure, the patient's blood pressure, pulse, and oxygen saturations were monitored continuously.s were monitored continuously. The Endosonoscope was introduced through the mouth, and advanced to t he second part of duodenum. The upper GI endoscopy was accomplished without difficulty. The patient tolerated the procedure well. Post Procedure Findings: The examined esophagus was normal. Localized minimal inflammation characterized by erythema was found in the gastric antrum. Biopsies were taken with a cold forceps for histology. Verification of patient identificati on for the specimen was done by the nurse using the patient's name and date. Estimated blood loss was minimal. The examined duodenum was normal. Complications: No immediate complications. Estimated Blood Loss: Post Procedure Diagnosis: - Normal esophagus. - Gastritis. Biopsied. - Normal examined duodenum. Recommendation: - Discharge patient to home. - Await pathology results. Anthony Friedman MD Anthony Friedman MD 02/14/2020 2:31:11 PM This report has been signed electronically. Number of Addenda: 0 Note Initiated On: 02/14/2020 1:51 PM Procedure Date: 02/14/2020 1:51:31 PM Provation {[id number]}.pdf ProVation FT PDF at 1431 PATIENT NAME: USMAN JARQUINL ACCOUNT #: [id number] 2020-02-14 13:50:00-00:00 [id number] [facility] [address] [place] [id number] PATIENT NAME: USMAN JARQUIN MICK ADMIT DATE: ACCOUNT NO: [id number] ROOM NO: AGE: 59 REPORT TYPE: ENDOSCOPY REPORT SEX: F ADMITTING PHYSICIAN: ATTENDING PHYSICIAN:Anthony Friedman MD [facility] Patient Name: Herbie Choudhary Attending MD: Anthony Friedman MD Procedure Date: 02/14/2020 1:50 PM 5 Date of : 06/19 Admit Type: Preadmit Age: 59 Room: Room 1 Gender: Female Note Status: Finalized Procedure: Colonoscopy Pre Procedure Diagnosis: Screening for colorecta l malignant neoplasm Assistants: Anthony Friedman MD, Bailee chou RN (Nurse), Lorenzo Pereira, Stretch Press Operator, Genesis Jones MD Referring MD: Anthony Friedman MD Anesthesia: General Anesthesia Introduction: Refer to note in patient chart for documentation of history and physical. Procedure: Pre-Anesthesia Assessment: - Prior to the procedure, a History and Physica l was performed, and patient medications and allergies were reviewed. The patient is compete nt. The risks and benefits of the procedure and th e sedation options and risks were discussed with the patient. All questions were answered and inform ed consent was obtained. Patient identification an d proposed procedure were verified by the physici an, the nurse and the anesthesiologist in the [facility] room. Mental Status Examination: alert and oriented. Airway Examination: normal oropharyng eal airway and neck mobility. Respiratory Examinati on: clear to auscultation. CV Examination: normal. Prophylactic Antibiotics: The patient does not require prophylactic antibiotics. Prior Anticoagulants: The patient has taken no previo us anticoagulant or antiplatelet agents. ASA Grade Assessment: III - A patient with severe systemi c disease. After reviewing the risks and benefit s, the patient was deemed in satisfactory conditio n to undergo the procedure. The anesthesia plan was to use general anesthesia. Immediately prior to PATIENT NAME: USMAN JARQUIN ACCOUNT #: [id number] administration of medications, the patient was re-assessed for adequacy to receive sedatives. The heart rate, respiratory rate, oxygen saturation s, blood pressure, adequacy of pulmonary ventilati on, and response to care were monitored throughout the procedure. The physical status of the patient w as re-assessed after the procedure. The benefits, risks, and alternatives to the procedure were discussed and informed consent w as obtained from the patient. I've assesed the pat ient on this date and reviewed the medical history, drug history, and previous anesthesia experience. Af ter obtaining informed consent, the scope was passe d under direct vision. Throughout the procedure, the patient's blood pressure, pulse, and oxygen saturations were monitored continuously. The Colonoscope was introduced through the anus and advanced to the cecum, identified by the ileoce alf valve. The colonoscopy was performed without difficulty. The patient tolerated the procedure well. The quality of the bowel preparation was adequate. Post Procedure Findings: The perianal and digital rectal examinations we re normal. A localized area of mildly erythematous mucosa was found in the distal rectum. Biopsies were taken with a cold forceps for histology. Verification of patient identification for the specimen was done by the nurse using the patient's name and date. Estimated blood loss was minimal. The exam was otherwise without abnormality on d irect and retroflexion views. Complications: No immediate complications. Estimated Blood Loss: Post Procedure Diagnosis: - A localized area of mildly erythematous mucosa was found in the distal rectum. Biopsies were t aken with a cold forceps for histology. Verification of patient identification for the specimen was don e by the nurse using the patient's name and da te. Estimated blood loss was minimal. - The exam was otherwise without abnormality on direct and retroflexion views. Recommendation: - Discharge patient to home. - Repeat colonoscopy in 5 years for screening purposes. Anthony Friedman MD Anthony Friedman MD 02/14/2020 2:41:07 PM This report has been signed electronically. Number of Addenda: 0 PATIENT NAME: USMAN JARQUIN ACCOUNT #: [id number] Note Initiated On: 02/14/2020 1:50 PM Procedure Date: 02/14/2020 1:50:55 PM Provation {[id number]}.pdf ProVation FT PDF at 1441 PATIENT NAME: USMAN JARQUIN ACCOUNT #: [id number]
[2022-12-24] MEDS ORDERED: IPRATROPIUM BROM 0.5MG/2.5ML ONE (22:43)
[2022-12-24] MEDS ORDERED: ALBUTEROL 2.5 MG/3 ML NEB SOL ONE (22:43)
--- NOTE | 2022-12-24 22:58 | ER ---
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 Chest pain is sharp and non radiating. Given 324 of ASA and placed on 2L NC lungs were CTA. Coronavirus screen: At this time, the client does not indicate any symptoms associated with coronavirus-19. Ebola Screen: No symptoms or risks identified at this time. Initial Sepsis Screen: Does the patient meet any 2 criteria? No. Patient's initial sepsis screen is negative. Does the patient have a suspected source of infection? No. Patient's initial sepsis screen is negative. Risk Assessment: Do you want to hurt yourself or someone else? Patient reports no desire to harm self or others. Onset of symptoms was December 24, 2022. Transition of care: patient was not received from another setting of care. 22:31 Method Of Arrival: EMS: [facility] jb4 22:31 Acuity: LINDSAY 3 jb4 Triage Assessment: 23:08 General: Appears in no apparent distress. Behavior is calm, cooperative. Pain: Denies rv pain. Historical: - Allergies: 22:39 Sulfa (Sulfonamide Antibiotics); jb4 - PMHx: 22:39 Anxiety; Asthma; Rheumatoid Arthritis; Myocardial infarction; Irregular heart rate; hot jb4 flashes; Diabetes - NIDDM; Heart Valve problem; Hypertension; Panic Attacks; - PSHx: 22:39 neck; Weight loss surgery; back; jb4 - Immunization history:: Adult Immunizations unknown. - Social history:: Smoking status: Patient reports the use of cigarette tobacco products, unknown amount. Screenin:07 [facility] ED Fall Risk Assessment (Adult) History of falling in the last 3 months, rv including since admission No falls in past 3 months (0 pts). Abuse screen: Denies threats or abuse. Denies injuries from another. Nutritional screening: No deficits noted. Tuberculosis screening: No symptoms or risk factors identified. Assessment: 22:45 General: Appears in no apparent distress. uncomfortable, Behavior is cooperative, jb4 anxious, Pt reports not wanting any blood work done and only wanting a breathing treatment.. Pain: Complains of pain in chest and neck Pain does not radiate. Pain currently is 5 out of 10 on a pain scale. Quality of pain is described as stabbing. Neuro: Level of Consciousness is awake, alert, obeys commands, Oriented to person, place, time, situation. Cardiovascular: Patient's skin is warm and dry. Respiratory: Airway is patent Respiratory effort is even, unlabored, Respiratory pattern is regular, symmetrical. GI: No signs and/or symptoms were reported involving the gastrointestinal system. : No signs and/or symptoms were reported regarding the genitourinary system. EENT: No signs and/or symptoms were reported regarding the EENT system. Derm: Skin is intact, Skin is dry, Skin is normal, Skin temperature is warm. Musculoskeletal: Circulation, motion, and sensation intact. Range of motion: intact in all extremities. Vital Signs: 22:31 BP 161 / 97; Pulse 100; Resp 16; Temp 97.9(TE); Pulse Ox 100% on R/A; jb4 ED Course: 22:24 Patient arrived in ED. rv1 22:25 Lamine Cade MD is Attending Physician. bs3 22:31 Aleksander Valerio, ANGEL is Primary Nurse. rv 22:36 Triage completed. jb4 22:39 Arm band placed on right wrist. jb4 22:45 Patient has correct armband on for positive identification. Client placed on continuous rv cardiac and pulse oximetry monitoring. NIBP monitoring applied. 23:08 No provider procedures requiring assistance completed. Patient did not have IV access rv during this emergency room visit. Administered Medications: 22:38 Drug: DuoNeb Nebulize (3:1) (2.5 mg - 0.5 mg) 3 ml Route: Nebulizer; jb4 23:08 Follow up: Response: No adverse reaction; REFUSED TO FINISH THE BREATHING TREATMENT. rv STATED ALREADY FEELING BETTER. Medication: 23:09 VIS not applicable for this client. rv Intake: Outcome: 22:58 Discharge ordered by . bs3 23:08 Discharged to home ambulatory. rv 23:08 Condition: improved 23:08 Discharge instructions given to patient, Instructed on discharge instructions, follow up and referral plans. Demonstrated understanding of instructions, follow-up care. 23:09 Patient left the ED. rv Signatures: Octaviano Page RN RN jb4 Aleksander Valerio RN RN rv Lamine Cade MD MD bs3 Maite Vega rv1
--- NOTE | 2022-12-24 22:58 | EDPHYS ---
Physician Documentation [facility] Name: Funmi Stoner Age: 62 yrs Sex: Female : 1960 Arrival Date: 12/24/2022 Time: 22:22 Bed 5 Private MD: ED Physician Lamine Cade HPI: 12/24 22:35 This 62 yrs old Black Female presents to ER via Unassigned with complaints of sob. bs3 22:35 The patient has shortness of breath at rest. 62-year-old female history of asthma bs3 presents with shortness of breath she was in a stressful situation when she started to develop shortness of breath she tried to get her inhaler but was unable to anxious and nervous and then called EMS. She notes she was at the station in order to pay and take it and it was hot and she requested to go to her car to get her albuterol but they would not let her which made her symptoms worse she notes that since arriving she is feeling much better although notes a slight headache she states that happens sometimes when she breathes a lot eyes recent travel immobilization history of PE DVT.. Historical: - Allergies: 22:39 Sulfa (Sulfonamide Antibiotics); jb4 - PMHx: 22:39 Anxiety; Asthma; Rheumatoid Arthritis; Myocardial infarction; Irregular heart rate; hot jb4 flashes; Diabetes - NIDDM; Heart Valve problem; Hypertension; Panic Attacks; - PSHx: 22:39 neck; Weight loss surgery; back; jb4 - Immunization history:: Adult Immunizations unknown. - Social history:: Smoking status: Patient reports the use of cigarette tobacco products, unknown amount. ROS: 22:35 Constitutional: Negative for fever, chills bs3 22:35 All other systems are negative. Exam: 22:35 Constitutional: This is a well developed, well nourished patient who is awake, alert, bs3 and in no acute distress. Head/Face: Normocephalic, atraumatic. Eyes: Pupils equal round and reactive to light, extra-ocular motions intact. Lids and lashes normal. ENT: mmm, no posterior phyarngeal erythema Neck: Trachea midline, no thyromegaly, no neck stiffness Chest/axilla: Normal chest wall appearance and motion. Nontender with no deformity. No lesions are appreciated. Cardiovascular: Regular rate and rhythm with a normal S1 and S2. symmetric pulses in upper extremities Respiratory: Lungs have equal breath sounds bilaterally, clear to auscultation, no respiratory distress Abdomen/GI: Soft, non-tender, no rebound or guarding MS/ Extremity: Pulses equal, no cyanosis. Neurovascular intact. Full, normal range of motion. Neuro: Awake and alert, GCS 15, oriented to person, place, time, and situation. Cranial nerves II-XII grossly intact. Motor strength 5/5 in all extremities. Sensory grossly intact. Psych: Patient was slightly anxious initially but then calm and when we sat and talked 22:35 Normal sinus rhythm at [address] elevation or depression QTc 463 as interpreted Vital Signs: 22:31 BP 161 / 97; Pulse 100; Resp 16; Temp 97.9(TE); Pulse Ox 100% on R/A; jb4 MDM: 22:25 Patient medically screened. bs3 22:35 Data reviewed: vital signs, nurses notes. ED course: Patient with shortness of breath bs3 in the setting of a stressful situation I believe she likely had anxiety or panic attack her EKG is normal here do not think she has acute coronary syndrome she is requesting a breathing treatment although no significant wheezing will give a breathing treatment and reassess I do not think she has pneumonia or pulmonary embolism. 22:56 ED course: Patient feeling completely better requesting to go home will discharge home. bs3 Administered Medications: 22:38 Drug: DuoNeb Nebulize (3:1) (2.5 mg - 0.5 mg) 3 ml Route: Nebulizer; jb4 23:08 Follow up: Response: No adverse reaction; REFUSED TO FINISH THE BREATHING TREATMENT. rv STATED ALREADY FEELING BETTER. Disposition Summary: 12/24/22 22:58 Discharge Ordered Location: Home bs3 Problem: new bs3 Symptoms: have improved bs3 Condition: Stable bs3 Diagnosis - Dyspnea, unspecified bs3 Followup: bs3 - With: Private Physician - When: 1 week - Reason: Re-evaluation by your physician Discharge Instructions: - Discharge Summary Sheet bs3 - Shortness of Breath, Adult, [id number] bs3 Forms: - Medication Reconciliation Form bs3 - Thank You Letter bs3 - Antibiotic Education bs3 - Prescription Opioid Use bs3 Signatures: Octaviano Page RN RN jb4 Aleksander Valerio RN RN Lamine Schulz MD MD bs3 Corrections: (The following items were deleted from the chart) 22:37 22:35 62-year-old female history of asthma presents with shortness of breath she was in bs3 a stressful situation when she started to develop shortness of breath she tried to get her inhaler but was unable to anxious and nervous and then called EMS she notes that since arriving she is feeling much better. bs3 22:57 22:35 62-year-old female history of asthma presents with shortness of breath she was in bs3 a stressful situation when she started to develop shortness of breath she tried to get her inhaler but was unable to anxious and nervous and then called EMS she notes that since arriving she is feeling much better although notes a slight headache she states that happens sometimes when she breathes a lot eyes recent travel immobilization history of PE DVT. bs3
[2022-12-25 00:28] VITALS: BP 161/97; TEMP 97.9; O2SAT 100
--- NOTE | 2022-12-26 12:06 | EKG ---
Test Date: 2022-12-24 Test Time: 22:28:12 Horse Racing Manager: ANDREW MEASUREMENT RESULTS: Intervals: Rate: 80 SC: 144 QRSD: 72 QT: 402 QTc: 463 [place]: P: 60 SC: 144 QRS: 78 T: 63 INTERPRETIVE STATEMENTS: Normal sinus rhythm Normal ECG Compared to ECG 11/26/2019 10:57:31 No significant changes Electronically Signed On 12-26-22 12:00:52 CDT by Addi Goldstein
== END 2022-12-24 23:09 | disposition home or self-care (01) ==
LOC: ER 22:22
DX: R06.00 Dyspnea, unspecified (principal); I10 Essential (primary) hypertension; J45.909 Unspecified asthma, uncomplicated; Z72.0 Tobacco use; Z88.2 Allergy status to sulfonamides
CPT/HCPCS: 93005; 94640; 99284; J7613; J7644

== ENCOUNTER 2023-10-12 16:43 | Emergency (ER) | payer OTHER ==
--- OUTSIDE RECORDS SUMMARY | 2023-10-12 16:46 | XMS REPORT | Continuity of Care Document ---
Author Name Unknown Address [address] [facility] [address] [place] [address] [facility] thconnect Address [address] [facility] [place] [address] Care Team Providers Care Director Of Culture Name Role Phone MARTÍNEZGERALDINEMarlena DAVID Sanjuanita Primary Care Physician Unavaila HIRAM Maynard Attending Clinician Rodo Villanueva Attending Clinician UnavailAnthony Jansen Attending Clinician Unavail able Geo TERRAZAS Attending Clinician Unavailable Geo Altamirano Attending Clinician [phone] CAREN CANALES Attending Clinician Unavailable JANNY MAZA Attending Clinician Unavailable JANNY MAZA Attending Clinician Unavailable GURJIT JETT Attending Clinician Unavailable Gurjit Jett DO Attending Clinician [phone] RAINE Attending Clinician Unavailable ALEJANDRA OCAMPO Attending Clinician Unavailable UNKNOWN Attending Clinician Unavailable Doctor Unassigned, [facility] Attending Clinician Alejandra Cody PA-C Attending Clinician [phone] HIRAM BLANK Admitting Clinician Rodo Villanueva Admitting Clinician UnavailDru Shin Admitting Clinician Unavailable Geo TERRAZAS Admitting Clinician Unavailable RAINE Admitting Clinician Unavailable Payers Payer Name Policy Type Policy Number Effective Date Expirati on Date Source [facility] DUAL COMPLETE HMO [id number] 2019 00:00:00 MEDICAID [facility] [id number] 2018 00:00:00 [employer] MEDICARE OUT OF NETWORK [id number] 2023 00:00:00 [facility] PLUS [id number] 00:00:00 Problems Condition Name Condition Details Condition Category Status Onset Date Resolution Date Last Treatment Date Treating Clinician Comments Source Morbid obesity with body mass index of 40.0-49.9 Morbid obesity with body mass index of 40.0-49.9 Disease Active 2018-07 00:00: 00 [facility] Allergies, Adverse Reactions, Alerts Allergy Name Allergy Type Status Severity Reaction(s) Onset Date Inactive Date Treating Clinician Comments Source Sulfa (Sulfona mide Antibiot ics) DA Active U 02-10 00:00: 00 [facility] Sulfa (Sulfona mide Antibiot ics) DA Active U SWOLLEN THROAT, BLISTERS 02-10 00:00: 00 [facility] SULFA (SULFONA MIDE ANTIBIOT ICS) Drug Class Active Unknown-Cmnt 03-14 00:00: 00 [facility] Sulfa (Sulfona mide Antibiot ics) Propensi ty to adverse reaction s Active Unknown - See comments 03-14 00:00: 00 [facility] Social History Social Habit Start Date Stop Date Quantity Comments Source History of tobacco use Cigarette Smoker [facility] Alcohol intake 2023-08-03 00:00:00 2023-08-03 00:00:00 0 /d [facility] History of Social function 2023-08-03 00:00:00 2023-08-03 00:00:00 [facility] Tobacco use and exposure 2019-07-01 00:00:00 2019-07-01 00:00:00 Smokeless tobacco non-user [facility] Tobacco Comment 2019-07-01 00:00:00 2019-07-01 00:00:00 quit smoking 2018 [facility] Sex Assigned At 1960 00:00:00 1960 00:00:00 [facility] Smoking Status Start Date Stop Date Source Ex-smoker 2019-07-01 00:00:00 2019-07-01 00:00:00 [facility] Medications Ordered Medication Name Filled Medication Name Start Date Stop Date Current Medication? Ordering Clinician Indication Dosage Frequency Signature (SIG) Comments Components Source NaCl 0.9% (NS) bolus infusion 1,000 mL 08-03 08:15: 00 08-03 08:43 :00 No 1000mL at 999 mL/hr, 1,000 mL, IV Infusion, ONCE, 1 dose, On Mon08/03/23 at 0215, STAT [facility] benzonatate 100 mg capsule 07-20 00:00: 00 Yes [id number] 100mg Take 1 capsule by mouth 3 (three) times daily as needed for Cough. [facility] benzonatate 100 mg capsule 07-20 00:00: 00 Yes [id number] 100mg Take 1 capsule by mouth 3 (three) times daily as needed for Cough. [facility] benzonatate 100 mg capsule 07-20 00:00: 00 07-20 00:00 :00 No [id number] 100mg Take 1 capsule by mouth 3 (three) times daily as needed for Cough. [facility] cyclobenzap rine (FLEXERIL) tablet 5 mg 2022-07 13:00: 00 05-19 12:24 :00 No 5mg 5 mg, Oral, ONCE NOW, 1 dose, On Mon05/19/23 at 0800, STONE [facility] gabapentin 400 mg capsule 2018-07 15:12: 46 Yes 1{capsu le} Take 1 capsule by mouth. [facility] ipratropium 0.02 % nebulizer solution 2018-07 15:12: 46 Yes 2.5mL 2.5 mL. [facility] gabapentin 400 mg capsule 2018-07 15:12: 46 Yes 1{capsu le} Take 1 capsule by mouth. [facility] ipratropium 0.02 % nebulizer solution 2018-07 15:12: 46 Yes 2.5mL 2.5 mL. [facility] gabapentin 400 mg capsule 2018-07 15:12: 46 Yes 1{capsu le} Take 1 capsule by mouth. [facility] ipratropium 0.02 % nebulizer solution 2018-07 15:12: 46 Yes 2.5mL 2.5 mL. [facility] gabapentin 400 mg capsule 2018-07 15:12: 46 Yes 1{capsu le} Take 1 capsule by mouth. [facility] ipratropium 0.02 % nebulizer solution 2018-07 15:12: 46 Yes 2.5mL 2.5 mL. [facility] amLODIPine (NORVASC) 10 mg tablet 2018-07 15:08: 41 Yes 10mg Take 10 mg by mouth daily. [facility] aspirin 81 mg EC tablet 2018-07 15:08: 41 Yes 81mg Take 81 mg by mouth daily. [facility] HYDROcodone -acetaminop hen (NORCO) 10-325 mg tablet 2018-07 15:08: 41 Yes 1{tbl} Take 1 Tab by mouth every 6 (six) hours as needed. [facility] lisinopril (PRINIVIL,Z ESTRIL) 20 mg tablet 2018-07 15:08: 41 Yes 20mg Take 20 mg by mouth daily. [facility] metoprolol succinate XL (TOPROL XL) 25 mg 24 hr tablet 2018-07 15:08: 41 Yes 25mg Take 25 mg by mouth daily. [facility] ALPRAZolam (XANAX) 1 mg tablet 2018-07 15:08: 41 Yes 1mg Take 1 mg by mouth 2 (two) times daily. [facility] amLODIPine (NORVASC) 10 mg tablet 2018-07 15:08: 41 Yes 10mg Take 10 mg by mouth daily. [facility] aspirin 81 mg EC tablet 2018-07 15:08: 41 Yes 81mg Take 81 mg by mouth daily. [facility] HYDROcodone -acetaminop hen (NORCO) 10-325 mg tablet 2018-07 15:08: 41 Yes 1{tbl} Take 1 Tab by mouth every 6 (six) hours as needed. [facility] lisinopril (PRINIVIL,Z ESTRIL) 20 mg tablet 2018-07 15:08: 41 Yes 20mg Take 20 mg by mouth daily. [facility] metoprolol succinate XL (TOPROL XL) 25 mg 24 hr tablet 2018-07 15:08: 41 Yes 25mg Take 25 mg by mouth daily. [facility] ALPRAZolam (XANAX) 1 mg tablet 2018-07 15:08: 41 Yes 1mg Take 1 mg by mouth 2 (two) times daily. [facility] amLODIPine (NORVASC) 10 mg tablet 2018-07 15:08: 41 Yes 10mg Take 10 mg by mouth daily. [facility] aspirin 81 mg EC tablet 2018-07 15:08: 41 Yes 81mg Take 81 mg by mouth daily. [facility] HYDROcodone -acetaminop hen (NORCO) 10-325 mg tablet 2018-07 15:08: 41 Yes 1{tbl} Take 1 Tab by mouth every 6 (six) hours as needed. [facility] lisinopril (PRINIVIL,Z ESTRIL) 20 mg tablet 2018-07 15:08: 41 Yes 20mg Take 20 mg by mouth daily. [facility] metoprolol succinate XL (TOPROL XL) 25 mg 24 hr tablet 2018-07 15:08: 41 Yes 25mg Take 25 mg by mouth daily. [facility] ALPRAZolam (XANAX) 1 mg tablet 2018-07 15:08: 41 Yes 1mg Take 1 mg by mouth 2 (two) times daily. [facility] amLODIPine (NORVASC) 10 mg tablet 2018-07 15:08: 41 Yes 10mg Take 10 mg by mouth daily. [facility] aspirin 81 mg EC tablet 2018-07 15:08: 41 Yes 81mg Take 81 mg by mouth daily. [facility] HYDROcodone -acetaminop hen (NORCO) 10-325 mg tablet 2018-07 15:08: 41 Yes 1{tbl} Take 1 Tab by mouth every 6 (six) hours as needed. [facility] lisinopril (PRINIVIL,Z ESTRIL) 20 mg tablet 2018-07 15:08: 41 Yes 20mg Take 20 mg by mouth daily. [facility] metoprolol succinate XL (TOPROL XL) 25 mg 24 hr tablet 2018-07 15:08: 41 Yes 25mg Take 25 mg by mouth daily. [facility] ALPRAZolam (XANAX) 1 mg tablet 2018-07 15:08: 41 Yes 1mg Take 1 mg by mouth 2 (two) times daily. [facility] azelastine 0.05 % ophthalmic solution 2018-07 00:00: 00 Yes [facility] azelastine 0.05 % ophthalmic solution 2018-07 00:00: 00 Yes [facility] % ophthalmic solution 2018-07 00:00: 00 Yes [facility] azelastine 0.05 % ophthalmic solution 2018-07 00:00: 00 Yes [facility] mg capsule 2018-07 00:00: 00 Yes [facility] omeprazole 40 mg capsule 2018-07 00:00: 00 Yes [facility] omeprazole 40 mg capsule 2018-07 00:00: 00 Yes [facility] omeprazole 40 mg capsule 2018-07 00:00: 00 Yes [facility] predniSONE 20 mg tablet 2018-07 00:00: 00 Yes [facility] predniSONE 20 mg tablet 2018-07 00:00: 00 Yes [facility] predniSONE 20 mg tablet 2018-07 00:00: 00 Yes [facility] predniSONE 20 mg tablet 2018-07 00:00: 00 Yes [facility] clindamycin 300 mg capsule 2018-07 00:00: 00 Yes TAKE 1 CAPSULE BY MOUTH EVERY 8 HOURS FOR 7 DAYS [facility] clindamycin 300 mg capsule 2018-07 00:00: 00 Yes TAKE 1 CAPSULE BY MOUTH EVERY 8 HOURS FOR 7 DAYS [facility] clindamycin 300 mg capsule 2018-07 00:00: 00 Yes TAKE 1 CAPSULE BY MOUTH EVERY 8 HOURS FOR 7 DAYS [facility] clindamycin 300 mg capsule 2018-07 00:00: 00 Yes TAKE 1 CAPSULE BY MOUTH EVERY 8 HOURS FOR 7 DAYS [facility] montelukast 10 mg tablet 2018-07 00:00: 00 Yes [facility] levalbutero l 0.63 mg/3 mL nebulizer solution 2018-07 00:00: 00 Yes USE 1 VIAL IN NEBULIZER 3 TIMES A DAY (J45.50) [facility] montelukast 10 mg tablet 2018-07 00:00: 00 Yes [facility] levalbutero l 0.63 mg/3 mL nebulizer solution 2018-07 00:00: 00 Yes USE 1 VIAL IN NEBULIZER 3 TIMES A DAY (J45.50) [facility] montelukast 10 mg tablet 2018-07 00:00: 00 Yes [facility] levalbutero l 0.63 mg/3 mL nebulizer solution 2018-07 00:00: 00 Yes USE 1 VIAL IN NEBULIZER 3 TIMES A DAY (J45.50) [facility] montelukast 10 mg tablet 2018-07 00:00: 00 Yes [facility] levalbutero l 0.63 mg/3 mL nebulizer solution 2018-07 00:00: 00 Yes USE 1 VIAL IN NEBULIZER 3 TIMES A DAY (J45.50) [facility] COMP-AIR NEBULIZER COMPRESSOR Meghna 2018-07 0-16 00:00: 00 Yes USE DIRECTED FOR BREATHING TREATMENTS [facility] COMP-AIR NEBULIZER COMPRESSOR Meghna 2018-0716 00:00: 00 Yes USE DIRECTED FOR BREATHING TREATMENTS [facility] COMP-AIR NEBULIZER COMPRESSOR Meghna 2018-0716 00:00: 00 Yes USE DIRECTED FOR BREATHING TREATMENTS [facility] COMP-AIR NEBULIZER COMPRESSOR Meghna 2018-0716 00:00: 00 Yes USE DIRECTED FOR BREATHING TREATMENTS [facility] levoFLOXaci n 500 mg tablet 2018-0714 00:00: 00 Yes [facility] levoFLOXaci n 500 mg tablet 2018-0714 00:00: 00 Yes [facility] levoFLOXaci n 500 mg tablet 2018-07 00:00: 00 Yes [facility] levoFLOXaci n 500 mg tablet 2018-0714 00:00: 00 Yes [facility] albuterol (VENTOLIN HFA) 90 mcg/actuati on inhaler 02-04 00:00: 00 Yes INHALE 2 PUFFS 4 TIMES A DAY NEEDED DYSPNEA [facility] albuterol (VENTOLIN HFA) 90 mcg/actuati on inhaler 02-04 00:00: 00 Yes INHALE 2 PUFFS 4 TIMES A DAY NEEDED DYSPNEA [facility] albuterol (VENTOLIN HFA) 90 mcg/actuati on inhaler 02-04 00:00: 00 Yes INHALE 2 PUFFS 4 TIMES A DAY NEEDED DYSPNEA [facility] albuterol (VENTOLIN HFA) 90 mcg/actuati on inhaler 02-04 00:00: 00 Yes INHALE 2 PUFFS 4 TIMES A DAY NEEDED DYSPNEA [facility] methylPREDN ISolone (MEDROL, ANT,) 4 mg tablets 08-28 00:00: 00 Yes [id number] Take by mouth SEE-INSTRU CTIONS. follow package directions [facility] methylPREDN ISolone (MEDROL, ANT,) 4 mg tablets 08-28 00:00: 00 Yes [id number] Take by mouth SEE-INSTRU CTIONS. follow package directions [facility] methylPREDN ISolone (MEDROL, ANT,) 4 mg tablets 2019-0 212 00:00: 00 Yes [id number] Take by mouth SEE-INSTRU CTIONS. follow package directions [facility] methylPREDN ISolone (MEDROL, ANT,) 4 mg tablets 0 212 00:00: 00 Yes [id number] Take by mouth SEE-INSTRU CTIONS. follow package directions [facility] clonazePAM 0.5 mg tablet 2017-0 11-23 00:00: [address] [facility] clonazePAM 0.5 mg tablet 0 11-23 00:00: [address] [facility] clonazePAM 0.5 mg tablet 0 11-23 00:00: [address] [facility] clonazePAM 0.5 mg tablet 0 11-23 00:00: 00 Yes [facility] DULoxetine 30 mg capsule 0 11-02 00:00: 00 Yes [facility] DULoxetine 30 mg capsule 0 11-02 00:00: 00 Yes [facility] DULoxetine 30 mg capsule 0 11-02 00:00: [address] [facility] DULoxetine 30 mg capsule 0 11-02 00:00: 00 Yes [facility] ADVAIR HFA 45-21 mcg/actuati on inhaler 0 10-24 00:00: 00 Yes [facility] ADVAIR HFA 45-21 mcg/actuati on inhaler 0 10-24 00:00: 00 Yes [facility] ADVAIR HFA 45-21 mcg/actuati on inhaler 0 10-24 00:00: 00 Yes [facility] ADVAIR HFA 45-21 mcg/actuati on inhaler 0 10-24 00:00: 00 Yes [facility] Vital Signs Vital Name Observation Time Observation Value Comments S edy Systolic blood pressure 2023-08-03 12:00:00 114 mm[Hg] [facility] Diastolic blood pressure 2023-08-03 12:00:00 74 mm[Hg] [facility] Heart rate 2023-08-03 12:00:00 76 /min [facility] Body temperature 2023-08-03 12:00:00 35.83 Laura [facility] Oxygen saturation in Arterial blood by Pulse oximetry 2023-08-03 12:00:00 98 /min [facility] Respiratory rate 2023-08-03 11:00:00 12 /min [facility] Body height 2023-08-03 07:11:00 [facility] Body weight 2023-08-03 07:11:00 [facility]183 [facility] BMI 2023-08-03 07:11:00 31.62 kg/m2 [facility] Systolic blood pressure 2023-07-20 08:21:00 172 mm[Hg] [facility] Diastolic blood pressure 2023-07-20 08:21:00 97 mm[Hg] [facility] Heart rate 2023-07-20 08:21:00 92 /min [facility] Respiratory rate 2023-07-20 08:21:00 18 /min [facility] Oxygen saturation in Arterial blood by Pulse oximetry 2023-07-20 08:21:00 100 /min [facility] Body temperature 2023-07-20 05:30:00 36.72 Laura [facility] Body height 2023-07-20 05:30:00 165.1 cm [facility] Body weight 2023-07-20 05:30:00 77.111 kg [facility] BMI 2023-07-20 05:30:00 28.29 kg/m2 [facility] Systolic blood pressure 2023-05-19 12:06:46 141 mm[Hg] [facility] Diastolic blood pressure 2023-05-19 12:06:46 102 mm[Hg] [facility] Heart rate 2023-05-19 12:06:46 78 /min [facility] Respiratory rate 2023-05-19 12:06:46 16 /min [facility] Oxygen saturation in Arterial blood by Pulse oximetry 2023-05-19 12:06:46 100 /min [facility] Body temperature 2023-05-19 11:35:00 37.06 Laura [facility] Body height 2023-05-19 11:35:00 165.1 cm [facility] Body weight 2023-05-19 11:35:00 79.379 kg [facility] BMI 2023-05-19 11:35:00 29.12 kg/m2 [facility] Systolic blood pressure 2023-05-11 05:22:00 148 mm[Hg] [facility] Diastolic blood pressure 2023-05-11 05:22:00 84 mm[Hg] [facility] Heart rate 2023-05-11 05:22:00 88 /min [facility] Body temperature 2023-05-11 05:22:00 36.5 Laura [facility] Respiratory rate 2023-05-11 05:22:00 18 /min [facility] Oxygen saturation in Arterial blood by Pulse oximetry 2023-05-11 05:22:00 100 /min [facility] Body height 2023-05-11 05:21:00 165.1 cm [facility] Body weight 2023-05-11 05:21:00 77.111 kg [facility] BMI 2023-05-11 05:21:00 28.29 kg/m2 [facility] Procedures Procedure Date / Time Performed Performing Clinician Source POCT GLUCOSE (AUTOMATED) 2023-08-03 07:55:00 Geo Terrazas [facility] URINE DRUG (IMMUNOASSAY) - COMPREHENSIVE DRUG SCREEN 2023-08-03 07:44:00 Geo Terrazas [facility] URINALYSIS 2023-08-03 07:44:00 Geo Terrazas [facility] MAGNESIUM 2023-08-03 07:24:00 Geo Terrazas [facility] TROPONIN I 2023-08-03 07:24:00 Geo Terrazas [facility] COMP. METABOLIC PANEL ([id number]) 2023-08-03 07:24:00 Geo Terrazas [facility] CBC WITH DIFF 2023-08-03 07:24:00 Geo [facility]razas [facility] RAPID STREP SCREEN FOR GROUP A 2023-07-20 05:36:00 Clara Whitaker [facility] RAPID INFLUENZA A/B 2023-07-20 05:36:00 Clara Whitaker [facility] COVID-19 (ID NOW RAPID TESTING) 2023-07-20 05:36:00 Clara Whitaker [facility] CONSENT/REFUSAL FOR DIAGNOSIS AND TREATMENT 2023-07-20 05:25:45 Doctor Unassigned, [facility] NOTICE OF PRIVACY PRACTICES 2023-05-11 05:01:51 Doctor Unassigned, [facility] CONSENT/REFUSAL FOR DIAGNOSIS AND TREATMENT 2023-05-11 05:01:35 Doctor Unassigned, [facility] [id number] 2020-03-17 00:00:00 [facility] [id number] 2020-03-17 00:00:00 [facility] [id number] 2020-03-17 00:00:00 [facility] Encounters Start Date/Time End Date/Time Encounter Type Admission Type Attending [facility] Care Facility Care Department Encounter ID Source 2021-05-13 10:58:11 Outpatient R HIRAM [facility] EMILIANO [id number] [facility] 2020-03-20 15:12:00 Inpatient Rodo Mauricio [facility] MED [id number] [facility] 2020-03-17 10:30:00 Inpatient Anthony Friedman [facility] DAYS [id number] [facility] 2020-02-14 14:00:00 Inpatient Anthony Friedman [facility] ENDO [id number] [facility] 2023-08-03 01:20:00 2023-08-03 06:24:00 Emergency X Geo [facility] ERT [id number] [facility] 2023-08-03 01:20:00 2023-08-03 06:24:00 Emergency Geo Terrazas [facility] [id number] [facility] 2023-07-19 23:39:00 2023-07-20 02:24:00 Emergency CAREN [facility] ERT [id number] [facility] 2023-07-19 23:39:00 2023-07-20 02:24:00 Emergency Caren Canales [facility] [id number] [facility] 2023-05-19 06:30:00 2023-05-19 08:18:00 Emergency [facility] ERT [id number] [facility] 2023-05-19 06:30:00 2023-05-19 08:18:00 Emergency Janny Maza [facility] [id number] [facility] 2023-05-11 00:14:00 2023-05-11 01:10:00 Emergency [facility]JIT [facility] ERT [id number] [facility] 2023-05-11 00:14:00 2023-05-11 01:10:00 Emergency Gurjit Jett [facility] [id number] [facility] 2022-01-26 10:47:00 2022-01-26 10:47:00 [facility] [id number] David schwartz [facility] 2020-07-23 13:00:00 2020-07-23 13:00:00 Outpatient ALEJANDRA MILLAN [facility] [id number] [facility] 2020-07-01 13:30:00 2020-07-01 13:30:00 Outpatient R ALEJANDRA OCAMPO [facility] [id number] [facility] 2020-07-01 13:30:00 2020-07-01 13:30:00 Outpatient ALEJANDRA MILLAN [facility] [id number] [facility] 2020-03-20 20:36:00 2020-03-20 20:36:00 [id number] [facility] 2020-03-09 09:00:00 2020-03-09 09:00:00 Outpatient Anthony Hinson [facility] 3DAY [id number] [facility] 2020-02-11 14:10:00 2020-02-11 14:10:00 Outpatient UNKNOWN HCACL LABO [id number] [facility] 2019-08-08 00:00:00 2019-08-08 00:00:00 Orders Only Doctor Unassigned, [facility] [id number] [id number] 2019-08-01 11:39:15 2019-08-01 12:11:37 Office Visit Alejandra Ocampo [facility] [id number] 2019-08-01 11:15:00 2019-08-01 12:11:37 Outpatient ALEJANDRA MILLAN [facility] [id number] [facility] Results Test Description Test Time Test Comments Results Result Co mments Source [facility] [id number] 08:12:19* Test Item Value Reference Range Interpretation Comme nts TROPONIN I (test code = 7894577729) 0.004 ng/mL <=0.034 JASWINDER (test code = JASWINDER) Reference (Normal) Range (defined by the 99th percentile reference limit): <= 0.034 ng/mL Note: Cardiac troponin begins to rise 3-4 hours after the onset of ischemia. Repeat in 4-6 hours if the sample was drawn within 3-4 hours of the onset of the symptom and found normal. Diagnosis of myocardial injury is made with acute changes in cTn concentrations with at least one serial sample above the 99th percentile upper reference limit (URL), taken together with the patient's clinical presentation. Biotin has been reported to cause a negative bias, interpret results relative to patient's use of biotin. Lab Interpretation (test code = 73912-1) [facility] 08:00:39* Test Item Value Reference Range Interpretation Comme nts MAGNESIUM (test code = 1524826959) 2.1 mg/dL 1.7-2.4 Lab Interpretation (test cod e = 53701-6) Normal [facility] Met[facility] (77418)2023-08-03 08:00:38* Test Item Value Reference Range Interpretation Comme nts NA (test code = 4531339294) 140 mmol/L 135-145 K (test code = 1646530690) 3.8 mmol/L 3.5-5.0 CL (test code = 3293778907) 105 mmol/L 98-108 CO2 TOTAL (test code = 5008930668) 27 mmol/L 23-31 AGAP (test code = 5237278902) 8 2-16 BUN (test code = 6761762434) 26 mg/dL 7-23 H GLUCOSE (test code = 9014519515) 125 mg/dL 70-110 H CREATININE (test code = 9872644126) 0.92 mg/dL 0.50-1.04 TOTAL BILI (test code = 6914999841) 0.3 mg/dL 0.1-1.1 CALCIUM (test code = 7059558818) 9.0 mg/dL 8.6-10.6 T PROTEIN (test code = 0757158765) 7.8 g/dL 6.3-8.2 ALBUMIN (test code = 9437778874) 4.2 g/dL 3.5-5.0 ALK PHOS (test code = 8695687673) 69 U/L 34-122 ALTv (test code = 1742-6) 32 U/L 5-35 AST(SGOT) (test code = 5847580842) 41 U/L 13-40 H eGFR (test code = 67913-4) 71.0 mL/min/1.73m2 CKD-EPI eGFR (2020). Assuming creatinine has been stable day-to-day for at least three months, the eGFR indicates Category G2 (60 - 89 mL/min/1.73 m2) Lab Interpretation (test code = 20128-3) Abnormal [facility])2023-08-03 07:56:41* Test Item Value Reference Range Interpretation Comme [facility] POCT GLU (test code = 3267270173) 123 mg/dL 70-110 H Lab Interpretation (test cod e = 79080-1) Abnormal [facility] W/AUTO [id number] 06:30:00* Test Item Value Reference Range Interpretation Comme [facility] WHITE BLOOD CELL (test code = WBC) [...] WIDTH (test code = RDW) 13.4 % 12.9-16.9 N PLATELET COUNT (test code = PLT) 293 150-440 N MEAN PLATELET VOLUME (test c ode = MPV) 10.8 fL 8.9-12.4 N NEUTROPHIL [...] 0.03 x10 3/uL 0.0-0.20 N RENAL FUNCTION [id number] 06:28:00* Test Item Value Reference Range Interpretation Comme nts SODIUM (test code = NA) 143 MMOL/L 136-143 N POTASSIUM (test code = K) 4.3 MMOL/L 3.5-5.1 N CHLORIDE (test code = CL) 106 MMOL/L 98-107 N CARBON DIOXIDE (test code = CO2) 22 mmol/L 24-31 L GLUCOSE (test code = GLU) 93 mg/dL 70-104 N BLOOD UREA NITROGEN (test code = BUN) 20.9 MG/DL 7.0-21.0 N GLOMERULAR FILTRATION RATE (test code = GFR) >=60 max estimate >60 The estimated glomerular filtration rate is computed usingpatient race, age (>18), sex, and serum creatinine. If anyof the needed data elements are missing the Laboratory cannot compute an estimation of the glomerular filtration rate. CREATININE (test code = CREAT) 1.0 mg/dL 0.8-1.5 N ALBUMIN (test code = ALB) 4.0 G/DL 3.5-5.0 N CALCIUM (test code = CA) 9.1 mg/dL 8.8-10.2 N PHOSPHOROUS (test code = PHOS) 3.4 mg/dL 2.7-4.5 N LACTIC [id number] 20:39:00* Test Item Value Reference Range Interpretation Comme nts LACTIC ACID (test code = LACT) 12.1 mg/dL 4.5-18.0 N CBC W/MANUAL [id number] 15:38:00* Test Item Value Reference Range Interpretation Comme nts WHITE BLOOD CELL (test code = WBC) 15.7 x10 3/uL 4.8-10.8 H RED BLOOD CELL (test code = RBC) 5.66 x10 6/uL 4.20-5.40 H HEMOGLOBIN (test code = HGB) 14.6 g/dL 14.5-20 N HEMATOCRIT (test code = HCT) 45.0 % 37.0-47.0 N MEAN CELL VOLUME (test code = MCV) 79.5 fL 81.0-99.0 L MEAN CELL HGB (test code = MCH) 25.8 pg 27-31 L MEAN CELL HGB CONCENTRATION (test code = MCHC) 32.4 G/DL 33-36.5 L RED CELL DISTRIBUTION WIDTH (test code = RDW) 13.6 % 12.9-16.9 N PLATELET COUNT (test code = PLT) 328 150-440 N MEAN PLATELET VOLUME (test c ode = MPV) 10.7 fL 8.9-12.4 N TOTAL CELLS COUNTED (test co de = TCC) 100 #CELLS SEGMENTED NEUTROPHILS (test code = SEG) 54 % 43-65 N LYMPHOCYTE (test code = LYMPH) 37 % 20.5-45.5 N MONOCYTE (test code = MON) 8 % 5.5-11.7 N EOSINOPHIL (test code = EOS) 1 % 0.9-2.9 N MICROCYTOSIS (test code = MICR) 1+ NONE SEEN A COMPREHENSIVE METABOLIC [id number] 13:50:00* Test Item Value Reference Range Interpretation Comme nts SODIUM (test code = NA) 135 MMOL/L 136-143 L POTASSIUM (test code = K) 4.2 MMOL/L 3.5-5.1 N CHLORIDE (test code = CL) 97 MMOL/L 98-107 L CARBON DIOXIDE (test code = CO2) 23 mmol/L 24-31 L GLUCOSE (test code = GLU) 94 mg/dL 70-104 N BLOOD UREA NITROGEN (test code = BUN) 27.9 MG/DL 7.0-21.0 H GLOMERULAR FILTRATION RATE (test code = GFR) 33 >60 L The estimated glomerular filtration rate is computed usingpatient race, age (>18), sex, and serum creatinine. If anyof the needed data elements are missing the Laboratory cannot compute an estimation of the glomerular filtration rate. CREATININE (test code = CREAT) 2.0 mg/dL 0.8-1.5 H TOTAL PROTEIN (test code = PROT) 8.3 g/dL 6.3-8.3 N ALBUMIN (test code = ALB) 4.5 G/DL 3.5-5.0 N CALCIUM (test code = CA) 9.6 mg/dL 8.8-10.2 N BILIRUBIN TOTAL (test code = BILT) 0.6 mg/dL 0.2-1.0 N SGOT/AST (test code = AST) 44 IU/L 10-34 H SGPT/ALT (test code = ALT) 35 U/L 10-36 N ALKALINE PHOSPHATASE (test code = ALKP) 63 U/L 32-104 N [id number] 13:50:00* Test Item Value Reference Range Interpretation Comme nts LIPASE (test code = LIP) 50 U/L 0-190 N CBC W/MANUAL [id number] 13:47:00* Test Item Value Reference Range Interpretation Comme nts WHITE BLOOD CELL (test code = WBC) 15.7 x10 3/uL 4.8-10.8 H RED BLOOD CELL (test code = RBC) 5.66 x10 6/uL 4.20-5.40 H HEMOGLOBIN (test code = HGB) 14.6 g/dL 14.5-20 N HEMATOCRIT (test code = HCT) 45.0 % 37.0-47.0 N MEAN CELL VOLUME (test code = MCV) 79.5 fL 81.0-99.0 L MEAN CELL HGB (test code = MCH) 25.8 pg 27-31 L MEAN CELL HGB CONCENTRATION (test code = MCHC) 32.4 G/DL 33-36.5 L RED CELL DISTRIBUTION WIDTH (test code = RDW) 13.6 % 12.9-16.9 N PLATELET COUNT (test code = PLT) 328 150-440 N MEAN PLATELET VOLUME (test c ode = MPV) 10.7 fL 8.9-12.4 N TOTAL CELLS COUNTED (test co de = TCC) #CELLS SEGMENTED NEUTROPHILS (test code = SEG) % 43-65 LYMPHOCYTE (test code = LYMPH) % 20.5-45.5 CBC W/MANUAL [id number] 13:47:00* Test Item Value Reference Range Interpretation Comme nts WHITE BLOOD CELL (test code = WBC) 15.7 x10 3/uL 4.8-10.8 H RED BLOOD CELL (test code = RBC) 5.66 x10 6/uL 4.20-5.40 H HEMOGLOBIN (test code = HGB) 14.6 g/dL 14.5-20 N HEMATOCRIT (test code = HCT) 45.0 % 37.0-47.0 N MEAN CELL VOLUME (test code = MCV) 79.5 fL 81.0-99.0 L MEAN CELL HGB (test code = MCH) 25.8 pg 27-31 L MEAN CELL HGB CONCENTRATION (test code = MCHC) 32.4 G/DL 33-36.5 L RED CELL DISTRIBUTION WIDTH (test code = RDW) 13.6 % 12.9-16.9 N PLATELET COUNT (test code = PLT) 328 150-440 N MEAN PLATELET VOLUME (test c ode = MPV) 10.7 fL 8.9-12.4 N TOTAL CELLS COUNTED (test co de = TCC) #CELLS SEGMENTED NEUTROPHILS (test code = SEG) % 43-65 LYMPHOCYTE (test code = LYMPH) % 20.5-45.5 SURGICAL [id number] 13:17:00 RUN DATE: 03/19/20 [facility] - LAB PAGE 1 RUN TIME: 1317 Specimen Inquiry RUN USER: INTERFACE ----- -------PATIENT: FUNMI JARQUIN LOC: Ivonne5N POD B U #: [id number] AGE/SX: 59/F ROOM: [facility]72 RE03/17/20REG DR: Anthony Friedman MD : 64 BED: 1 DIS: 03/18/20 STATUS: DIS IN TLOC: ----- ------- SPEC #: [id number] RECD: 03/17/20 STATUS: SON REQ #: [id number] KEYANA: 03/17/[address]: Anthony Friedman MD ENTERED: 03/17/20 SP TYPE: SURG OTHR DR: Dru Olmedo MD ORDERED: PATHGM5/2, PATH SPEC, H E STAIN/2, IRON STAIN, PAS STAIN, TRICHROME STAIN, PAS WO.STAIN HISTOLOGY: TISSUE ID BLKPCS JESSICA LEV / PROCEDURE DISPOSITION ____ ___ [...] the PAS with diastase stain. No increased ironstaining is seen on the iron stain. No fibrosis is identified on the trichrome stain. All controls s how appropriate reactivity. Classic steatohepatitis requires the presence [...] 3 - bridging fibrosis; 4- cirrhosis). CPT 25676 X 2, 30508 X 3 CONTINUED ON NEXT PAGE RUN DATE: 03/19/20 [facility] - LAB PAGE 2 RUN TIME: 1317 Specimen Inquiry RUN USER: INTERFACE SPEC #: [id number] PATIENT:MILKAFUNMI BARTON #[id number] (Continued) GROSS DESCRIPTION Received are two containers [...] There are no mucosal lesions seen grossly. Photoengraving Photographer sections are submitted in "B". /yari Signed SIGNATURE ON FILE Stephanie Aldana MD 03/19/20 1317 END OF REPORT BASIC METABOLIC PANEL 2020-03-18 04:39:00* Test Item Value Reference Range Interpretation Comme nts SODIUM (test code = NA) 135 MMOL/L 136-143 L POTASSIUM (test code = K) 4.9 MMOL/L 3.5-5.1 N CHLORIDE (test code = CL) 101 MMOL/L 98-107 N CARBON DIOXIDE (test code = CO2) 25 mmol/L 24-31 N GLUCOSE (test code = GLU) 126 mg/dL 70-104 H BLOOD UREA NITROGEN (test code = BUN) 10.5 MG/DL 7.0-21.0 N GLOMERULAR FILTRATION RATE (test code = GFR) >=60 max estimate >60 The estimated glomerular filtration rate is computed usingpatient race, age (>18), sex, and serum creatinine. If anyof the needed data elements are missing the Laboratory cannot compute an estimation of the glomerular filtration rate. CREATININE (test code = CREAT) 0.8 mg/dL 0.8-1.5 N CALCIUM (test code = CA) 9.4 mg/dL 8.8-10.2 N [id number] 04:39:00* Test Item Value Reference Range Interpretation Comme nts PHOSPHOROUS (test code = PHOS) 4.3 mg/dL 2.7-4.5 N [id number] 04:39:00* Test Item Value Reference Range Interpretation Comme nts MAGNESIUM (test code = MAG) 2.1 mg/dL 1.4-2.6 N CBC W/AUTO [id number] 04:31:00* Test Item Value Reference Range Interpretation Comme nts WHITE BLOOD CELL (test code = WBC) 10.5 x10 3/uL 4.8-10.8 N RED BLOOD CELL (test code = RBC) 5.19 x10 6/uL 4.20-5.40 N HEMOGLOBIN (test code = HGB) 13.5 g/dL 14.5-20 L HEMATOCRIT (test code = HCT) 42.0 % 37.0-47.0 N MEAN CELL VOLUME (test code = MCV) 80.9 fL 81.0-99.0 L MEAN CELL HGB (test code = MCH) 26.0 pg 27-31 L MEAN CELL HGB CONCENTRATION (test code = MCHC) 32.1 G/DL 33-36.5 L RED CELL DISTRIBUTION WIDTH (test code = RDW) 13.6 % 12.9-16.9 N PLATELET COUNT (test code = PLT) 322 150-440 N MEAN PLATELET VOLUME (test c ode = MPV) 10.3 fL 8.9-12.4 N NEUTROPHIL % (test code = NT%) 65.8 [...] 0.01 x10 3/uL 0.0-0.20 N Novel Coronavirus 07:15:00* Test Item Value Reference Range Interpretation Comments Novel Coronavirus 2018 nCoV (test code = COVID19) Not Detected Not Detected Testing was perf ormed using the Aptima SARS-CoV-2 assay.This test was developed and its performance characteristicsdetermined by [employer]. This test has not beenFDA cleared or approved. This test has been authorized byA under an Emergency Use Authorization (EUA). This testis only authorized for the duration of time the declarationthat circumstances exist justifying the authorization ofthe emergency use of in vitro diagnostic tests fordetection of SARS-CoV-2 virus and/or diagnosis of COVID-19infection under section 564(b)(1) of the Act, 21 U.S.C.360bbb-3(b)(1), unless the authorization is terminated orrevoked sooner. When diagnostic testing is negative, thepossibility of a false negative result should be consideredin the context of a patient's recent exposures and thepresence of clinical signs and symptoms consistent withCOVID-19. An individual without symptoms of COVID-19 andwho is not shedding SARS-CoV-2 virus would expect to have anegative (not detected) result in this assay. Novel Coronavirus 07:15:00* Test Item Value Reference Range Interpretation Comments Novel Coronavirus 2019 nCoV (test code = COVID19) Not Detected Not Detected Testing was perf ormed using the Aptima SARS-CoV-2 assay.This test was developed and its performance characteristicsdetermined by [employer]. This test has not beenFDA cleared or approved. This test has been authorized byA under an Emergency Use Authorization (EUA). This testis only authorized for the duration of time the declarationthat circumstances exist justifying the authorization ofthe emergency use of in vitro diagnostic tests fordetection of SARS-CoV-2 virus and/or diagnosis of COVID-19infection under section 564(b)(1) of the Act, 21 U.S.C.360bbb-3(b)(1), unless the authorization is terminated orrevoked sooner. When diagnostic testing is negative, thepossibility of a false negative result should be consideredin the context of a patient's recent exposures and thepresence of clinical signs and symptoms consistent withCOVID-19. An individual without symptoms of COVID-19 andwho is not shedding SARS-CoV-2 virus would expect to have anegative (not detected) result in this assay. BASIC METABOLIC [id number] 13:23:00* Test Item Value Reference Range Interpretation Comme nts SODIUM (test code = NA) 138 MMOL/L 136-143 N POTASSIUM (test code = K) 4.3 MMOL/L 3.5-5.1 N CHLORIDE (test code = CL) 103 MMOL/L 98-107 N CARBON DIOXIDE (test code = CO2) 21 mmol/L 24-31 L GLUCOSE (test code = GLU) 89 mg/dL 70-104 N BLOOD UREA NITROGEN (test code = BUN) 14.4 MG/DL 7.0-21.0 N GLOMERULAR FILTRATION RATE (test code = GFR) >=60 max estimate >60 The estimated glomerular filtration rate is computed usingpatient race, age (>18), sex, and serum creatinine. If anyof the needed data elements are missing the Laboratory cannot compute an estimation of the glomerular filtration rate. CREATININE (test code = CREAT) 0.8 mg/dL 0.8-1.5 N CALCIUM (test code = CA) 9.5 mg/dL 8.8-10.2 N UA RFLX MICR CULT IF [id number] 13:07:00* Test Item Value Reference Range Interpretation Comme nts UA COLOR (test code = COLU) YELLOW DISCRIPT YELLOW UA APPEARANCE (test code = APPU) CLEAR DISCRIPT CLEAR UA GLUCOSE DIPSTICK (test code = DGLUU) NEGATIVE mg/dL NEGATIVE UA BILIRUBIN DIPSTICK (test code = BILU) NEGATIVE NEGATIVE UA KETONE DIPSTICK (test code = KETU) NEGATIVE mg/dL NEGATIVE UA SPECIFIC GRAVITY (test code = SGU) 1.010 1.005-1.030 UA BLOOD DIPSTICK (test code = CHAD) NEGATIVE NEGATIVE UA PH DIPSTICK (test code = JOSEFA) 5.5 5.0-9.0 UA PROTEIN DIPSTICK (test code = PROU) NEGATIVE mg/dL NEGATIVE UA UROBILINOGEN DIPSTICK (test code = URO) 0.2 mg/dL 0.2-1.0 UA NITRITE DIPSTICK (test code = NORMA) NEGATIVE NEGATIVE UA LEUKOCYTE ESTERASE DIPSTICK (test code = LEUU) SMALL NEGATIVE A UA WBC (test code = WBCU) 0-2 #WBC/HPF 0-2 UA RBC (test code = RBCU) NONE SEEN #RBC/HPF 0-2 UA BACTERIA (test code = BACU) OCCASIONAL /HPF NONE-TRACE A UA SQUAMOUS CELLS (test code = SQU) OCCASIONAL /LPF NONE-TRACE Indication for culture: Dysuria/FrequencyPROTHROMBIN [id number] 12:54:00* Test Item Value Reference Range Interpretation Comme nts PROTHROMBIN TIME PATIENT (test code = PTP) 11.3 SECONDS 10.3-12.9 N INTERNATIONAL NORMAL RATIO (test code = INR) 1.00 INR UNIT 0.9-1.11 N The INR is usefu l only for monitoring anticoagulant therapy.It may be unreliable in the initial phase of antigoagulationand in unstable patients. Indication for Anticoagulation Recommended INR 1. Prevention of venous thomboembolism 2.0-3.0in high-risk patients; treatment of venousthrombosis and pulmonary embolism aftera course of heparin; prevention of systemicembolism in a variety of conditions, including atrial fibrillation and prothetic tissue heart valves, 2. Prosthetic mechanical heart valves; 2.5-3.5recurrent systemic embolism. THROMBOPLASTIN TIME [id number] 12:54:00* Test Item Value Reference Range Interpretation Comme nts THROMBOPLASTIN TIME PARTIAL (test code = PTT) 30.4 SECONDS 23.8-34.8 N INTERPRETATIVE DATA:Therapeutic range: Unfractionated heparin:55 - 80 seconds Argatroban:1.5 to 3 times the baseline PTT UA RFLX MICR CULT IF [id number] 12:53:00* Test Item Value Reference Range Interpretation Comme nts UA COLOR (test code = COLU) YELLOW DISCRIPT YELLOW UA APPEARANCE (test code = APPU) CLEAR DISCRIPT CLEAR UA GLUCOSE DIPSTICK (test code = DGLUU) NEGATIVE mg/dL NEGATIVE UA BILIRUBIN DIPSTICK (test code = BILU) NEGATIVE NEGATIVE UA KETONE DIPSTICK (test cod e = KETU) NEGATIVE mg/dL NEGATIVE UA SPECIFIC GRAVITY (test code = SGU) 1.010 1.005-1.030 UA BLOOD DIPSTICK (test code = CHAD) NEGATIVE NEGATIVE UA PH DIPSTICK (test code = JOSEFA) 5.5 5.0-9.0 UA PROTEIN DIPSTICK (test code = PROU) NEGATIVE mg/dL NEGATIVE UA UROBILINOGEN DIPSTICK (test code = URO) 0.2 mg/dL 0.2-1.0 UA NITRITE DIPSTICK (test code = NORMA) NEGATIVE NEGATIVE UA LEUKOCYTE ESTERASE DIPSTICK (test code = LEUU) SMALL NEGATIVE A UA WBC (test code = WBCU) #WBC/HPF 0-2 UA RBC (test code = RBCU) #RBC/HPF 0-2 UA BACTERIA (test code = BACU) /HPF NONE-TRACE UA SQUAMOUS CELLS (test code = SQU) /LPF NONE-TRACE Indication for culture: Dysuria/FrequencyCBC W/AUTO [id number] 12:44:00* Test Item Value Reference Range Interpretation Comme nts WHITE BLOOD CELL (test code = WBC) 8.4 x10 3/uL 4.8-10.8 N RED BLOOD CELL (test code = RBC) 4.85 x10 6/uL 4.20-5.40 N HEMOGLOBIN (test code = HGB) 12.8 g/dL 14.5-20 L HEMATOCRIT (test code = HCT) 39.6 % 37.0-47.0 N MEAN CELL VOLUME (test code = MCV) 81.6 fL 81.0-99.0 N MEAN CELL HGB (test code = MCH) 26.4 pg 27-31 L MEAN CELL HGB CONCENTRATION (test code = MCHC) 32.3 G/DL 33-36.5 L RED CELL DISTRIBUTION WIDTH (test code = RDW) 13.7 % 12.9-16.9 N PLATELET COUNT (test code = PLT) 363 150-440 N MEAN PLATELET VOLUME (test c ode = MPV) 10.6 fL 8.9-12.4 N NEUTROPHIL % (test code = NT%) 37.6 [...] BA#) 0.06 x10 3/uL 0.0-0.20 N SURGICAL [id number] 08:30:00 RUN DATE: 02/19/20 [facility] - LAB PAGE 1 RUN TIME: 0830 Specimen Inquiry RUN USER: INTERFACE ------ ------PATIENT: FUNMI JARQUIN LOC: EMA U #: [id number] AGE/SX: 59/F ROOM: RE[facility]14[facility]: Anthony Friedman MD : 64 BED: DIS: STATUS: [facility] TLOC: SPEC #: [id number] RECD: 02/17/20 STATUS: SON SUBRAMANIAN #: [id number] KEYANA: 02/14/201424 [facility] DR: Anthony Friedman MD ENTERED: 02/17/20 SP TYPE: SURG OTHR DR: Dru Olmedo MD ORDERED: PATHGM4/2, PATH SPEC, H E STAIN/2 HISTOLOGY: TISSUE ID BLK PCS JESSICA LEV / PROCEDURE DISPOSITION ____ ___ ___ ___ ANTRUM BIOPSY A 1 3 RECTAL BX B 1 2 TISSUES: A. ANTRUM BIOPSY - GastricAntrum Bx B. RECTAL BX - Rectal BX CLINICAL HISTORY GERD FINAL DIAGNOSIS A. STOMACH, ANTRUM, BIOPSY: - REACTIVE GASTROPATHY. - NEGATIVE FOR HELICOBACTER PYLORI BY SPECIAL STAIN. - NO INTESTINAL METAPL SUZI, DYSPLASIA OR MALIGNANCY IS IDENTIFIED. B. RECTUM, BIOPSY: - COLORECTAL MUCOSA WITH NO DIAGNOSTIC ABNORMALITY. - NO ACTIVE COLITIS, FEATURES OF MICROSCOPIC COLITIS, PARASITES, GRANULOMA, DYSPLASIA OR MALIGNANCY IS IDENTIFIED. CPT: 02862Q7, 48801 GROSS DESCRIPTION Received are two containers of [...] 02/19/20 0830 END OF REPORT Novel Coronavirus [id number] 03:20:00 * Test Item Value Reference Range Interpretation Comme nts Novel Coronavirus 2019 Inhouse (test code = WNLKG40EA) Negative Negative Positive resul ts are indicative of the presence tnCJOQ-PkA-2 RNA, clinical correlation with patient historyand other diagnostic information is necessary to determinepatient infection status. Positive results do not rule outbacterial infection or co-infection with other viruses. Negative results do not preclude SARS-CoV-2 infection andshould not be used as the sole basis for patient managementdecisions. Negative results must be combined with otherclinical observations, patient history, and epidemiologicalinformation . Detection of SARS-CoV-2 RNA may be affected bysample collection methods, storage conditions, and/or stageof infection. Viral RNA mutations, vaccinations, antiviraltherapeutics, antibiotics, chemotherapeutic orimmunosuppressant drugs have not been evaluated for effectson detection. Results are for the identification of SARS-CoV-2 RNA usingthe [employer] M2000 System under the FDA Emergency UseAuthorization. The testing is performed by personneltrained in the procedures for the [employer] M2000 moleculardiagnostic SARS-CoV-2 assay in vitro.Positive results are indicative of the presence cwVGDJ-ObS-1 RNA, clinical correlation with patient historyand other diagnostic information is necessary to determinepatient infection status. Positive results do not rule outbacterial infection or co-infection with other viruses. Negative results do not preclude SARS-CoV-2 infection andshould not be used as the sole basis for patient managementdecisions. Negative results must be combined with otherclinical observations, patient history, and epidemiologicalinformation . Detection of SARS-CoV-2 RNA may be affected bysample collection methods, storage conditions, and/or stageof infection. Viral RNA mutations, vaccinations, antiviraltherapeutics, antibiotics, chemotherapeutic orimmunosuppressant drugs have not been evaluated for effectson detection. Results are for the identification of SARS-CoV-2 RNA usingthe [employer] M2000 System under the FDA Emergency UseAuthorization. The testing is performed by personneltrained in the procedures for the [employer] M2000 moleculardiagnostic SARS-CoV-2 assay in vitro. Novel Coronavirus 03:20:00* Test Item Value Reference Range Interpretation Comme nts Novel Coronavirus 2019 Inhouse (test code = RKEOK01BK) Negative Negative Positive resul ts are indicative of the presence rxBIVE-UeG-9 RNA, clinical correlation with patient historyand other diagnostic information is necessary to determinepatient infection status. Positive results do not rule outbacterial infection or co-infection with other viruses. Negative results do not preclude SARS-CoV-2 infection andshould not be used as the sole basis for patient managementdecisions. Negative results must be combined with otherclinical observations, patient history, and epidemiologicalinformation . Detection of SARS-CoV-2 RNA may be affected bysample collection methods, storage conditions, and/or stageof infection. Viral RNA mutations, vaccinations, antiviraltherapeutics, antibiotics, chemotherapeutic orimmunosuppressant drugs have not been evaluated for effectson detection. Results are for the identification of SARS-CoV-2 RNA usingthe [employer] M2000 System under the FDA Emergency UseAuthorization. The testing is performed by personneltrained in the procedures for the [employer] M2000 moleculardiagnostic SARS-CoV-2 assay in vitro. Notes Date/Time Note Provider Source 2023-08-03 06:24:00 a9q4XCweahfF+Pd6aexaST32wBDDsXzpwEGXuNRQ xq4MPKIrj4y xhXvY6tK30Fm85990-04-80D66:24:00 Pt given printed and verbal discharge instructions regarding drug use.Pt verbalized understanding of instructions, pt awake alert oriented, resp reg unlabored, skin w/d, color appropriate for race, moves all ext well,pt encouraged to follow up with pcpAdvised to seek medical attention for new/prolonged/worsening of symptomsNo adverse reaction to meds given in ER noted upon dischargePIV d'cd, dressing to site, catheter in tact.Awake, alert oriented, resp reg unlabored, skin w/d, pt leaving amb with steady gait, in no apparent distress 29588-3Jzrcsbico department JpvwAS2272-00-26X43:24:32Emer[facility] department [id number] 704AVAvailable for patient hoag68437-7CnzwYQTRWIYASQFEcrroddzi C-CDA narrative text[address] PzquUkzcfflztPpofvpukoPQPO0587911414DCKTCFOHUYIFGSM TLYPHYR8303-57-27D77:24:321.2.840.030958.1.72.3.15| 1.2.840.1[id number] [facility] 2023-08-03 04:11:07 yEqOfsRmKFJMIEMnf3pLvfFlLbQgDKfG4rOjtSM2 vf3nAqZFsKF OceQv48n7Qw+U1731-10-76L33:11:07 Pt's friend Uziel called from phone # . Pt's friend stated their apartment currently has no central heating air and they are only using a space heater to warm the entire apartment. Uziel states the apartment is freezing cold. Uziel reports the pt took a CBD gummy and Gabapentin.Pt's phone #[phone] department DfgrRZ1395-04-20D69:21:34[facility] [id number] 878AVAvailable for patient ncob48822-3HkysHEUXLTWJJBBDsokipzys C-CDA narrative text[address] Wy[address] [id number] PLEULUA3248-18-06D02:21:[id number]| [id number] [facility] 2023-08-03 01:07:42 lu67mrvWNCiLaE3n3MHn00VU//Rv4lp0iievF68L 4t8amyhlXff A+/YQT/bv0S4Q1750-35-01R58:07:42 Pt arrived by [facility]. Pt possibly took a Delta - 9 gummy around 11pm, and told roommate to call 911. 13795-5Khmuvgsso department Triage kbwsZN5441-72-70W12:11:00[facility] Triage noteTXT1.2.840.783417.1.13.104.2.7.2.989220|[id number] 814AVAvailable for patient gmna89356-6Ioywovbip department NoteLNNARRATIVEFormatted C-CDA narrative [id number] A Diaz RNUT[address] [id number] WDZAKBY7292-48-17U09:11:001.2.840.869763.1.72.3.15| 1.2.840.232148.1.13.104.2.7.2.727879_[id number] Delilah Ro RN [facility] - Health 2023-08-03 01:03:00 JmAnq6YmDvzmjP+YG9NoNXgPpxbzv8fNm7oPkRAn sbtCp0FyxBy XHHETNImuGxbX2378-14-02B33:03:00 [facility] Emergency Department NotePatient Name: Funmi JarquinDate of : 1960 63 year old femaleTreatment Room: Room/bed info not foundMedical Record Number: [id number] Care Physician: David Moise Escorted by: Self [9]Mode of Arrival: EMS - [facility] ([place]) [43]EMS Treatment Prior to ED 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 She doesn't know what she took, but asked her boyfriend to call 911. Pt had no specific complaints for EMS. Wakes to physical stimuli but can't stay awake. VSS. EKG NSR.No complaints on ER arrival, denies pain, unable to stay awake. Glucose 123.Past Medical History/Immunizations:Past Medical History:Diagnosis DateAnemiaAnesthesia complicationHyperemesisAnxietyArthritisDiabetes mellitusresolvedFibroidsGERD (gastroesophageal reflux disease)Heart murmurArythmia / Dr Stein CardiologistHTRobert (hypertension)Leiomyoma of uterus?PalpitationSubstance abuseTHC / CocaineTetanus received in last 5 years: Unable to assessAllergies:AllergiesAllergen ReactionsSulfa (Sulfonamide Antibiotics) Unknown - See commentsPast Social History:Tobacco UseFormer; Types: CigarettesSmokeless Tobacco: Never used smokeless tobacco.Comments: quit smoking 2019Alcohol UseNot Currently; 0.0 standard drinks of alcohol per week; 0 Standard drinks or equivalent.Drug UseNot Currently; Marijuana, Cocaine.Comments: past useSexual ActivityNot currently sexually active; Partners: Male.Comments: No sex in > 3 yearPast Surgical History:Past Surgical History:Procedure Laterality DateCOLONOSCOPY 2015polyps / negativeESOPHAGOGASTRODUODENOSCOPY 11/2017PR EXC TUMOR SOFT TISS FACE&SCALP SUBFASCIAL 2 CM/>SPINE SURGERY 2019TUBAL LIGATIONReview of Systems:Review of SystemsUnable to perform ROSPhysical Exam:ED Triage Vitals [08/03/23 0111]Weight 86.2 kg (190 lb)Actual or estimatedHeight 1.651 m (5' 5")BP (!) 161/91Pulse 66Resp 14Temp 34.4 ?C (93.9 ?F)Temp source OralSpO2 96 %Measured on Room airPhysical ExamVitals and nursing note reviewed.Constitutional:Appearance: She is obese. She is not ill-appearing.Comments: Responds to physical stimuli, denies pain, can't stay awake.HENT:Head: Normocephalic and atraumatic.Eyes:Pupils: Pupils are equal, round, and reactive to light.Cardiovascular:Rate and Rhythm: Normal rate and regular rhythm.Pulses: Normal pulses.Heart sounds: Normal heart sounds. No murmur heard.Pulmonary:Effort: Pulmonary effort is normal. No respiratory distress.Breath sounds: Normal breath sounds.Abdominal:General: Bowel sounds are normal.Palpations: Abdomen is soft.Tenderness: There is no abdominal tenderness.Neurological:Comments: No facial droop. PERRL.Radiology:XR CHEST 1 VWPreliminary ResultEXAM: XR CHEST 1 VWCOMPARISON: NoneHISTORY: drug useFINDINGS:Lungs: The lungs are adequately expanded. No focal opacities or pleuralabnormality.Heart/Mediastinum: The cardiac silhouette appears normal accounting fortechnique and degree of inspiration.Bones and soft tissues: No osseous abnormality is visualized.IMPRESSIONNo radiographic evidence of acute cardiopulmonary process.Preliminary Report Dictated by Resident: Nino Burns Results:Lab ResultsCBC WITH DIFF - AbnormalResult Value Ref RangeWBC 11.62 (*) 4.30 - 11.10 10*3/?LRBC 4.78 3.93 - 5.25 10*6/?LHGB 12.5 11.6 - 15.0 g/dLHCT 39.2 35.7 - 45.2 %MCV 82.0 80.6 - 95.5 fLMCH 26.2 25.9 - 32.8 pgMCHC 31.9 31.6 - 35.1 g/dLRDW-SD 41.2 39.0 - 49.9 fLRDW-CV 14.0 12.0 - 15.5 %PLT 331 166 - 358 10*3/?LMPV 10.2 9.5 - 12.9 fLNRBC/100 WBC 0.0 0.0 - 10.0 /100 WBCsNRBC x10^3 <0.01 10*3/?LSEG % 48 33 - 76 %LYMPH % 48 14 - 54 %EOS % 4 (*) 0 - 3 %ANC 5.58 1.88 - 7.09 10*3/uLCOMP. METABOLIC PANEL (64765) - AbnormalNA 140 135 - 145 mmol/LK 3.8 3.5 - 5.0 mmol/LCL 105 98 - 108 mmol/LCO2 TOTAL 27 23 - 31 mmol/LAGAP 8 2 - 16BUN 26 (*) 7 - 23 mg/dLGLUCOSE 125 (*) 70 - 110 mg/dLCREATININE 0.92 0.50 - 1.04 mg/dLTOTAL BILI 0.3 0.1 - 1.1 mg/dLCALCIUM 9.0 8.6 - 10.6 mg/Lois PROTEIN 7.8 6.3 - 8.2 g/dLALBUMIN 4.2 3.5 - 5.0 g/dLALK PHOS 69 34 - 122 U/LALTv 32 5 - 35 U/LAST(SGOT) 41 (*) 13 - 40 U/LeGFR 71.0 mL/min/1.43f2KMMOHNMGDU - AbnormalAPPEARANCE Clear ClearCOLOR Yellow YellowPH 6.0 4.8 - 8.0SP GRAVITY 1.021 1.003 - 1.030GLU U QUAL Normal NormalBLOOD Negative NegativeKETONES Negative NegativePROTEIN Negative NegativeUROBILIN Normal NormalBILIRUBIN Negative NegativeNITRITE Negative NegativeLEUK SATHISH 25/uL (*) NegativeRBC/HPF 0 0 - 3 HPFWBC/HPF 7 (*) 0 - 5 HPFBACTERIA Negative NegativeMUCOUS Slight (*) Negative LPFSQ EPITH 2 HPFPOCT GLUCOSE (AUTOMATED) - AbnormalPOCT GLU 123 (*) 70 - 110 mg/dLMAGNESIUM - NormalMAGNESIUM 2.1 1.7 - 2.4 mg/dLTROPONIN I - NormalTROPONIN I 0.004 <=0.034 ng/mLURINE DRUG (IMMUNOASSAY) - COMPREHENSIVE DRUG SCREENEKG:If EKG completed, see Procedure Note.Orders and Treatments:Orders Placed This EncounterProceduresXR CHEST 1 VWCbc with DiffComp. Metabolic Panel (93249)MagnesiumTroponin IUrinalysisDRUG PANEL 2 URINEPOCT GLUCOSE (AUTOMATED)Orders Placed This EncounterMedicationsNaCl 0.9% (NS) bolus infusion 1,000 mLaspirin chewable tablet 324 mgFirst Provider Eval:ED EventsDate/Time Event User Uzrilocj20/18/24105 Medical Screening Begins VICKI ROOT --08/03/23105 First Provider Evaluation VICKI ROOT --ED COURSEED Course as of 08/03/23Aug 0320230912 Pt care turned over to DR Whitaker at 0230.Pt history, exam, and pending eval discussed. [KB]226 TROPONIN I: 0.004 [KB]0140 Pt points to her chest on re-exam when asked about pain. Tele NSR, VSS. ASA 324mg ordered [KB]ED Course User Index[KB] Geo Terrazas, PACDiagnosis/Impression as of 08/03/23227Drug useProcedures:ProceduresMDM:Medical Decision MakingAmount and/or Complexity of Data ReviewedLabs: ordered.Radiology: ordered.RiskOTC drugs.Prescription drug management.Flowsheet Documentation:Scoring Tools:No data recordedDisposition/Condition: pendingED DispositionNoneElectronically signed by:Geo Terrazas PAC08/03/23227 ssociated attestation - Clara Whitaker MD - 08/03/2023 3:34 AM CST Effie was personally available for consultation in the Emergency Department during this encounter and patient evaluation by ISA Terrazas.37086-2Jmtwgodyu Emergency department [id number], [place] S1.2.840.622079.1.13.104.2.7.2.867566NsgnxcCwfxqpZS R1864-89-71F99:34:29Physician Emergency department NoteTXT1.2.840.749055.1.13.104.2.7.2.004706|[id number] 322AVAvailable for patient fqza98688-9Twwibfzma department NoteLNNARRATIVEFormatted C-CDA narrative text[address] Kd[id number] BSQKVIB5666-24-28X16:34:291.2.840.334959.1.72.3.15| 1.2.840.756357.1.13.104.2.7.2.727879_[id number] [facility] 2023-07-20 02:23:42 +BcrKH1I44DKkttEFBRMt+y7w8oH5NgNaqRfvE+5 bKQNonUW2e1 WsuYcg/fBTMGl9025-86-05F92:23:42 Awake, alert oriented X4, respiratory even and unlabored,skin w/d color appropriate for race, moves all ext well, pt encouraged to follow up with pcp and or return as neededPt given printed and verbal discharge instructions regarding Cough, Acute viral syndrome , patient verbralized understanding and signature obtained, patient denies any other concerns.Prescriptions providedAdvised to seek medical attention for new/prolonged/worsening of symptoms,No adverse reaction to meds given in ER noted upon dischargePt [facility]ulated [facility] 32688-2Vrmfnpzji department XzzhCS9721-05-96J79:24:12Emer[facility] department NoteTXT1.2.840.038887.1.13.104.2.7.2.223574|[id number] 153AVAvailable for patient rgwi16019-0JixaNCQJMQTTMOOCjoinzppf C-CDA narrative textUT[id number] [facility]2024-01-04T02:24:121.2.840.358486.1.72.3.15| 1.2.840.903818.1.13.104.2.7.2.727879_[id number] [facility] 2023-07-19 23:29:58 ScVQVpOScATtW1AzurdpR49nJSr2Dbn8r4E/ujkI ovgCEy+tQGl YtlihuHJ9sCtt9935-95-84X57:29:58 C/O cough, congestion and runny nose for 5 days and vomiting X3 today 06030-0Mmzjksaau department Triage knadGZ8313-47-39S89:30:30[facility] Triage noteTXT1.2.840.059525.1.13.104.2.7.2.156479|[id number] 446AVAvailable for patient ahlo35534-7Heogqiokx department NoteLNNARRATIVEFormatted C-CDA narrative [id number] J Hoot RNUT61 [address] [id number] [facility]2024-01-03T23:30:301.2.840.449223.1.72.3.15| 1.2.840.825215.1.13.104.2.7.2.727879_[id number] Heather Vitale Alfa ORTIZ [facility] 2020-03-20 12:59:00 VUinccbvhwp897030625sH/n0pP7GkP/xoCJ77MD Fabby/W6q/+ f2xG9siJuoIdzLX0O+18yuV7fPxWsRvy4866-98-53B13:59:00 [facility] ([facility])EMERGENCY PROVIDER REPORTREPORT#:[id number] REPORT STATUS: SignedDATE:03/20/20 TIME: 1259 PATIENT: FUNMI JARQUIN UNIT #: [id number]#: [id number] ROOM: [facility] BED: 1AGE: 59 SEX: F PCP PHYS: Dru Olmedo MDSERVICE AUTHOR: Santo Zimmer MD * ALL edits or amendments must be made on the electronic/computer document * HPI-General Illness Free Text HPI NotesFree Text HPI Snjix80-nqeb-uef female presents to the [facility] emergency department for evaluation. Shehad a recent gastric sleeve performed by Dr. Friedman on 03/17/2020. She states that since going home, she has been unable to keep anything down and has been having reflux to both solids and liquids since surgery. She does state that she has some mild epigastric and periumbilical abdominal pain, but this hasimproved since surgery. She denies any diarrhea, hematochezia. Denies flank pain, dysuria. She states that she has had a bowel movement for the last 5 days, although she is passing gas. Denies any fever, chills, chest pain, shortness of breath or any other complaints at this time. GeneralInitial Greet Date/Time 03/20/20 1246 PresentationChief Complaint Reflux Review of Systems ROS StatementsAll systems rev neg except as marked. Review of SystemsConstitutionalDenies: Chills, Fatigue. Ears/Nose/ThroatDenies: Nose bleeding, Sore throat. RespiratoryDenies: Cough, productive, Shortness of breath. CardiovascularDenies: Chest pain, Palpitations. GIReports: Abdominal pain, Nausea, Vomiting. Denies: Bloody/tarry stool, Diarrhea. FemaleDenies: Dysuria, Flank pain. MusculoskeletalDenies: Back pain. HematologicDenies: Bleeding. SkinDenies: Rash. NeurologicDenies: Headache. Past Medical History - AdultStated Complaint NUMBNESS, WEAKNESSAllergiesCoded Allergies:Sulfa (Sulfonamide Antibiotics) (SWOLLEN THROAT, BLISTERS 02/11/20) Home MedicationsReported MedicationsLisinopril (Zestril) 20 MG PO DAILY Amlodipine (Norvasc) 10 MG PO DAILY Metoprolol Tartrate (Lopressor) 25 MG PO BID Omeprazole Er (Prilosec) 40 MG PO DAILY Fluticasone Propionate/Salmeterol (Advair Diskus 100/50 Mcg/Act) Alprazolam (Xanax) 1 MG PO BID PRN ANXIETY Hydrocodone/Apap (Hydrocodone/Apap 2.5-108 Mg/5ML) 10 MG PO TID PRN PAIN SCALE 4-6 Montelukast (Singulair) 10 MG PO DAILY Additional Medical HistoryHTN, arrhythmias, anxiety, pneumoniaAdditional Surgical HistoryGastric sleeve, tubal ligationAlcohol Use Denies EtOH useSmoking status for patients 13 years old or older: Never Smoker Physical Exam Vital SignsVital SignsFirst Documented: Result Date Time Pulse Ox 100 03/20 1245 B/P 107/40 03/20 1245 B/P Mean 62 03/20 1245 O2 Delivery Room air 03/20 1245 Temp 36.9 03/20 1245 Pulse 66 03/20 1245 Resp 14 03/20 1245 Last Documented: Result Date Time Pulse Ox 99 03/20 1415 B/P 110/59 03/20 1415 B/P Mean 76 03/20 1415 O2 Delivery Room air 03/20 1415 Pulse 64 / 1415 Resp 14 03/20 1415 Temp 36.9 04 1245 Review of Vital Signs Reviewed, Vital signs normal Physical ExamGeneral/Const General/Const Awake, Alert, No acute distress, Well appearing, CooperativeMS Head Head Atraumatic, NormocephalicEars/Nose/Throat Ears/Nose/Throat Airway patent, Mucous membranes moistMS Neck Neck Supple, No meningismusResp/Chest Respiratory/Chest Breath sounds NL, Breath sounds = bilat, No respiratory distress, No rales, No wheezingCardiovascular Cardiovascular Heart rate NL, Regular rhythm, Heart sounds NL, No gallop, No rubsAbdomen/GI Abdomen/GI Some mild epigastric and periumbilical tenderness. Patient had gastric sleeve and umbilical hernia repaired 03/17. Incision sites closed, clean, dry. No surrounding erythema/warmth. No guarding/rigidity anywhere. MS Upper Extrem Upper Extremity/MS Inspection NL, Full range of motionMS Lower Extrem Lower Ext/Pelvis/MS Inspection NL, Full range of motion, No swelling, Non-tender Interpretation Diagnostics Lab Results InterpretationResultsLaboratory Tests 03/20/20 1300:[Embedded Image Not Available]Laboratory Tests: 03/20 1300 Chemistry Sodium (136 - [...] 1+ H Re-Evaluation MDM Free Text MDM NotesAdditional TextPhysical examination as above. Patient is pain-free while resting in the hospital bed, and only has some mild tenderness which has decreased over the last several days consistent with normal postoperative pain, upon palpation of abdomen. Main complaint is reflux after solid or liquid ingestion. Labs obtained showing mild leukocytosis which may be reactive. LFTs unremarkable, AST minimally bumped at 44, will continue to trend in the hospital. Most significantly, creatinine elevated 2.0. This is new. As patient is unable to tolerate p.o. intake, we will admit for IV hydration and trending of creatinine and LFTs as well as serial exams as necessary. Discussed case with Dr. Anthony Friedman. He is agreeable to plan. Patient admitted to Dr. White for further management/workup. Re-Evaluation/Progress #1Text/Dict NoteResting comfortably in bed. No pain currently while laying still. States she does have some epigastric pain whenever she moves.Time of Re-Eval 1351 ED CourseMedication(s) OrderedMedication(s) Ordered:Central Nervous System Agents Sig/Antwon Start time Last Medication Dose Route Stop Time Status Admin Morphine Sulfate 2 MG X1ED STA 03/20 1313 DC 03/20 IV 03/20 1314 1320 Morphine Sulfate [...] 4 MG X1ED STA 03/20 1257 DC / IV 03/20 1258 1314 Patient Discharge Departure Vital Signs/ConditionVital SignsFirst Documented: Result Date Time Pulse Ox 100 03/20 1245 B/P 107/40 03/20 1245 B/P Mean 62 03/20 1245 O2 Delivery Room air 03/20 1245 Temp 36.9 03/20 1245 Pulse 66 03/20 1245 Resp 14 03/20 1245 Last Documented: Result Date Time Pulse Ox 99 03/20 1415 B/P 110/59 03/20 1415 B/P Mean 76 03/20 1415 O2 Delivery Room air 03/20 1415 Pulse 64 / 1415 Resp 14 03/20 1415 Temp 36.9 03/20 1245 All vital signs available at the time of this entry have been reviewed. Clinical ImpressionClinical ImpressionPrimary Impression: Postoperative complicationSecondary Impressions: Epigastric discomfort, Nausea and vomiting, Reflux involving intestinal tract Disposition DecisionAdmit Admit Physician Name Rodo White MD )( Admission Accepts Yes )( Accepted Time 1509 )( Accepted Date 03/20/20 Discharge/Care PlanReferralsNerDru villagomez MD (PCP/Family) at 0720RPT #:[id number] OF REPORTEDEmergency department rgyuia7224-77-83Q00:59:00P.IPTH32237282-6655WGIohjo able for patient iqceITNLSXHAMMHLDX9470-13-08E19:20:[address] [facility] 2020-03-20 09:14:00 OIspfjigatw41033002eODACcclhUUCR4EdGWDI0 7y9xsmGDrC0 Uhsig8c045TndbhdFE22f6pLKG9lSCku7455-46-81O87:14:00 [id number] [facility] [address] [place] [address] PATIENT NAME: FUNMI JARQUIN ADMIT DATE: 03/17/20ACCOUNT NO: [id number] ROOM NO: P.0572 AGE: 59 REPORT TYPE: OPERATIVE REPORT SEX: F ADMITTING PHYSICIAN:Anthony Friedman MD ATTENDING PHYSICIAN:Anthony Friedman MD OPERATION DATE: 03/17/2020 PREOPERATIVE DIAGNOSIS: Pain, status post laparoscopic gastric sleeve. POSTOPERATIVE DIAGNOSIS: Pain, status post laparoscopic gastric sleeve. PROCEDURE PERFORMED: Placement of infusion catheter into the abdominal wall x2. SURGEON: Anthony Friedman M.D. PORT PURSER: ANESTHESIA: General endotracheal. ESTIMATED BLOOD LOSS: None. INDICATIONS FOR PROCEDURE: The patient is a 59-year-old woman who underwent alaparoscopic sleeve gastrectomy that requires multiple port placements in themid abdomen. It causes significant amount of postoperative pain. The patientis also morbidly obese, causing an increased risk for deep vein thrombosis andpneumonia related to postoperative pain. PROCEDURE IN DETAIL: After the laparoscopic sleeve gastrectomy was completed, Ipassed two dilators and sheaths through a left subcostal skin incision into theabdominal wall and passed the sheaths down to the umbilical area. I removed thedilators, leaving the sheaths in place. I passed the catheters into the sheathsand removed the sheaths, leaving the catheters in place in the abdominal wall. Dictated By: Anthony Friedman MD WT: OP:P.YOLANDA/KETTY/NTSDD: 03/20/2020 09:14:40DT: 03/20/2020 10:05:11Conf#: [id number]/DID#: [id number] Authenticated by Anthony Friedman MD On 04/07/2020 10:28:33 AM at 1028 PATIENT NAME: FUNMI JARQUINL kmvfys9774-16-62U63:05:00P.ICO90185518-7833HTGkipch ble for patient trfhFIZDDMIZYVZUXV0113-40-73K99:29:[address] [facility] 2020-03-20 09:13:00 JSrrwfhwxfy25289768zfSQxDIb7kZp+PkeuPa0p GJTA3zAH5vC LMjjZTz7nikJvbyRxCwvxYcFl5vCEjD94989-66-45P16:13:00 [id number] [place] [address] PATIENT NAME: FUNMI JARQUIN MICK ADMIT DATE: 03/17/20ACCOUNT NO: [id number] ROOM NO: [facility]72 AGE: 59 REPORT TYPE: OPERATIVE REPORT SEX: F ADMITTING PHYSICIAN:Anthony Friedman MD ATTENDING PHYSICIAN:Anthony Friedman MD OPERATION DATE: 03/17/2020 PROCEDURES PERFORMED:1. Laparoscopic sleeve gastrectomy.2. Laparoscopic umbilical hernia repair.3. Laparoscopic wedge liver biopsy.4. Laparoscopic omentopexy.5. Esophagogastroduodenoscopy PREOPERATIVE DIAGNOSES:1. Gastroesophageal reflux disease.2. Hypertension.3. Morbid obesity. POSTOPERATIVE DIAGNOSES:1. Gastroesophageal reflux disease.2. Hypertension.3. Morbid obesity.4. Umbilical hernia.5. Hepatomegaly. SURGEON: Anthony Friedman MD TRUCK LOADER: Arcelia Aj, licensed surgical lead. ANESTHESIA: General endotracheal with local. ESTIMATED BLOOD LOSS: Minimal. INDICATION FOR PROCEDURE: The patient is a 59-year-old woman with a history ofgastroesophageal reflux disease and hypertension related to her morbid obesity. The patient has a body mass index of 41. The patient was also found to have a 1cm umbilical hernia and hepatomegaly on inspection of the abdomen during theoperation. PROCEDURE IN DETAIL: The patient was given preoperative IV antibiotics andsubcutaneous heparin. Patient was brought in the operating room and placed onthe operating table in the supine position. Sequential compression devices wereapplied to both legs and activated. The patient was placed on generalendotracheal anesthesia. The patient abdomen was sterilely prepped and draped. We injected the skin and subcutaneous tissues over the left lateral subcostalarea with Marcaine. We made a 5-mm incision with the scalpel. We passed a 5-mmoptical trocar through the abdominal wall using a laparoscope to visualize each PATIENT NAME: FUNMI JARQUIN MICK layer of the abdominal wall as the port was inserted and insufflated the abdomento 15 mmHg pressure of CO2. We placed a 15-mm port and a 5-mm port at theumbilicus and a 5-mm port on the right lateral subcostal area under directlaparoscopic vision using Marcaine for local anesthesia. We used the LigaSuredevice to dissect the greater omentum off of the greater curvature of thestomach from 3 cm proximal to the pylorus up to the angle of His. We dissectedthe gastric fat pad off of the proximal stomach. We also looked at theesophageal hiatus and found there to be no significant hiatal hernia present. We inserted a 40-Jamaican bougie in the mouth, passed it down the esophagus andinto the stomach. We positioned the bougie along the lesser curvature with thetip of the bougie at the pylorus. We placed a laparoscopic Covidien staplerwith a 60 mm black load and Connie-Strip staple line reinforcement on the stomach3 cm proximal to the pylorus and directing the stapler towards the angle of His,bringing the stapler adjacent to the bougie. After firing the first staplerload, we continued firing the laparoscopic Covidien stapler with 60 mm blackloads and Connie-Strip staple line reinforcement along the bougie until thestomach was completely divided up to the angle of His, leaving a 1 cm segment ofstomach between the esophagus and the staple line. We removed the bougie andinserted an upper endoscope into the mouth, passed it down the esophagus andinto the gastric sleeve. We inflated the gastric sleeve with air through theendoscope and passed saline over the staple line and we saw no leakage of airfrom the staple line. The inside of the sleeve was hemostatic and properlyconstructed. We removed the upper endoscope. We irrigated and suctioned theabdomen, sharp and burning. It was found to be hemostatic. We sutured theomentum to the lateral aspect of the spleen with a 2-0 Vicryl suture to keep theskin straight. We removed the partial stomach specimen from the abdomen throughthe 15 mm port site and we closed the fascial opening of the 15-mm port sitewith a suture passer and #1 Vicryl suture under direct laparoscopic vision. Wedeflated the abdomen and removed the ports. We closed the skin incisions with4-0 Monocryl suture in a subcuticular fashion. We applied Dermabond to thewounds. The patient was awakened from general anesthesia, extubated, and takento the PACU in stable condition. ADDENDUM: Prior to completion of the sleeve gastrectomy, we removed a smallpiece of the liver edge from the left lateral segment of the liver using theLigaSure device. The liver specimen was sent to pathology. We placed a 15-mmport through the umbilical hernia defect at the beginning of the operation andat the end of operation, we removed the 15-mm port and #1 Ethibond suture acrossthe hernia defect in a rpnhwq-bs-wvvnj fashion using the suture passer. Dictated By: Anthony Friedman MD WT: OP:P.YOLANDA/KETTY/MILESDD: 03/20/2020 09:13:57DT: 03/20/2020 10:13:52Conf#: [id number]/DID#: [id number] Authenticated by Anthony Friedman MD On 04/07/2020 10:29:05 AM at 1029 PATIENT NAME: FUNMI JARQUIN vxbqon8607-69-68Y06:13:00P.VIM73663145-1508TAFowllm ble for patient clagQWYNDPLTAVJCGA2096-17-08C71:29:[address] [facility] 2020-03-18 09:02:00 UFdsuzvhfsb39948007z8GKZXhNLU3AU53QjE/HG fkvKvnsUv6w YAI1PGQOH/0xw5o2s9qGsRPAaJRZ7UtC3025-41-87K88:02:00 [id number] [facility] [address] [place] [address] PATIENT NAME: FUNMI JARQUIN ADMIT DATE: 03/17/20ACCOUNT NO: [id number] ROOM NO: P.0572 AGE: 59 REPORT TYPE: DISCHARGE SUMMARY SEX: F ADMITTING PHYSICIAN:Anthony Friedman MD ATTENDING PHYSICIAN:Anthony Friedman MD ADMISSION DATE: 03/17/2020DISCHARGE DATE: 03/18/2020 HISTORY AND HOSPITAL COURSE: The patient is a 59-year-old woman, who underwenta laparoscopic sleeve gastrectomy and umbilical hernia repair. She had anuneventful postoperative course and was discharged home on postoperative day #1on a bariatric liquid diet. Please see her home medication reconciliation formfor other medications. She will follow up with us in 2 weeks. Dictated By: Anthony Friedman MD WT: DS:P.YOLANDA/KETTY/MILESDD: 03/18/2020 09:02:36DT: 03/19/2020 01:03:52Conf#: [id number]/DID#: [id number] Authenticated by Anthony Friedman MD On 04/07/2020 10:28:32 AM at 1028 PATIENT NAME: FUNMI JARQUIN [id number]:03:00P.[id number] able for patient cfhjWYAEUSIERKAVRV6205-50-36P92:29:[address] [facility] 2020-03-09 11:07:00 [id number] lo/kjIXjmoi oimcIwTQBc0eAKEmE8ahxCrq3VYXYZPb7111-99-18G79:07:00 [id number] [address]JCSZBEX NAME: FUNMI JARQUIN ADMIT DATE: 03/17/20ACCOUNT NO: [id number] ROOM NO: [facility] AGE: 59 REPORT TYPE: eELECTROCARDIOGRAM SEX: F ADMITTING PHYSICIAN: Anthony Friedman MD ATTENDING PHYSICIAN: Anthony Friedman MD Order:[id number] Reason : SDS Test Date/Time Stamp:MonMar 09 2020 11:07:32Blood Pressure : / mmHGVent. Rate : 075 BPM Atrial Rate : 075 BPM P-R Int : 160 ms QRS Dur : 080 ms QT Int : 420 ms P-R-T Axes : 071 072 053 degrees QTc Int : 469 ms Normal sinus rhythmPossible Left atrial enlargementBorderline ECGNo previous ECGs availableConfirmed by KP DWYER ([id number]) on 03/17/2020 2:01:50 PM Referred By: Anthony Friedman Confirmed by:KP DWYER at 1402 PATIENT NAME: FUNMI JARQUIN .[id number] Available for patient [id number]:02:[address] [facility] 2020-02-14 13:51:00 [id number]/kC54swmqs2Q sFu3vTMBJTF vwXLD1szteY7Lnj/ualA0FwW0bBDawRl4507-36-55E94:51:00 [id number] [facility] [address] [place] [address] PATIENT NAME: FUNMI JARQUIN ADMIT DATE: 02/14/20ACCOUNT NO: [id number] ROOM NO: AGE: 59 REPORT TYPE: ENDOSCOPY REPORT SEX: F ADMITTING PHYSICIAN: ATTENDING PHYSICIAN:Anthony Friedman [facility] Name: Milka Choudhary Attending MD: Renzo Angeles Date: 02/14/2020 1:51 PM Number: [id number] Date of : 1960dmit Type: Preadmit Age: 59Room: Room 1 Gender: FemaleNote Status: Finalized Procedure: Upper GI endoscopyPre Procedure Diagnosis: HeartburnAssistants: Anthony Friedman MD, Bailee Ervin RN (Nurse), Lorenzo Pereira, Sheet Metal Installer, Damir Ramirez MD: Anthony Friedman MDAnesthesia: General AnesthesiaProcedure: Pre-Anesthesia Assessment: - Prior to the procedure, a History and Physical was performed, and patient medications and allergies were reviewed. The patient is competent. The risks and benefits of the procedure and the sedation options and risks were discussed with the patient. All questions were answered and informed consent was obtained. Patient identification and proposed procedure were verified by the physician, the nurse and the anesthesiologist in the procedure room. Mental Status Examination: alert and oriented. Airway Examination: normal oropharyngeal airway and neck mobility. Respiratory Examination: clear to auscultation. CV Examination: normal. Prophylactic Antibiotics: The patient does not require prophylactic antibiotics. Prior Anticoagulants: The patient has taken no previous anticoagulant or antiplatelet agents. ASA Grade Assessment: III - A patient with severe systemic disease. After reviewing the risks and benefits, the patient was deemed in satisfactory condition to undergo the procedure. The anesthesia plan was to use general anesthesia. Immediately prior to administration of medications, the patient was re-assessed for adequacy to receive sedatives. The PATIENT NAME: FUNMI JARQUIN heart rate, respiratory rate, oxygen saturations, blood pressure, adequacy of pulmonary ventilation, and response to care were monitored throughout the procedure. The physical status of the patient was re-assessed after the procedure. The benefits, risks, and alternatives to the procedure were discussed and informed consent was obtained from the patient. I've assesed the patient on this date and reviewed the medical history, drug history, and previous anesthesia experience. After obtaining informed consent, the scope was passed under direct vision. Throughout the procedure, the patient's blood pressure, pulse, and oxygen saturations were monitored continuously.s were monitored continuously. The Endosonoscope was introduced through the mouth, and advanced to the second part of duodenum. The upper GI [...] examined duodenum was normal. Complications: No immediate complications.Estimated Blood Loss: Post Procedure Diagnosis: - Normal esophagus. - Gastritis. Biopsied. - Normal examined duodenum.Recommendation: - Discharge patient to home. - Await pathology results. Anthony Friedman MD Anthony Friedman MD02/14/2020 2:31:11 PMThis report has been signed electronically.Number of Addenda: 0 Note Initiated On: 02/14/2020 1:51 PMProcedure Date: 02/14/2020 1:51:31 PMProvation {[id number]}.pdf ProVation FT PDF at 1431 PATIENT NAME: FUNMI JARQUINL [id number]:31:00P.[id number] able for patient qakeJOYZOGCSYNDIAR5703-11-74G48:31:[address] [facility] 2020-02-14 13:50:00 [id number]/lzwE2jS 3BOYUoIVMZa CMkTJISoCAmk2UHmzTGQGf5lHIvr2scX5425-05-11D10:50:00 [id number] [facility] [address] [place] [address] PATIENT NAME: FUNMI JARQUIN ADMIT DATE: 02/14/20ACCOUNT NO: [id number] ROOM NO: AGE: 59 REPORT TYPE: ENDOSCOPY REPORT SEX: F ADMITTING PHYSICIAN: ATTENDING PHYSICIAN:Anthony Friedman MD [facility] Name: Milka Funmi Attending MD: Anthony Friedman [facility] Date: 02/14/2020 1:50 PM Number: [id number] Date of : 1960dmit Type: Preadmit Age: 59Room: Room 1 Gender: FemaleNote Status: Finalized Procedure: ColonoscopyPre Procedure Diagnosis: Screening for colorectal malignant neoplasmAssistants: Anthony Friedman MD, Bailee Ervin, RN (Nurse), Lorenzo Pereira, Sheet Metal Installer, Damir Ramirez MD: Anthony Friedman MDAnesthesia: General AnesthesiaIntroduction: Refer to note in patient chart for documentation of history and physical.Procedure: Pre-Anesthesia Assessment: - Prior to the procedure, a History and Physical was performed, and patient medications and allergies were reviewed. The patient is competent. The risks and benefits of the procedure and the sedation options and risks were discussed with the patient. All questions were answered and informed consent was obtained. Patient identification and proposed procedure were verified by the physician, the nurse and the anesthesiologist in the procedure room. Mental Status Examination: alert and oriented. Airway Examination: normal oropharyngeal airway and neck mobility. Respiratory Examination: clear to auscultation. CV Examination: normal. Prophylactic Antibiotics: The patient does not require prophylactic antibiotics. Prior Anticoagulants: The patient has taken no previous anticoagulant or antiplatelet agents. ASA Grade Assessment: III - A patient with severe systemic disease. After reviewing the risks and benefits, the patient was deemed in satisfactory condition to undergo the procedure. The anesthesia plan was to use general anesthesia. Immediately prior to PATIENT NAME: FUNMI JARQUIN administration of medications, the patient was re-assessed for adequacy to receive sedatives. The heart rate, respiratory rate, oxygen saturations, blood pressure, adequacy of pulmonary ventilation, and response to care were monitored throughout the procedure. The physical status of the patient was re-assessed after the procedure. The benefits, risks, and alternatives to the procedure were discussed and informed consent was obtained from the patient. I've assesed the patient on this date and reviewed the medical history, drug history, and previous anesthesia experience. After obtaining informed consent, the scope was passed under direct vision. Throughout the procedure, the patient's blood pressure, pulse, and oxygen saturations were monitored continuously. The Colonoscope was introduced through the anus and advanced to the cecum, identified by the ileocecal valve. The colonoscopy was performed without difficulty. The patient tolerated the procedure well. The quality of the bowel preparation was adequate. Post Procedure Findings: The perianal and digital rectal examinations were normal. A localized area of mildly erythematous mucosa was found in the distal rectum. Biopsies were taken with a cold forceps for histology. Verification of patient identification for the specimen was done by the nurse using the patient's name and date. Estimated blood loss was minimal. The exam was otherwise without abnormality on direct and retroflexion views. Complications: No immediate complications.Estimated Blood Loss: Post Procedure Diagnosis: - A localized area of mildly erythematous mucosa was found in the distal rectum. Biopsies were taken with a cold forceps for histology. Verification of patient identification for the specimen was done by the nurse using the patient's name and date. Estimated blood loss was minimal. - The exam was otherwise without abnormality on direct and retroflexion views.Recommendation: - Discharge patient to home. - Repeat colonoscopy in 5 years for screening purposes. Anthony Friedman MD Anthony Friedman MD02/14/2020 2:41:07 PMThis report has been signed electronically.Number of Addenda: 0 PATIENT NAME: FUNMI JARQUIN MICK Note Initiated On: 02/14/2020 1:50 PMProcedure Date: 02/14/2020 1:50:55 PMProvation {[id number]}.pdf ProVation FT PDF at 1441 PATIENT NAME: MILKAFUNMI MICK [id number]:41:00P.[id number] able for patient jqshPMFYOCLHZCBXWI5641-05-05N48:41:[address] [facility]
[2023-10-12] MEDS ORDERED: FLUORESCEIN SODIUM 1 MG/WRAP ONE (18:08)
[2023-10-12] MEDS ORDERED: TETRACAINE HCL 0.5% 4ML OPTH ONE (18:08)
--- NOTE | 2023-10-12 18:35 | ER ---
Nurse's Notes [facility] Name: Funmi Stoner Age: 63 yrs Sex: Female : 1960 Arrival Date: 10/12/2023 Time: 16:43 Bed 9 Private MD: Vini Sanches Diagnosis: Bilateral corneal abrasion Presentation: 10/11 17:09 Chief complaint: Patient states: was cleaning apt and some gnats flew into eyes a ko1 couple of days ago, now there is "stuff like gel coming out", it hurts. Coronavirus screen: At this time, the client does not indicate any symptoms associated with coronavirus-19. Ebola Screen: No symptoms or risks identified at this time. Initial Sepsis Screen: Does the patient meet any 2 criteria? No. Patient's initial sepsis screen is negative. Does the patient have a suspected source of infection? No. Patient's initial sepsis screen is negative. Risk Assessment: Do you want to hurt yourself or someone else? Patient reports no desire to harm self or others. Onset of symptoms is unknown. 17:09 Method Of Arrival: Wheelchair ko1 17:09 Acuity: LINDSAY 4 ko1 Triage Assessment: 17:11 General: Appears distressed, uncomfortable, Behavior is appropriate for age. Pain: ko1 Complains of pain in right eye and left eye. Historical: - Allergies: 17:11 Sulfa (Sulfonamide Antibiotics); ko1 - PMHx: 17:11 Anxiety; Diabetes - NIDDM; Panic Attacks; Rheumatoid Arthritis; Irregular heart rate; ko1 Myocardial infarction; Hypertension; hot flashes; Heart Valve problem; Asthma; - PSHx: 17:11 back; neck; Weight loss surgery; ko1 - Immunization history:: Adult Immunizations unknown. - Social history:: Smoking status: Patient denies any tobacco usage or history of. - Family history:: not pertinent. Screenin:30 [facility] ED Fall Risk Assessment (Adult) History of falling in the last 3 months, kd3 including since admission No falls in past 3 months (0 pts) Confusion or Disorientation No (0 pts) Intoxicated or Sedated No (0 pts) Impaired Gait No (0 pts) Mobility Assist Device Used No (0 pt) Altered Elimination No (0 pt) Score/Fall Risk Level 0 - 2 = Low Risk Oriented to surroundings. Abuse screen: Denies threats or abuse. Denies injuries from another. Nutritional screening: No deficits noted. Tuberculosis screening: No symptoms or risk factors identified. Assessment: 19:31 General: Appears in no apparent distress. Behavior is calm, cooperative. Neuro: Level kd3 of Consciousness is awake, alert, obeys commands, Oriented to person, place, time, situation. Respiratory: Airway is patent Trachea midline Respiratory effort is even, unlabored, Respiratory pattern is regular, symmetrical. Vital Signs: 17:09 BP 120 / 79; Pulse 87; Resp 18; Temp 97.5; Pulse Ox 100% ; ko1 ED Course: 16:44 Patient arrived in ED. mr 16:44 Vini Sanches DO is Private Physician. mr 16:59 Duke Hall MD is Attending Physician. rt 17:11 Triage completed. ko1 17:11 Arm band placed on right wrist. Patient placed in waiting room, in a wheelchair, ko1 Patient notified of wait time. 19:18 Laura Wong RN is Primary Nurse. kd3 19:30 Patient has correct armband on for positive identification. Provided Education on: . kd3 19:30 No provider procedures requiring assistance completed. Patient did not have IV access kd3 during this emergency room visit. Administered Medications: 18:35 Drug: Tetracaine Ophthalmic Drops 0.5 % 1 drops Ophthalmic once {Note: administered by veronique CENTENO during eye exam .} Route: Ophthalmic; Site: both eyes; Medication: 19:30 VIS not applicable for this client. kd3 Outcome: 18:34 Discharge ordered by MD. rt 19:18 Patient left the ED. kd3 19:30 Discharged to home ambulatory, kd3 19:30 Condition: stable 19:30 Discharge instructions given to patient, Instructed on discharge instructions, follow up and referral plans. Signatures: Jackelyn Borja, Reg Reg mr Tasneem Julian RN RN aa5 Doucette, Kyli, RN RN kd3 Mae Chong RN RN ko1 Duke Hall MD MD rt
--- NOTE | 2023-10-12 18:35 | EDPHYS ---
Physician Documentation [facility] Name: Funmi Stoner Age: 63 yrs Sex: Female : 1960 Arrival Date: 10/12/2023 Time: 16:43 Bed 9 Private MD: Vini Sanches ED Physician Duke Hall HPI: 10/11 18:52 This 63 yrs old Black Female presents to ER via Wheelchair with complaints of Eye rt Problem. 18:52 Patient presents to the ED with injury to both eyes. Patient states that a few days rt ago, she was cleaning, when a bunch of gnats flew into both of her eyes. She has been rubbing it since then. She reports that clearish discharge from the eye. Has foreign body sensation. Denies other acute complaints at this time, symptoms are mild in severity, no other aggravating or alleviating factors.. Historical: - Allergies: 17:11 Sulfa (Sulfonamide Antibiotics); ko1 - PMHx: 17:11 Anxiety; Diabetes - NIDDM; Panic Attacks; Rheumatoid Arthritis; Irregular heart rate; ko1 Myocardial infarction; Hypertension; hot flashes; Heart Valve problem; Asthma; - PSHx: 17:11 back; neck; Weight loss surgery; ko1 - Immunization history:: Adult Immunizations unknown. - Social history:: Smoking status: Patient denies any tobacco usage or history of. - Family history:: not pertinent. ROS: 18:52 Constitutional: Negative for fever, chills, and weight loss, Cardiovascular: Negative rt for chest pain, palpitations, and edema, Respiratory: Negative for shortness of breath, cough, wheezing, and pleuritic chest pain, Abdomen/GI: Negative for abdominal pain, nausea, vomiting, diarrhea, and constipation, Skin: Negative for injury, rash, and discoloration, Neuro: Negative for headache, weakness, numbness, tingling, and seizure, Psych: Negative for depression, anxiety, suicide ideation, homicidal ideation, and hallucinations, 18:52 Eyes: Positive for pain, redness, Exam: 18:52 Constitutional: This is a well developed, well nourished patient who is awake, alert, rt and in no acute distress. Head/Face: Normocephalic, atraumatic. Chest/axilla: Normal chest wall appearance and motion. Nontender with no deformity. No lesions are appreciated. Cardiovascular: Regular rate and rhythm with a normal S1 and S2. No gallops, murmurs, or rubs. Normal PMI, no JVD. No pulse deficits. Respiratory: Lungs have equal breath sounds bilaterally, clear to auscultation and percussion. No rales, rhonchi or wheezes noted. No increased work of breathing, no retractions or nasal flaring. Abdomen/GI: Soft, non-tender, with normal bowel sounds. No distension or tympany. No guarding or rebound. No evidence of tenderness throughout. Skin: Warm, dry with normal turgor. Normal color with no rashes, no lesions, and no evidence of cellulitis. MS/ Extremity: Pulses equal, no cyanosis. Neurovascular intact. Full, normal range of motion. Neuro: Awake and alert, GCS 15, oriented to person, place, time, and situation. Cranial nerves II-XII grossly intact. Motor strength 5/5 in all extremities. Sensory grossly intact. Cerebellar exam normal. Normal gait. 18:52 Eyes: Extraocular muscles are intact, pupils equally round and reactive to light, mild conjunctival injection, there is small areas of fluorescein uptake bilateral. Chelsea sign is negative. Mild edema noted to both of the eyelids.. Vital Signs: 17:09 BP 120 / 79; Pulse 87; Resp 18; Temp 97.5; Pulse Ox 100% ; ko1 MDM: 17:11 Patient medically screened. rt 18:52 Differential diagnosis: Foreign body, corneal abrasion. Data reviewed: vital signs, rt nurses notes. Counseling: I had a detailed discussion with the patient and/or guardian regarding the historical points, exam findings, and any diagnostic results supporting the discharge/admit diagnosis, the need for outpatient follow up, to return to the emergency department if symptoms worsen or persist or if there are any questions or concerns that arise at home. Response to treatment: the patient's symptoms have markedly improved after treatment. ED course: No foreign bodies identified, eyelids were everted, no foreign body seen.. 10/11 17:11 Order name: Eye Tray; Complete Time: 18:43 rt 10/11 17:11 Order name: Fluoresene Opth strip; Complete Time: 18:43 rt Administered Medications: 18:35 Drug: Tetracaine Ophthalmic Drops 0.5 % 1 drops Ophthalmic once {Note: administered by veronique CENTENO during eye exam .} Route: Ophthalmic; Site: both eyes; Disposition Summary: 10/12/23 18:34 Discharge Ordered Notes: Location: Home rt Problem: new rt Symptoms: have improved rt Condition: Stable rt Diagnosis - Bilateral corneal abrasion rt Followup: rt - With: Private Physician - When: 2 - 3 days - Reason: Discharge Instructions: - Discharge Summary Sheet rt - Corneal Abrasion rt Forms: - Medication Reconciliation Form rt - Thank You Letter rt - Antibiotic Education rt - Prescription Opioid Use rt - Patient Portal Instructions rt - Leadership Thank You Letter rt Prescriptions: - Erythromycin 5 mg/gram (0.5 %) Ophthalmic ointment - apply 1 centimeter OPHTHALMIC route 2-3 times daily for 7 days; 1 Each; rt Refills: 0, Product Selection Permitted Signatures: Tasneem Julian RN RN aa5 Mae Chong RN RN ko1 Duke Hall MD MD rt
[2023-10-12 19:39] VITALS: BP 120/79; TEMP 97.5; O2SAT 100
== END 2023-10-12 19:18 | disposition home or self-care (01) ==
LOC: ER 16:43
DX: S05.02XA Injury of conjunctiva and corneal abrasion without foreign body, left eye, initial encounter (principal); S05.01XA Injury of conjunctiva and corneal abrasion without foreign body, right eye, initial encounter; Z88.2 Allergy status to sulfonamides
CPT/HCPCS: 99283

== ENCOUNTER 2024-04-09 18:11 | Emergency (ER) | payer OTHER ==
[2024-04-09] MEDS ORDERED: FLUORESCEIN SODIUM 1 MG/WRAP ONE (18:25)
[2024-04-09] MEDS ORDERED: TETRACAINE HCL 0.5% 4ML OPTH ONE (18:26)
--- NOTE | 2024-04-09 18:41 | EDPHYS ---
Physician Documentation [facility] Name: Funmi Stoner Age: 63 yrs Sex: Female : 1960 Arrival Date: 04/09/2024 Time: 18:11 Bed 8 Private MD: ED Physician Meir Irene HPI: 04/09 18:38 This 63 yrs old Black Female presents to ER via Wheelchair with complaints of Foreign rn Body In Eye. 18:38 The patient is experiencing pain, tearing. rn 18:38 Onset: The symptoms/episode began/occurred yesterday. Duration: the symptoms are rn continuous. Aggravated by closing eye, pressure, rubbing, Alleviated by nothing. Severity of symptoms: At their worst the symptoms were moderate in the emergency department the symptoms are unchanged. The patient has experienced similar episodes in the past. Patient reports things got something in left eye. Began yesterday after messing with her lashes. Is not sure if glue and I or scraped eyeball. Has had this before with scrapes. Also recalls possibly getting hair dye or chemical and left eye when washing her hair dye off. No loss of vision. Reports watery drainage and foreign body sensation.. Historical: - Allergies: 18:21 Sulfa (Sulfonamide Antibiotics); ko1 - PMHx: 18:21 Anxiety; Asthma; Diabetes - NIDDM; Heart Valve problem; hot flashes; Hypertension; ko1 Irregular heart rate; Myocardial infarction; Panic Attacks; Rheumatoid Arthritis; - PSHx: 18:21 back; neck; Weight loss surgery; ko1 - Immunization history:: Adult Immunizations unknown. - Infectious Disease History:: Denies. - Social history:: Smoking status: Patient denies any tobacco usage or history of. - Family history:: not pertinent. - Hospitalizations: : No recent hospitalization is reported. ROS: 18:38 Constitutional: Negative for fever, chills, and weight loss, Eyes: Positive for rn drainage and pain to left eye Exam: 18:38 Constitutional: This is a well developed, well nourished patient who is awake, alert, rn and in no acute distress. Eyes: Conjunctival injection with mild edema. No foreign body noted. No abnormal fluorescein uptake. Negative Chelsea sign. Pupils equally round reactive to light. No hyphema. No hypopyon. Vital Signs: 18:17 BP 140 / 82; Pulse 76; Resp 18; Temp 97.8; Pulse Ox 100% ; ko1 19:06 BP 136 / 75; Pulse 78; Resp 16; Temp 98; Pulse Ox 100% ; me1 MDM: 18:14 Patient medically screened. rn 18:38 Differential diagnosis: Corneal ulcer of Foreign body in Data reviewed: vital signs, rn nurses notes, and as a result, I will discharge patient. Counseling: I had a detailed discussion with the patient and/or guardian regarding the historical points, exam findings, and any diagnostic results supporting the discharge/admit diagnosis, the need for outpatient follow up, to return to the emergency department if symptoms worsen or persist or if there are any questions or concerns that arise at home. Special discussion: I discussed with the patient/guardian in detail that at this point there is no indication for admission to the hospital. It is understood, however, that if the symptoms persist or worsen the patient needs to return immediately for re-evaluation. Administered Medications: No medications were administered Disposition Summary: 04/09/24 18:41 Discharge Ordered Notes: Location: Home rn Problem: new rn Symptoms: have improved rn Condition: Stable rn Diagnosis - Unspecified conjunctivitis rn Followup: rn - With: Private Physician - When: As needed - Reason: Recheck today's complaints, Re-evaluation by your physician Discharge Instructions: - Discharge Summary Sheet rn - Chemical Conjunctivitis, Adult rn Forms: - Medication Reconciliation Form rn - Antibiotic rn digestive - Prescription Opioid Use rn - Patient Portal Instructions rn - Leadership Thank You Letter rn Prescriptions: - Vigamox 0.5 % Ophthalmic Drops - instill 1 drop OPHTHALMIC route every 8 hours for 7 days; 5 milliliter; rn Refills: 0, Product Selection Permitted Signatures: Meir Irene MD MD rn Oliver, Kathy, RN RN ko1
--- NOTE | 2024-04-09 18:41 | ER ---
Nurse's Notes [facility] Name: Funmi Stoner Age: 63 yrs Sex: Female : 1960 Arrival Date: 04/09/2024 Time: 18:11 Bed 8 Private MD: Diagnosis: Unspecified conjunctivitis Presentation: 04/09 18:17 Chief complaint: Patient states: something in left eye, not sure of what it is, started ko1 yesterday and worse today. Coronavirus screen: At this time, the client does not indicate any symptoms associated with coronavirus-19. Ebola Screen: No symptoms or risks identified at this time. Initial Sepsis Screen: Does the patient meet any 2 criteria? No. Patient's initial sepsis screen is negative. Does the patient have a suspected source of infection? No. Patient's initial sepsis screen is negative. Risk Assessment: Do you want to hurt yourself or someone else? Patient reports no desire to harm self or others. Onset of symptoms was April 08, 2024. 18:17 Method Of Arrival: Wheelchair ko1 18:17 Acuity: LINDSAY 4 ko1 Triage Assessment: 18:21 General: Appears in no apparent distress. uncomfortable, Behavior is cooperative, ko1 appropriate for age. Pain: Complains of pain in left eye. Historical: - Allergies: 18:21 Sulfa (Sulfonamide Antibiotics); ko1 - PMHx: 18:21 Anxiety; Asthma; Diabetes - NIDDM; Heart Valve problem; hot flashes; Hypertension; ko1 Irregular heart rate; Myocardial infarction; Panic Attacks; Rheumatoid Arthritis; - PSHx: 18:21 back; neck; Weight loss surgery; ko1 - Immunization history:: Adult Immunizations unknown. - Infectious Disease History:: Denies. - Social history:: Smoking status: Patient denies any tobacco usage or history of. - Family history:: not pertinent. - Hospitalizations: : No recent hospitalization is reported. Screenin:59 [facility] ED Fall Risk Assessment (Adult) History of falling in the last 3 months, me1 including since admission No falls in past 3 months (0 pts) Confusion or Disorientation No (0 pts) Intoxicated or Sedated No (0 pts) Impaired Gait No (0 pts) Mobility Assist Device Used No (0 pt) Altered Elimination No (0 pt) Score/Fall Risk Level 0 - 2 = Low Risk Maintained a safe environment, Provided non-skid footwear, Hourly rounding (assess needs \T\ fall precautionary measures) done. Abuse screen: Denies threats or abuse. Nutritional screening: No deficits noted. Tuberculosis screening: No symptoms or risk factors identified. Assessment: 18:59 General: Appears uncomfortable, well developed, well nourished, Behavior is calm, me1 cooperative, appropriate for age, Reports something in left eye, not sure of what it is, started yesterday and worse today. Pain: Complains of pain in left eye Pain does not radiate. Pain currently is 6 out of 10 on a pain scale. Quality of pain is described as sharp, Pain began gradually, 1 day ago. Is continuous. Neuro: Level of Consciousness is awake, alert, obeys commands, Oriented to person, place, time, situation, Appropriate for age. Cardiovascular: Patient's skin is warm and dry. Respiratory: Airway is patent Respiratory effort is even, unlabored, Respiratory pattern is regular, symmetrical. GI: No signs and/or symptoms were reported involving the gastrointestinal system. : No signs and/or symptoms were reported regarding the genitourinary system. EENT: Eyes are tearing on left eye Lid(s) swollen. Derm: Skin is intact, is healthy with good turgor, Skin is pink, warm \T\ dry. Musculoskeletal: No signs and/or symptoms reported regarding the musculoskeletal system. Vital Signs: 18:17 BP 140 / 82; Pulse 76; Resp 18; Temp 97.8; Pulse Ox 100% ; ko1 19:06 BP 136 / 75; Pulse 78; Resp 16; Temp 98; Pulse Ox 100% ; me1 ED Course: 18:11 Patient arrived in ED. mr 18:14 Meir Irene MD is Attending Physician. rn 18:21 Triage completed. ko1 18:21 Arm band placed on right wrist. Patient placed in an exam room, on a stretcher, on ko1 pulse oximetry, Patient notified of wait time. 18:59 Patient has correct armband on for positive identification. Bed in low position. Call me1 light in reach. Side rails up X2. Provided Education on: POC. Verbalized understanding. . 18:59 No provider procedures requiring assistance completed. Patient did not have IV access me1 during this emergency room visit. Administered Medications: No medications were administered Medication: 18:59 VIS not applicable for this client. me1 Outcome: 18:41 Discharge ordered by . rn 19:06 Discharged to home ambulatory, me1 19:06 Condition: stable 19:06 Discharge instructions given to patient, Instructed on discharge instructions, follow up and referral plans. medication usage, Demonstrated understanding of instructions, follow-up care, medications, Prescriptions given X 1, 19:06 Patient left the ED. me1 Signatures: Jackelyn Borja, Manjinder Dunbar mr Meir Irene MD MD rn Oliver, Kathy, RN RN ko1 Alejandra Reyes RN RN me1 Corrections: (The following items were deleted from the chart) 18:59 18:17 Chief complaint: Patient states: something in left eye, not sure of what it is, me1 started yesterday and worse today ko1
[2024-04-09 19:26] VITALS: O2SAT 100
[2024-04-09 19:27] VITALS: BP 136/75; TEMP 98
== END 2024-04-09 19:06 | disposition home or self-care (01) ==
LOC: ER 18:11
DX: H10.9 Unspecified conjunctivitis (principal)
CPT/HCPCS: 99283

== ENCOUNTER 2024-07-03 14:17 | Emergency (ER) | payer OTHER ==
[2024-07-03 15:45] LABS: Absolute Basophils 0.1 K/uL (0-0.5); Absolute Eosinophils 0.2 K/uL (0-0.5); Absolute Lymphocytes (CBC) 3.4 K/uL (0.7-4.9); Absolute Monocytes 0.9 K/uL (0.1-1.3); Absolute Neutrophil 4.1 K/uL (1.8-8.0); Basophils % 0.9 % (0-1.3); Eosinophils % 1.9 % (0-4.4); Hematocrit 42.1 % (36.0-45.0); Hemoglobin 13.3 g/dL (12.0-15.0); Lymphocytes % 39.5 % (15.3-44.8); MCH 26.3 pg (27.0-35.0); MCHC 31.7 g/dL (32.0-36.0); MCV 83.1 fL (80-100); MPV 8.3 fL (7.6-11.3); Monocytes % 10.8 % (3.3-12.3); Neutrophils % 46.9 % (41.7-73.7); Nucleated Red Blood Cells % 0.2 % (0-0); Platelets 426 thou/uL (152-406); RBC Red Blood Cell Count 5.06 M/uL (3.86-4.86); Red Cell Distribution Width 16.4 % (12.1-15.2)
[2024-07-03 15:52] LABS: PT Prothrombin Time 10.3 SECONDS (9.4-12.5); PTT, Activated Partial Thromb 35.5 SECONDS (24.3-36.9); Protime INR 0.92
[2024-07-03] MEDS ORDERED: NA CHLORIDE 0.9% 1,000 ML ONE (16:01)
--- NOTE | 2024-07-03 16:01 | RAD REPORT ---
EXAM: CT Head Brain Wo Cont HISTORY: Headache;Dizziness COMPARISON: 06/22/2020 TECHNIQUE: Multiple contiguous axial images were obtained for a CT of the brain without contrast. Sag ittal and coronal reformats were performed. One or more of the following dose reduction techniques were used: Automated exposure control, adjus tment of the mA and kV according to patient size, and iterative reconstruction. Unless otherwise specified, incidental findings do not require dedicated imaging follow-up. FINDINGS: No evidence of hydrocephalus, intracranial hemorrhage, or extra-axial fluid collection. The brain is normal in morphology. Calcifications along the dentate nucleus bilaterally. The calvarium is intact. The visualized paranasal sinuses and mastoid air cells are essentially clear . IMPRESSION: No evidence of acute intracranial abnormality.
[2024-07-03 16:05] LABS: Anion Gap 6.7 mEq/L (5.0-15.0); Potassium 3.7 mEq/L (3.5-5.1)
[2024-07-03 16:12] LABS: SARS-CoV-2 Antigen CONTROL BLUE LINE VIS/BG OK; SARS-CoV-2 Antigen Rapid Res Negative (Negative)
[2024-07-03] MEDS ORDERED: cloNIDine HCL 0.1 MG TAB ONE (16:43)
--- NOTE | 2024-07-03 17:24 | ER ---
Nurse's Notes [facility] Name: Funmi Stoner Age: 64 yrs Sex: Female : 1960 Arrival Date: 07/03/2024 Time: 14:17 Bed 14 Private MD: Diagnosis: Headache;Unspecified acute conjunctivitis, bilateral Presentation: 07/03 14:51 Chief complaint: Patient states: she has been having dizziness, blurred vision, and ap3 nausea for approx three days. Coronavirus screen: At this time, the client does not indicate any symptoms associated with coronavirus-19. Ebola Screen: No symptoms or risks identified at this time. Initial Sepsis Screen: Does the patient meet any 2 criteria? No. Patient's initial sepsis screen is negative. Does the patient have a suspected source of infection? No. Patient's initial sepsis screen is negative. Risk Assessment: Do you want to hurt yourself or someone else? Patient reports no desire to harm self or others. Onset of symptoms was June 30, 2024. 14:51 Method Of Arrival: Ambulatory ap3 14:51 Acuity: LINDSAY 3 ap3 Triage Assessment: 14:53 Headache History: The patient has had previous headaches. General: Appears in no ap3 apparent distress. Behavior is calm, cooperative, appropriate for age. Pain: Complains of pain in head Pain currently is 10 out of 10 on a pain scale. Pain began gradually, 2-3 days ago. Neuro: Level of Consciousness is awake, alert, obeys commands, Oriented to person, place, time, situation, Appropriate for age Reports dizziness, headache. Cardiovascular: Patient's skin is warm and dry. Respiratory: Airway is patent Respiratory effort is even, unlabored, Respiratory pattern is regular, symmetrical. Historical: - Allergies: 14:52 Sulfa (Sulfonamide Antibiotics); ap3 - PMHx: 14:52 Anxiety; Asthma; Diabetes - NIDDM; Heart Valve problem; hot flashes; Hypertension; ap3 Irregular heart rate; Myocardial infarction; Panic Attacks; Rheumatoid Arthritis; - PSHx: 14:52 neck; back; Weight loss surgery; ap3 - Immunization history:: Client reports receiving the 2nd dose of the Covid vaccine, Flu vaccine is not up to date. - Infectious Disease History:: Denies. - Social history:: Smoking status: Patient reports the use of cigarette tobacco products. - Family history:: not pertinent. - Hospitalizations: : No recent hospitalization is reported. Screenin:53 Abuse screen: Denies threats or abuse. Nutritional screening: No deficits noted. ap3 Tuberculosis screening: No symptoms or risk factors identified. 16:00 [facility] ED Fall Risk Assessment (Adult) History of falling in the last 3 months, bp including since admission No falls in past 3 months (0 pts) Confusion or Disorientation No (0 pts) Intoxicated or Sedated No (0 pts) Impaired Gait No (0 pts) Mobility Assist Device Used No (0 pt) Altered Elimination No (0 pt) Score/Fall Risk Level 0 - 2 = Low Risk Oriented to surroundings. Assessment: 15:00 General: Appears in no apparent distress. comfortable, Behavior is calm, cooperative, bp appropriate for age. 16:00 Reassessment: Patient appears in no apparent distress at this time. Patient is alert, bp oriented x 3, equal unlabored respirations, skin warm/dry/pink. Vital Signs: 14:51 BP 164 / 92; Pulse 88; Resp 17; Temp 98.4; Pulse Ox 100% ; Weight 74.84 kg; Height 5 ap3 ft. 5 in. ; 16:00 BP 167 / 101; Pulse 73; Resp 15; Pulse Ox 100% ; bp 17:22 BP 164 / 98; rn 17:28 BP 163 / 99; Pulse 75; Resp 16; Pulse Ox 100% ; bp 14:51 Body Mass Index 27.46 (74.84 kg, 165.1 cm) ap3 [place] Coma Score: 16:43 Eye Response: spontaneous(4). Motor Response: obeys commands(6). Verbal Response: rn oriented(5). Total: 15. ED Course: 14:21 Patient arrived in ED. al6 14:36 Meir Irene MD is Attending Physician. rn 14:52 Triage completed. ap3 14:53 Arm band placed on right wrist. ap3 15:03 CT Head Brain wo Cont In Process Unspecified. EDMS 15:39 Marco Solis, RN is Primary Nurse. bp 15:46 Protime (+inr) Sent. kb4 15:46 Ptt, Activated Sent. kb4 15:46 Basic Metabolic Panel Sent. kb4 15:46 CBC with Diff Sent. kb4 15:46 Inserted saline lock: 20 gauge in left forearm, using aseptic technique. Blood kb4 collected. Flushed with 10 mL NS. 16:00 Patient has correct armband on for positive identification. bp 17:28 No provider procedures requiring assistance completed. IV discontinued, intact, bp bleeding controlled, No redness/swelling at site. Pressure dressing applied. Administered Medications: 15:15 Drug: NS 0.9% IV 1000 ml IV at 1000 ml once; to be given as a bolus over 60 minutes bp Route: IV; Rate: 1000 ml; Site: left antecubital; 16:14 Follow up: IV Status: Completed infusion bp 16:44 Drug: cloNIDine PO 0.1 mg PO once Route: PO; bp 17:29 Follow up: Response: No adverse reaction bp Medication: 16:00 VIS not applicable for this client. bp Outcome: 17:23 Discharge ordered by MD. rn 17:28 Discharged to home ambulatory, bp 17:28 Condition: stable 17:28 Discharge instructions given to patient, Instructed on discharge instructions, follow up and referral plans. medication usage, Demonstrated understanding of instructions, follow-up care, medications, Prescriptions given X 1, 17:29 Patient left the ED. bp Signatures: Dispatcher [employer] EDMS Meir Irene MD MD rn Peltier, Brian RN RN bp Maryellen Teresa RN RN ap3 Divya Marinelli al6 Carmen Felder kb4 Corrections: (The following items were deleted from the chart) 16:39 16:00 BP 107 / 79; Pulse 87bpm; Resp 15bpm; Pulse Ox 100%; bp bp
--- NOTE | 2024-07-03 17:24 | EDPHYS ---
Physician Documentation [facility] Name: Funmi Stoner Age: 64 yrs Sex: Female : 1960 Arrival Date: 07/03/2024 Time: 14:17 Bed 14 Private MD: ED Physician Meir Irene HPI: 07/03 15:25 This 64 yrs old Black Female presents to ER via Ambulatory with complaints of Headache, rn Nausea, High Blood Pressure, Dizziness. 15:25 The patient complains of pain to the top of head and forehead. Onset: The rn symptoms/episode began/occurred 3 day(s) ago. Severity of symptoms: At its worst the pain was mild, in the emergency department the pain is unchanged. The symptoms are alleviated by nothing. the symptoms are aggravated by lights. The patient has experienced similar episodes in the past. The patient has not recently seen a physician. Patient reports 3 days of headache, high blood pressure, dizziness and watery eyes bilaterally. No trauma or damage to eyes. No fever or chills. No vomiting. No neck stiffness. Reports using lubricant eyedrops due to dryness of eyes and is not helping. Denies any chest pain or shortness of breath. No focal neurological deficits.. Historical: - Allergies: 14:52 Sulfa (Sulfonamide Antibiotics); ap3 - PMHx: 14:52 Anxiety; Asthma; Diabetes - NIDDM; Heart Valve problem; hot flashes; Hypertension; ap3 Irregular heart rate; Myocardial infarction; Panic Attacks; Rheumatoid Arthritis; - PSHx: 14:52 neck; back; Weight loss surgery; ap3 - Immunization history:: Client reports receiving the 2nd dose of the Covid vaccine, Flu vaccine is not up to date. - Infectious Disease History:: Denies. - Social history:: Smoking status: Patient reports the use of cigarette tobacco products. - Family history:: not pertinent. - Hospitalizations: : No recent hospitalization is reported. ROS: 15:25 Constitutional: Negative for fever, chills, and weight loss, Neck: Negative for injury, rn pain, and swelling, Cardiovascular: Negative for chest pain, palpitations, and edema, Respiratory: Negative for cough, wheezing, and pleuritic chest pain Abdomen/GI: Negative for abdominal pain, vomiting, diarrhea, and constipation MS/Extremity: Negative for injury and deformity, Skin: Negative for injury, rash, and discoloration, Neuro: Negative for numbness, tingling, and seizure Exam: 15:25 Constitutional: This is a well developed, well nourished patient who is awake, alert, rn and in no acute distress. Ambulatory to room without difficulty or assistance Head/Face: Normocephalic, atraumatic. Eyes: Pupils equal round and reactive to light, extra-ocular motions intact. Clear drainage bilateral eyes but patient frequently putting lubricant eyedrops during examination. No corneal abnormality noted. No foreign body identified. Cardiovascular: Regular rate and rhythm. No pulse deficits. Neuro: Awake and alert, GCS 15, oriented to person, place, time, and situation. Cranial nerves II-XII grossly intact. Motor strength 5/5 in all extremities. Sensory grossly intact. Cerebellar exam normal. Normal gait. Vital Signs: 14:51 BP 164 / 92; Pulse 88; Resp 17; Temp 98.4; Pulse Ox 100% ; Weight 74.84 kg; Height 5 ap3 ft. 5 in. ; 16:00 BP 167 / 101; Pulse 73; Resp 15; Pulse Ox 100% ; bp 17:22 BP 164 / 98; rn 17:28 BP 163 / 99; Pulse 75; Resp 16; Pulse Ox 100% ; bp 14:51 Body Mass Index 27.46 (74.84 kg, 165.1 cm) ap3 [place] Coma Score: 16:43 Eye Response: spontaneous(4). Motor Response: obeys commands(6). Verbal Response: rn oriented(5). Total: 15. MDM: 14:36 Medical Screening Exam initiated rn 16:43 Differential diagnosis: cluster headache, hypertensive headache, migraine, neoplasm, rn sinusitis, tension headache, vasomotor headache. Data reviewed: vital signs, nurses notes, lab test result(s), radiologic studies, CT scan, and as a result, I will discharge patient. 17:22 Response to treatment: the patient's symptoms have mildly improved after treatment, and rn as a result, I will discharge patient. Special discussion: I have referred the patient to see his PCP for further evaluation of high blood pressure. I discussed with the patient/guardian in detail that at this point there is no indication for admission to the hospital. It is understood, however, that if the symptoms persist or worsen the patient needs to return immediately for re-evaluation. Based on the history and exam findings, there is no indication for further emergent testing or inpatient evaluation. I discussed with the patient/guardian the need to see the opthamologist for further evaluation of the symptoms, I discussed with the patient/guardian the need to see the primary care provider for further evaluation of the symptoms. ED course: CT head without acute findings. No acute findings on workup. Improved after blood pressure management and medication here. Urged to follow-up with PCP for further blood pressure management.. 07/03 14:43 Order name: CBC with Diff; Complete Time: 16:04 rn 07/03 14:43 Order name: Basic Metabolic Panel; Complete Time: 16:14 rn 07/03 14:43 Order name: Protime (+inr); Complete Time: 16:04 rn 07/03 14:43 Order name: Ptt, Activated; Complete Time: 16:04 rn 07/03 14:43 Order name: Flu; Complete Time: 16:36 rn 07/03 14:43 Order name: SARS-COV-2 Antigen Rapid; Complete Time: 16:14 rn 07/03 14:43 Order name: CT Head Brain wo Cont; Complete Time: 16:04 rn 07/03 14:43 Order name: IV Start; Complete Time: 15:46 rn Administered Medications: 15:15 Drug: NS 0.9% IV 1000 ml IV at 1000 ml once; to be given as a bolus over 60 minutes bp Route: IV; Rate: 1000 ml; Site: left antecubital; 16:14 Follow up: IV Status: Completed infusion bp 16:44 Drug: cloNIDine PO 0.1 mg PO once Route: PO; bp 17:29 Follow up: Response: No adverse reaction bp Disposition Summary: 07/03/24 17:23 Discharge Ordered Notes: Location: Home rn Problem: new rn Symptoms: have improved rn Condition: Stable rn Diagnosis - Headache rn - Unspecified acute conjunctivitis, bilateral rn Followup: rn - With: Private Physician - When: As needed - Reason: Recheck today's complaints, Re-evaluation by your physician Discharge Instructions: - Discharge Summary Sheet rn - How to Use Eye Drops and Eye Ointments rn - General Headache Without Cause rn - Hypertension, Adult rn - How to Take Your Blood Pressure rn Forms: - Medication Reconciliation Form rn - Antibiotic harness cutter - Prescription Opioid Use rn - Patient Portal Instructions rn - Leadership Thank You Letter rn Prescriptions: - Vigamox 0.5 % Ophthalmic Drops - instill 1 drop OPHTHALMIC route every 8 hours for 7 days; 5 milliliter; rn Refills: 0, Product Selection Permitted Signatures: Dispatcher [employer] EDMS Meir Irene MD MD rn Irma, Marco, RN RN bp Maryellen Teresa RN RN ap3 Corrections: (The following items were deleted from the chart) 14:44 14:44 CBC+H.LAB.BRZ ordered. EDMS EDMS 14:44 14:44 BASIC METABOLIC PANEL+C.LAB.BRZ ordered. EDMS EDMS 14:44 14:44 PROTIME (+INR)+COAG.LAB.BRZ ordered. EDMS EDMS 14:44 14:44 PTT, ACTIVATED+COAG.LAB.BRZ ordered. EDMS EDMS 14:44 14:44 Head Brain Wo Cont+CT.RAD.BRZ ordered. EDMS EDMS 14:44 14:44 Influenza Screen (A \T\ B)+BA.LAB.BRZ ordered. EDMS EDMS 14:44 14:44 SARS-COV-2 Antigen Rapid+I.LAB.BRZ ordered. EDMS EDMS
[2024-07-03 17:39] VITALS: TEMP 98.4; O2SAT 100
[2024-07-03 17:55] VITALS: BP 163/99
== END 2024-07-03 17:29 | disposition home or self-care (01) ==
LOC: ER 14:17
DX: R51.9 Headache, unspecified (principal); H10.33 Unspecified acute conjunctivitis, bilateral; F17.210 Nicotine dependence, cigarettes, uncomplicated; E11.9 Type 2 diabetes mellitus without complications; J45.909 Unspecified asthma, uncomplicated; I10 Essential (primary) hypertension; I25.2 Old myocardial infarction; F41.9 Anxiety disorder, unspecified; F41.0 Panic disorder [episodic paroxysmal anxiety]; Z11.52 Encounter for screening for COVID-19
CPT/HCPCS: 85025; 80048; 36415; 85610; 85730; 87804 ×2; 70450; 96360; 99284; 87811; J7030

== ENCOUNTER 2024-08-18 12:48 | Emergency (ER) | payer OTHER ==
--- OUTSIDE RECORDS SUMMARY | 2024-08-18 12:53 | XMS REPORT | Continuity of Care Document ---
Author Name Unknown Address [address] [facility] [address] [place] [address] [facility] thconnect Address [address] [facility] [place] [address] Care Team Providers Care Thread Clipper Name Role Phone Verónica Vini Primary Care Physician + [phone] HIRAM BLANK Attending Clinician Rodo Villanueva Attending Clinician UnavailAnthony Jansen Attending Clinician Unavail able PATRICK NICHOLS Attending Clinician Unavail able PATRICK NICHOLS Attending Clinician Unavail able Patrick Nichols MD Attending Clinician [phone] Marcos Gann RN Attending Clinician Unavail able BRANDON NEFF Attending Clinician Unavailable Jaimie Cruz MD Attending Clinician + Brandon Neff MD Attending Clinician [phone] DAX PITTS Attending Clinician Sonya Gomez RN Attending Clinician Unavailab cindy Whitaker MD, Clara Haddad Attending Clinician [phone] Dax Pitts MD Attending Clinician + [phone] Selina Hubbard MD Attending Clinician [phone] Ramandeep Day MD Attending Clinician [phone] Geo TERRAZAS Attending Clinician Unavailable Geo Altamirano Attending Clinician +[phone] CAREN CANALES Attending Clinician Unavailable JANNY MAZA Attending Clinician Unavailable JANNY MAZA Attending Clinician Unavailable GURJIT JETT Attending Clinician Unavailable Gurjit Jett DO Attending Clinician [phone] RAINE Attending Clinician Unavailable ALEJANDRA OCAMPO Attending Clinician Unavailable UNKNOWN Attending Clinician Unavailable Doctor Unassigned, [place] Attending Clinician U louieailAlejandra Alvarado PA-C Attending Clinician [phone] HIRAM BLANK Admitting Clinician UnaRodo Zambrano Admitting Clinician UnavailDru Shin Admitting Clinician Unavailable BRANDON NEFF Admitting Clinician Unavailable Brandon Neff MD Admitting Clinician [phone] SELINA HUBBARD Admitting Clinician Unavailable Selina Hubbard MD Admitting Clinician [phone] Geo TERRAZAS Admitting Clinician Unavailable RAINE Admitting Clinician Unavailable Payers Payer Name Policy Type Policy Number Effective Date Expirati on Date Source [facility] DUAL COMPLETE HMO [id number] 2019 00:00:00 [place] [id number] 2018 00:00:00 [facility] [id number] 00:00:00 [employer] MEDICARE OUT OF NETWORK [id number] 2023 00:00:00 Problems Condition Name Condition Details Condition Category Status Onset Date Resolution Date Last Treatment Date Treating Clinician Comments Source Other chest pain Other chest pain Disease Active 02-23 00:00: 00 [facility] Elevated brain natriureti c peptide (BNP) level Elevated brain natriureti c peptide (BNP) level Disease Active 02-23 00:00: 00 [facility] Hypertensi ve urgency Hypertensi ve urgency Disease Active 2024-0 8-10 00:00: 00 [facility] Bilateral carotid artery stenosis Bilateral carotid artery stenosis Disease Active 8-10 00:00: 00 [facility] Substance abuse Substance abuse Disease Active 8-10 00:00: 00 [facility] Left-sided sensory deficit present Left-sided sensory deficit present Disease Active 8-09 00:00: 00 [facility] Uncontroll ed hypertensi on Uncontroll ed hypertensi on Disease Active 6- 00:00: 00 [facility] Morbid obesity with body mass index of 40.0-49.9 Morbid obesity with body mass index of 40.0-49.9 Disease Active 2018-07 00:00: 00 [facility] Chest pain Chest pain Disease Resolve d 3-30 00:00: 00 2019-08-01 00:00:00 2022-01-30 00:07:56 [facility] Allergies, Adverse Reactions, Alerts Allergy Name Allergy Type Status Severity Reaction(s) Onset Date Inactive Date Treating Clinician Comments Source Sulfa (Sulfona mide Antibiot ics) DA Active U 02-10 00:00: 00 [facility] Sulfa (Sulfona mide Antibiot ics) DA Active U SWOLLEN THROAT, BLISTERS 02-10 00:00: 00 [facility] SULFA (SULFONA MIDE ANTIBIOT ICS) Drug Class Active Unknown-Cmnt 8 00:00: 00 [facility] Sulfa (Sulfona mide Antibiot ics) Propensi ty to adverse reaction s Active Unknown - See comments 03-14 00:00: 00 [facility] Social History Social Habit Start Date Stop Date Quantity Comments Source History of tobacco use Cigarette Smoker [facility] Alcoholic beverage intake 2024-02-23 00:00:00 2024-02-23 00:00:00 0 /d [facility] Tobacco use and exposure 2024-02-23 00:00:00 2024-02-23 00:00:00 Smokeless tobacco non-user [facility] Tobacco Comment 2024-02-23 00:00:00 2024-02-23 00:00:00 Reports smokes a pack every 3 days. [facility] History of Social function 2023-12-18 00:00:00 2023-12-18 00:00:00 [facility] Alcohol intake 2023-08-03 00:00:00 2023-08-03 00:00:00 0 /d [facility] Sex assigned at 1960 00:00:00 1960 00:00:00 [facility] Smoking Status Start Date Stop Date Source Ex-smoker 2024-02-23 00:00:00 2024-02-23 [facility] Ordered Medication Name Filled Medication Name Start Date Stop Date Current Medication? Ordering Clinician Indication Dosage Frequency Signature (SIG) Comments Components Source proparacain e (ALCAINE) 0.5 % ophthalmic solution 2 Drop 2023-07 19:45: 00 04-18 20:11 :00 No 2[drp] 2 Drop, Both Eyes, ONCE, 1 dose, On Roxana 04/18/24 at 1445, STONE [facility] NAPHAZOLINE -PHENIRAMIN E 0.025-0.3 % ophthalmic drops 2023-07 00:00: 00 04-29 04:59 :00 No [id number] 2[drp] Place 2 Drops in both eyes 4 (four) times daily for 10 days. [facility] atorvastati n (LIPITOR) tablet 40 mg 02-23 22:00: 00 Yes 40mg [facility] cyclobenzap rine (FLEXERIL) tablet 10 mg 02-23 15:30: 00 02-23 15:02 :00 No 10mg 10 mg, Oral, ONCE, 1 dose, On 02/24/24 at 1030, Routine [facility] amLODIPine (NORVASC) 10 mg tablet 02-23 14:38: 45 Yes 10mg Take 1 tablet by mouth in the morning. [facility] aspirin 81 mg EC tablet 02-23 14:38: 45 Yes 81mg Take 1 tablet by mouth in the morning. [facility] lisinopril (PRINIVIL,Z ESTRIL) 20 mg tablet 02-23 14:38: 45 Yes 20mg Take 1 tablet by mouth in the morning. [facility] metoprolol succinate XL (TOPROL XL) 25 mg 24 hr tablet 02-23 14:38: 45 Yes 25mg Take 1 tablet by mouth in the morning. [facility] ALPRAZolam (XANAX) 0.5 mg tablet 02-23 14:38: 45 Yes .5mg Take 1 tablet by mouth at bedtime. [facility] thiamine mononitrate (VITAMIN B-1 (MONONITRAT E)) tablet 100 mg 02-23 14:00: 00 Yes 100mg 100 mg, Oral, DAILY, First dose on 02/24/24 at 0900, Until Discontinu ed, Routine [facility] metoprolol succinate XL (TOPROL XL) tablet 25 mg 02-23 14:00: 00 Yes 25mg 25 mg, Oral, DAILY, First dose on 02/24/24 at 0900, Until Discontinu ed, Routine [facility] lisinopriL (PRINIVIL,Z ESTRIL) tablet 20 mg 02-23 14:00: 00 Yes 20mg 20 mg, Oral, DAILY, First dose on 02/24/24 at 0900, Until Discontinu ed, Routine [facility] DULoxetine (CYMBALTA) capsule 30 mg 02-23 14:00: 00 Yes 30mg 30 mg, Oral, DAILY, First dose on 02/24/24 at 0900, Until Discontinu ed, Routine [facility] amLODIPine (NORVASC) tablet 10 mg 02-23 14:00: 00 Yes 10mg 10 mg, Oral, DAILY, First dose on 02/24/24 at 0900, Until Discontinu ed, Routine [facility] enoxaparin (LOVENOX) injection 40 mg 02-23 14:00: 00 Yes 40mg 40 mg, Subcutaneo us, DAILY, First dose on Mon02/24/24 at 0900, Until Discontinu ed, Routine [facility] levalbutero l (XOPENEX) nebulizer solution 0.63 mg 02-23 13:00: 00 Yes .63mg 0.63 mg, Inhalation , TID, First dose on Mon02/24/24 at 0800, Until Discontinu ed, Routine [facility] labetaloL (NORMODYNE) 5 mg/mL injection 10 mg 02-23 09:57: 31 Yes 10mg 10 mg, Slow IV Push, Q4HPRN, Starting on Mon02/24/24 at 0457, Until Discontinu ed, Routine, For SBP > 160, DBP > [address] [facility] ALPRAZolam (XANAX) tablet 0.5 mg 02-23 02:00: 00 Yes .5mg 0.5 mg, Oral, QHS, First dose on Mon02/23/24 at 2100, Until Discontinu ed, Routine [facility] hydrOXYzine (ATARAX) tablet 50 mg 02-23 01:57: 53 Yes 50mg [facility] ipratropium (ATROVENT) 0.02 % nebulizer solution 0.5 mg 02-23 01:57: 21 Yes 2.5mL [facility] nitroglycer in (NITROSTAT) sublingual tablet 0.4 mg 02-23 01:56: 48 Yes .4mg [facility] hydrALAZINE (APRESOLINE ) tablet 10 mg 02-22 23:00: 00 Yes 10mg 10 mg, Oral, Q6H, First dose on Mon02/23/24 at 1800, Until Discontinu ed, Routine [facility] ondansetron (ZOFRAN (PF)) injection 4 mg 02-22 22:27: 09 Yes 4mg [facility] morphine (2 mg/mL) injection 2 mg 02-22 22:27: 03 02-23 22:26 :03 No 2mg [facility] HYDROcodone -acetaminop hen (NORCO 5) tablet 1 tablet 02-22 22:26: 59 02-24 22:25 :59 No 1{tbl} 1 tablet, Oral, Q6HPRN, Starting on Mon02/23/24 at 1726, Until 02/25/24 at 1725, Routine, Pain (scale 4-6) [facility] acetaminoph en (TYLENOL) tablet 650 mg 02-22 22:26: 52 Yes 650mg 650 mg, Oral, Q6HPRN, Starting on Mon02/23/24 at 1726, Until Discontinu ed, Routine, Pain (scale 1-3), Temp > 38 C [facility] labetaloL (NORMODYNE) 5 mg/mL injection 20 mg 02-22 20:30: 00 02-22 20:43 :00 No 20mg 20 mg, Slow IV Push, ONCE, 1 dose, On Mon02/23/24 at 1530, STONE [facility] labetaloL (NORMODYNE) 5 mg/mL injection 20 mg 02-22 19:15: 00 02-22 19:25 :00 No 20mg 20 mg, Slow IV Push, ONCE, 1 dose, On Mon02/23/24 at 1415, STONE [facility] amLODIPine (NORVASC) 10 mg tablet 12-18 15:39: 06 Yes 10mg Take 10 mg by mouth daily. [facility] aspirin 81 mg EC tablet 12-18 15:39: 06 Yes 81mg Take 81 mg by mouth daily. [facility] lisinopril (PRINIVIL,Z ESTRIL) 20 mg tablet 12-18 15:39: 06 Yes 20mg Take 20 mg by mouth daily. [facility] metoprolol succinate XL (TOPROL XL) 25 mg 24 hr tablet 12-18 15:39: 06 Yes 25mg Take 25 mg by mouth daily. [facility] gabapentin 400 mg capsule 12-18 14:09: 03 12-18 00:00 :00 No 1{capsu le} Take 1 capsule by mouth. [facility] ipratropium 0.02 % nebulizer solution 12-18 14:09: 12-18 00:00 :00 No 2.5mL 2.5 mL. [facility] DULoxetine (CYMBALTA) capsule 30 mg 12-18 14:00: 00 Yes 30mg 30 mg, Oral, DAILY, First dose on Mon12/19/23 at 0900, Until Discontinu ed, [facility] HYDROcodone -acetaminop hen (NORCO) 10-325 mg tablet 12-18 13:38: 00 12-18 00:00 :00 No 1{tbl} Take 1 Tab by mouth every 6 (six) hours as needed. [facility] ALPRAZolam (XANAX) 1 mg tablet 12-18 13:38: 00 12-18 00:00 :00 No .5mg Take 0.5 tablets by mouth in the morning and 0.5 tablets in the evening. [facility] ketorolac (TORADOL) injection 15 mg 12-18 12:45: 00 12-18 13:53 :00 No 15mg 15 mg, Slow IV Push, ONCE, 1 dose, On Mon12/19/23 at 0745, Routine [facility] hydrOXYzine (ATARAX) tablet 50 mg 12-18 12:01: 51 Yes 50mg 50 mg, Oral, Q6HPRN, Starting on Mon12/19/23 at 0701, Until Discontinu ed, Routine, Anxiety [facility] atorvastati n 40 mg tablet 12-18 00:00: 00 Yes [id number] 40mg Take 1 tablet by mouth every evening. [facility] nitroglycer in 0.4 mg sublingual tablet 12-18 00:00: [id number] 1 tablet under the tongue every 5 (five) minutes as needed for Chest pain. [facility] foLIC acid 1 mg tablet 12-18 00:00: 00 Yes [id number] 1mg Take 1 tablet by mouth in the morning. [facility] thiamine mononitrate 100 mg tablet 12-18 00:00: 00 Yes [id number] 100mg Take 1 tablet by mouth in the morning. [facility] hydrOXYzine 50 mg tablet 12-18 00:00: 00 Yes [id number] 50mg Take 1 tablet by mouth every 6 (six) hours as needed for Anxiety. [facility] DULoxetine 30 mg capsule 12-18 00:00: 00 Yes [id number] 30mg Take 1 capsule by mouth in the morning. [facility] ipratropium 0.02 % nebulizer solution 12-18 00:00: 00 Yes [id number] .5mg Inhale 2.5 mL every 8 (eight) hours as needed for Wheezing or Shortness of Breath. [facility] gabapentin 400 mg capsule 12-18 00:00: 00 Yes [id number] 400mg Take 1 capsule by mouth in the morning and 1 capsule at noon and 1 capsule in the evening. [facility] lisinopriL (PRINIVIL,Z ESTRIL) tablet 20 mg 12-17 15:00: 00 Yes 20mg 20 mg, Oral, DAILY, First dose on 12/18/23 at 1000, Until Discontinu ed, Routine [facility] enoxaparin (LOVENOX) injection 40 mg 12-16 16:45: 00 Yes 40mg 40 mg, Subcutaneo us, Q24H, First dose on 12/17/23 at 1145, Until Discontinu ed, Routine [facility] perflutren protein-A microsphr (OPTISON) injection 3 mL 12-16 15:45: 00 12-16 15:18 :00 No [id number] 3mL 3 mL, IV Push, ONCE, 1 dose, On 12/17/23 at 1045, Routine [facility] thiamine mononitrate (VITAMIN B-1 (MONONITRAT E)) tablet 100 mg 12-16 14:00: 00 Yes 100mg 100 mg, Oral, DAILY, First dose on 12/17/23 at 0900, Until Discontinu ed, Routine [facility] foLIC acid (FOLATE) tablet 1 mg 12-16 14:00: 00 Yes 1mg 1 mg, Oral, DAILY, First dose on 12/17/23 at 0900, Until Discontinu ed, Routine [facility] gabapentin (NEURONTIN) capsule 100 mg 12-16 03:15: 00 12-16 03:17 :00 No 100mg 100 mg, Oral, ONCE, 1 dose, On 12/16/23 at 2215, Routine [facility] oxazepam (SERAX) capsule 15 mg 12-16 01:08: 35 Yes 15mg 15 mg, Oral, Q4HPRN, Starting on 12/16/23 at 2008, Until Discontinu ed, Routine, Only while awake for DBP equal to or greater than 100, HR equal to or greater than 100. 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 polyethylen e glycol 3350 powder 17 g 12-15 13:00: 00 Yes 17g 17 g, Oral, BID, First dose on 12/16/23 at 0800, Until Discontinu ed, Routine [facility] metoprolol tartrate (LOPRESSOR) tablet 25 mg 12-15 13:00: 00 12-17 14:51 :00 No 25mg 25 mg, Oral, BID, First dose on 12/16/23 at 0800, Until Discontinu ed, Routine [facility] KCL (KLOR-CON M20) tablet 40 mEq 12-15 13:00: 00 12-15 15:55 :00 No 40meq 40 mEq, Oral, Q2H, 2 doses, First dose (after last modificati on) on 12/16/23 at 0800, Last dose on 12/16/23 at 1000, Routine [facility] nitroglycer in (NITROSTAT) sublingual tablet 0.4 mg 12-15 10:00: 01 Yes .4mg [facility] acetaminoph en (TYLENOL) tablet 650 mg 12-15 10:00: 01 12-17 14:51 :58 No 650mg 650 mg, Oral, Q6HPRN, Starting on 12/16/23 at 0500, Until 12/18/23 at 0951, Routine, Pain (scale 1-3) [facility] HEPARIN SODIUM (PORCINE) 1,000 UNIT/ML BOLUS ACS ORDER SET 12-15 07:00: 00 12-15 07:31 :00 No 4000U 4,000 Units, IV Push, ONCE, 1 dose, On 12/16/23 at 0200, STONE [facility] heparin 25,000 Units/250 mL (Premixed Bag) in 0.45 % NS 12-15 06:55: 14 12-15 15:35 :14 No 0U/h 0-2,150 Units/hr (0-21.5 mL/hr), IV Infusion, TITRATE, Parameters in Admin. Instr., Starting on 12/16/23 at 0155, Initiate dosing: -Patient 83 kg or under: 950 Units/hr (Calculate d dose at 12 units/kg/h r) -Patient over 83 k,000 units/hr DO NOT Exceed the MAXIMUM 1,000 units/hr for initiation of heparin drip. CAUTION - If LMWH given in ER, AVOID bolus and start next dose/drip 12 hrs after ER dosage. Must program rate using programmab le infusion pump. Check with the ordering provider first prior to any administra tion should the patient be on existing/a dditional anticoagul ant therapy. Range, Dosing and Testing: FOR [place], [facility], AND [facility] ONLY - aPTT < 35: Bolus 5000 units, increase rate 300 units/hr - aPTT 35-44: Bolus 3000 units, increase rate 200 units/hr - aPTT 45-54: Increase rate 100 units/hr - aPTT 55-85: NO CHANGE - aPTT 86-95: Decrease rate 100 units/hr - aPTT 96-120: Hold 30 minutes, decrease rate 150 units/hr - aPTT > 120: Hold 60 minutes, decrease rate 200 units/hr Check aPTT 6 hours after initiation , then Q6H after every change, aPTT Q12H once therapeuti c levels are reached. FOR [facility] ONLY - aPTT < 40: Bolus 5000 units, increase rate 300 units/hr - aPTT 40-49: Bolus 3000 units, increase rate 200 units/hr - aPTT 50-59: Increase rate 100 units/hr - aPTT 60-85: NO CHANGE - aPTT 86-95: Decrease rate 100 units/hr - aPTT 96-120: Hold 30 minutes, decrease rate 150 units/hr - aPTT > 120: Hold 60 minutes, decrease rate 200 units/hr Check aPTT 6 hours after initiation , then Q6H after every change, aPTT Q12H once therapeuti c levels are reached. DO NOT ADJUST INITIAL BOLUS OR INITIAL INFUSION RATE. [facility] morpHINE (4 mg/mL) injection 4 mg 12-15 05:00: 00 12-15 05:40 :00 No 4mg 4 mg, Slow IV Push, ONCE, 1 dose, On 12/16/23 at 0000, STAT [facility] nitroglycer in (NITROSTAT) sublingual tablet 0.4 mg 12-15 05:00: 00 12-15 05:39 :00 No .4mg 0.4 mg, Sublingual , ONCE, 1 dose, On 12/16/23 at 0000, STONE [facility] aspirin chewable tablet 324 mg 12-15 05:00: 00 12-15 05:39 :00 No 324mg 324 mg, Oral, ONCE, 1 dose, On 12/16/23 at 0000, Routine [facility] labetaloL (NORMODYNE) injection 20 mg 12-15 03:45: 00 12-15 03:13 :00 No 20mg 20 mg, Slow IV Push, ONCE, 1 dose, On Mon12/15/23 at 2245, Routine [facility] NaCl 0.9% (NS) bolus infusion 1,000 mL 08-03 08:15: 00 08-03 08:43 :00 No 1000mL at 999 mL/hr, 1,000 mL, IV Infusion, ONCE, 1 dose, On Roxana 08/03/23 at 0215, STAT [facility] benzonatate 100 mg capsule 07-20 00:00: 00 12-18 00:00 :00 No [id number] 100mg Take 1 capsule by mouth 3 (three) times daily as needed for Cough. [facility] cyclobenzap rine (FLEXERIL) tablet 5 mg 2022-07 13:00: 00 05-19 12:24 :00 No 5mg 5 mg, Oral, ONCE NOW, 1 dose, On Mon05/19/23 at 0800, STONE [facility] gabapentin 400 mg capsule 2018-07 15:12: 46 Yes 1{capsu le} Take 1 capsule by mouth. [facility] ipratropium 0.02 % nebulizer solution 2018-07 15:12: 46 Yes 2.5mL 2.5 mL. [facility] amLODIPine (NORVASC) 10 mg tablet 2018-07 15:08: 41 Yes 10mg Take 10 mg by mouth daily. [facility] aspirin 81 mg EC tablet 2018-07 15:08: 41 Yes 81mg Take 81 mg by mouth daily. [facility] HYDROcodone -acetaminop hen (NORCO) 10-325 mg tablet 2018-07 15:08: 41 Yes 1{tbl} Take 1 Tab by mouth every 6 (six) hours as needed. [facility] lisinopril (PRINIVIL,Z ESTRIL) 20 mg tablet 2018-07 15:08: 41 Yes 20mg Take 20 mg by mouth daily. [facility] metoprolol succinate XL (TOPROL XL) 25 mg 24 hr tablet 2018-07 15:08: 41 Yes 25mg Take 25 mg by mouth daily. [facility] ALPRAZolam (XANAX) 1 mg tablet 2018-07 15:08: 41 Yes 1mg Take 1 mg by mouth 2 (two) times daily. [facility] azelastine 0.05 % ophthalmic solution 2018-07 00:00: 00 Yes [facility] omeprazole 40 mg capsule 2018-07 00:00: 00 12-18 00:00 :00 No [facility] predniSONE 20 mg tablet 2018-07 00:00: 00 12-18 00:00 :00 No [facility] clindamycin 300 mg capsule 2019-1 1-07 00:00: 00 12-18 00:00 :00 No TAKE 1 CAPSULE BY MOUTH EVERY 8 HOURS FOR 7 DAYS [facility] levalbutero l 0.63 mg/3 mL nebulizer solution 2018-07 021 00:00: 00 Yes USE 1 VIAL IN NEBULIZER 3 TIMES A DAY (J45.50) [facility] montelukast 10 mg tablet 2018-07 0-21 00:00: 00 12-18 00:00 :00 No [facility] COMP-AIR NEBULIZER COMPRESSOR Meghna 2018-07 0-16 00:00: 00 Yes USE DIRECTED FOR BREATHING TREATMENTS [facility] levoFLOXaci n 500 mg tablet 2018-07 0-14 00:00: 00 12-18 00:00 :00 No [facility] albuterol (VENTOLIN HFA) 90 mcg/actuati on inhaler 02-04 00:00: 00 Yes INHALE 2 PUFFS 4 TIMES A DAY NEEDED DYSPNEA [facility] methylPREDN ISolone (MEDROL, ANT,) 4 mg tablets 2-12 00:00: 00 12-18 00:00 :00 No [id number] Take by mouth SEE-INSTRU CTIONS. follow package directions [facility] clonazePAM 0.5 mg tablet 5-10 00:00: 00 12-18 00:00 :00 No [facility] DULoxetine 30 mg capsule 4-19 00:00: 00 12-18 00:00 :00 No [facility] ADVAIR HFA 45-21 mcg/actuati on inhaler 10 00:00: 00 Yes [facility] Vital Signs Vital Name Observation Time Observation Value Comments Catie snow Systolic blood pressure 2024-04-18 18:12:00 137 mm[Hg] [facility] Diastolic blood pressure 2024-04-18 18:12:00 76 mm[Hg] [facility] Heart rate 2024-04-18 18:12:00 87 /min [facility] Body temperature 2024-04-18 18:12:00 36.72 Laura [facility] Respiratory rate 2024-04-18 18:12:00 16 /min [facility] Body height 2024-04-18 18:12:00 165.1 cm [facility] Body weight 2024-04-18 18:12:00 80.74 kg [facility] BMI 2024-04-18 18:12:00 29.62 kg/m2 [facility] Oxygen saturation in Arterial blood by Pulse oximetry 2024-04-18 18:12:00 100 /min [facility] Systolic blood pressure 2024-02-24 16:17:00 132 mm[Hg] [facility] Diastolic blood pressure 2024-02-24 16:17:00 79 mm[Hg] [facility] Heart rate 2024-02-24 16:17:00 69 /min Unive [facility] Body temperature 2024-02-24 16:17:00 36.17 Laura [facility] Respiratory rate 2024-02-24 16:17:00 16 /min [facility] Oxygen saturation in Arterial blood by Pulse oximetry 2024-02-24 16:17:00 100 /min [facility] Body weight 2024-02-24 08:16:00 80.967 kg [facility] BMI 2024-02-24 08:16:00 29.70 kg/m2 [facility] Body height 2024-02-23 23:12:00 165.1 cm [facility] Systolic blood pressure 2023-12-19 16:35:00 114 mm[Hg] [facility] Diastolic blood pressure 2023-12-19 16:35:00 77 mm[Hg] [facility] Heart rate 2023-12-19 16:35:00 91 /min [facility] Body temperature 2023-12-19 16:35:00 36.22 Laura [facility] Respiratory rate 2023-12-19 16:35:00 16 /min [facility] Oxygen saturation in Arterial blood by Pulse oximetry 2023-12-19 16:35:00 99 /min [facility] [facility] weight 2023-12-19 11:50:00 78.971 kg [facility] BMI 2023-12-19 11:50:00 28.97 kg/m2 [facility] Body height 2023-12-16 02:11:00 165.1 cm [facility] Systolic blood pressure 2023-08-03 12:00:00 114 mm[Hg] [facility] Diastolic blood pressure 2023-08-03 12:00:00 74 mm[Hg] [facility] Heart rate 2023-08-03 12:00:00 76 /min Unive [facility] Body temperature 2023-08-03 12:00:00 35.83 Laura [facility] Oxygen saturation in Arterial blood by Pulse oximetry 2023-08-03 12:00:00 98 /min [facility] Respiratory rate 2023-08-03 11:00:00 12 /min [facility] Body height 2023-08-03 07:11:00 165.1 cm [facility] Body weight 2023-08-03 07:11:00 86.183 kg [facility] BMI 2023-08-03 07:11:00 31.62 kg/m2 [facility] Systolic blood pressure 2023-07-20 08:21:00 172 mm[Hg] [facility] Diastolic blood pressure 2023-07-20 08:21:00 97 mm[Hg] [facility] Heart rate 2023-07-20 08:21:00 92 /min [facility] Respiratory rate 2023-07-20 08:21:00 18 /min [facility] Oxygen saturation in Arterial blood by Pulse oximetry 2023-07-20 08:21:00 100 /min [facility] Body temperature 2023-07-20 05:30:00 36.72 Laura [facility] Body height 2023-07-20 05:30:00 165.1 cm [facility] Body weight 2023-07-20 05:30:00 77.111 kg [facility] BMI 2023-07-20 05:30:00 28.29 kg/m2 [facility] Systolic blood pressure 2023-05-19 12:06:46 141 mm[Hg] [facility] Diastolic blood pressure 2023-05-19 12:06:46 102 mm[Hg] [facility] Heart rate 2023-05-19 12:06:46 78 /min Un[facility] Respiratory rate 2023-05-19 12:06:46 16 /min [facility] Oxygen saturation in Arterial blood by Pulse oximetry 2023-05-19 12:06:46 100 /min [facility] Body temperature 2023-05-19 11:35:00 37.06 Laura [facility] Body height 2023-05-19 11:35:00 165.1 cm [facility] Body weight 2023-05-19 11:35:00 79.379 kg [facility] BMI 2023-05-19 11:35:00 29.12 kg/m2 [facility] Systolic blood pressure 2023-05-11 05:22:00 148 mm[Hg] [facility] Diastolic blood pressure 2023-05-11 05:22:00 84 mm[Hg] [facility] Heart rate 2023-05-11 05:22:00 88 /min [facility] Body temperature 2023-05-11 05:22:00 36.5 Laura [facility] Respiratory rate 2023-05-11 05:22:00 18 /min [facility] Oxygen saturation in Arterial blood by Pulse oximetry 2023-05-11 05:22:00 100 /min [facility] Body height 2023-05-11 05:21:00 165.1 cm [facility] Body weight 2023-05-11 05:21:00 77.111 kg [facility] BMI 2023-05-11 05:21:00 28.29 kg/m2 [facility] Procedures Procedure Date / Time Performed Performing Clinician Source THYROID STIMULATING HORMONE 2024-04-18 19:58:00 Patrick Nichols [facility] BASIC METABOLIC PANEL (NA, K, CL, CO2, GLUCOSE, BUN, CREATININE, CA) 2024-04-18 19:58:00 Patrick Nichols [facility] CBC WITH DIFF 2024-04-18 19:58:00 Patrick Nichols [facility] URINE DRUG (IMMUNOASSAY) - COMPREHENSIVE DRUG SCREEN 2024-02-24 13:51:00 Juwanobduliomaty Sole [facility] MAGNESIUM 2024-02-24 08:20:00 Aishwarya [facility] TROPONIN I 2024-02-24 08:20:00 Aishwarya [facility] BASIC METABOLIC PANEL (NA, K, CL, CO2, GLUCOSE, BUN, CREATININE, CA) 2024-02-24 08:20:[address] [facility] LIPID PANEL (27388)(TOTAL CHOLESTEROL, TRIGLYCERIDES, HDL) 2024-02-24 08:20:[address] [facility] CBC WITHOUT DIFF 2024-02-24 08:20:[address] [facility] N-TERMINAL PRO-BNP 2024-02-24 08:20:[address] [facility] TROPONIN I 2024-02-24 00:53:00 Aishwarya [facility] TROPONIN I 2024-02-23 19:31:00 Jaimie Cruz [facility] CT ANGIOGRAM HEAD 2024-02-23 18:20:55 Jaimie Saldana [facility] CT ANGIOGRAM NECK 2024-02-23 18:20:55 ArethaerJaimie owen [facility] CT HEAD WO CONTRAST 2024-02-23 18:18:12 AufderJaimie castañeda [facility] TROPONIN I 2024-02-23 17:19:00 Jaiime Cruz [facility] COMP. METABOLIC PANEL (02536) 2024-02-23 17:19:00 Jaimie Cruz [facility] CBC WITH DIFF 2024-02-23 17:19:00 Jaimie Cruz [facility] GLYCOSYLATED HEMOGLOBIN (A1C) 2024-02-23 17:19:00 Brandon Neff [facility] N-TERMINAL PRO-BNP 2024-02-23 17:19:00 Jaimie Inman [facility] HB ECG ROUTINE & RHYTHM STRIP 2024-02-23 16:53:00 Jaimie Cruz [facility] CBC WITH DIFF 2023-12-19 11:46:00 Jasper Mcnulty [facility] MAGNESIUM 2023-12-19 09:40:00 Jasper Mcnulty [facility] BASIC METABOLIC PANEL (NA, K, CL, CO2, GLUCOSE, BUN, CREATININE, CA) 2023-12-19 09:40:00 Jasper Mcnulty [facility] TRANSTHORACIC ECHO (TTE) LIMITED W/ DOPPLER AND COLOR 2023-12-18 15:25:00 Felipe Khoury [facility] CBC WITHOUT DIFF 2023-12-18 10:13:00 Clara Whitaker [facility] EXTRA TUBE RED 2023-12-18 10:13:00 Selina Hubbard [facility] TRANSTHORACIC ECHO (TTE) COMPLETE W/ CONTRAST 2023-12-17 15:22:00 [facility] 2023-12-17 08:50:00 Bao Khoury [facility] BASIC METABOLIC PANEL (NA, K, CL, CO2, GLUCOSE, BUN, CREATININE, CA) 2023-12-17 08:50:00 Felipe Khoury [facility] CBC WITH DIFF 2023-12-17 08:50:00 Bao Khoury [facility] ACTIVATED PARTIAL THRMPLAS TANO 2023-12-16 15:28:00 Clara Whitaker [facility] TROPONIN I 2023-12-16 13:33:00 [facility] THRMPLAS TANO 2023-12-16 13:33:00 Clara Whitaker [facility] TROPONIN I 2023-12-16 10:24:00 Francine Turk [facility] THYROID STIMULATING HORMONE 2023-12-16 10:24:00 Francine Turk [facility] BASIC METABOLIC PANEL (NA, K, CL, CO2, GLUCOSE, BUN, CREATININE, CA) 2023-12-16 10:24:00 Francine Turk [facility] CBC WITHOUT DIFF 2023-12-16 10:24:00 Clara Whitaker [facility] PROTHROMBIN TIME / INR 2023-12-16 07:34:00 Corey Whitaker [facility] ACTIVATED PARTIAL THRMPLAS TANO 2023-12-16 07:34:00 Clara Whitaker [facility] EKG-12 LEAD 2023-12-16 07:01:30 Clara Whitaker [facility] XR CHEST 1 VW 2023-12-16 05:58:32 Clara Whitaker [facility] CREATINE KINASE 2023-12-16 03:54:00 [facility] COMP. METABOLIC PANEL (84767) 2023-12-16 03:54:00 Clara Whitaker [facility] LIPID PANEL (86923)(TOTAL CHOLESTEROL, TRIGLYCERIDES, HDL) 2023-12-16 03:54:00 Francine Turk [facility] EKG-12 LEAD 2023-12-16 03:08:39 Doctor Unass igned, [place] [facility] TROPONIN I 2023-12-16 03:05:00 Clara Whitaker [facility] URINE DRUG (IMMUNOASSAY) - COMPREHENSIVE DRUG SCREEN 2023-12-16 03:05:00 Clara Whitaker [facility] CBC WITH DIFF 2023-12-16 03:05:00 Clara Whitaker [facility] GLYCOSYLATED HEMOGLOBIN (A1C) 2023-12-16 03:05[facility]16 03:05:00 Clara Whitaker [facility] POCT GLUCOSE (AUTOMATED) 2023-08-03 07:55:00 Geo Terrazas [facility] URINE DRUG (IMMUNOASSAY) - COMPREHENSIVE DRUG SCREEN 2023-08-03 07:44:00 Geo Terrazas [facility] URINALYSIS 2023-08-03 07:44:00 Geo Terrazas [facility] MAGNESIUM 2023-08-03 07:24:00 [facility] TROPONIN I 2023-08-03 07:24:00 Geo [facility]raz[facility] COMP. METABOLIC PANEL (87820) 2023-08-03 07:24:00 Geo Terrazas [facility] CBC WITH DIFF 2023-08-03 07:24:00 Geo Terrazas [facility] RAPID STREP SCREEN FOR GROUP A 2023-07-20 05:36:00 Clara Whitaker [facility] RAPID INFLUENZA A/B 2023-07-20 05:36:00 Clara Whitaker [facility] COVID-19 (ID NOW RAPID TESTING) 2023-07-20 05:36:00 Clara Whitaker [facility] CONSENT/REFUSAL FOR DIAGNOSIS AND TREATMENT 2023-07-20 05:25:45 Doctor Unassigned, [place] [facility] NOTICE OF PRIVACY PRACTICES 2023-05-11 05:01:51 Doctor Unassigned, [place] [facility] CONSENT/REFUSAL FOR DIAGNOSIS AND TREATMENT 2023-05-11 05:01:35 Doctor Unassigned, [place] [facility] [id number] 2020-03-17 00:00:00 SCATE [facility] [id number] 2020-03-17 00:00:00 LIANNAE [facility] [id number] 2020-03-17 00:00:00 [facility] Encounters Start Date/Time End Date/Time Encounter Type Admission Type Attending Clinicians Care Facility Care Department Encounter ID Source 2021-05-13 10:58:11 Outpatient R HIRAM OLIVARES [facility] EMILIANO [id number] [facility] 2020-03-20 15:12:00 Inpatient Rodo Mauricio [facility] [id number] [facility] 2020-03-17 10:30:00 Inpatient Anthony Friedman [facility] DAYS [id number] [facility] 2020-02-14 14:00:00 Inpatient Anthony Friedman [facility] ENDO [id number] [facility] 2024-04-18 13:15:00 2024-04-18 16:47:00 Emergency X PATRICK NICHOLS JOSEPH [facility] ERT [id number] [facility] 2024-04-18 13:15:00 2024-04-18 16:47:00 Emergency Patrick Nichols [facility] 1..840.114 350.1.13.10 4.2.7.2.686 [id number] [facility] 2024-02-26 00:00:00 2024-02-27 09:10:29 Transition of Care Marcos Gann Michele [address] ..840.114 350.1.13.10 4.2.7.2.686 [id number] [facility] 2024-02-23 12:00:00 2024-02-24 14:33:00 Outpatient X BRADNON NEFF [facility] [id number] [facility] 2024-02-23 12:00:00 2024-02-24 14:33:00 Emergency Jaimie Cruz Jelani [facility] ..840.114 350.1.13.10 4.2.7.2.686 [id number] [facility] 2024-01-25 14:30:00 2024-01-25 14:30:00 Outpatient R DAX PITTS [facility] [id number] [facility] 2023-12-20 00:00:00 2023-12-20 12:43:25 Transition of Care Saulo Sonya DELGADORegla [facility] JALL[facility] 1.2.840.114 350.1.13.10 4.2.7.2.686 [id number] [facility] 2023-12-15 21:16:00 2023-12-19 15:38:00 Inpatient X RAMIN PITTSHARRISBURGPablo [facility] [id number] [facility] 2023-12-15 21:16:00 2023-12-19 15:38:00 Hospital Encounter [facility]arly[facility] Grace Hubbard, Selina Day, [facility] 1.840.114 350.1.13.10 4.2.7.2.686 [id number] [facility] 2023-08-03 01:20:00 2023-08-03 06:24:00 Emergency X Geo TERRAZAS [facility] ERT [id number] [facility] 2023-08-03 01:20:00 2023-08-03 06:24:00 Emergency Morris, K Destiny [facility] 1.2840.114 350.1.13.10 4.2.7.2.686 [id number] [facility] 2023-07-19 23:39:00 2023-07-20 02:24:00 Emergency X CAREN CANALES [facility] ERT [id number] [facility] 2023-07-19 23:39:00 2023-07-20 02:24:00 Emergency Lalo, Caren [facility] 1.2840.114 350.1.13.10 4.2.7.2.686 [id number] [facility] 2023-05-19 06:30:00 2023-05-19 08:18:00 Emergency JANNY CRAWFORD TIMOTHY [facility] ERT [id number] [facility] 2023-05-19 06:30:00 2023-05-19 08:18:00 Emergency Janny Maza [facility] 1.2.840.114 350.1.13.10 4.2.7.2.686 [id number] [facility] 2023-05-11 00:14:00 2023-05-11 01:10:00 Emergency GURJIT MAGDALENO [facility] ERT [id number] [facility] 2023-05-11 00:14:00 2023-05-11 01:10:00 Emergency Gurjit Jett [facility] 1.2.840.114 350.1.13.10 4.2.7.2.686 [id number] [facility] 2022-01-26 10:47:00 2022-01-26 10:47:00 Outpatient RAINE HARVEY [facility] [id number] [facility] 2020-07-23 13:00:00 2020-07-23 13:00:00 Outpatient ALEJANDRA MILLAN [facility] [id number] [facility] 2020-07-01 13:30:00 2020-07-01 13:30:00 Outpatient ALEJANDRA MILLAN [facility] [id number] [facility] 2020-07-01 13:30:00 2020-07-01 13:30:00 Outpatient Nicky OCAMPO ALEJANDRA [facility] [id number] [facility] 2020-03-20 20:36:00 2020-03-20 20:36:00 Outpatient Rodo [facility] [id number] [facility] 2020-03-09 09:00:00 2020-03-09 09:00:00 Outpatient Anthony Hinson [facility] 3DAY [id number] [facility] 2020-02-11 14:10:00 2020-02-11 14:10:00 Outpatient UNKNOWN HCAKELSI BLACKBURNO [id number] [facility] Jerry Reed [facility] 2019-08-08 00:00:00 2019-08-08 00:00:00 Orders Only Doctor Unassigned, [place] [facility] 1.2.840.114 350.1.13.10 4.2.7.2.686 [id number] 2019-08-01 11:39:15 2019-08-01 12:11:37 Office [facility]camp[facility] 1.2.840.114 350.1.13.10 4.2.7.2.686 [id number] 2019-08-01 11:15:00 2019-08-01 12:11:37 Outpatient R ALEJANDRA OCAMPO [facility] [id number] [facility] Results Test Description Test Time Test Comments Results Result Co mments Source [facility] [id number] 20:25:36* Test Item Value Reference Range Interpretation Comme nts TROPONIN I (test code = 7889248696) 0.009 ng/mL <=0.034 JASWINDER (test code = JASWINDER) [...] of biotin. Lab Interpretation (test code = 66031-8) Normal [facility] [id number] 18:27:57CT ANGIOGRAM HEAD, CT ANGIOGRAM NECK HISTORY: Female 63 years Neuro deficit, acute, stroke suspected COMPARISON: None TECHNIQUE: Routine CTA head and neck were performed followingadministration of 80mL IV Isovue FINDINGS: CTA head: The PICA origins visualized bilaterally. The basilar artery is normal incaliber. The superior cerebellar arteries are patent. The posteriorcerebral arteries are patent. A large right posterior communicating arteryis present. No sizable left posterior communicating artery is visualized. The distal cervical, petrous, cavernous and supraclinoid internal carotidarterysegments are patent. Vascular calcifications in the carotid siphonsresult in no more than mild luminal narrowing. The anterior and middle cerebral arteries are patent. An anteriorcommunicating arteryis present. CTA NECK: The left common carotid artery shares a common origin from the arch withthe innominate artery. Scattered calcified and noncalcified plaque in thearch and arch vessel origins results in no high-grade luminal narrowing.There is calcified and noncalcified plaque in the proximal aspect of theleft subclavian artery which results in mild narrowing. The innominate andsubclavian arteries are otherwise patent. The common carotid arteries, carotid bulbs and cervical internal carotidarteries are patent. Calcified and noncalcified plaque results in mildright and moderate (up to 50% left narrowing. The vertebral arteries are patent from their subclavian origins through thevertebrobasilar junction.[facility] [id number] 18:27:57CT ANGIOGRAM HEAD, CT ANGIOGRAM NECK HISTORY: Female 63 years Neuro deficit, acute, stroke suspected COMPARISON: None TECHNIQUE: Routine CTA head and neck were performed followingadministration of 80mL IV Isovue FINDINGS: CTA head: The PICA origins visualized bilaterally. The basilar artery is normal incaliber. The superior cerebellar arteries are patent. The posteriorcerebral arteries are patent. A large right posterior communicating arteryis present. No sizable left posterior communicating artery is visualized. The distal cervical, petrous, cavernous and supraclinoid internal carotidarterysegments are patent. Vascular calcifications in the carotid siphonsresult in no more than mild luminal narrowing. The anterior and middle cerebral arteries are patent. An anteriorcommunicating arteryis present. CTA NECK: The left common carotid artery shares a common origin from the arch withthe innominate artery. Scattered calcified and noncalcified plaque in thearch and arch vessel origins results in no high-grade luminal narrowing.There is calcified and noncalcified plaque in the proximal aspect of theleft subclavian artery which results in mild narrowing. The innominate andsubclavian arteries are otherwise patent. The common carotid arteries, carotid bulbs and cervical internal carotidarteries are patent. Calcified and noncalcified plaque results in mildright and moderate (up to 50% left narrowing. The vertebral arteries are patent from their subclavian origins through thevertebrobasilar junction.[facility] with [id number] 18:27:56* Test Item Value Reference Range Interpretation Comme nts WBC (test code = 6690-2) 10.74 4.30-11.10 RBC (test code = 789-8) 5.39 3.93-5.25 H HGB (test code = 718-7) 14.1 g/dL 11.6-15.0 HCT (test code = 4544-3) 44.2 % 35.7-45.2 MCV (test code = 787-2) 82.0 fL 80.6-95.5 MCH (test code = 785-6) 26.2 pg 25.9-32.8 MCHC (test code = 786-4) 31.9 g/dL 31.6-35.1 RDW-SD (test code = 35195-8) 43.7 fL 39.0-49.9 RDW-CV (test code = 788-0) 15.0 % 12.0-15.5 PLT (test code = 777-3) 363 166-358 H MPV (test code = 14800-8) 10.5 fL 9.5-12.9 NRBC/100 WBC (test code = 4278233137) 0.0 0.0-10.0 NRBC x10^3 (test code = 0109905050) See_Comment [Automated [employer] ge] The system which generated this result transmitted reference range: 10*3/?L. The reference range was not used to interpret this result as normal/abnormal. GRAN MAT (NEUT) % (test code = 770-8) 42.9 % IMM GRAN % (test code = 6027869181) 0.30 % LYMPH % (test code = 736-9) 39.3 % MONO % (test code = 5905-5) 10.3 % EOS % (test code = 713-8) 6.5 % BASO % (test code = 706-2) 0.7 % GRAN MAT x10^3(ANC) (test code = 6624219946) 4.60 10*3/uL 1.88-7.09 IMM GRAN x10^3 (test code = 1661935603) 0.03 10*3/uL 0.00-0.06 LYMPH x10^3 (test code = 731-0) 4.22 10*3/uL 1.32-3.29 H MONO x10^3 (test code = 742-7) 1.11 10*3/uL 0.33-0.92 H EOS x10^3 (test code = 711-2) 0.70 10*3/uL 0.03-0.39 H BASO x10^3 (test code = 704-7) 0.08 10*3/uL 0.01-0.07 H PLT ESTIMATE (test code = 9317-9) Increased Normal A Lab Interpretation (test code = 14276-7) Abnormal [facility] [id number] 18:21:07FULL RESULT: Examination: CT HEAD WO CONTRAST on 02/23/2024 12:46 PM Clinical Indication: Left-sided sensory deficit Comparison: None Technique: Noncontrast imaging was obtained from base to vertex. Findings: The sulci and ventricles were unremarkable. There was no evidencefor mass lesion, hemorrhage, or underlying edema. There were no bony,sinonasal or skull base lesions.[facility] HospitalTroponin [id number] 17:54:45* Test Item Value Reference Range Interpretation Comme nts TROPONIN I (test code = 0418187392) 0.007 ng/mL <=0.034 JASWINDER (test code = JASWINDER) [...] of biotin. Lab Interpretation (test code = 91325-2) Normal [facility] HospitalN-Terminal [id number] 17:52:03* Test Item Value Reference Range Interpretation Comme nts NT-proBNP (test code = 18422-8) 595 pg/mL <=125 JASWINDER (test code = JASWINDER) Result Indeterminate-Consid er causes of NT-proBNP elevation other than Heart failure such as acute coronary syndrome, pulmonary embolism, pulmonary hypertension, sepsis, stroke, and renal dysfunction. Lab Interpretation (test code = 50364-7) Abnormal [facility]. Metabolic Panel (10819)2024-02-23 17:44:03* Test Item Value Reference Range Interpretation Comme nts NA (test code = 4140249092) 141 mmol/L 135-145 K (test code = 6796057877) 4.0 mmol/L 3.5-5.0 CL (test code = 4320174773) 104 mmol/L 98-108 CO2 TOTAL (test code = 1041869311) 25 mmol/L 23-31 AGAP (test code = 7215013671) 12 2-16 BUN (test code = 6412618375) 14 mg/dL 7-23 GLUCOSE (test code = 0038810986) 92 mg/dL 70-110 CREATININE (test code = 2160-0) 0.80 mg/dL 0.50-1.04 TOTAL BILI (test code = 0122741101) 0.7 mg/dL 0.1-1.1 CALCIUM (test code = 6800637311) 9.4 mg/dL 8.6-10.6 T PROTEIN (test code = 5329691489) 8.8 g/dL 6.3-8.2 H ALBUMIN (test code = 3992407517) 4.5 g/dL 3.5-5.0 ALK PHOS (test code = 2385087595) 94 U/L 34-122 ALTv (test code = 1742-6) 34 U/L 5-35 AST(SGOT) (test code = 5535149809) 49 U/L 13-40 H eGFR (test code = 63218-2) 83.9 mL/min/1.73m2 CKD-EPI eGFR (2020). Assuming creatinine has been stable day-to-day for at least three months, the eGFR indicates Category G2 (60 - 89 mL/min/1.73 m2) Lab Interpretation (test code = 12970-6) Abnormal [facility] Hospital[facility]ansthoracic echo (TTE)2023-12-18 17:36:50* Test Item Value Reference Range Interpretation Comme nts Height (test code = 9561830094) 65 in Weight (test code = 4518778252) 174 lbs Systolic BP (test code = 9672568781) 169 mmHg Diastolic BP (test code = 3649424434) 88 mmHg Heart Rate (test code = 3293295295) 77 bpm BSA (test code = 3513202730) 1.86 m2 LVOT diameter (test code = 0047676841) 1.80 cm LVOT area (test code = 5113907984) 2.60 cm2 LVOT stroke volume (test code = 0437727389) 55.20 cm3 LVOT peak zahira (test code = 2006940294) 95.7 cm/s LVOT mn grad (test code = 5592626598) 2.3 mmHg AV LVOT peak gradient (test code = 6643307414) 3.7 mmHg LVOT peak VTI (test code = 7826798420) 21.7 cm LV V1 mean (test code = 2190197141) 72.70 cm/s Aortic valve mean velocity (test code = 1001580308) 102.9 cm/s Ao peak zahira (test code = 9575235919) 143.9 cm/s Ao VTI (test code = 7457560149) 29.7 cm AV area by cont VTI (test code = 2236516100) 1.9 cm2 AV area peak zahira (test code = 3947689162) 1.7 cm2 Ao max PG (test code = 1739998314) 8.30 mm[Hg] AV peak gradient (test code = 1005581109) 8.3 mmHg AV valve area (test code = 0776706553) 1.86 cm2 AV mean gradient (test code = 8847756672) 4.7 mmHg LVIDD (test code = 9785896763) 3.10 cm Left Ventricular End Diastolic Volume by Teichholz Method (test code = 0330427) 36.5 mL IVS (test code = 2137762242) 1.33 cm Interventricular Septum Diastolic Thickness by 2D (test code = 2666098) 1.33 cm LVPWD (test code = 1044216613) 1.47 cm PW (test code = 4986232941) 1.47 cm 0.6-1.1 MV stenosis pressure 1/2 time (test code = 5473057558) 107.3 ms Radiology Study observation (narrative) (test code = 88965-3) JASWINDER (test code = JASWINDER) ?Left?Ventricle: Left ventricle size is normal. Increased wall thickness. There is concentric remodeling. Hyperdynamic systolic function with a visually estimated EF of greater than 65%. No LVOT obstruction at rest. ?Echo findings are not consistent with left ventricular outflow obstruction.Likely intracavitary LV gradient, peak at 28mmhg with Valsalva ?Mitral?Valve: Mild posterior mitral annular calcification. Progressive Calcific mitral stenosis. Mean gradient of 4mmhg at 70bpm. MVA by Pressure half time is 2.0cm2. ?IVC/SVC: IVC diameter is less than or equal to 21 mm and decreases greater than 50% during inspiration; therefore the estimated right atrial pressure is normal (~0-5 mmHg). ?Pericardium: No pericardial effusion. Left VentricleLeft ventricle size is normal. Increased wall thickness. There is concentric remodeling. Hyperdynamic systolic function with a visually estimated EF of greater than 65%. No LVOT obstruction at rest. Echo findings are not consistent with left ventricular outflow obstruction.Likely intracavitary LV gradient, peak at 28mmhg with ValsalvaLeft AtriumLeft atrium is mildly dilated.IVC/SVCIVC diameter is less than or equal to 21 mm and decreases greater than 50% during inspiration; therefore the estimated right atrial pressure is normal (~0-5 mmHg).Mitral ValveMild posterior mitral annular calcification. No transvalvular regurgitation. Progressive Calcific mitral stenosis. Mean gradient of 4mmhg at 70bpm. MVA by Pressure half time is 2.0cm2.Aortic ValveAortic valve structure is normal.PericardiumNo pericardial effusion.Study DetailsA limited echocardiogram was performed using 2D, color flow Doppler and spectral Doppler. The apical, parasternal, subcostal and suprasternal views were obtained. [facility] ([facility]2023-[facility]-17 20:31:38* Test Item Value Reference Range Interpretation Comme nts Height (test code = 3669552839) 65 in Weight (test code = 7517094209) 174 lbs Systolic BP (test code = 5189158685) 138 mmHg Diastolic BP (test code = 4328976557) 78 mmHg Heart Rate (test code = 6266028773) 69 bpm BSA (test code = 4064087402) 1.86 m2 Ao root diam (test code = 1094740197) 2.70 cm Aortic root (test code = 5734959021) 2.7 cm Ao root annulus (test code = 4456382448) 2.7 cm LA size (test code = 5449346683) 4.2 cm LVOT diameter (test code = 1152413090) 1.78 cm LVOT area (test code = 3945160015) 2.50 cm2 LVIDD (test code = 9892998222) 3.80 cm Left Ventricular End Diastolic Volume by Teichholz Method (test code = 2087982) 61.9 mL IVS (test code = 9690268557) 1.32 cm Interventricular Septum Diastolic Thickness by 2D (test code = 9093115) 1.32 cm LVPWD (test code = 1047291227) 1.32 cm PW (test code = 8367308810) 1.32 cm 0.6-1.1 EF(Teich) (test code = 1009572360) 64.20 % LVIDS (test code = 7393065929) 2.49 cm Left Ventricular End Systolic Volume by Teichholz Method (test code = 1135080) 22.1 mL FS (test code = 1017402775) 34 % EF - 2D (test code = 36540420) 64.20 % TR Peak Zahira (test code = 2250215096) 261.8 cm/s Triscuspid Valve Regurgitation Peak Gradient (test code = 2867812411) 27.4 mmHg MV Peak E Zahira (test code = 5836309132) 142.6 cm/s E wave decelartion time (test code = 1396020919) 0.29 s MV Peak A Zahira (test code = 1688417012) 155.6 cm/s E/A ratio (test code = 7275669276) 0.92 ratio MV Prop V (test code = 5107506830) 42.00 cm/s LAV(MOD-sp4) (test code = 9805822489) 68.80 mL Tapse (test code = 6978350836) 2.30 cm LVOT stroke volume (test code = 4374040167) 51.30 cm3 LVOT peak zahira (test code = 1419010400) 105.0 cm/s LVOT mn grad (test code = 5134837352) 2.5 mmHg AV LVOT peak gradient (test code = 1539448897) 4.4 mmHg LVOT peak VTI (test code = 3651356109) 20.6 cm LV V1 mean (test code = 4240319903) 73.90 cm/s Ao peak zahira (test code = 6353031068) 146.3 cm/s AV area peak zahira (test code = 5080998642) 1.8 cm2 Ao max PG (test code = 7997998611) 8.60 mm[Hg] AV peak gradient (test code = 1158583740) 8.6 mmHg LA Volume Index (BP) (test code = 0071532225) 38.2 mL/m2 LA volume (BP) (test code = 1306127359) 71.2 mL LAV(MOD-sp2) (test code = 2236130370) 70.10 mL GLS (test code = 6460110200) -13 % Radiology Study observation (narrative) (test code = 20107-0) JASWINDER (test code = JASWINDER) ?Left?Ventricle: Left ventricle size is normal. There is concentric remodeling. No regional wall motion abnormalities. Hyperdynamic systolic function with a visually estimated EF of greater than 65%. Global longitudinal strain is reduced with a value of -13%. There is grade 2 diastolic dysfunction. Elevated left ventricular filling pressure. Chordal RUSSELL with dynamic obstruction noted (peak gradient 20-25 mmHg). ?Right?Ventricle: Right ventricle is normal in size and function. TAPSE is 2.30 cm. RV free wall longitudinal strain of -21% (normal). ?Left?Atrium: Left atrium is mildly dilated. LA reservoir strain is 18%. Left VentricleLeft ventricle size is normal. There is concentric remodeling. No regional wall motion abnormalities. Hyperdynamic systolic function with a visually estimated EF of greater than 65%. Global longitudinal strain is reduced with a value of -13%. There is grade 2 diastolic dysfunction. Elevated left ventricular filling pressure. Chordal RUSSELL with dynamic obstruction noted (peak gradient 20-25 mmHg).Right VentricleRight ventricle is normal in size and function. TAPSE is 2.30 cm. RV free wall longitudinal strain of -21% (normal).Left AtriumLeft atrium is mildly dilated. LA reservoir strain is 18%.Right AtriumRight atrium size is normal.IVC/SVCIVC diameter is less than or equal to 21 mm and decreases greater than 50% during inspiration; therefore the estimated right atrial pressure is normal (~0-5 mmHg).Mitral ValveModerate mitral annular calcification. Trace transvalvular regurgitation.Tricuspi d ValveMild transvalvular regurgitation. Right ventricular systolic pressure is 30-35 mmHg.Aortic ValveTricuspid. No hemodynamically significant .Pulmonic ValveMild transvalvular regurgitation.Ascendin g AortaNormal sized aortic root.PericardiumNo pericardial effusion.Study DetailsA complete echocardiogram was performed using 2D, color flow Doppler, spectral Doppler and strain. 3 mL of Optison ultrasound enhancing agent used. [facility] HospitalCb with [id number] 10:52:49* Test Item Value Reference Range Interpretation Comme nts WBC (test code = 6690-2) 8.77 4.30-11.10 RBC (test code = 789-8) 4.90 3.93-5.25 HGB (test code = 718-7) 12.5 g/dL 11.6-15.0 HCT (test code = 4544-3) 39.1 % 35.7-45.2 MCV (test code = 787-2) 79.8 fL 80.6-95.5 L MCH (test code = 785-6) 25.5 pg 25.9-32.8 L MCHC (test code = 786-4) 32.0 g/dL 31.6-35.1 RDW-SD (test code = 75040-4) 41.1 fL 39.0-49.9 RDW-CV (test code = 788-0) 14.2 % 12.0-15.5 PLT (test code = 777-3) 321 166-358 MPV (test code = 10100-0) 10.5 fL 9.5-12.9 NRBC/100 WBC (test code = 1610716334) 0.0 0.0-10.0 NRBC x10^3 (test code = 6489107752) See_Comment [Automated messa ge] The system which generated this result transmitted reference range: 10*3/?L. The reference range was not used to interpret this result as normal/abnormal. SEG % (test code = 69024-7) 28 % 33-76 L LYMPH % (test code = 26600-9) 60 % 14-54 H MONO % (test code = 69449-7) 8 % 0-4 H EOS % (test code = 82096-7) 4 % 0-3 H ANC (test code = 753-4) 2.46 10*3/uL 1.88-7.09 Lab Interpretation (test code = 16744-5) Abnormal [facility] Metabolic Panel (NA, K, CL, CO2, GLUCOSE, BUN, CREATININE, CA)2023-12-17 09:22:40* Test Item Value Reference Range Interpretation Comme nts NA (test code = 2563467385) 137 mmol/L 135-145 K (test code = 9157990186) 4.5 mmol/L 3.5-5.0 CL (test code = 5650363469) 109 mmol/L 98-108 H CO2 TOTAL (test code = 3052150230) 25 mmol/L 23-31 AGAP (test code = 6563494073) 3 2-16 BUN (test code = 2227714564) 17 mg/dL 7-23 GLUCOSE (test code = 7404222244) 87 mg/dL 70-110 CREATININE (test code = 2160-0) 0.79 mg/dL 0.50-1.04 CALCIUM (test code = 2023539582) 8.7 mg/dL 8.6-10.6 eGFR (test code = 57969-4) 85.2 mL/min/1.73m2 CKD-EPI eGFR (2020). Assuming creatinine has been stable day-to-day for at least three months, the eGFR indicates Category G2 (60 - 89 mL/min/1.73 m2) Lab Interpretation (test code = 92435-8) [facility]* Test Item Value Reference Range Interpretation Comme nts MAGNESIUM (test code = 9569772640) 2.3 mg/dL 1.7-2.4 Lab Interpretation (test cod e = 58355-3) Normal [facility] HospitalGlycosylated Hemoglobin (A1C)2023-12-16 15:18:07* Test Item Value Reference Range Interpretation Comme nts HGB A1C (test code = 4548-4) 5.7 % 4.0-5.7 JASWINDER (test code = JASWINDER) Reference RangesNormal: <5.7%Prediabetes: 5.7 - 6.4%Diabetes: > 6.5% Lab Interpretation (test code = 01213-7) Normal [facility] HospitalLipid Panel (Total Cholesterol, Triglycerides, HDL)2023-12-16 13:51:10* Test Item Value Reference Range Interpretation Comme nts CHOL (test code = 2521059217) 166 mg/dL 120-200 HDL (test code = 3096506446) 52 mg/dL >=50 HDLC RATIO (test code = 0686371838) 3.2 <=4.5 TRIG (test code = 5486597728) 94 mg/dL 30-170 LDL CHOL (test code = 91494-6) 95 mg/dL <=160 VLDL (test code = 8934715794) 19 mg/dL 5-60 Lab Interpretation (test cod e = 13210-6) Normal [facility] HospitalThyroid Stimulating Hormone (TSH)2023-12-16 12:15:49* Test Item Value Reference Range Interpretation Comme nts TSH (test code = 1842351042) 1.94 0.45-4.70 Lab Interpretation (test cod e = 11371-9) Normal [facility] HospitalTroponin I - Serial Q3H x2 from initial occurrence (at 0Hr, 3rd Hr and 6th Hr)2023-12-16 11:57:05* Test Item Value Reference Range Interpretation Comme nts TROPONIN I (test code = 1033817854) 0.026 ng/mL <=0.034 JASWINDER (test code = JASWINDER) [...] of biotin. Lab Interpretation (test code = 02095-4) Normal [facility] Metabolic Panel (NA, K, CL, CO2, GLUCOSE, BUN, CREATININE, CA)2023-12-16 11:42:28* Test Item Value Reference Range Interpretation Comme nts NA (test code = 5377680816) 136 mmol/L 135-145 K (test code = 8426137294) 3.4 mmol/L 3.5-5.0 L CL (test code = 2651263700) 104 mmol/L 98-108 CO2 TOTAL (test code = 6505189823) 22 mmol/L 23-31 L AGAP (test code = 7882107696) 10 2-16 BUN (test code = 9688644420) 18 mg/dL 7-23 GLUCOSE (test code = 1202967354) 84 mg/dL 70-110 CREATININE (test code = 2160-0) 0.71 mg/dL 0.50-1.04 CALCIUM (test code = 7284134447) 8.7 mg/dL 8.6-10.6 eGFR (test code = 30539-9) 96.9 mL/min/1.73m2 CKD-EPI eGFR (2020). Assuming creatinine has been stable day-to-day for at least three months, the eGFR indicates Category G1 (>= 90 mL/min/1.73 m2) Lab Interpretation (test code = 94281-3) Abnormal [facility] Without [id number] 10:38:02* Test Item Value Reference Range Interpretation Comme nts WBC (test code = 6690-2) 11.28 4.30-11.10 H RBC (test code = 789-8) 4.70 3.93-5.25 HGB (test code = 718-7) 12.1 g/dL 11.6-15.0 HCT (test code = 4544-3) 37.2 % 35.7-45.2 MCH (test code = 785-6) 25.7 pg 25.9-32.8 L MCV (test code = 787-2) 79.1 fL 80.6-95.5 L MCHC (test code = 786-4) 32.5 g/dL 31.6-35.1 PLT (test code = 777-3) 296 166-358 MPV (test code = 80253-2) 10.6 fL 9.5-12.9 RDW-CV (test code = 788-0) 14.1 % 12.0-15.5 RDW-SD (test code = 90520-1) 40.7 fL 39.0-49.9 NRBC x10^3 (test code = 9896008142) See_Comment [Automated [employer] ge] The system which generated this result transmitted reference range: 10*3/?L. The reference range was not used to interpret this result as normal/abnormal. NRBC/100 WBC (test code = 6714130476) 0.0 0.0-10.0 IPF % (test code = 8090387376) Lab Interpretation (test code = 79286-3) Abnormal [facility] HospitalProthrombin Time / [id number] 08:30:26* Test Item Value Reference Range Interpretation Comme [facility] PROTIME PATIENT (test code = 5964-2) 11.6 10.1-12.6 INR (test code = 6301-6) 1.0 Normal INR <1.1; Warfarin Therapeutic range 2.0 to 3.0 or 2.5 to 3.5, depending upon the indications. Lab Interpretation (test code = 64631-1) Normal [facility] HospitalaPTT2024-06-01 08:30:26* Test Item Value Reference Range Interpretation Comme [facility] APTT Patient (test code = 3173-2) 24 26-36 L JASWINDER (test code = JASWINDER) The [facility] patient population mean normal value for aPTT is 30 seconds. Lab Interpretation (test code = 97060-9) Abnormal [facility] HospitalXR CHEST 1 [id number] 06:29:42Study: Single view chest. Ordering Physician: CHANDRAKANT WHITAKER Date: 12/16/2023 12:00 AM History:Chest Pain, Uncontrolled Hypertension, Elevated Troponin I COMPARISON: 08/03/2023 Findings: Single frontal view chest demonstrates a normal heart size. Thelungs are clear without infiltrate, pleural effusion or pneumothorax. Noacute osseous abnormality is identified.[facility] with [id number] 04:46:52* Test Item Value Reference Range Interpretation Comme nts WBC (test code = 6690-2) 11.97 4.30-11.10 H RBC (test code = 789-8) 5.12 3.93-5.25 HGB (test code = 718-7) 13.2 g/dL 11.6-15.0 HCT (test code = 4544-3) 40.5 % 35.7-45.2 MCV (test code = 787-2) 79.1 fL 80.6-95.5 L MCH (test code = 785-6) 25.8 pg 25.9-32.8 L MCHC (test code = 786-4) 32.6 g/dL 31.6-35.1 RDW-SD (test code = 50090-2) 40.3 fL 39.0-49.9 RDW-CV (test code = 788-0) 14.1 % 12.0-15.5 PLT (test code = 777-3) 340 166-358 MPV (test code = 14945-4) 11.1 fL 9.5-12.9 NRBC/100 WBC (test code = 3158731051) 0.0 0.0-10.0 NRBC x10^3 (test code = 8353127089) See_Comment [Automated [employer] ge] The system which generated this result transmitted reference range: 10*3/?L. The reference range was not used to interpret this result as normal/abnormal. GRAN MAT (NEUT) % (test code = 770-8) 45.8 % IMM GRAN % (test code = 8754195044) 0.30 % LYMPH % (test code = 736-9) 40.6 % MONO % (test code = 5905-5) 12.1 % EOS % (test code = 713-8) 0.5 % BASO % (test code = 706-2) 0.7 % GRAN MAT x10^3(ANC) (test code = 2730441410) 5.48 10*3/uL 1.88-7.09 IMM GRAN x10^3 (test code = 1392265101) 0.04 10*3/uL 0.00-0.06 LYMPH x10^3 (test code = 731-0) 4.86 10*3/uL 1.32-3.29 H MONO x10^3 (test code = 742-7) 1.45 10*3/uL 0.33-0.92 H EOS x10^3 (test code = 711-2) 0.06 10*3/uL 0.03-0.39 BASO x10^3 (test code = 704-7) 0.08 10*3/uL 0.01-0.07 H Lab Interpretation (test code = 44756-3) Abnormal [facility] HospitalComp. Metabolic Panel (91440)2023-12-16 04:25:31* Test Item Value Reference Range Interpretation Comme nts NA (test code = 3625862300) 136 mmol/L 135-145 K (test code = 3097357728) 3.3 mmol/L 3.5-5.0 L CL (test code = 3630604193) 106 mmol/L 98-108 CO2 TOTAL (test code = 5108209716) 25 mmol/L 23-31 AGAP (test code = 8848970871) 5 2-16 BUN (test code = 3067492565) 19 mg/dL 7-23 GLUCOSE (test code = 9641634124) 103 mg/dL 70-110 CREATININE (test code = 2160-0) 0.78 mg/dL 0.50-1.04 TOTAL BILI (test code = 5021534156) 0.7 mg/dL 0.1-1.1 CALCIUM (test code = 7492855542) 8.6 mg/dL 8.6-10.6 T PROTEIN (test code = 5196123995) 7.3 g/dL 6.3-8.2 ALBUMIN (test code = 9359760007) 4.0 g/dL 3.5-5.0 ALK PHOS (test code = 1334718067) 80 U/L 34-122 ALTv (test code = 1742-6) 35 U/L 5-35 AST(SGOT) (test code = 2927923482) 53 U/L 13-40 H eGFR (test code = 77262-1) 86.5 mL/min/1.73m2 CKD-EPI eGFR (2020). Assuming creatinine has been stable day-to-day for at least three months, the eGFR indicates Category G2 (60 - 89 mL/min/1.73 m2) Lab Interpretation (test code = 16705-9) Abnormal [facility] HospitalCreatine [id number] 04:25:11* Test Item Value Reference Range Interpretation Comme nts CK (test code = 2750779217) 375 U/L 33-194 H Lab Interpretation (test cod e = 75388-1) Abnormal [facility] HospitalTroponin [id number] 04:02:09* Test Item Value Reference Range Interpretation Comme nts TROPONIN I (test code = 9056515762) 0.043 ng/mL <=0.034 H JASWINDER (test code = JASWINDER) Reference (Normal) [...] of biotin. Lab Interpretation (test code = 20991-4) Abnormal [facility] HospitalCb with [id number] 08:16:41* Test Item Value Reference Range Interpretation Comme nts WBC (test code = 6690-2) 11.62 See_Comment H [Automated messa ge] The system which generated this result transmitted reference range: 4.30 - 11.10 10*3/?L. The reference range was not used to interpret this result as normal/abnormal. RBC (test code = 789-8) 4.78 See_Comment [Automated messa ge] The system which generated this result transmitted reference range: 3.93 - 5.25 10*6/?L. The reference range was not used to interpret this result as normal/abnormal. HGB (test code = 718-7) 12.5 g/dL 11.6-15.0 HCT (test code = 4544-3) 39.2 % 35.7-45.2 MCV (test code = 787-2) 82.0 fL 80.6-95.5 MCH (test code = 785-6) 26.2 pg 25.9-32.8 MCHC (test code = 786-4) 31.9 g/dL 31.6-35.1 RDW-SD (test code = 16371-6) 41.2 fL 39.0-49.9 RDW-CV (test code = 788-0) 14.0 % 12.0-15.5 PLT (test code = 777-3) 331 See_Comment [Automated [employer] ge] The system which generated this result transmitted reference range: 166 - 358 10*3/?L. The reference range was not used to interpret this result as normal/abnormal. MPV (test code = 63191-0) 10.2 fL 9.5-12.9 NRBC/100 WBC (test code = 7233927212) 0.0 See_Comment [Automated [employer] ssage] The system which generated this result transmitted reference range: 0.0 - 10.0 /100 WBCs. The reference range was not used to interpret this result as normal/abnormal. NRBC x10^3 (test code = 7385159635) See_Comment [Automated [employer] ge] The system which generated this result transmitted reference range: 10*3/?L. The reference range was not used to interpret this result as normal/abnormal. SEG % (test code = 66476-4) 48 % 33-76 LYMPH % (test code = 57902-5) 48 % 14-54 EOS % (test code = 64639-4) 4 % 0-3 H ANC (test code = 753-4) 5.58 10*3/uL 1.88-7.09 Lab Interpretation (test code = 12669-0) Abnormal [facility] HospitalMilli [id number] 08:12:19* Test Item Value Reference Range Interpretation Comme nts TROPONIN I (test code = 9919883465) 0.004 ng/mL <=0.034 JASWINDER (test code = [...] of biotin. Lab Interpretation (test code = 06344-1) Normal [facility] HospitalMagnesium2024-01-18 08:00:39* Test Item Value Reference Range Interpretation Comme nts MAGNESIUM (test code = 3090418943) 2.1 mg/dL 1.7-2.4 Lab Interpretation (test cod e = 10570-3) Normal [facility] HospitalComp. Metabolic Panel (41386)2023-08-03 08:00:38* Test Item Value Reference Range Interpretation Comme nts NA (test code = 6472186304) 140 mmol/L 135-145 K (test code = 5647343381) 3.8 mmol/L 3.5-5.0 CL (test code = 4106171009) 105 mmol/L 98-108 CO2 TOTAL (test code = 6610819001) 27 mmol/L 23-31 AGAP (test code = 8393176902) 8 2-16 BUN (test code = 7023634165) 26 mg/dL 7-23 H GLUCOSE (test code = 8659881580) 125 mg/dL 70-110 H CREATININE (test code = 2841380521) 0.92 mg/dL 0.50-1.04 TOTAL BILI (test code = 8950397884) 0.3 mg/dL 0.1-1.1 CALCIUM (test code = 5197285494) 9.0 mg/dL 8.6-10.6 T PROTEIN (test code = 7798948639) 7.8 g/dL 6.3-8.2 ALBUMIN (test code = 3917323769) 4.2 g/dL 3.5-5.0 ALK PHOS (test code = 7006242033) 69 U/L 34-122 ALTv (test code = 1742-6) 32 U/L 5-35 AST(SGOT) (test code = 4525394934) 41 U/L 13-40 H eGFR (test code = 36432-7) 71.0 mL/min/1.73m2 CKD-EPI eGFR (2020). Assuming creatinine has been stable day-to-day for at least three months, the eGFR indicates Category G2 (60 - 89 mL/min/1.73 m2) Lab Interpretation (test code = 83817-5) Abnormal [facility] HospitalPOCT GLUCOSE (AUTOMATED)2023-08-03 07:56:41* Test Item Value Reference Range Interpretation Comme [facility] POCT GLU (test code = 0489652223) 123 mg/dL 70-110 H Lab Interpretation (test cod e = 56354-4) Abnormal [facility] HospitalCBC W/AUTO [id number] 06:30:00* Test Item Value Reference Range Interpretation Comme [facility] WHITE BLOOD CELL (test code = [...] 0.03 x10 3/uL 0.0-0.20 N RENAL FUNCTION [id number] 06:28:00* Test Item Value Reference Range Interpretation [...] = PHOS) 3.4 mg/dL 2.7-4.5 N LACTIC [id number] 20:39:00* Test Item Value Reference Range Interpretation Comme nts LACTIC ACID (test code = LACT) 12.1 mg/dL 4.5-18.0 N CBC W/MANUAL [id number] 15:38:00* Test Item Value Reference Range Interpretation [...] MICR) 1+ NONE SEEN A COMPREHENSIVE METABOLIC [id number] 13:50:00* Test Item Value Reference Range Interpretation [...] code = ALKP) 63 U/L 32-104 N [id number] 13:50:00* Test Item Value Reference Range Interpretation Comme nts LIPASE (test code = LIP) 50 U/L 0-190 N CBC W/MANUAL [id number] 13:47:00* Test Item Value Reference Range Interpretation [...] code = LYMPH) % 20.5-45.5 CBC W/MANUAL [id number] 13:47:00* Test Item Value Reference Range Interpretation [...] (test code = LYMPH) % 20.5-45.5 SURGICAL [id number] 13:17:00 RUN DATE: 03/19/20 [facility] - LAB PAGE 1 RUN TIME: 1317 Specimen Inquiry RUN USER: INTERFACE ----- -------PATIENT: FUNMI JARQUIN LOC: P.5N POD B U #: [id number] AGE/SX: 59/F ROOM: [facility] RE03/17/20REG DR: Anthony Friedman MD : 62 BED: 1 DIS: 03/18/20 STATUS: DIS IN TLOC: ----- ------- SPEC #: [id number] RECD: 03/17/20 STATUS: SON RE #: [id number] KEYANA: 03/17/20-[address]: Anthony Friedman MD ENTERED: 03/17/20 [...] form of hepatocyte ballooning and/or pericellular fibrosis. TheNAFLD score is defined as the scores for steatosis (0-3), lobular inflammation (0-3), and hepatocellular ballooning (0-2). Fibrosis is staged using the Brunt methodology (1 - perisinusoidal fibrosis,focal or extensive ; 2 - perisinusoidal fibrosis and portal fibrosis, focal or extensive; 3 - bridging fibrosis; 4- cirrhosis). [facility] [address] X 2, 72353 X 3 CONTINUED ON NEXT PAGE RUN DATE: 03/19/20 [facility] - LAB PAGE 2 RUN TIME: 1317 Specimen Inquiry RUN USER: INTERFACE SPEC #: [id number] PATIENT: FUNMI JARQUIN #[id number] (Continued) GROSS DESCRIPTION Received are two containers of formalin labeled with the patient's name and medical record number. Specimen A: Received labeled "liver biopsy" delaney 1.3 x 0.9 x 0.5 cm piece [...] The rugal folds are prominent khan. There areno mucosal lesions seen grossly. Mechanical Integrity Specialist sections are submitted in "B". /yari Signed [...] code = CA) 9.4 mg/dL 8.8-10.2 N [id number] 04:39:00* Test Item Value Reference Range Interpretation Comme nts PHOSPHOROUS (test code = PHOS) 4.3 mg/dL 2.7-4.5 N [id number] 04:39:00* Test Item Value Reference Range Interpretation Comme nts MAGNESIUM (test code = MAG) 2.1 mg/dL 1.4-2.6 N CBC W/AUTO [id number] 04:31:00* Test Item Value Reference Range Interpretation [...] was developed and its performance characteristicsdetermined by [employer]. This test has not beenFDA cleared or approved. This test has been [facility] by[facility] under an Emergency Use Authorization (EUA). This [...] was developed and its performance characteristicsdetermined by [employer]. This test has not beenFDA cleared or approved. This test has been authorized by[facility] under an Emergency Use Authorization (EUA). This [...] detected) result in this assay. BASIC METABOLIC [id number] 13:23:00* Test Item Value Reference Range Interpretation [...] 8.8-10.2 N UA RFLX MICR CULT IF [id number] 13:07:00* Test Item Value Reference Range Interpretation [...] OCCASIONAL /LPF NONE-TRACE Indication for culture: Dysuria/FrequencyPROTHROMBIN [id number] 12:54:00* Test Item Value Reference Range Interpretation [...] heart valves; 2.5-3.5recurrent systemic embolism. THROMBOPLASTIN TIME [id number] 12:54:00* Test Item Value Reference Range Interpretation Comme nts THROMBOPLASTIN TIME PARTIAL (test code = PTT) 30.4 SECONDS 23.8-34.8 N INTERPRETATIVE DATA:Therapeutic range: Unfractionated heparin:55 - 80 seconds Argatroban:1.5 to 3 times the baseline PTT UA RFLX MICR CULT IF [id number] 12:53:00* Test Item Value Reference Range Interpretation [...] /LPF NONE-TRACE Indication for culture: Dysuria/FrequencyCBC W/AUTO [id number] 12:44:00* Test Item Value Reference Range Interpretation [...] BA#) 0.06 x10 3/uL 0.0-0.20 N SURGICAL [id number] 08:30:00 RUN DATE: 02/19/20 [employer] - LAB PAGE 1 RUN TIME: 0830 Specimen Inquiry RUN USER: INTERFACE ------ ------PATIENT: FUNMI JARQUIN LOC: EMA U #: [id number] AGE/SX: 59/F ROOM: RE02/14/20REG DR: Anthony Friedman MD : 64 BED: DIS: STATUS: [facility] TLOC: SPEC #: [id number] RECD: 02/17/20 STATUS: SON REQ #: [id number] KEYANA: 02/14/201424 [facility] DR: Anthony Friedman MD ENTERED: 02/17/20 [...] GRANULOMA, DYSPLASIA OR MALIGNANCY IS IDENTIFIED. CPT: 45026J4, 27340 GROSS DESCRIPTION Received are two containersof formalin each labeled with the patient's name. [...] They are submitted in toto in B. /th Signed SIGNATURE ON FILE Stephanie Aldana MD 02/19/20 0830 END OF REPORT Novel Coronavirus 03:20:00* Test Item Value Reference Range Interpretation Comme nts Novel Coronavirus 2019 Inhouse (test code = [id number]) Negative Negative Positive resul ts are indicative of the presence epTHNM-BxX-7 RNA, clinical correlation with patient historyand other [...] for the identification of SARS-CoV-2 RNA usingthe [employer] M2000 System under the FDA Emergency UseAuthorization. The testing is performed by personneltrained in the procedures for the Clemens M2000 moleculardiagnostic SARS-CoV-2 assay in vitro. Novel Coronavirus 03:20:00* Test Item Value Reference Range Interpretation Comme nts Novel Coronavirus 2018 Inhouse (test code = [id number]) Negative Negative Positive resul ts are indicative of the presence onIGGQ-GoA-3 RNA, clinical correlation with patient historyand other [...] the Clemens M2000 moleculardiagnostic SARS-CoV-2 assay in vitro.Positive results are indicative of the presence vqBISX-GtD-3 RNA, clinical correlation with patient historyand other [...] Clemens M2000 moleculardiagnostic SARS-CoV-2 assay in vitro. Consult Notes Date/Time Note Provider Source 2024-02-24 10:58:45 Associated Order(s): CONSULT CARDIOLOGY [facility] Cardiology Consult PCP: Vini Sanches Date of Service: 02/24/2024 CHIEF COMPLAINT/reason for consult: Chest pain HISTORY OF PRESENT ILLNESS This is a 63 years old female with past medical history of diabetes, hypertension, and substance abuse etc. She came to [facility] due to left arm tingling and weakness. Also reported slurred speech and blurry vision. Her blood pressure was in urgency/emergency range. Apparently she has been abusing substances continuously. Chest pain is nonexertional, left-sided sharp pain, lasting few seconds, associate with dyspnea. EKG showed no acute changes. Troponin has been negative. Reported a negative stress test a year ago. 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 Palpitation Substance abuse THC / Cocaine Past Surgical History: Procedure Laterality Date COLONOSCOPY 2014 polyps / negative ESOPHAGOGASTRODUODENOSCOPY 11/2017 [place] EXC TUMOR SOFT TISS FACE&SCALP SUBFASCIAL 2 CM/> SPINE SURGERY 2019 TUBAL LIGATION Family History Problem Relation Age of Onset [...] Psychiatry NoFHx Other - see comments NoFHx ALLERGIES Allergies Allergen Reactions Sulfa (Sulfonamide Antibiotics) Unknown - See comments MEDICATIONS No current facility-administered medications on file prior to encounter. Current Outpatient Medications on File Prior to Encounter Medication Sig Dispense Refill ALPRAZolam (XANAX) 0.5 mg tablet Take 1 tablet by mouth at bedtime. atorvastatin 40 mg tablet Take 1 tablet by mouth every evening. 40 tablet 0 DULoxetine 30 mg capsule Take 1 capsule by mouth in the morning. 30 capsule 5 foLIC acid 1 mg tablet Take 1 tablet by mouth in the morning. 30 tablet 1 aspirin 81 mg EC tablet Take 1 tablet by mouth in the morning. gabapentin 400 mg capsule Take 1 capsule by mouth in the morning and 1 capsule at noon and 1 capsule in the evening. 30 capsule 0 hydrOXYzine 50 mg tablet Take 1 tablet by mouth every 6 (six) hours as needed for Anxiety. 20 tablet 0 ipratropium 0.02 % nebulizer solution Inhale 2.5 mL every 8 (eight) hours as needed for Wheezing or Shortness of Breath. 5 mL 0 nitroglycerin 0.[address] 1 tablet under the tongue every 5 (five) minutes as needed for Chest pain. 30 tablet 0 thiamine mononitrate 100 mg tablet Take 1 tablet by mouth in the morning. 30 tablet 0 albuterol (VENTOLIN HFA) 90 mcg/actuation inhaler INHALE 2 PUFFS 4 TIMES A DAY NEEDED DYSPNEA azelastine 0.05 % ophthalmic solution COMP-AIR NEBULIZER COMPRESSOR Meghna USE DIRECTED FOR BREATHING TREATMENTS levalbuterol 0.63 mg/3 mL nebulizer solution USE 1 VIAL IN NEBULIZER 3 TIMES A DAY (J45.50) ADVAIR HFA 45-21 mcg/actuation inhaler 2 metoprolol succinate XL (TOPROL XL) 25 mg 24 hr tablet Take 1 tablet by mouth in the morning. lisinopril (PRINIVIL,ZESTRIL) 20 mg tablet Take 1 tablet by mouth in the morning. amLODIPine (NORVASC) 10 mg tablet Take 1 tablet by mouth in the morning. SOCIAL HISTORY Social History Socioeconomic History Marital status: Single Years of education: 11 Occupational History Occupation: Disabled Comment: Lower Back Tobacco Use Smoking status: Former Types: Cigarettes Smokeless tobacco: Never Tobacco comments: Reports smokes a pack every 3 days. Substance and Sexual Activity Alcohol use: Not Currently Alcohol/week: 0.0 standard drinks of alcohol Drug use: Not Currently Types: Marijuana, Cocaine Comment: past use Sexual activity: Not Currently Partners: Male Comment: No sex in > 3 year Other Topics Concern Seat Belt Yes Self-Exams Yes Social History Narrative Denies domestic or physical violence within the home Taoism Preference: Orthodoxy Social Determinants of Health Financial Resource Strain: High Risk (12/18/2023) Overall Financial Resource Strain (CARDIA) Difficulty of Paying Living Expenses: Very hard Food Insecurity: No Food Insecurity (12/18/2023) Hunger Vital Sign Worried About Running Out of Food in the Last Year: Never true Ran Out of Food in the Last Year: Never true Physical Activity: Inactive (12/18/2023) Exercise Vital Sign Days of Exercise per Week: 0 days Minutes of Exercise per Session: 0 min Social Connections: Unknown (12/18/2023) Social Connection and Isolation Panel [NHANES] Marital Status: Never Housing Stability: High Risk (12/18/2023) Housing Stability Vital Sign Unable to Pay for Housing in the Last Year: Yes Number of Places Lived in the Last Year: 2 Unstable Housing in the Last Year: Patient declined REVIEW OF SYSTEMS At least 10 systems reviewed, negative except as mentioned in HPI PHYSICAL EXAMINATION Vitals: 02/24/24 0604 02/24/24 0746 02/24/24 0751 02/24/24 0814 BP: (!) 154/89 124/80 Pulse: 77 80 Resp: 18 17 18 18 Temp: 36.1 ?C (96.9 ?F) TempSrc: SpO2: 99% 94% 100% Weight: Height: Constitutional: alert and oriented x 3 (person, place and date/time); no apparent distress ENT: normocephalic atraumatic, supple, no lymphadenopathy, no bruits, no JVD Lungs: clear to auscultation bilaterally Cardiovascular: S1, S2 normal, regular; no murmurs, rubs or gallops GI: soft; non-tender; non-distended; normoactive bowel sounds : not examined Musculoskeletal: Extremities: no clubbing, cyanosis, or edema Skin: no rashes LABS - reviewed pertinent labs as below: CBC BMP PT/INR WBC x10 3 (/uL) Date Value 09/18/2013 9.5 WBC (10*3/?L) Date Value 02/24/2024 11.58 (H) NA Date Value 02/24/2024 138 mmol/L 09/18/2013 141 MMOL/L No results found for: "PT" PLT x10 3 (/uL) Date Value 09/18/2013 343 PLT (10*3/?L) Date Value 02/24/2024 327 K Date Value 02/24/2024 3.6 mmol/L 09/18/2013 3.6 MMOL/L PT INR (no units) Date Value 10/12/2005 0.9 INR (no units) Date Value 12/16/2023 1.0 HGB Date Value 02/24/2024 12.6 g/dL 09/18/2013 13.4 G/DL BUN Date Value 02/24/2024 22 mg/dL 09/18/2013 18 MG/DL HCT (%) Date Value 02/24/2024 37.5 09/18/2013 41.5 CREATININE Date Value 02/24/2024 0.87 mg/dL 09/18/2013 1.02 MG/DL LIPID PROFILE GLUCOSE Date Value 02/24/2024 101 mg/dL 09/18/2013 75 MG/DL CHOL Date Value 02/24/2024 162 mg/dL 03/15/2007 100 MG/DL (L) TSH LDL CHOL Date Value 02/24/2024 76 mg/dL 03/15/2007 24 MG/DL TSH Date Value 12/16/2023 1.94 mIU/L 09/18/2013 1.42 uIU/mL CARDIAC ENZYMES HDL CHOL (MG/DL) Date Value 03/15/2007 56 HDL (mg/dL) Date Value 02/24/2024 49 (L) CK (U/L) Date Value 12/15/2023 375 (H) 03/15/2007 91 TRIG Date Value 02/24/2024 183 mg/dL (H) 03/15/2007 102 MG/DL LFTs CK-MB (ng/mL) Date Value 03/15/2007 1.6 AST(SGOT) (U/L) Date Value 02/23/2024 49 (H) 03/15/2007 39 TROPONIN I (ng/mL) Date Value 02/24/2024 0.009 03/15/2007 0.00 ALT(SGPT) (U/L) Date Value 03/15/2007 45 ALTv (U/L) Date Value 02/23/2024 34 No results found for: "BNP" EKG: Normal sinus rhythm, biatrial enlargement ASSESSMENT/PLAN Principal Problem: Left-sided sensory deficit present Active Problems: Uncontrolled hypertension Other chest pain Elevated brain natriuretic peptide (BNP) level Hypertensive urgency Bilateral carotid artery stenosis Substance abuse Left arm tingling, weakness, slurred speech-neurological evaluation per primary team. Recommend to continue aspirin and statins. Continue optimization of her blood pressure. Education on substance abuse. Chest pain-atypical and nonanginal chest pain. No acute EKG changes. Myocardial infarction has been ruled out. Reported abnormal stress test 1 year ago. Hypertensive urgency/emergency-could be due to drug abuse. Currently better controlled with amlodipine, hydralazine, lisinopril and metoprolol. Low-salt diet. Watch blood pressure for adjustment. BNP elevation-no evidence of volume overload by exam. Moderate carotid artery stenosis-recommend to continue aspirin and Lipitor. Substance abuse-education provided. Thank you for allowing us to participate in the care of your patient. Please feel free to contact us for any questions or if we can be of further assistance. Husam Chan MD, [facility], [facility] [employer] Division of Cardiovascular Medicine [facility] 2023-12-18 08:26:49 Associated Order(s): CONSULT PSYCHIATRY DEPARTMENT OF PSYCHIATRY AND BEHAVIORAL SCIENCE Inpatient Psych/Consult Evaluation Patient Name: Funmi Jarquin : 1960 Patient Address: [address] [place] [id number] Today's Date: 12/18/2023 REASON FOR CONSULT: "please give recommendation or opinion on: SI evaluation, homelessness and Substance abuse" CHIEF COMPLAINT: substance use and depressed mood HISTORY OF PRESENT ILLNESS: Funmi Jarquin is a 63 year old female with a PMH of asthma, HTN, chronic neck pain, irregular heart beat and past psychiatric history of LOURDES, MDD, recurrent SI, and substance use who was admitted on 12/16/23 for NSTEMI (now resolved). Psychiatry was consulted for suicide risk assessment and disposition planning. In ED, patient was noted to make comments suggestive of active SI. [place] SI assessment indicated high risk due to social situation and hopelessness. UDS on admission was positive for amphetamine and Xanax. Patient began showing alcohol withdrawal symptoms, so was started on Serax taper on 12/17/23. Notably, patient was recently released from prison and is unsheltered. Today patient denies active SI or HI. States that last episode of SI was a week ago when she refilled her prescriptions and intended to take all of her medications. Though, she did not follow through on the plan due to fear of hurting herself. Patient notes that recurrent SI began 3 years ago after her son from COVID. She reports multiple attempts and methods, such as OD and cutting self. No hx of inpatient psych or medicine admission as a result of attempts. She reports a history of depressed mood, anhedonia, impaired sleep, impaired concentration, and previous suicidal ideations and anxiety that worsened about three years ago following the of her son. Additionally, she reports symptoms of brain fog and memory impairments. Due to nightmares and difficulty sleeping, she states her PCP prescribed Xanax around three years ago, which she reports to be misusing. States that she takes full prescription in 1 week and then uses "street drugs" for the rest of month to cope. She reports a history of being prescribed Cymbalta, Zoloft, and possibly Rialto, though states that she does not think she took them very long, if at all. She also reports drinking 5 wine coolers daily prior to this hospital admission and daily methamphetamine use for past 5 months. She states that she orally ingests about $20 worth per day. Reports 40 pack year history of tobacco use and has had previous Rx for opiates. Previously had 20 year hx of cocaine use, but stopped last year. No history of IVDA, and longest sober period was for 3-4 years about 30-35 years ago. States that she went to rehab for 2 week period around 20 years ago, but left AMA. Patient now expresses desire to address maladaptive substance use, and states that she wants to change her behaviors for her daughter and grandchildren. PSYCHIATRIC REVIEW OF SYSTEMS: Depression: See HPI Moses: Denies a history of moses in the absence of substance use. Anxiety/Panic: See HPI A/V Hallucinations: Denies in the absence of substance use Delusions: Denies OCD: Denies PTSD: She reports hx of nightmares about previous traumatic events. Denies currently. Suicidal Ideation: Denies currently Homicidal Ideation: Denies SUICIDE RISK ASSESSMENT: Risks: SI, depression, guns at home, sleep, marital/employment status, h/o trauma, ongoing medical issues, age, substance use, past attempts, homelessness, recent incarceration Protective: no intent or plan to harm self, family support, reasons for living, scientologist Overall: Chronic risk PAST PSYCHIATRIC HISTORY: Past diagnoses: LOURDES, MDD Inpatient psychiatric treatment: Denies Outpatient psychiatric treatment: Denies Current Psychiatric Meds: alprazolam 0.5 mg BID PRN, gabapentin 400 mg TID Previous Psychiatric Meds: [place] 10-325 mg q6h, clonazepam 0.5 mg BID PRN, Cymbalta (though states that she never took), Zoloft, and possibly Rialto History of Suicide Attempts: See HPI History of Abuse: Unknown SUBSTANCE USE: See HPI SOCIAL HISTORY: Household: currently homeless Highest level of Education: Did not graduate high school. Employment: Currently unemployed and receives SSI and disability Legal history: Currently has court cases for felony charges that she is working on. Social Support: She states her main social support is her daughter, methodist FAMILY PSYCHIATRIC HISTORY: Mother: Alzheimer's disease Son: ADHD and "manic depression" PAST MEDICAL HISTORY: Past Medical History: Diagnosis Date Anemia Anesthesia complication Hyperemesis Anxiety Arthritis Diabetes mellitus resolved Fibroids GERD (gastroesophageal reflux disease) Heart murmur Arythmia / Dr Stein Business Process Analyst HTN (hypertension) Leiomyoma of uterus ? Palpitation Substance abuse THC / Cocaine Past Surgical History: Procedure Laterality Date COLONOSCOPY 2014 polyps / negative ESOPHAGOGASTRODUODENOSCOPY 11/2017 [place] EXC TUMOR SOFT TISS FACE&SCALP SUBFASCIAL 2 CM/> SPINE SURGERY 2019 TUBAL LIGATION MEDICATIONS: Current Facility-Administered Medications Medication Dose Route Frequency Last Rate Last Admin enoxaparin (LOVENOX) injection 40 mg 40 mg Subcutaneous Q24H 40 mg at 12/17/23 1324 acetaminophen (TYLENOL) tablet 650 mg 650 mg Oral Q6HPRN 650 mg at 12/16/23 1915 aspirin chewable tablet 81 mg 81 mg Oral DAILY 81 mg at 12/17/23 0900 atorvastatin (LIPITOR) tablet 40 mg 40 mg Oral QPM 40 mg at 12/17/23 1631 foLIC acid (FOLATE) tablet 1 mg 1 mg Oral DAILY 1 mg at 12/17/23 0859 metoprolol tartrate (LOPRESSOR) tablet 25 mg 25 mg Oral BID 25 mg at 12/17/232027 nitroglycerin (NITROSTAT) sublingual tablet 0.4 mg 0.4 mg Sublingual Q5MIN PRN oxazepam (SERAX) capsule 15 mg 15 mg Oral Q8H TAPER 15 mg at 12/18/23 0508 Followed by [START ON 12/19/2023] oxazepam (SERAX) capsule 15 mg 15 mg Oral Q12H TAPER oxazepam (SERAX) capsule 15 mg 15 mg Oral Q4HPRN pantoprazole (PROTONIX) EC tablet 40 mg 40 mg Oral DAILY 40 mg at 12/17/23 0859 polyethylene glycol 3350 powder 17 g 17 g Oral BID 17 g at 12/17/23 0858 sennosides (SENOKOT) tablet 8.6 mg 8.6 mg Oral DAILY 8.6 mg at 12/17/23 0859 thiamine mononitrate (VITAMIN B-1 (MONONITRATE)) tablet 100 mg 100 mg Oral DAILY 100 mg at 12/17/23 0900 SIDE EFFECTS/ALLERGIES: Allergies Allergen Reactions Sulfa (Sulfonamide Antibiotics) Unknown - See comments VITAL SIGNS: BP (!) 169/88 | Pulse 77 | Temp 35.9 ?C (96.6 ?F) | Resp 18 | Ht 1.651 m (5' 5") | Wt 79.2 kg (174 lb 11.2 oz) | SpO2 99% | BMI 29.07 kg/m? MENTAL STATUS EXAM: Appearance: older black woman wearing khan-colored bonnet and blue hospital gown. Has tattoos on face and neck. Well groomed. Attitude: Cooperative and Open Psychomotor: Psychomotor Normal Mood: "calm" but described mood as "erratic" in last 2 weeks Affect: Appropriate, but occasionally tearful Speech: Accelerated and Emotional Language: Normal Thought process: Logical Directed Associations: Normal Abnormal/Psychotic Thoughts: - Thought content: Without Delusions - Perceptual: Without Hallucinations - Suicidal: Not present and H/O Attempt - Violent/Homicidal: Not Present Cognition: Normal cognition Level of Consciousness: Full and Alert Orientation: Oriented x 4 Recent/remote memory: 3/3 at 1 minute and 2/3 at 3 minutes. She was able to name the last word correctly with a category prompt. Intelligence: Average Fund of knowledge: Average, able to name the current and last 2 presidents. Able to name 5 cities outside the state of [place]. Attention/concentration: Fair, able to spell [place] backwards, able to follow interview without distractions Abstraction: intact, able to name abstract similarity between apple and orange (fruits) Judgment: Intact Insight: Intact LAB DATA CBC BMP PT/INR WBC x10 3 (/uL) Date Value 09/18/2013 9.5 WBC (10*3/?L) Date Value 12/18/2023 10.51 NA Date Value 12/17/2023 137 mmol/L 09/18/2013 141 MMOL/L No results found for: "PT" RBC x10 6 (/uL) Date Value 09/18/2013 5.29 (H) RBC (10*6/?L) Date Value 12/18/2023 4.88 K Date Value 12/17/2023 4.5 mmol/L 09/18/2013 3.6 MMOL/L PT INR (no units) Date Value 10/12/2005 0.9 INR (no units) Date Value 12/16/2023 1.0 PLT x10 3 (/uL) Date Value 09/18/2013 343 PLT (10*3/?L) Date Value 12/18/2023 352 CALCIUM Date Value 12/17/2023 8.7 mg/dL 09/18/2013 9.5 MG/DL HGB Date Value 12/18/2023 12.6 g/dL 09/18/2013 13.4 G/DL CL Date Value 12/17/2023 109 mmol/L (H) 09/18/2013 98 MMOL/L aPTT HCT (%) Date Value 12/18/2023 38.4 09/18/2013 41.5 BUN Date Value 12/17/2023 17 mg/dL 09/18/2013 18 MG/DL APTT Patient (Seconds) Date Value 12/16/2023 >150 (HH) CREATININE Date Value 12/17/2023 0.79 mg/dL 09/18/2013 1.02 MG/DL ASSESSMENT/FORMULATION: Ms. Funmi Jarquin is a 63 year old female with a past psychiatric history of MDD, LOURDES, and polysubstance misuse. Psychiatry was consulted for suicide risk assessment and disposition planning. The patient has a history of multiple suicide attempts following the of her son 3 years ago as well as ongoing substance misuse though denies active SI w/ plan since last week. She states that she migdalia with her depressed thoughts with meth, Xanax, alcohol, and "street drugs." She would likely benefit greatly from substance use rehab in combination with starting an antidepressant as she reports using those substances as a coping mechanism for depression (her symptoms included: depressed mood, anhedonia, impaired sleep, impaired concentration, and previous suicidal ideations) and anxiety. She stated that she is motivated to call rehabs for placement following medical discharge and was provided a list of numbers to call. Additionally, patient complained of brain fog and memory issues, and reports misuse of Xanax prescriptions. As a result, recommend d/c outpatient Xanax as it could be exacerbating cognitive issues, and starting duloxetine, as it could help with both chronic pain, depression, and anxiety. Can also give hydroxyzine PRN to help with sleep and anxiety. Recommend continuing with scheduled Serax taper. Patient currently is not suicidal and, as such, patient does not meet criteria for psychiatric inpatient admission as there is no apparent immediate danger. She would likely benefit from rehab rather than inpatient psychiatry at this time. DIAGNOSES: Methamphetamine Use Disorder Benzodiazepine Use Disorder Alcohol Use Disorder Alcohol and/or Benzodiazapine Withdrawal MDD, moderate, recurrent Anxiety, unspecified Recommendations: - Start duloxetine 30 mg qAM - Start hydroxyzine 50 mg qhs prn anxiety or insomnia - Discontinue 1:1 sitter and suicide precautions - C/w Serax taper - Discontinue home alprazolam 0.5 mg BID (Per PDMP: last filled 12/02/23) - Recommend substance use rehab following discharge: Rehab numbers provided to the patient: [facility] (Outreach, Screening, Assessment and Referral)-[phone], [facility]- [phone], [facility]- [phone], [facility]- [phone], [facility]- [phone] - Recommend AA/NA meetings after hospital discharge - Patient recommended to follow up with [facility] Outpatient Psychiatry ([place]): [phone], ([place]): [phone] or [facility]: or [facility]: or [facility]: [phone] after hospital discharge for psychiatric medications If the patient feels in danger, suicidal, pt can contact these suicide hotlines or or to go to the nearest emergency department. Psychiatry will continue to follow. Patient discussed with Psychiatry faculty, Dr. Sanchez, who agrees with the assessment and plan as outlined above. Uyen Gan, MS4 I personally examined the patient on 12/18/23 and have verified the above medical student documentation and/or findings, including the history, physical/mental status exam, and medical decision making. Additionally, I have personally performed or re-performed the physical exam and medical decision making activities of this patient's evaluation and management service. Rossy Hu MD | PGY-2 Psychiatry and Behavioral Health C/L Pager # [phone] 12/18/23 Associated attestation - Dru Sanchez MD - 12/18/2023 5:07 PM CDT I personally examined the patient on 12/18/23 and agree with the resident's note as written, including any changes or additions that the resident may have made to the medical student's note. I actively participated in the decision making process. Please see the resident's note for additional details. Diagnoses are polysubstance dependence, moderate recurrent depression, and anxiety. There are no imminent suicide risk concerns based on interview and documented risk factor analysis. [facility] - Health History and Physical Notes Date/Time Note Provider Source 2024-02-23 20:58:33 MEDICINE [facility] ADMIT H&P Date of Service: 02/23/2024 CHIEF COMPLAINT: left hand/arm tingling and weakness, blurry vision Subjective History of Present Illness 63 year old female with a PMH significant for atrial fibrillation, recurrent SI, drug abuse (recent meth, past cocaine), homelessness, asthma, HTN, alcohol abuse, NSTEMI, polysubstance abuse who presents to the ED secondary to left hand/arm tingling and weakness that started yesterday morning. Blurry vision that started hours prior to arrival as well as slurry speech. Patient states that she take her blood pressure medication, but does notice that sometimes it gets "high in the evenings". 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 Palpitation Substance abuse THC / Cocaine Past Surgical History: Procedure Laterality Date COLONOSCOPY 2014 polyps / negative ESOPHAGOGASTRODUODENOSCOPY 11/2017 [place] EXC TUMOR SOFT TISS FACE&SCALP SUBFASCIAL 2 CM/> SPINE SURGERY 2019 TUBAL LIGATION Family History Problem Relation Age of Onset [...] Psychiatry NoFHx Other - see comments NoFHx ALLERGIES Allergies Allergen Reactions Sulfa (Sulfonamide Antibiotics) Unknown - See comments MEDICATIONS No current facility-administered medications on file prior to encounter. Current Outpatient Medications on File Prior to Encounter Medication Sig Dispense Refill ALPRAZolam (XANAX) 0.5 mg tablet Take 1 tablet by mouth at bedtime. atorvastatin 40 mg tablet Take 1 tablet by mouth every evening. 40 tablet 0 DULoxetine 30 mg capsule Take 1 capsule by mouth in the morning. 30 capsule 5 foLIC acid 1 mg tablet Take 1 tablet by mouth in the morning. 30 tablet 1 aspirin 81 mg EC tablet Take 1 tablet by mouth in the morning. gabapentin 400 mg capsule Take 1 capsule by mouth in the morning and 1 capsule at noon and 1 capsule in the evening. 30 capsule 0 hydrOXYzine 50 mg tablet Take 1 tablet by mouth every 6 (six) hours as needed for Anxiety. 20 tablet 0 ipratropium 0.02 % nebulizer solution Inhale 2.5 mL every 8 (eight) hours as needed for Wheezing or Shortness of Breath. 5 mL 0 nitroglycerin 0.[address] 1 tablet under the tongue every 5 (five) minutes as needed for Chest pain. 30 tablet 0 thiamine mononitrate 100 mg tablet Take 1 tablet by mouth in the morning. 30 tablet 0 albuterol (VENTOLIN HFA) 90 mcg/actuation inhaler INHALE 2 PUFFS 4 TIMES A DAY NEEDED DYSPNEA azelastine 0.05 % ophthalmic solution COMP-AIR NEBULIZER COMPRESSOR Meghna USE DIRECTED FOR BREATHING TREATMENTS levalbuterol 0.63 mg/3 mL nebulizer solution USE 1 VIAL IN NEBULIZER 3 TIMES A DAY (J45.50) ADVAIR HFA 45-21 mcg/actuation inhaler 2 metoprolol succinate XL (TOPROL XL) 25 mg 24 hr tablet Take 1 tablet by mouth in the morning. lisinopril (PRINIVIL,ZESTRIL) 20 mg tablet Take 1 tablet by mouth in the morning. amLODIPine (NORVASC) 10 mg tablet Take 1 tablet by mouth in the morning. I attest that the foregoing medication list in the medical record is true, accurate and complete to the best of my knowledge. SOCIAL HISTORY Social History Socioeconomic History Marital status: Single Years of education: 11 Occupational History Occupation: Disabled Comment: Lower Back Tobacco Use Smoking status: Former Types: Cigarettes Smokeless tobacco: Never Tobacco comments: Reports smokes a pack every 3 days. Substance and Sexual Activity Alcohol use: Not Currently Alcohol/week: 0.0 standard drinks of alcohol Drug use: Not Currently Types: Marijuana, Cocaine Comment: past use Sexual activity: Not Currently Partners: Male Comment: No sex in > 3 year Other Topics Concern Seat Belt Yes Self-Exams Yes Social History Narrative Denies domestic or physical violence within the home Taoism Preference: Orthodoxy Social Determinants of Health Financial Resource Strain: High Risk (12/18/2023) Overall Financial Resource Strain (CARDIA) Difficulty of Paying Living Expenses: Very hard Food Insecurity: No Food Insecurity (12/18/2023) Hunger Vital Sign Worried About Running Out of Food in the Last Year: Never true Ran Out of Food in the Last Year: Never true Physical Activity: Inactive (12/18/2023) Exercise Vital Sign Days of Exercise per Week: 0 days Minutes of Exercise per Session: 0 min Social Connections: Unknown (12/18/2023) Social Connection and Isolation Panel [NHANES] Marital Status: Never Housing Stability: High Risk (12/18/2023) Housing Stability Vital Sign Unable to Pay for Housing in the Last Year: Yes Number of Places Lived in the Last Year: 2 Unstable Housing in the Last Year: Patient declined REVIEW OF SYSTEMS Review of Systems Constitutional: Negative. HENT: Negative. Eyes: Positive for visual disturbance. Negative for photophobia, pain, discharge, redness and itching. Respiratory: Negative. Breasts: Negative. Cardiovascular: Negative. Gastrointestinal: Positive for constipation. Negative for abdominal distention, abdominal pain, anal bleeding, blood in stool, diarrhea, nausea, rectal pain and vomiting. Genitourinary: Negative. Musculoskeletal: Negative. Skin: Negative. Neurological: Positive for weakness (left arm) and numbness (left arm). Negative for dizziness, tremors, seizures, syncope, facial asymmetry, speech difficulty, light-headedness and headaches. Psychiatric/Behavioral: Negative. Endocrine: Endocrine negative Objective PHYSICAL EXAMINATION Vitals: 02/23/24 1722 02/23/24 1800 02/23/24 1812 02/23/24 1921 BP: (!) 126/95 126/79 118/73 Pulse: 67 76 78 Resp: 13 18 16 Temp: 36.1 ?C (97 ?F) 36.4 ?C (97.5 ?F) TempSrc: SpO2: 97% 98% 98% Weight: 174 lb 1.6 oz (79 kg) Height: 5' 5" (1.651 m) Physical Exam Vitals and nursing note reviewed. Constitutional: General: She is not in acute distress. Appearance: Normal appearance. She is not ill-appearing, toxic-appearing or diaphoretic. HENT: Head: Atraumatic. Right Ear: External ear normal. Left Ear: External ear normal. Nose: Nose normal. No congestion or rhinorrhea. Mouth/Throat: Mouth: Mucous membranes are moist. Pharynx: No oropharyngeal exudate or posterior oropharyngeal erythema. Eyes: General: No scleral icterus. Extraocular Movements: Extraocular movements intact. Conjunctiva/sclera: Conjunctivae normal. Pupils: Pupils are equal, round, and reactive to light. Cardiovascular: Rate and Rhythm: Normal rate and regular rhythm. Heart sounds: No murmur heard. No friction rub. No gallop. Pulmonary: Effort: Pulmonary effort is normal. No respiratory distress. Breath sounds: Normal breath sounds. No wheezing or rales. Chest: Chest wall: No tenderness. Abdominal: General: Abdomen is flat. Bowel sounds are normal. There is no distension. Palpations: Abdomen is soft. Tenderness: There is no abdominal tenderness. There is no guarding. Musculoskeletal: General: Normal range of motion. Cervical back: Normal range of motion and neck supple. Skin: General: Skin is warm and dry. Neurological: Mental Status: She is alert and oriented to person, place, and time. Motor: Weakness (4- left upper extremity weakness) present. Psychiatric: Mood and Affect: Mood normal. Behavior: Behavior normal. Thought Content: Thought content normal. Judgment: Judgment normal. LABS/IMAGING - reviewed FULL RESULT: Examination: CT HEAD WO CONTRAST on 02/23/2024 12:46 PM Clinical Indication: Left-sided sensory deficit Comparison: None Technique: Noncontrast imaging was obtained from base to vertex. Findings: The sulci and ventricles were unremarkable. There was no evidence for mass lesion, hemorrhage, or underlying edema. There were no bony, sinonasal or skull base lesions. IMPRESSION No lesions. CT ANGIOGRAM HEAD, CT ANGIOGRAM NECK HISTORY: Female 63 years Neuro deficit, acute, stroke suspected COMPARISON: None TECHNIQUE: Routine CTA head and neck were performed following administration of 80 mL IV Isovue ... Impression Mild to moderate atherosclerotic plaque throughout the intracranial and cervical vessels as detailed above does not result in severe stenosis. Plaque in the left carotid bulb results in moderate (up to 50%) narrowing. CT ANGIOGRAM HEAD, CT ANGIOGRAM NECK HISTORY: Female 63 years Neuro deficit, acute, stroke suspected COMPARISON: None TECHNIQUE: Routine CTA head and neck were performed following administration of 80 mL IV Isovue FINDINGS: CTA head: The PICA origins visualized bilaterally. The basilar artery is normal in caliber. The superior cerebellar arteries are patent. The posterior cerebral arteries are patent. A large right posterior communicating artery is present. No sizable left posterior communicating artery is visualized. The distal cervical, petrous, cavernous and supraclinoid internal carotid artery segments are patent. Vascular calcifications in the carotid siphons result in no more than mild luminal narrowing. The anterior and middle cerebral arteries are patent. An anterior communicating artery is present. CTA NECK: The left common carotid artery shares a common origin from the arch with the innominate artery. Scattered calcified and noncalcified plaque in the arch and arch vessel origins results in no high-grade luminal narrowing. There is calcified and noncalcified plaque in the proximal aspect of the left subclavian artery which results in mild narrowing. The innominate and subclavian arteries are otherwise patent. The common carotid arteries, carotid bulbs and cervical internal carotid arteries are patent. Calcified and noncalcified plaque results in mild right and moderate (up to 50% left narrowing. The vertebral arteries are patent from their subclavian origins through the vertebrobasilar junction. IMPRESSION Mild to moderate atherosclerotic plaque throughout the intracranial and cervical vessels as detailed above does not result in severe stenosis. Plaque in the left carotid bulb results in moderate (up to 50%) narrowing. Assessment & Plan Funmi Jarquin is a 63 year old female with PMH as listed above, admitted to the hospital with: Hypertensive urgency: -- Will resume amlodipine, hydralazine, lisinopril, and metoprolol -- IV labetalol prn TIA: CT imaging did not show active stroke, but can not rule out possible stroke -- MRI Brain is pending. 3. Current smoker: spoke for greater than 3 minutes about smoking cessation. At this time, patient refuse smoking cessation therapy. 4. HLD: -- Will continue with atorvastatin 5. Depression: -- will continue with Cymbalta Prophylaxis: DVT- enoxaparin Code Status: Full Code T [facility] 2023-12-16 02:05:18 [facility] Admit H&P PCP: Vini Sanches Date of Service: 12/16/2023 CHIEF COMPLAINT: chest pain History of Present Illness Funmi Jarquin is a 63 year old female with a PMH significant for recurrent SI, drug abuse (recent meth, past cocaine), homelessness, asthma, HTN, neck surgery, "irregular heart beat" who presents due to NSTEMI. Patient recently was released from prison 3 days ago. Since then she noted chest pain associated with palpitations, diaphoresis, dizziness, syncopal episodes. These have occurred 4-5 times. Exertion and inspiration worsens chest pain which she describes as substernal, pressure (like someone sitting on chest). Last used methamphetamines 10am morning prior to ED arrival as well as "street xanax." She drove herself to the ED in [place] and noted that she had passed out while in the car. When she awoke she walked into the ED. She is currently homeless and living out of a motel and severely depressed due to her son dying 3 yrs ago. She often has SI with last . She is tearful on our interview. In addition to doing meth, smoking (~40 py hx), she also drinks ~ 5 wine coolers daily. Stopped cocaine 1 yr ago. Of note, she had coronary cath in 2005. Significant family hx of father who had heart attack around age 40, and 3 brothers whom she believed had heart attacks at around the same age. Patient is a poor historian in terms of medications but was able to provide following details: Medications: metoprolol 25mg bid, lisinopril-hctz (unknown dose) omeprazole, xanax, gabapentin, hydrocodone,robaxin 500mg , has advair, doesn't take albuterol, aspirin 81mg, eyedrops (unknown),montelukast 10mg, Disposition: homeless. In ED, vitals remarkable for: AFVSS (BP 150s/90s) Labs remarkable for: troponin 0.043, UDS + for amphetamines and xanax. Imaging remarkable for: CXR w/o acute abnormality. Received ASA load 324, labetalol 20mg, morphine 4mg x1, nitroglycerin 0.4mg sublingual x1. PAST MEDICAL HISTORY has a past medical history of Anemia, Anesthesia complication, Anxiety, Arthritis, Diabetes mellitus, Fibroids, GERD (gastroesophageal reflux disease), Heart murmur, HTN (hypertension), Leiomyoma of uterus, Palpitation, and Substance abuse. She has no past medical history of Abnormal uterine bleeding, Asthma, Autoimmune disorder, Blood dyscrasia, Breast disorder, Cancer, Clotting disorder, Coronary artery disease, Depression, Endometriosis, Female infertility, Genital herpes, Genital warts, Hormone disorder, Human immunodeficiency virus (HIV) disease, Kidney disease, Liver disease, Menstrual disorder, Osteoporosis, Pap smear abnormality of cervix, PID (pelvic inflammatory disease), Rh incompatibility, Seizures, Sickle cell anemia, STD (sexually transmitted disease), Superficial thrombophlebitis, Thyroid disease, Transfusion history, Trauma, Tuberculosis, or Urinary incontinence. has a past surgical history that includes [address]237 - [place] EXC TUMOR SOFT TISS FACE&SCALP SUBFASCIAL 2 CM/>; tubal ligation; colonoscopy (2014); esophagogastroduodenoscopy (11/2017); and spine surgery (2018). family history includes Coronary Heart Disease in an other family member; Diabetes in her father and another family member; Heart in her mother; High cholesterol in her father; Hypertension in her mother and another family member; Thyroid in her father and another family member. ALLERGIES Allergies Allergen Reactions Sulfa (Sulfonamide Antibiotics) Unknown - See comments SOCIAL HISTORY reports that she has quit smoking. Her smoking use included cigarettes. She has never used smokeless tobacco. She reports that she does not currently use alcohol. She reports that she does not currently use drugs after having used the following drugs: Marijuana and Cocaine. REVIEW OF SYSTEMS (-)=Negative,(+)=Positive General: negative Skin: (+) rash HEENT: (+) headache, (+) change in hearing, (+) change in vision (+) neck pain Neck: negative Heme: negative Resp: (+) cough Cardio: (+) chest pain, (+) palpitations, (+) syncope GI: (+) constipation, (-) abdominal pain : negative Endo: negative Neuro: negative Back: (+) pain SHIRLEY: negative Psych: (+) anxiety, (+) depression PHYSICAL EXAMINATION Vitals: 12/15/23 2230 12/16/23 0032 12/16/23 0100 12/16/23 0130 BP: (!) 159/112 (!) 156/112 (!) 153/96 (!) 155/91 Pulse: 84 82 86 85 Resp: 24 14 26 16 Temp: TempSrc: SpO2: 100% 100% 100% 100% Weight: Height: General: NAD, AXOX4,tearful HEENT: moist mucous membranes, EOMI, pupils equal and reactive Neck: supple, trachea midline, no JVD, no LAD Cardio: RRR Respiratory: CTA b/l Abdomen: soft, non-distended, non-tender, and normoactive BS x 4 Extremities: no pitting edema, clubbing, cyanosis, distal pulses intact Skin: no rashes Neuro: no focal deficits LABS/IMAGING - reviewed pertinent labs as below: Reviewed EKG: Prolonged qtc 510 CHART REVIEW: pertinent information as below: Cath in 2006 normal coronaries ASSESSMENT/PLAN Funmi Jarquin is a 63 year old female with PMH as listed above, admitted to the hospital with: NSTEMI Amphetamine Usage Leukocytosis Pt w/ recent amphetamine usage which could have precipitated NSTEMI. Had prior LHC in 2005 which was clean. Will trend troponin and admit as observation. Has significant family hx of father/brothers passing away in 40s of unknown cause but she suspects cardiac. Also heavy smoking hx. Consider LHC if delta troponin significant. Plan: - admit to white - trend troponin x3 - EKG prn - ACS protocol - ASA/statin Elevated CK Hypokalemia Plan: CK not elevated to rhabdo levels. Replete electrolytes PRN. - replete K and Mg PRN Recent SI Pt currently not admitting to SI but recent SI last week. Would consider inpatient psych consult given homelessness and if SI recurs. - [place] risk assessment - suicidal precautions - Sitter - consider psych consult Chronic Conditions: HTN Moderate Persistent Asthma Allergic Rhinitis Prolapse cervical disc Chronic neck pain Anxiety/MDD Hx of Suicide Attempts Plan: - resume home meds as able Discharge planning: Pain ControlledTylenol Prophylaxis: DVT- heparin Stress Ulcer: no indication for prophylaxis Bowel Regimen: miralax/senokot Code Status: addressed: FULL CODE [facility]; discuss options with CM given homelessness Francine Turk DO | PGY-3 Department of Internal Medicine MEDICATIONS No current facility-administered medications on file prior to encounter. Current Outpatient Medications on File Prior to Encounter Medication Sig Dispense Refill benzonatate 100 mg capsule Take 1 capsule by mouth 3 (three) times daily as needed for Cough. 14 capsule 0 albuterol (VENTOLIN HFA) 90 mcg/actuation inhaler INHALE 2 PUFFS 4 TIMES A DAY NEEDED DYSPNEA ALPRAZolam (XANAX) 1 mg tablet Take 0.5 tablets by mouth in the morning and 0.5 tablets in the evening. azelastine 0.05 % ophthalmic solution clindamycin 300 mg capsule TAKE 1 CAPSULE BY MOUTH EVERY 8 HOURS FOR 7 DAYS COMP-AIR NEBULIZER COMPRESSOR Meghna USE DIRECTED FOR BREATHING TREATMENTS gabapentin 400 mg capsule Take 1 capsule by mouth. ipratropium 0.02 % nebulizer solution 2.5 mL. levalbuterol 0.63 mg/3 mL nebulizer solution USE 1 VIAL IN NEBULIZER 3 TIMES A DAY (J45.50) levoFLOXacin 500 mg tablet montelukast 10 mg tablet omeprazole 40 mg capsule predniSONE 20 mg tablet methylPREDNISolone (MEDROL, ANT,) 4 mg tablets Take by mouth SEE-INSTRUCTIONS. follow package directions 21 Each 0 ADVAIR HFA 45-21 mcg/actuation inhaler 2 clonazePAM 0.5 mg tablet 0 DULoxetine 30 mg capsule 0 metoprolol succinate XL (TOPROL XL) 25 mg 24 hr tablet Take 25 mg by mouth daily. lisinopril (PRINIVIL,ZESTRIL) 20 mg tablet Take 20 mg by mouth daily. amLODIPine (NORVASC) 10 mg tablet Take 10 mg by mouth daily. aspirin 81 mg EC tablet Take 81 mg by mouth daily. HYDROcodone-acetaminophen (NORCO) 10-325 mg tablet Take 1 Tab by mouth every 6 (six) hours as needed. Associated attestation - Tim Cardenas MD - 12/16/2023 5:39 PM CDT I personally examined the patient on 12/16/[address] Turk's note. I actively participated in the decision-making process. Please see the resident's note for additional details. Will consult psychiatry given suicidal ideation TTE ordered Monitor on telemetry (endorsing palpitations consistent with arrhythmia) Tim Cardenas MD, MS, FACC [place] [facility] Department of Internal Medicine Division of Cardiology [facility]
[2024-08-18] MEDS ORDERED: TETRACAINE HCL 0.5% 4ML OPTH ONE (13:36)
[2024-08-18] MEDS ORDERED: FLUORESCEIN SODIUM 1 MG/WRAP ONE (13:36)
--- NOTE | 2024-08-18 13:54 | ER ---
Nurse's Notes [facility] Name: Funmi Stoner Age: 64 yrs Sex: Female : 1960 Arrival Date: 08/18/2024 Time: 12:48 Bed 12 Private MD: Diagnosis: Unspecified acute conjunctivitis, bilateral Presentation: 08/18 13:37 Chief complaint: Patient states: Blurred vision and bilateral eye redness and pain cm10 onset this morning. Coronavirus screen: Client denies travel out of the [place] in the last 14 days. Ebola Screen: Patient denies travel to an Ebola-affected area in the 21 days before illness onset. Initial Sepsis Screen: Does the patient meet any 2 criteria? No. Patient's initial sepsis screen is negative. Does the patient have a suspected source of infection? No. Patient's initial sepsis screen is negative. Risk Assessment: Do you want to hurt yourself or someone else? Patient reports no desire to harm self or others. Onset of symptoms was August 18, 2024. 13:37 Method Of Arrival: EMS: [facility] cm10 13:37 Acuity: LINDSAY 3 cm10 Triage Assessment: 13:39 General: Appears uncomfortable, Behavior is calm, cooperative. Pain: Complains of pain cm10 in right eye and left eye Pain does not radiate. Pain currently is 10 out of 10 on a pain scale. Quality of pain is described as burning. EENT: Eyes Sclera/Cornea are reddened in right eye and left eye. Neuro: No deficits noted. Level of Consciousness is awake, alert, obeys commands, Oriented to person, place, time, situation, Appropriate for age Reports blurred vision. Respiratory: No deficits noted. Airway is patent Respiratory effort is even, unlabored, Respiratory pattern is regular, symmetrical. Historical: - Allergies: 13:38 Sulfa (Sulfonamide Antibiotics); cm10 - PMHx: 13:38 Anxiety; Asthma; Diabetes - NIDDM; Heart Valve problem; hot flashes; Hypertension; cm10 Irregular heart rate; Myocardial infarction; Panic Attacks; Rheumatoid Arthritis; - PSHx: 13:38 back; Weight loss surgery; neck; cm10 - Immunization history:: Adult Immunizations up to date. - Infectious Disease History:: Denies. - Social history:: Smoking status: Patient denies any tobacco usage or history of. - Family history:: not pertinent. - Hospitalizations: : No recent hospitalization is reported. Vital Signs: 13:37 BP 163 / 96; Pulse 73; Resp 15; Temp 96.7; Pulse Ox 97% ; Weight 74.84 kg; Height 5 ft. cm10 5 in. ; Pain 10/10; 13:37 Body Mass Index 27.46 (74.84 kg, 165.1 cm) cm10 13:37 Pain Scale: Adult cm10 ED Course: 12:57 Patient arrived in ED. cm10 13:26 Meir Irene MD is Attending Physician. rn 13:38 Triage completed. cm10 13:39 Arm band placed on right wrist. Patient placed in an exam room, on a stretcher. cm10 Administered Medications: 13:58 Drug: Tetracaine Ophthalmic Drops 0.5 % 1 drops Ophthalmic once Route: Ophthalmic; Site: both eyes; 13:58 Drug: Fluorescein Ophthalmic Strip 1 strip Ophthalmic once Route: Ophthalmic; Site: both eyes; Outcome: 13:53 Discharge ordered by . rn 14:11 Patient left the ED. hb Signatures: Meir Irene MD MD rn Baxter, Heather, RN RN hb Martinez, Clarissa, RN RN 10
--- NOTE | 2024-08-18 13:54 | EDPHYS ---
Physician Documentation [facility] Name: Funmi Stoner Age: 64 yrs Sex: Female : 1960 Arrival Date: 08/18/2024 Time: 12:48 Bed 12 Private MD: ED Physician Meir Irene HPI: 08/18 13:51 This 64 yrs old Black Female presents to ER via EMS with complaints of Eye Problem. rn 13:51 The patient is experiencing burning, foreign body sensation, redness, tearing. Onset: rn The symptoms/episode began/occurred this morning. Duration: the symptoms are continuous. Aggravated by nothing. Alleviated by nothing. Severity of symptoms: At their worst the symptoms were moderate in the emergency department the symptoms are unchanged. The patient has experienced similar episodes in the past. Patient reports took a bath, melatonin bath last night, rubbed eyes, felt okay but woke up with irritated eyes with redness and clear drainage. No fever or chills. No other exposure or possible injury. Reports clear drainage and blurry vision because of drainage. Hurts to open eyes and rubbing eyes.. Historical: - Allergies: 13:38 Sulfa (Sulfonamide Antibiotics); cm10 - PMHx: 13:38 Anxiety; Asthma; Diabetes - NIDDM; Heart Valve problem; hot flashes; Hypertension; cm10 Irregular heart rate; Myocardial infarction; Panic Attacks; Rheumatoid Arthritis; - PSHx: 13:38 back; Weight loss surgery; neck; cm10 - Immunization history:: Adult Immunizations up to date. - Infectious Disease History:: Denies. - Social history:: Smoking status: Patient denies any tobacco usage or history of. - Family history:: not pertinent. - Hospitalizations: : No recent hospitalization is reported. ROS: 13:51 Constitutional: Negative for fever, chills, and weight loss, Eyes: Positive for eye rn redness and pain Exam: 13:51 Constitutional: This is a well developed, well nourished patient who is awake, alert rn Head/Face: Normocephalic, atraumatic. Eyes: Bilateral conjunctival injection, no foreign body, no fluorescein uptake, no dendritic lesions Vital Signs: 13:37 BP 163 / 96; Pulse 73; Resp 15; Temp 96.7; Pulse Ox 97% ; Weight 74.84 kg; Height 5 ft. cm10 5 in. ; Pain 10/10; 13:37 Body Mass Index 27.46 (74.84 kg, 165.1 cm) cm10 13:37 Pain Scale: Adult cm10 MDM: 13:26 Medical Screening Exam initiated rn 13:51 Differential diagnosis: Corneal abrasion of Foreign body in Data reviewed: vital signs, rn nurses notes, and as a result, I will discharge patient. Counseling: I had a detailed discussion with the patient and/or guardian regarding the historical points, exam findings, and any diagnostic results supporting the discharge/admit diagnosis, the need for outpatient follow up, to return to the emergency department if symptoms worsen or persist or if there are any questions or concerns that arise at home. Special discussion: I discussed with the patient/guardian in detail that at this point there is no indication for admission to the hospital. It is understood, however, that if the symptoms persist or worsen the patient needs to return immediately for re-evaluation. Based on the history and exam findings, there is no indication for further emergent testing or inpatient evaluation. I discussed with the patient/guardian the need to see the opthamologist for further evaluation of the symptoms. Administered Medications: 13:58 Drug: Tetracaine Ophthalmic Drops 0.5 % 1 drops Ophthalmic once Route: Ophthalmic; Site: both eyes; 13:58 Drug: Fluorescein Ophthalmic Strip 1 strip Ophthalmic once Route: Ophthalmic; Site: hb both eyes; Disposition Summary: 08/18/24 13:53 Discharge Ordered Notes: Location: Home rn Problem: new rn Symptoms: have improved rn Condition: Stable rn Diagnosis - Unspecified acute conjunctivitis, bilateral rn Followup: rn - With: Private Physician - When: As needed - Reason: Recheck today's complaints, Re-evaluation by your physician Discharge Instructions: - Discharge Summary Sheet rn Forms: - Medication Reconciliation Form rn - Antibiotic learning and development intern - Prescription Opioid Use rn - Patient Portal Instructions rn - Leadership Thank You Letter rn Prescriptions: - Vigamox 0.5 % Ophthalmic Drops - instill 1 drop OPHTHALMIC route every 8 hours for 7 days; 5 milliliter; rn Refills: 0, Product Selection Permitted Signatures: Meir Irene MD MD rn Baxter, Heather, RN RN hb Martinez, Clarissa, RN RN cm10
[2024-08-18 14:33] VITALS: BP 163/96; TEMP 96.7; O2SAT 97
== END 2024-08-18 14:11 | disposition home or self-care (01) ==
LOC: ER 12:48
DX: H10.33 Unspecified acute conjunctivitis, bilateral (principal)
CPT/HCPCS: 99283

== ENCOUNTER 2024-10-02 11:39 | Emergency (ER) | payer OTHER ==
--- OUTSIDE RECORDS SUMMARY | 2024-10-02 11:46 | XMS REPORT | Continuity of Care Document ---
Author Name Unknown Address [address] [facility]. [address] [place] [address] [facility] Address [address] [facility] [place] [address] Care Team Providers Care Supervisor Plasma Name Role Phone Verónica DO Vini Gann Primary Care Physician + [phone] HIRAM BLANK Attending Clinician Rodo Villanueva Attending Clinician UnavailAnthony Jansen Attending Clinician Unavail able PATRICK NICHOLS Attending Clinician Unavail able PATRICK NICHOLS Attending Clinician Unavail able Patrick Nichols MD Attending Clinician [phone] Marcos Gann RN Attending Clinician Unavail able BRANDON NEFF Attending Clinician Unavailable Jaimie Cruz MD Attending Clinician + Brandon Neff MD Attending Clinician [phone] DAX PITTS Attending Clinician Sonya Gomez RN Attending Clinician Unavailab cindy Whitaker MD, Shwetha Haddad Attending Clinician [phone] Dax Pitts MD Attending Clinician + [phone] Selina Charles MD Attending Clinician [phone] Ramandeep Day MD Attending Clinician +[phone] Geo CACERES Attending Clinician Unavailable Geo Altamirano Attending Clinician +[phone] CAREN CANALES Attending Clinician Unavailable JANNY GUTHRIE Attending Clinician Unavailable JANNY GUTHRIE Attending Clinician Unavailable GURJIT GUTIERREZ Attending Clinician Unavailable Gurjit Gutierrez DO Attending Clinician [phone] RAINE Attending Clinician Unavailable ALEJANDRA OCAMPO Attending Clinician Unavailable UNKNOWN Attending Clinician Unavailable Doctor Unassigned, Hardy Attending Clinician U louieailAlejandra Alvarado PA-C Attending Clinician [phone] HIRAM BLANK Admitting Clinician UnaRodo Zambrano Admitting Clinician UnavailDru Shin Admitting Clinician Unavailable BRANDON NEFF Admitting Clinician Unavailable Brandon Neff MD Admitting Clinician [phone] SELINA CHARLES Admitting Clinician Unavailable Selina Charles MD Admitting Clinician [phone] Geo CACERES Admitting Clinician Unavailable RAINE Admitting Clinician Unavailable Payers Payer Name Policy Type Policy Number Effective Date Expirati on Date Source [employer] D[employer]PLETE H[employer] [id number] 2019 00:00:00 [place] [id number] 2018 00:00:00 [facility] [id number] 00:00:00 [employer] MED[employer]ARE OUT OF NETWORK [id number] 2023 00:00:00 Problems Condition Name Condition Details Condition Category Status Onset Date Resolution Date Last Treatment Date Treating Clinician Comments Source Other chest pain Other chest pain Disease Active 02-23 00:00: 00 [facility] Elevated brain natriureti c peptide (BNP) level Elevated brain natriureti c peptide (BNP) level Disease Active 02-23 00:00: 00 [facility] Hypertensi ve urgency Hypertensi ve urgency Disease Active 02-23 00:00: 00 [facility] Bilateral carotid artery stenosis Bilateral carotid artery stenosis Disease Active 8-10 00:00: 00 [facility] Substance abuse Substance abuse Disease Active 8- 00:00: 00 [facility] Left-sided sensory deficit present Left-sided sensory deficit present Disease Active 8- 00:00: 00 [facility] Uncontroll ed hypertensi on Uncontroll ed hypertensi on Disease Active 6- 00:00: 00 [facility] Morbid obesity with body mass index of 40.0-49.9 Morbid obesity with body mass index of 40.0-49.9 Disease Active 2018-07 00:00: 00 [facility] Chest pain Chest pain Disease Resolve d 3-30 00:00: 00 2019-08-01 00:00:00 2022-01-30 00:07:56 [facility] Allergies, Adverse Reactions, Alerts Allergy Name Allergy Type Status Severity Reaction(s) Onset Date Inactive Date Treating Clinician Comments Source Sulfa (Sulfona mide Antibiot ics) DA Active U 02-10 00:00: 00 [facility] Sulfa (Sulfona mide Antibiot ics) DA Active U SWOLLEN THROAT, BLISTERS 02-10 00:00: 00 [facility] SULFA (SULFONA MIDE ANTIBIOT ICS) Drug Class Active Unknown-Cmnt 8 00:00: 00 [facility] Sulfa (Sulfona mide Antibiot ics) Propensi ty to adverse reaction s Active Unknown - See comments 03-14 00:00: 00 [facility] Social History Social Habit Start Date Stop Date Quantity Comments Source History of tobacco use Cigarette Smoker [facility] Alcoholic beverage intake 2024-02-23 00:00:00 2024-02-23 00:00:00 0 /d [facility] Tobacco use and exposure 2024-02-23 00:00:00 2024-02-23 00:00:00 Smokeless tobacco non-user [facility] Tobacco Comment 2024-02-23 00:00:00 2024-02-23 00:00:00 Reports smokes a pack every 3 days. [facility] History of Social function 2023-12-18 00:00:00 2023-12-18 00:00:00 [facility] Alcohol intake 2023-08-03 00:00:00 2023-08-03 00:00:00 0 /d [facility] Sex assigned at 1960 00:00:00 1960 00:00:00 [facility] Smoking Status Start Date Stop Date Source Ex-smoker 2024-02-23 00:00:00 2024-02-23 [facility] Ordered Medication Name Filled Medication Name Start Date Stop Date Current Medication? Ordering Clinician Indication Dosage Frequency Signature (SIG) Comments Components Source proparacain e (ALCAINE) 0.5 % ophthalmic solution 2 Drop 2023-07 19:45: 00 04-18 20:11 :00 No 2[drp] 2 Drop, Both Eyes, ONCE, 1 dose, On Roxana 04/18/24 at 1445, STONE [facility] NAPHAZOLINE -PHENIRAMIN E 0.025-0.3 % ophthalmic drops 2023-07 00:00: 00 04-29 04:59 :00 No [id number] 2[drp] Place 2 Drops in both eyes 4 (four) times daily for 10 days. [facility] atorvastati n (LIPITOR) tablet 40 mg 02-23 22:00: 00 Yes 40mg [facility] cyclobenzap rine (FLEXERIL) tablet 10 mg 02-23 15:30: 00 02-23 15:02 :00 No 10mg 10 mg, Oral, ONCE, 1 dose, On 02/24/24 at 1030, Routine [facility] amLODIPine (NORVASC) 10 mg tablet 02-23 14:38: 45 Yes 10mg Take 1 tablet by mouth in the morning. [facility] aspirin 81 mg EC tablet 02-23 14:38: 45 Yes 81mg Take 1 tablet by mouth in the morning. [facility] lisinopril (PRINIVIL,Z ESTRIL) 20 mg tablet 02-23 14:38: 45 Yes 20mg Take 1 tablet by mouth in the morning. [facility] metoprolol succinate XL (TOPROL XL) 25 mg 24 hr tablet 02-23 14:38: 45 Yes 25mg Take 1 tablet by mouth in the morning. [facility] ALPRAZolam (XANAX) 0.5 mg tablet 02-23 14:38: 45 Yes .5mg Take 1 tablet by mouth at bedtime. [facility] thiamine mononitrate (VITAMIN B-1 (MONONITRAT E)) tablet 100 mg 02-23 14:00: 00 Yes 100mg 100 mg, Oral, DAILY, First dose on 02/24/24 at 0900, Until Discontinu ed, Routine [facility] metoprolol succinate XL (TOPROL XL) tablet 25 mg 02-23 14:00: 00 Yes 25mg 25 mg, Oral, DAILY, First dose on 02/24/24 at 0900, Until Discontinu ed, Routine [facility] lisinopriL (PRINIVIL,Z ESTRIL) tablet 20 mg 02-23 14:00: 00 Yes 20mg 20 mg, Oral, DAILY, First dose on 02/24/24 at 0900, Until Discontinu ed, Routine [facility] DULoxetine (CYMBALTA) capsule 30 mg 02-23 14:00: 00 Yes 30mg 30 mg, Oral, DAILY, First dose on 02/24/24 at 0900, Until Discontinu ed, Routine [facility] amLODIPine (NORVASC) tablet 10 mg 02-23 14:00: 00 Yes 10mg 10 mg, Oral, DAILY, First dose on 02/24/24 at 0900, Until Discontinu ed, Routine [facility] enoxaparin (LOVENOX) injection 40 mg 02-23 14:00: 00 Yes 40mg 40 mg, Subcutaneo us, DAILY, First dose on Mon02/24/24 at 0900, Until Discontinu ed, Routine [facility] levalbutero l (XOPENEX) nebulizer solution 0.63 mg 02-23 13:00: 00 Yes .63mg 0.63 mg, Inhalation , TID, First dose on Mon02/24/24 at 0800, Until Discontinu ed, Routine [facility] labetaloL (NORMODYNE) 5 mg/mL injection 10 mg 02-23 09:57: 31 Yes 10mg 10 mg, Slow IV Push, Q4HPRN, Starting on Mon02/24/24 at 0457, Until Discontinu ed, Routine, For SBP > 160, DBP > 100 [facility] ALPRAZolam (XANAX) tablet 0.5 mg 02-23 02:00: 00 Yes .5mg 0.5 mg, Oral, QHS, First dose on Mon02/23/24 at 2100, Until Discontinu ed, Routine [facility] hydrOXYzine (ATARAX) tablet 50 mg 02-23 01:57: 53 Yes 50mg [facility] ipratropium (ATROVENT) 0.02 % nebulizer solution 0.5 mg 02-23 01:57: 21 Yes 2.5mL [facility] nitroglycer in (NITROSTAT) sublingual tablet 0.4 mg 02-23 01:56: 48 Yes .4mg [facility] hydrALAZINE (APRESOLINE ) tablet 10 mg 02-22 23:00: 00 Yes 10mg 10 mg, Oral, Q6H, First dose on Mon02/23/24 at 1800, Until Discontinu ed, Routine [facility] ondansetron (ZOFRAN (PF)) injection 4 mg 02-22 22:27: 09 Yes 4mg [facility] morphine (2 mg/mL) injection 2 mg 02-22 22:27: 03 02-23 22:26 :03 No 2mg [facility] HYDROcodone -acetaminop hen (NORCO 5) tablet 1 tablet 02-22 22:26: 59 02-24 22:25 :59 No 1{tbl} 1 tablet, Oral, Q6HPRN, Starting on Mon02/23/24 at 1726, Until 02/25/24 at 1725, Routine, Pain (scale 4-6) [facility] acetaminoph en (TYLENOL) tablet 650 mg 02-22 22:26: 52 Yes 650mg 650 mg, Oral, Q6HPRN, Starting on Mon02/23/24 at 1726, Until Discontinu ed, Routine, Pain (scale 1-3), Temp > 38 C [facility] labetaloL (NORMODYNE) 5 mg/mL injection 20 mg 02-22 20:30: 00 02-22 20:43 :00 No 20mg 20 mg, Slow IV Push, ONCE, 1 dose, On Mon02/23/24 at 1530, STONE [facility] labetaloL (NORMODYNE) 5 mg/mL injection 20 mg 02-22 19:15: 00 02-22 19:25 :00 No 20mg 20 mg, Slow IV Push, ONCE, 1 dose, On Mon02/23/24 at 1415, STONE [facility] amLODIPine (NORVASC) 10 mg tablet 12-18 15:39: 06 Yes 10mg Take 10 mg by mouth daily. [facility] aspirin 81 mg EC tablet 12-18 15:39: 06 Yes 81mg Take 81 mg by mouth daily. [facility] lisinopril (PRINIVIL,Z ESTRIL) 20 mg tablet 12-18 15:39: 06 Yes 20mg Take 20 mg by mouth daily. [facility] metoprolol succinate XL (TOPROL XL) 25 mg 24 hr tablet 12-18 15:39: 06 Yes 25mg Take 25 mg by mouth daily. [facility] gabapentin 400 mg capsule 12-18 14:09: 03 12-18 00:00 :00 No 1{capsu le} Take 1 capsule by mouth. [facility] ipratropium 0.02 % nebulizer solution 12-18 14:09: 12-18 00:00 :00 No 2.5mL 2.5 mL. [facility] DULoxetine (CYMBALTA) capsule 30 mg 12-18 14:00: 00 Yes 30mg 30 mg, Oral, DAILY, First dose on Mon12/19/23 at 0900, Until Discontinu ed, Routine [facility] HYDROcodone -acetaminop hen (NORCO) 10-325 mg tablet 12-18 13:38: 00 12-18 00:00 :00 No 1{tbl} Take 1 Tab by mouth every 6 (six) hours as needed. [facility] ALPRAZolam (XANAX) 1 mg tablet 12-18 13:38: 00 12-18 00:00 :00 No .5mg Take 0.5 tablets by mouth in the morning and 0.5 tablets in the evening. [facility] ketorolac (TORADOL) injection 15 mg 12-18 12:45: 00 12-18 13:53 :00 No 15mg 15 mg, Slow IV Push, ONCE, 1 dose, On Mon12/19/23 at 0745, Routine [facility] hydrOXYzine (ATARAX) tablet 50 mg 12-18 12:01: 51 Yes 50mg 50 mg, Oral, Q6HPRN, Starting on Mon12/19/23 at 0701, Until Discontinu ed, Routine, Anxiety [facility] atorvastati n 40 mg tablet 12-18 00:00: 00 Yes [id number] 40mg Take 1 tablet by mouth every evening. [facility] nitroglycer in 0.4 mg sublingual tablet 12-18 00:00: [id number] 1 tablet under the tongue every 5 (five) minutes as needed for Chest pain. [facility] foLIC acid 1 mg tablet 12-18 00:00: 00 Yes [id number] 1mg Take 1 tablet by mouth in the morning. [facility] thiamine mononitrate 100 mg tablet 12-18 00:00: 00 Yes [id number] 100mg Take 1 tablet by mouth in the morning. [facility] hydrOXYzine 50 mg tablet 12-18 00:00: 00 Yes [id number] 50mg Take 1 tablet by mouth every 6 (six) hours as needed for Anxiety. [facility] DULoxetine 30 mg capsule 12-18 00:00: 00 Yes [id number] 30mg Take 1 capsule by mouth in the morning. [facility] ipratropium 0.02 % nebulizer solution 12-18 00:00: 00 Yes [id number] .5mg Inhale 2.5 mL every 8 (eight) hours as needed for Wheezing or Shortness of Breath. [facility] gabapentin 400 mg capsule 12-18 00:00: 00 Yes [id number] 400mg Take 1 capsule by mouth in the morning and 1 capsule at noon and 1 capsule in the evening. [facility] lisinopriL (PRINIVIL,Z ESTRIL) tablet 20 mg 12-17 15:00: 00 Yes 20mg 20 mg, Oral, DAILY, First dose on 12/18/23 at 1000, Until Discontinu ed, Routine [facility] enoxaparin (LOVENOX) injection 40 mg 12-16 16:45: 00 Yes 40mg 40 mg, Subcutaneo us, Q24H, First dose on 12/17/23 at 1145, Until Discontinu ed, Routine [facility] perflutren protein-A microsphr (OPTISON) injection 3 mL 12-16 15:45: 00 12-16 15:18 :00 No [id number] 3mL 3 mL, IV Push, ONCE, 1 dose, On 12/17/23 at 1045, Routine [facility] thiamine mononitrate (VITAMIN B-1 (MONONITRAT E)) tablet 100 mg 12-16 14:00: 00 Yes 100mg 100 mg, Oral, DAILY, First dose on 12/17/23 at 0900, Until Discontinu ed, Routine [facility] foLIC acid (FOLATE) tablet 1 mg 12-16 14:00: 00 Yes 1mg 1 mg, Oral, DAILY, First dose on 12/17/23 at 0900, Until Discontinu ed, Routine [facility] gabapentin (NEURONTIN) capsule 100 mg 12-16 03:15: 00 12-16 03:17 :00 No 100mg 100 mg, Oral, ONCE, 1 dose, On 12/16/23 at 2215, Routine [facility] oxazepam (SERAX) capsule 15 mg 12-16 01:08: 35 Yes 15mg 15 mg, Oral, Q4HPRN, Starting on 12/16/23 at 2008, Until Discontinu ed, Routine, Only while awake for DBP equal to or greater than 100, HR equal to or greater than 100. 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 Restricted medication : MCAWHITE [facility] sennosides (SENOKOT) tablet 8.6 mg 12-15 14:00: 00 Yes 8.6mg 8.6 mg, Oral, DAILY, First dose on 12/16/23 at 0900, Until Discontinu ed, Routine [facility] aspirin chewable tablet 81 mg 12-15 14:00: 00 Yes 81mg 81 mg, Oral, DAILY, First dose on 12/16/23 at 0900, Until Discontinu ed, Routine [facility] pantoprazol e (PROTONIX) EC tablet 40 mg 12-15 14:00: 00 Yes 40mg 40 mg, Oral, DAILY, First dose on 12/16/23 at 0900, Until Discontinu ed, Routine [facility] polyethylen e glycol 3350 powder 17 g 12-15 13:00: 00 Yes 17g 17 g, Oral, BID, First dose on 12/16/23 at 0800, Until Discontinu ed, Routine [facility] metoprolol tartrate (LOPRESSOR) tablet 25 mg 12-15 13:00: 00 12-17 14:51 :00 No 25mg 25 mg, Oral, BID, First dose on 12/16/23 at 0800, Until Discontinu ed, Routine [facility] KCL (KLOR-CON M20) tablet 40 mEq 12-15 13:00: 00 12-15 15:55 :00 No 40meq 40 mEq, Oral, Q2H, 2 doses, First dose (after last modificati on) on 12/16/23 at 0800, Last dose on 12/16/23 at 1000, Routine [facility] nitroglycer in (NITROSTAT) sublingual tablet 0.4 mg 12-15 10:00: 01 Yes .4mg [facility] acetaminoph en (TYLENOL) tablet 650 mg 12-15 10:00: 01 12-17 14:51 :58 No 650mg 650 mg, Oral, Q6HPRN, Starting on 12/16/23 at 0500, Until 12/18/23 at 0951, Routine, Pain (scale 1-3) [facility] HEPARIN SODIUM (PORCINE) 1,000 UNIT/ML BOLUS ACS ORDER SET 12-15 07:00: 00 12-15 07:31 :00 No 4000U 4,000 Units, IV Push, ONCE, 1 dose, On 12/16/23 at 0200, STONE [facility] heparin 25,000 Units/250 mL (Premixed Bag) in [...] ant therapy. Range, Dosing and Testing: FOR [place], [facility], AND [facility] ONLY - aPTT < 35: Bolus [...] once therapeuti c levels are reached. FOR [facility] ONLY - aPTT < 40: Bolus 5000 [...] INITIAL BOLUS OR INITIAL INFUSION RATE. [facility] morpHINE (4 mg/mL) injection 4 mg 12-15 05:00: 00 12-15 05:40 :00 No 4mg 4 mg, Slow IV Push, ONCE, 1 dose, On 12/16/23 at 0000, STAT [facility] nitroglycer in (NITROSTAT) sublingual tablet 0.4 mg 12-15 05:00: 00 12-15 05:39 :00 No .4mg 0.4 mg, Sublingual , ONCE, 1 dose, On 12/16/23 at 0000, STONE [facility] aspirin chewable tablet 324 mg 12-15 05:00: 00 12-15 05:39 :00 No 324mg 324 mg, Oral, ONCE, 1 dose, On 12/16/23 at 0000, Routine [facility] labetaloL (NORMODYNE) injection 20 mg 12-15 03:45: 00 12-15 03:13 :00 No 20mg 20 mg, Slow IV Push, ONCE, 1 dose, On Mon12/15/23 at 2245, Routine [facility] NaCl 0.9% (NS) bolus infusion 1,000 mL 08-03 08:15: 00 08-03 08:43 :00 No 1000mL at 999 mL/hr, 1,000 mL, IV Infusion, ONCE, 1 dose, On Roxana 08/03/23 at 0215, STAT [facility] benzonatate 100 mg capsule 07-20 00:00: 00 12-18 00:00 :00 No [id number] 100mg Take 1 capsule by mouth 3 (three) times daily as needed for Cough. [facility] cyclobenzap rine (FLEXERIL) tablet 5 mg 2022-07 13:00: 00 05-19 12:24 :00 No 5mg 5 mg, Oral, ONCE NOW, 1 dose, On Mon05/19/23 at 0800, STONE [facility] gabapentin 400 mg capsule 2018-07 15:12: 46 Yes 1{capsu le} Take 1 capsule by mouth. [facility] ipratropium 0.02 % nebulizer solution 2018-07 15:12: 46 Yes 2.5mL 2.5 mL. [facility] amLODIPine (NORVASC) 10 mg tablet 2018-07 15:08: 41 Yes 10mg Take 10 mg by mouth daily. [facility] aspirin 81 mg EC tablet 2018-07 15:08: 41 Yes 81mg Take 81 mg by mouth daily. [facility] HYDROcodone -acetaminop hen (NORCO) 10-325 mg tablet 2018-07 15:08: 41 Yes 1{tbl} Take 1 Tab by mouth every 6 (six) hours as needed. [facility] lisinopril (PRINIVIL,Z ESTRIL) 20 mg tablet 2018-07 15:08: 41 Yes 20mg Take 20 mg by mouth daily. [facility] metoprolol succinate XL (TOPROL XL) 25 mg 24 hr tablet 2018-07 15:08: 41 Yes 25mg Take 25 mg by mouth daily. [facility] ALPRAZolam (XANAX) 1 mg tablet 2018-07 15:08: 41 Yes 1mg Take 1 mg by mouth 2 (two) times daily. [facility] azelastine 0.05 % ophthalmic solution 2018-07 00:00: 00 Yes [facility] omeprazole 40 mg capsule 2018-07 00:00: 00 12-18 00:00 :00 No [facility] predniSONE 20 mg tablet 2018-07 00:00: 00 12-18 00:00 :00 No [facility] clindamycin 300 mg capsule 2019-1 1-07 00:00: 00 12-18 00:00 :00 No TAKE 1 CAPSULE BY MOUTH EVERY 8 HOURS FOR 7 DAYS [facility] levalbutero l 0.63 mg/3 mL nebulizer solution 2018-07 021 00:00: 00 Yes USE 1 VIAL IN NEBULIZER 3 TIMES A DAY (J45.50) [facility] montelukast 10 mg tablet 2018-07 021 00:00: 00 12-18 00:00 :00 No [facility] COMP-AIR NEBULIZER COMPRESSOR Dia 2018-07 016 00:00: 00 Yes USE DIRECTED FOR BREATHING TREATMENTS [facility] levoFLOXaci n 500 mg tablet 2018-07 0-14 00:00: 00 12-18 00:00 :00 No [facility] albuterol (VENTOLIN HFA) 90 mcg/actuati on inhaler 02-04 00:00: 00 Yes INHALE 2 PUFFS 4 TIMES A DAY NEEDED DYSPNEA [facility] methylPREDN ISolone (MEDROL, ANT,) 4 mg tablets 2-12 00:00: 00 12-18 00:00 :00 No [id number] Take by mouth SEE-INSTRU CTIONS. follow package directions [facility] clonazePAM 0.5 mg tablet 5-10 00:00: 00 12-18 00:00 :00 No [facility] DULoxetine 30 mg capsule 4-19 00:00: 00 12-18 00:00 :00 No [facility] ADVAIR HFA 45-21 mcg/actuati on inhaler 10 00:00: 00 Yes [facility] Vital Signs Vital Name Observation Time Observation Value Comments Catie herminiakranthi Systolic blood pressure 2024-04-18 18:12:00 137 mm[Hg] [facility] Diastolic blood pressure 2024-04-18 18:12:00 76 mm[Hg] [facility] Heart rate 2024-04-18 18:12:00 87 /min [facility] Body temperature 2024-04-18 18:12:00 36.72 Laura [facility] Respiratory rate 2024-04-18 18:12:00 16 /min [facility] Body height 2024-04-18 18:12:[address] [facility] Body weight 2024-04-18 18:12:[address] [facility] BMI 2024-04-18 18:12:00 29.62 kg/m2 [facility] Oxygen saturation in Arterial blood by Pulse oximetry 2024-04-18 18:12:00 100 /min [facility] Systolic blood pressure 2024-02-24 16:17:00 132 mm[Hg] [facility] Diastolic blood pressure 2024-02-24 16:17:00 79 mm[Hg] [facility] Heart rate 2024-02-24 16:17:00 69 /min [facility] Body temperature 2024-02-24 16:17:00 36.17 Laura [facility] Respiratory rate 2024-02-24 16:17:00 16 /min [facility] Oxygen saturation in Arterial blood by Pulse oximetry 2024-02-24 16:17:00 100 /min [facility] Body weight 2024-02-24 08:16:[address] [facility] BMI 2024-02-24 08:16:00 29.70 kg/m2 [facility] Body height 2024-02-23 23:12:[address] [facility] Systolic blood pressure 2023-12-19 16:35:00 114 mm[Hg] [facility] Diastolic blood pressure 2023-12-19 16:35:00 77 mm[Hg] [facility] Heart rate 2023-12-19 16:35:00 91 /[facility] Body temperature 2023-12-19 16:35:00 36.22 Laura [facility] Respiratory rate 2023-12-19 16:35:00 16 /min [facility] Oxygen saturation in Arterial blood by Pulse oximetry 2023-12-19 16:35:00 99 /min [facility] Body weight 2023-12-19 11:50:[address] [facility] BMI 2023-12-19 11:50:00 28.97 kg/m2 [facility] Body height 2023-12-16 02:11:[address] [facility] Systolic blood pressure 2023-08-03 12:00:00 114 mm[Hg] [facility] Diastolic blood pressure 2023-08-03 12:00:00 74 mm[Hg] [facility] Heart rate 2023-08-03 12:00:00 76 /min [facility] Body temperature 2023-08-03 12:00:00 35.83 Laura [facility] Oxygen saturation in Arterial blood by Pulse oximetry 2023-08-03 12:00:00 98 /min [facility] Respiratory rate 2023-08-03 11:00:00 12 /min [facility] Body height 2023-08-03 07:11:[address] [facility] Body weight 2023-08-03 07:11:[address] [facility] BMI 2023-08-03 07:11:00 31.62 kg/m2 [facility] Systolic blood pressure 2023-07-20 08:21:00 172 mm[Hg] [facility] Diastolic blood pressure 2023-07-20 08:21:00 97 mm[Hg] [facility] Heart rate 2023-07-20 08:21:00 92 /min [facility] Respiratory rate 2023-07-20 08:21:00 18 /min [facility] Oxygen saturation in Arterial blood by Pulse oximetry 2023-07-20 08:21:00 100 /min [facility] Body temperature 2023-07-20 05:30:00 36.72 Laura [facility] Body height 2023-07-20 05:30:[address] [facility] Body weight 2023-07-20 05:30:[address] [facility] BMI 2023-07-20 05:30:00 28.29 kg/m2 [facility] Systolic blood pressure 2023-05-19 12:06:46 141 mm[Hg] [facility] Diastolic blood pressure 2023-05-19 12:06:46 102 mm[Hg] [facility] Heart rate 2023-05-19 12:06:46 78 /min [facility] Respiratory rate 2023-05-19 12:06:46 16 /min [facility] Oxygen saturation in Arterial blood by Pulse oximetry 2023-05-19 12:06:46 100 /min [facility] Body temperature 2023-05-19 11:35:00 37.06 Laura [facility] Body height 2023-05-19 11:35:[address] [facility] Body weight 2023-05-19 11:35:[address] [facility] BMI 2023-05-19 11:35:00 29.12 kg/m2 [facility] Systolic blood pressure 2023-05-11 05:22:00 148 mm[Hg] [facility] Diastolic blood pressure 2023-05-11 05:22:00 84 mm[Hg] [facility] Heart rate 2023-05-11 05:22:00 88 /min [facility] Body temperature 2023-05-11 05:22:00 36.5 [facility] Respiratory rate 2023-05-11 05:22:00 18 /min [facility] Oxygen saturation in Arterial blood by Pulse oximetry 2023-05-11 05:22:00 100 /min [facility] Body height 2023-05-11 05:21:[address] [facility] Body weight 2023-05-11 05:21:[address] [facility] BMI 2023-05-11 05:21:00 28.29 kg/m2 [facility] Procedures Procedure Date / Time Performed Performing Clinician Source THYROID STIMULATING HORMONE 2024-04-18 19:58:00 Patrick Nichols [facility] BASIC METABOLIC PANEL (NA, K, CL, CO2, GLUCOSE, BUN, CREATININE, CA) 2024-04-18 19:58:00 Patrick Nichols [facility] CBC WITH DIFF 2024-04-18 19:58:00 Patrick Nichols [facility] URINE DRUG (IMMUNOASSAY) - COMPREHENSIVE DRUG SCREEN 2024-02-24 13:51:00 JuwanobdulioSole rutledge [facility] MAGNESIUM 2024-02-24 08:20:00 Aishwarya [facility] TROPONIN I 2024-02-24 08:20:00 Aishwarya [facility] BASIC METABOLIC PANEL (NA, K, CL, CO2, GLUCOSE, BUN, CREATININE, CA) 2024-02-24 08:20:00 Aishwarya [facility] LIPID PANEL (15739)(TOTAL CHOLESTEROL, TRIGLYCERIDES, HDL) 2024-02-24 08:20:00 Aishwarya [facility] CBC WITHOUT DIFF 2024-02-24 08:20:00 [facility] N-TERMINAL PRO-BNP 2024-02-24 08:20[facility]00 [facility]24-02-24 00:53:00 [facility] 2024-02-23 19:31:00 Jaimie Cruz [facility] CT ANGIOGRAM HEAD 2024-02-23 18:20[facility]55 [facility] 2024-02-23 18:20:55 SofifderJaimie owen [facility] CT HEAD WO CONTRAST 2024-02-23 18:18:12 AufderJaimie castañeda [facility] TROPONIN I 2024-02-23 17:19:00 Jaimie Cruz [facility] COMP. METABOLIC PANEL (27232) 2024-02-23 17:19:00 Jaimie Cruz [facility] CBC WITH DIFF 2024-02-23 17:19:00 Jaimie Cruz [facility] GLYCOSYLATED HEMOGLOBIN (A1C) 2024-02-23 17:19:00 Brandon Neff [facility] N-TERMINAL PRO-BNP 2024-02-23 17:19:00 Jaimie Inman [facility] HB ECG ROUTINE & RHYTHM STRIP 2024-02-23 16:53:00 Jaimie Cruz [facility] CBC WITH DIFF 2023-12-19 11:46:00 Jasper Mcnulty [facility] MAGNESIUM 2023-12-19 09:40:00 Jasper Mcnulty [facility] BASIC METABOLIC PANEL (NA, K, CL, CO2, GLUCOSE, BUN, CREATININE, CA) 2023-12-19 09:40:00 Jasper Mcnulty [facility] TRANSTHORACIC ECHO (TTE) LIMITED W/ DOPPLER AND COLOR 2023-12-18 15:25:00 Felipe Khoury [facility] CBC WITHOUT DIFF 2023-12-18 10:13:00 Shwetha Whitaker [facility] EXTRA TUBE RED 2023-12-18 10:13:[address] [facility] TRANSTHORACIC ECHO (TTE) COMPLETE W/ CONTRAST 2023-12-17 15:22:00 [facility] 2023-12-17 08:50:[address] [facility] BASIC METABOLIC PANEL (NA, K, CL, CO2, GLUCOSE, BUN, CREATININE, CA) 2023-12-17 08:50:00 Felipe Khoury [facility] CBC WITH DIFF 2023-12-17 08:50:[address] [facility] ACTIVATED PARTIAL THRMPLAS TANO 2023-12-16 15:28:00 Shwetha Whitaker [facility] TROPONIN I 2023-12-16 13:33:00 [facility]RM[facility]AS TANO 2023-12-16 13:33:00 Shwetha Whitaker [facility] TROPONIN I 2023-12-16 10:24:00 Francine Turk [facility] THYROID STIMULATING HORMONE 2023-12-16 10:24:00 Francine Turk [facility] BASIC METABOLIC PANEL (NA, K, CL, CO2, GLUCOSE, BUN, CREATININE, CA) 2023-12-16 10:24:00 Francine Turk [facility] CBC WITHOUT DIFF 2023-12-16 10:24:00 Shwetha Whitaker [facility] PROTHROMBIN TIME / INR 2023-12-16 07:34:00 Corey Whitaker [facility] ACTIVATED PARTIAL THRMPLAS TANO 2023-12-16 07:34:00 Shwetha Whitaker [facility] EKG-12 LEAD 2023-12-16 07:01:[address] [facility] XR CHEST 1 VW 2023-12-16 05:58:32 Shwetha Whitaker [facility] CREATINE KINASE 2023-12-16 03:54:00 [facility] COMP. METABOLIC PANEL (21251) 2023-12-16 03:54:00 Shwetha Whitaker [facility] LIPID PANEL (67083)(TOTAL CHOLESTEROL, TRIGLYCERIDES, HDL) 2023-12-16 03:54:00 Francine Turk [facility] EKG-12 LEAD 2023-12-16 03:08:39 Doctor Unass igned, Hardy [facility] TROPONIN I 2023-12-16 03:05:[address] [facility] URINE DRUG (IMMUNOASSAY) - COMPREHENSIVE DRUG SCREEN 2023-12-16 03:05:00 Shwetha Whitaker [facility] CBC WITH DIFF 2023-12-16 03:05:00 Shwetha Whitaker [facility] GLYCOSYLATED HEMOGLOBIN (A1C) 2023-12-16 03:05:00 [facility]23-12-16 03:05:[address] [facility] POCT GLUCOSE (AUTOMATED) 2023-08-03 07:55:00 Geo Caceres [facility] URINE DRUG (IMMUNOASSAY) - COMPREHENSIVE DRUG SCREEN 2023-08-03 07:44:00 Geo Caceres [facility] URINALYSIS 2023-08-03 07:44:[address] [facility] MAGNESIUM 2023-08-03 07:24:[address] [facility] TROPONIN I 2023-08-03 07:24:[address] [facility] COMP. METABOLIC PANEL (52493) 2023-08-03 07:24:00 Geo Caceres [facility] CBC WITH DIFF 2023-08-03 07:24:[address] [facility] RAPID STREP SCREEN FOR GROUP A 2023-07-20 05:36:00 Shwetha Whitaker [facility] RAPID INFLUENZA A/B 2023-07-20 05:36:00 Shwetha Whitaker [facility] COVID-19 (ID NOW RAPID TESTING) 2023-07-20 05:36:00 Shwetha Whitaker [facility] CONSENT/REFUSAL FOR DIAGNOSIS AND TREATMENT 2023-07-20 05:25:45 Doctor Unassigned, Hardy [facility] NOTICE OF PRIVACY PRACTICES 2023-05-11 05:01:51 Doctor Unassigned, Hardy [facility] CONSENT/REFUSAL FOR DIAGNOSIS AND TREATMENT 2023-05-11 05:01:35 Doctor Unassigned, Hardy [facility] [id number] 2020-03-17 00:00:00 [facility] [id number] 2020-03-17 00:00:00 [facility] [id number] 2020-03-17 00:00:00 [facility] Encounters Start Date/Time End Date/Time Encounter Type Admission Type Attending Clinicians Care Facility Care Department Encounter ID Source 2021-05-13 10:58:11 Outpatient R HIRAM OLIVARES [facility] EMILIANO [id number] [facility] 2020-03-20 15:12:00 Inpatient Rodo Mauricio [facility] MED [id number] [facility] are [facility] 2020-03-17 10:30:00 Inpatient Anthony Friedman [facility] DAYS [id number] [facility] 2020-02-14 14:00:00 Inpatient Anthony Friedman [facility] ENDO [id number] [facility] 2024-04-18 13:15:00 2024-04-18 16:47:00 Emergency X PATRICK NICHOLS JOSEPH [facility] ERT [id number] [facility] 2024-04-18 13:15:00 2024-04-18 16:47:00 Emergency Patrick Nichols [facility] 1..840.114 350.1.13.10 4.2.7.2.686 [id number] [facility] 2024-02-26 00:00:00 2024-02-27 09:10:29 Transition of Care Marcos Gann Michele [address] ..840.114 350.1.13.10 4.2.7.2.686 [id number] [facility] 2024-02-23 12:00:00 2024-02-24 14:33:00 Outpatient X [facility] [id number] [facility] 2024-02-23 12:00:00 2024-02-24 14:33:00 Emergency Jaimie Cruz Jelani [facility] ..840.114 350.1.13.10 4.2.7.2.686 [id number] [facility] 2024-01-25 14:30:00 2024-01-25 14:30:00 Outpatient R DAX PITTS [facility] [id number] [facility] 2023-12-20 00:00:00 2023-12-20 12:43:25 Transition of Care Vernon Sonya JALLOH 1.2.840.114 350.1.13.10 4.2.7.2.686 [id number] [facility] 2023-12-15 21:16:00 2023-12-19 15:38:00 Inpatient X RAMIN PITTS[place]NAPOLISPablo [facility] [id number] [facility] 2023-12-15 21:16:00 2023-12-19 15:38:00 Hospital Encounter Shwetha [facility]akermarly, [facility] Grace Charles, Selina Day, [facility] 1.840.114 350.1.13.10 4.2.7.2.686 [id number] [facility] 2023-08-03 01:20:00 2023-08-03 06:24:00 Emergency X Geo CACERES [facility] ERT [id number] [facility] 2023-08-03 01:20:00 2023-08-03 06:24:00 Emergency MorrisGeo Destiny [facility] 1.2840.114 350.1.13.10 4.2.7.2.686 [id number] [facility] 2023-07-19 23:39:00 2023-07-20 02:24:00 Emergency X CAREN CANALES [facility] ERT [id number] [facility] 2023-07-19 23:39:00 2023-07-20 02:24:00 Emergency Lalo, Caren [facility] 1.2840.114 350.1.13.10 4.2.7.2.686 [id number] [facility] 2023-05-19 06:30:00 2023-05-19 08:18:00 Emergency JANNY CRAWFORD TIMOTHY [facility] ERT [id number] [facility] 2023-05-19 06:30:00 2023-05-19 08:18:00 Emergency Janny Guthrie [facility] 1.2.840.114 350.1.13.10 4.2.7.2.686 [id number] [facility] 2023-05-11 00:14:00 2023-05-11 01:10:00 Emergency GURJIT MAGDALENO [facility] ERT [id number] [facility] 2023-05-11 00:14:00 2023-05-11 01:10:00 Emergency Grujit Gutierrez [facility] 1.2.840.114 350.1.13.10 4.2.7.2.686 [id number] [facility] 2022-01-26 10:47:00 2022-01-26 10:47:00 Outpatient RAINE NJTHOMAS [facility] [id number] [facility] Program 2020-07-23 13:00:00 2020-07-23 13:00:00 Outpatient ALEJANDRA MILLAN [facility] [id number] [facility] 2020-07-01 13:30:00 2020-07-01 13:30:00 Outpatient ALEJANDRA MILLAN [facility] [id number] [facility] 2020-07-01 13:30:00 2020-07-01 13:30:00 Outpatient ALEJANDRA MILLAN [facility] [id number] [facility] 2020-03-20 20:36:00 2020-03-20 20:36:00 Outpatient Rodo White [facility] REF [id number] [facility] 2020-03-09 09:00:00 2020-03-09 09:00:00 Outpatient Anthony Hinson [facility] 3DAY [id number] [facility] 2020-02-11 14:10:00 2020-02-11 14:10:00 Outpatient UNKNOWN HCACL LABO [id number] [facility] 2019-08-08 00:00:00 2019-08-08 00:00:00 Orders Only Doctor Unassigned, Hardy [facility] 1.2.840.114 350.1.13.10 4.2.7.2.686 [id number] 2019-08-01 11:39:15 2019-08-01 12:11:37 [facility] 1.2.840.114 350.1.13.10 4.2.7.2.686 [id number] 2019-08-01 11:15:00 2019-08-01 12:11:37 Outpatient R MARKZABRINAHUDSONCY [facility] [id number] [facility] Results Test Description Test Time Test Comments Results Result Co mments Source [facility] [id number] 20:25:36* Test Item Value Reference Range Interpretation Comme nts TROPONIN I (test code = 7357191191) 0.009 ng/mL <=0.034 JASWINDER (test code = [...] of biotin. Lab Interpretation (test code = 06109-8) Normal [facility] [id number] 18:27:57CT ANGIOGRAM HEAD, CT ANGIOGRAM NECK HISTORY: [...] patent from their subclavian origins through thevertebrobasilar junction.[facility] [id number] 18:27:57CT ANGIOGRAM HEAD, CT ANGIOGRAM NECK HISTORY: [...] patent from their subclavian origins through thevertebrobasilar junction.[facility] with [id number] 18:27:56* Test Item Value Reference Range Interpretation [...] 31.9 g/dL 31.6-35.1 RDW-SD (test code = 29862-4) 43.7 fL 39.0-49.9 RDW-CV (test code = 788-0) 15.0 % 12.0-15.5 PLT (test code = 777-3) 363 166-358 H MPV (test code = 55526-4) 10.5 fL 9.5-12.9 NRBC/100 WBC (test code = 2693934563) 0.0 0.0-10.0 NRBC x10^3 (test code = 3783953106) See_Comment [Automated [employer]] The system which generated this result transmitted reference range: 10*3/?L. The reference range was not used to interpret this result as normal/abnormal. GRAN MAT (NEUT) % (test code = 770-8) 42.9 % IMM GRAN % (test code = 3548610781) 0.30 % LYMPH % (test code = 736-9) 39.3 % MONO % (test code = 5905-5) 10.3 % EOS % (test code = 713-8) 6.5 % BASO % (test code = 706-2) 0.7 % GRAN MAT x10^3(ANC) (test code = 7526362118) 4.60 10*3/uL 1.88-7.09 IMM GRAN x10^3 (test code = 4155513558) 0.03 10*3/uL 0.00-0.06 LYMPH x10^3 (test code = 731-0) 4.22 10*3/uL 1.32-3.29 H MONO x10^3 (test code = 742-7) 1.11 10*3/uL 0.33-0.92 H EOS x10^3 (test code = 711-2) 0.70 10*3/uL 0.03-0.39 H BASO x10^3 (test code = 704-7) 0.08 10*3/uL 0.01-0.07 H PLT ESTIMATE (test code = 9317-9) Increased Normal A Lab Interpretation (test code = 58420-7) Abnormal [facility] WO [id number] 18:21:07FULL RESULT: Examination: CT HEAD WO CONTRAST on 02/23/2024 12:46 PM Clinical Indication: Left-sided sensory deficit Comparison: None Technique: Noncontrast imaging was obtained from base to vertex. Findings: The sulci and ventricles were unremarkable. There was no evidencefor mass lesion, hemorrhage, or underlying edema. There were no bony,sinonasal or skull base lesions.[facility] CenterTroponin [id number] 17:54:45* Test Item Value Reference Range Interpretation Comme nts TROPONIN I (test code = 9383017815) 0.007 ng/mL <=0.034 JASWINDER (test code = [...] of biotin. Lab Interpretation (test code = 11046-0) Normal [facility]inal Ofg-[id number] 17:52:03* Test Item Value Reference Range Interpretation Comme nts NT-proBNP (test code = 53111-0) 595 pg/mL <=125 JASWINDER (test code = JASWINDER) Result Indeterminate-Consid er causes of NT-proBNP elevation other than Heart failure such as acute coronary syndrome, pulmonary embolism, pulmonary hypertension, sepsis, stroke, and renal dysfunction. Lab Interpretation (test code = 53078-1) Abnormal [facility]. Metabolic Panel (62412)2024-02-23 17:44:03* Test Item Value Reference Range Interpretation Comme nts NA (test code = 6970739301) 141 mmol/L 135-145 K (test code = 9191180224) 4.0 mmol/L 3.5-5.0 CL (test code = 5212472023) 104 mmol/L 98-108 CO2 TOTAL (test code = 1475208037) 25 mmol/L 23-31 AGAP (test code = 4292062061) 12 2-16 BUN (test code = 4735109298) 14 mg/dL 7-23 GLUCOSE (test code = 8197894317) 92 mg/dL 70-110 CREATININE (test code = 2160-0) 0.80 mg/dL 0.50-1.04 TOTAL BILI (test code = 5108631581) 0.7 mg/dL 0.1-1.1 CALCIUM (test code = 4579964944) 9.4 mg/dL 8.6-10.6 T PROTEIN (test code = 2771414086) 8.8 g/dL 6.3-8.2 H ALBUMIN (test code = 2644339607) 4.5 g/dL 3.5-5.0 ALK PHOS (test code = 3975671879) 94 U/L 34-122 ALTv (test code = 1742-6) 34 U/L 5-35 AST(SGOT) (test code = 1764163249) 49 U/L 13-40 H eGFR (test code = 88842-6) 83.9 mL/min/1.73m2 CKD-EPI eGFR (2020). Assuming creatinine has been stable day-to-day for at least three months, the eGFR indicates Category G2 (60 - 89 mL/min/1.73 m2) Lab Interpretation (test code = 10749-8) Abnormal [facility] (TTE)2023-12-18 17:36:50* Test Item Value Reference Range Interpretation Comme nts Height (test code = 6317925889) 65 in Weight (test code = 1816785933) 174 lbs Systolic BP (test code = 4255342663) 169 mmHg Diastolic BP (test code = 2861380527) 88 mmHg Heart Rate (test code = 1066395702) 77 bpm BSA (test code = 9975532706) 1.86 m2 LVOT diameter (test code = 2850287905) 1.80 cm LVOT area (test code = 2394760585) 2.60 cm2 LVOT stroke volume (test code = 5730689499) 55.20 cm3 LVOT peak zahira (test code = 5657686771) 95.7 cm/s LVOT mn grad (test code = 5214448750) 2.3 mmHg AV LVOT peak gradient (test code = 7390199883) 3.7 mmHg LVOT peak VTI (test code = 6772384033) 21.7 cm LV V1 mean (test code = 5397265759) 72.70 cm/s Aortic valve mean velocity (test code = 2787685951) 102.9 cm/s Ao peak zahira (test code = 1695631031) 143.9 cm/s Ao VTI (test code = 0886299796) 29.7 cm AV area by cont VTI (test code = 8118113527) 1.9 cm2 AV area peak zahira (test code = 0730822373) 1.7 cm2 Ao max PG (test code = 6266746480) 8.30 mm[Hg] AV peak gradient (test code = 0550051287) 8.3 mmHg AV valve area (test code = 4825214999) 1.86 cm2 AV mean gradient (test code = 0413489314) 4.7 mmHg LVIDD (test code = 2531095181) 3.10 cm Left Ventricular End Diastolic Volume by Teichholz Method (test code = 6534561) 36.5 mL IVS (test code = 9174336097) 1.33 cm Interventricular Septum Diastolic Thickness by 2D (test code = 8395444) 1.33 cm LVPWD (test code = 0895453925) 1.47 cm PW (test code = 0226811539) 1.47 cm 0.6-1.1 MV stenosis pressure 1/2 time (test code = 6902055793) 107.3 ms Radiology Study observation (narrative) (test code = 92018-4) JASWINDER (test code = JASWINDER) ?Left?Ventricle: Left [...] parasternal, subcostal and suprasternal views were obtained. [facility] (TTE)2023-12-17 20:31:38* Test Item Value Reference Range Interpretation Comme nts Height (test code = 0630894178) 65 in Weight (test code = 3824219191) 174 lbs Systolic BP (test code = 0773469246) 138 mmHg Diastolic BP (test code = 3914207516) 78 mmHg Heart Rate (test code = 9134961869) 69 bpm BSA (test code = 7324784360) 1.86 m2 Ao root diam (test code = 5613121202) 2.70 cm Aortic root (test code = 5208922672) 2.7 cm Ao root annulus (test code = 5919141665) 2.7 cm LA size (test code = 8259716944) 4.2 cm LVOT diameter (test code = 9322866693) 1.78 cm LVOT area (test code = 5068488354) 2.50 cm2 LVIDD (test code = 6652818151) 3.80 cm Left Ventricular End Diastolic Volume by Teichholz Method (test code = 1040007) 61.9 mL IVS (test code = 1902197210) 1.32 cm Interventricular Septum Diastolic Thickness by 2D (test code = 7110965) 1.32 cm LVPWD (test code = 9830418405) 1.32 cm PW (test code = 5256976984) 1.32 cm 0.6-1.1 EF(Teich) (test code = 6816956372) 64.20 % LVIDS (test code = 4594953979) 2.49 cm Left Ventricular End Systolic Volume by Teichholz Method (test code = 4966207) 22.1 mL FS (test code = 7318455043) 34 % EF - 2D (test code = 80395359) 64.20 % TR Peak Zahira (test code = 2230199265) 261.8 cm/s Triscuspid Valve Regurgitation Peak Gradient (test code = 2781162791) 27.4 mmHg MV Peak E Zahira (test code = 0059935006) 142.6 cm/s E wave decelartion time (test code = 5020765242) 0.29 s MV Peak A Zahira (test code = 0215074175) 155.6 cm/s E/A ratio (test code = 6586877215) 0.92 ratio MV Prop V (test code = 4052613242) 42.00 cm/s LAV(MOD-sp4) (test code = 8759876895) 68.80 mL Tapse (test code = 9563324957) 2.30 cm LVOT stroke volume (test code = 4817257695) 51.30 cm3 LVOT peak zahira (test code = 2613521607) 105.0 cm/s LVOT mn grad (test code = 4271873101) 2.5 mmHg AV LVOT peak gradient (test code = 7261762738) 4.4 mmHg LVOT peak VTI (test code = 0677148285) 20.6 cm LV V1 mean (test code = 4540174236) 73.90 cm/s Ao peak zahira (test code = 5973719183) 146.3 cm/s AV area peak zahira (test code = 8528765520) 1.8 cm2 Ao max PG (test code = 3514125445) 8.60 mm[Hg] AV peak gradient (test code = 1422140850) 8.6 mmHg LA Volume Index (BP) (test code = 1211991096) 38.2 mL/m2 LA volume (BP) (test code = 8597108444) 71.2 mL LAV(MOD-sp2) (test code = 8621867671) 70.10 mL GLS (test code = 8948265844) -13 % Radiology Study observation (narrative) (test code = 77406-6) JASWINDER (test code = JASWINDER) ?Left?Ventricle: Left [...] mL of Optison ultrasound enhancing agent used. [facility] with [id number] 10:52:49* Test Item Value Reference Range Interpretation [...] 32.0 g/dL 31.6-35.1 RDW-SD (test code = 50151-3) 41.1 fL 39.0-49.9 RDW-CV (test code = 788-0) 14.2 % 12.0-15.5 PLT (test code = 777-3) 321 166-358 MPV (test code = 06916-1) 10.5 fL 9.5-12.9 NRBC/100 WBC (test code = 0276515685) 0.0 0.0-10.0 NRBC x10^3 (test code = 4345789657) See_Comment [Automated messa ge] The system which generated this result transmitted reference range: 10*3/?L. The reference range was not used to interpret this result as normal/abnormal. SEG % (test code = 40070-9) 28 % 33-76 L LYMPH % (test code = 09334-2) 60 % 14-54 H MONO % (test code = 18041-7) 8 % 0-4 H EOS % (test code = 29153-6) 4 % 0-3 H ANC (test code = 753-4) 2.46 10*3/uL 1.88-7.09 Lab Interpretation (test code = 36707-9) Abnormal [facility] Metabolic Panel (NA, K, CL, CO2, GLUCOSE, BUN, CREATININE, CA)2023-12-17 09:22:40* Test Item Value Reference Range Interpretation Comme nts NA (test code = 0863341213) 137 mmol/L 135-145 K (test code = 1950268658) 4.5 mmol/L 3.5-5.0 CL (test code = 1779564970) 109 mmol/L 98-108 H CO2 TOTAL (test code = 2768006893) 25 mmol/L 23-31 AGAP (test code = 2779006388) 3 2-16 BUN (test code = 0064080153) 17 mg/dL 7-23 GLUCOSE (test code = 3731932599) 87 mg/dL 70-110 CREATININE (test code = 2160-0) 0.79 mg/dL 0.50-1.04 CALCIUM (test code = 9936517568) 8.7 mg/dL 8.6-10.6 eGFR (test code = 84975-0) 85.2 mL/min/1.73m2 CKD-EPI eGFR (2020). Assuming creatinine has been stable day-to-day for at least three months, the eGFR indicates Category G2 (60 - 89 mL/min/1.73 m2) Lab Interpretation (test code = 98297-5) [facility]* Test Item Value Reference Range Interpretation Comme nts MAGNESIUM (test code = 1570660748) 2.3 mg/dL 1.7-2.4 Lab Interpretation (test cod e = 93493-3) [facility]-16 15:18:07* Test Item Value Reference Range Interpretation Comme nts HGB A1C (test code = 4548-4) 5.7 % 4.0-5.7 JASWINDER (test code = JASWINDER) Reference RangesNormal: <5.7%Prediabetes: 5.7 - 6.4%Diabetes: > 6.5% Lab Interpretation (test code = 21165-4) [facility] (Total Cholesterol, Triglycerides, HDL)2023-12-16 13:51:10* Test Item Value Reference Range Interpretation Comme nts CHOL (test code = 9977419956) 166 mg/dL 120-200 HDL (test code = 9951904536) 52 mg/dL >=50 HDLC RATIO (test code = 9710813358) 3.2 <=4.5 TRIG (test code = 4800486304) 94 mg/dL 30-170 LDL CHOL (test code = 54419-3) 95 mg/dL <=160 VLDL (test code = 5411496572) 19 mg/dL 5-60 Lab Interpretation (test cod e = 61198-4) [facility]2023-12-16 12:15:49* Test Item Value Reference Range Interpretation Comme nts TSH (test code = 1725670085) 1.94 0.45-4.70 Lab Interpretation (test cod e = 70624-4) [facility] - Serial Q3H x2 from initial occurrence (at 0Hr, 3rd Hr and 6th Hr)2023-12-16 11:57:05* Test Item Value Reference Range Interpretation Comme nts TROPONIN I (test code = 2432068085) 0.026 ng/mL <=0.034 JASWINDER (test code = [...] of biotin. Lab Interpretation (test code = 86182-4) Normal [facility] Metabolic Panel (NA, K, CL, CO2, GLUCOSE, BUN, CREATININE, CA)2023-12-16 11:42:28* Test Item Value Reference Range Interpretation Comme nts NA (test code = 3390747696) 136 mmol/L 135-145 K (test code = 8359692479) 3.4 mmol/L 3.5-5.0 L CL (test code = 6801075010) 104 mmol/L 98-108 CO2 TOTAL (test code = 5648635408) 22 mmol/L 23-31 L AGAP (test code = 4233676931) 10 2-16 BUN (test code = 6787548017) 18 mg/dL 7-23 GLUCOSE (test code = 7343285322) 84 mg/dL 70-110 CREATININE (test code = 2160-0) 0.71 mg/dL 0.50-1.04 CALCIUM (test code = 5921687197) 8.7 mg/dL 8.6-10.6 eGFR (test code = 13977-7) 96.9 mL/min/1.73m2 CKD-EPI eGFR (2020). Assuming creatinine has been stable day-to-day for at least three months, the eGFR indicates Category G1 (>= 90 mL/min/1.73 m2) Lab Interpretation (test code = 40423-0) Abnormal General acute hospital Without [id number] 10:38:02* Test Item Value Reference Range Interpretation [...] 777-3) 296 166-358 MPV (test code = 52398-3) 10.6 fL 9.5-12.9 RDW-CV (test code = 788-0) 14.1 % 12.0-15.5 RDW-SD (test code = 28452-1) 40.7 fL 39.0-49.9 NRBC x10^3 (test code = 2181595538) See_Comment [Automated [employer]] The system which generated this result transmitted reference range: 10*3/?L. The reference range was not used to interpret this result as normal/abnormal. NRBC/100 WBC (test code = 5437664884) 0.0 0.0-10.0 IPF % (test code = 3961271208) Lab Interpretation (test code = 26548-4) [facility]normal [facility] / [id number] 08:30:26* Test Item Value Reference Range Interpretation Comme [facility] PROTIME PATIENT (test code = 5964-2) 11.6 10.1-12.6 INR (test code = 6301-6) 1.0 Normal INR <1.1; Warfarin Therapeutic range 2.0 to 3.0 or 2.5 to 3.5, depending upon the indications. Lab Interpretation (test code = 67983-1) Normal [facility]eraPTT2024-06-01 08:30:26* Test Item Value Reference Range Interpretation Comme [facility] APTT Patient (test code = 3173-2) 24 26-36 L JASWINDER (test code = JASWINDER) The [facility] patient population mean normal value for aPTT is 30 seconds. Lab Interpretation (test code = 40549-7) Abnormal [facility] CenterXR CHEST 1 [id number] 06:29:42Study: Single view chest. Ordering Physician: CHANDRAKANT Miller: 12/16/2023 12:00 AM History:Chest Pain, Uncontrolled Hypertension, Elevated Troponin I COMPARISON: 08/03/2023 Findings: Single frontal view chest demonstrates a normal heart size. Thelungs are clear without infiltrate, pleural effusion or pneumothorax. Noacute osseous abnormality is identified.[facility] with [id number] 04:46:52* Test Item Value Reference Range Interpretation [...] 32.6 g/dL 31.6-35.1 RDW-SD (test code = 31286-5) 40.3 fL 39.0-49.9 RDW-CV (test code = 788-0) 14.1 % 12.0-15.5 PLT (test code = 777-3) 340 166-358 MPV (test code = 09747-1) 11.1 fL 9.5-12.9 NRBC/100 WBC (test code = 1102531447) 0.0 0.0-10.0 NRBC x10^3 (test code = 0874104522) See_Comment [Automated messa ge] The system which generated this result transmitted reference range: 10*3/?L. The reference range was not used to interpret this result as normal/abnormal. GRAN MAT (NEUT) % (test code = 770-8) 45.8 % IMM GRAN % (test code = 7502825208) 0.30 % LYMPH % (test code = 736-9) 40.6 % MONO % (test code = 5905-5) 12.1 % EOS % (test code = 713-8) 0.5 % BASO % (test code = 706-2) 0.7 % GRAN MAT x10^3(ANC) (test code = 9543237426) 5.48 10*3/uL 1.88-7.09 IMM GRAN x10^3 (test code = 4494980938) 0.04 10*3/uL 0.00-0.06 LYMPH x10^3 (test code = 731-0) 4.86 10*3/uL 1.32-3.29 H MONO x10^3 (test code = 742-7) 1.45 10*3/uL 0.33-0.92 H EOS x10^3 (test code = 711-2) 0.06 10*3/uL 0.03-0.39 BASO x10^3 (test code = 704-7) 0.08 10*3/uL 0.01-0.07 H Lab Interpretation (test code = 48196-3) Abnormal [facility]. Metabolic Panel (57046)2023-12-16 04:25:31* Test Item Value Reference Range Interpretation Comme nts NA (test code = 0234320006) 136 mmol/L 135-145 K (test code = 9368878678) 3.3 mmol/L 3.5-5.0 L CL (test code = 9933556092) 106 mmol/L 98-108 CO2 TOTAL (test code = 3876671231) 25 mmol/L 23-31 AGAP (test code = 0714486417) 5 2-16 BUN (test code = 8112918604) 19 mg/dL 7-23 GLUCOSE (test code = 8230299948) 103 mg/dL 70-110 CREATININE (test code = 2160-0) 0.78 mg/dL 0.50-1.04 TOTAL BILI (test code = 6317903594) 0.7 mg/dL 0.1-1.1 CALCIUM (test code = 1933121815) 8.6 mg/dL 8.6-10.6 T PROTEIN (test code = 7137817911) 7.3 g/dL 6.3-8.2 ALBUMIN (test code = 4699610299) 4.0 g/dL 3.5-5.0 ALK PHOS (test code = 7785321415) 80 U/L 34-122 ALTv (test code = 1742-6) 35 U/L 5-35 AST(SGOT) (test code = 3485004408) 53 U/L 13-40 H eGFR (test code = 72644-9) 86.5 mL/min/1.73m2 CKD-EPI eGFR (2020). Assuming creatinine has been stable day-to-day for at least three months, the eGFR indicates Category G2 (60 - 89 mL/min/1.73 m2) Lab Interpretation (test code = 82622-3) Abnormal [facility] CenterCreatine [id number] 04:25:11* Test Item Value Reference Range Interpretation Comme nts CK (test code = 1814306608) 375 U/L 33-194 H Lab Interpretation (test cod e = 54817-8) Abnormal [facility] CenterTroponin [id number] 04:02:09* Test Item Value Reference Range Interpretation Comme nts TROPONIN I (test code = 8046523678) 0.043 ng/mL <=0.034 H JASWINDER (test code [...] of biotin. Lab Interpretation (test code = 00525-1) Abnormal [facility] CenterCb with [id number] 08:16:41* Test Item Value Reference Range Interpretation [...] 31.9 g/dL 31.6-35.1 RDW-SD (test code = 79138-5) 41.2 fL 39.0-49.9 RDW-CV (test code = 788-0) 14.0 % 12.0-15.5 PLT (test code = 777-3) 331 See_Comment [Automated messa ge] The system which generated this result transmitted reference range: 166 - 358 10*3/?L. The reference range was not used to interpret this result as normal/abnormal. MPV (test code = 77251-3) 10.2 fL 9.5-12.9 NRBC/100 WBC (test code = 9120497965) 0.0 See_Comment [[employer] ssage] The system which generated this result transmitted reference range: 0.0 - 10.0 /100 WBCs. The reference range was not used to interpret this result as normal/abnormal. NRBC x10^3 (test code = 1741671303) See_Comment [[employer]] The system which generated this result transmitted reference range: 10*3/?L. The reference range was not used to interpret this result as normal/abnormal. SEG % (test code = 24466-0) 48 % 33-76 LYMPH % (test code = 14040-6) 48 % 14-54 EOS % (test code = 44066-1) 4 % 0-3 H ANC (test code = 753-4) 5.58 10*3/uL 1.88-7.09 Lab Interpretation (test code = 24813-3) Abnormal [facility] CenterMilli [id number] 08:12:19* Test Item Value Reference Range Interpretation Comme nts TROPONIN I (test code = 1037577167) 0.004 ng/mL <=0.034 JASWINDER (test code = [...] of biotin. Lab Interpretation (test code = 63369-9) Normal [facility] CenterMagnesium2024-01-18 08:00:39* Test Item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 [facility] [place], [facility] Specialty: Ophthalmology [facility] [id number] Instructions: As needed Electronically signed by: Patrick Nichols MD 04/18/24 1632 [facility] 2024-02-27 09:07:24 TRANSITIONAL CARE MANAGEMENT ASSESSMENT 02/27/2024 Funmi Jarquin [id number] Funmi Jarquin is a 63 year old Black or female was admitted on 02/23/24 to [facility], [facility]. She was discharged on 02/24/24 with discharge disposition of HR- Routine Discharge. Admitting Physician: Brandon Neff Discharge Diagnosis: Hypertensive urgency TIA: CT imaging did not show active stroke, but can not rule out possible stroke 3. Current smoker 4. HLD: 5. Depression: No linked episodes TCM [id number] outreach documentation: CM made follow up call to patient post-discharge. Female answered, and sates pt is not available. CM left a discreet message with purpose of call and CM's call back information. Two attempts made to reach patient. Discharge Assessment Chart Assessed: 02/27/24 TCM Outreach Completed: 02/27/24 Future Appointments: Marcos Gann RN [facility] 2024-02-26 15:43:03 CM made follow up call to patient post-discharge. No answer and call went to voicemail. Voicemail is full. T [facility] 2024-02-24 14:16:09 Problem: Cardiac Output - Decreased Goal: Cardiac output within specified parameters Outcome: Adequate for discharge Goal: Absence of signs and symptoms of decreased cardiac output Outcome: Adequate for discharge Problem: Pain Goal: Control of pain at or below patient's documented comfort goal Outcome: Adequate for discharge Goal: Reduction in pain sensation Outcome: Adequate for discharge Problem: Falls, Risk of Goal: Absence of falls Outcome: Adequate for discharge Problem: Venous Thromboembolism, (actual or risk of) Goal: Absence of venous thromboembolism (Risk) Outcome: Adequate for discharge Problem: Discharge Planning Goal: Adequate for discharge Outcome: Adequate for discharge Goal: Effective communication Outcome: Adequate for discharge [facility] 2024-02-24 02:16:40 Problem: Cardiac Output - Decreased Goal: Cardiac output within specified parameters Outcome: Not progressing as expected Goal: Absence of signs and symptoms of decreased cardiac output Outcome: Not progressing as expected Problem: Pain Goal: Control of pain at or below patient's documented comfort goal Outcome: Not progressing as expected Goal: Reduction in pain sensation Outcome: Not progressing as expected Problem: Falls, Risk of Goal: Absence of falls Outcome: Not progressing as expected Problem: Venous Thromboembolism, (actual or risk of) Goal: Absence of venous thromboembolism (Risk) Outcome: Not progressing as expected Problem: Discharge Planning Goal: Adequate for discharge Outcome: Not progressing as expected Goal: Effective communication Outcome: Not progressing as expected T Brenna Mcghee RN [facility] 2024-02-23 18:33:10 Problem: Cardiac Output - Decreased Goal: Cardiac output within specified parameters Outcome: Progressing as expected Goal: Absence of signs and symptoms of decreased cardiac output Outcome: Progressing as expected Problem: Pain Goal: Control of pain at or below patient's documented comfort goal Outcome: Progressing as expected Goal: Reduction in pain sensation Outcome: Progressing as expected Problem: Falls, Risk of Goal: Absence of falls Outcome: Progressing as expected Problem: Venous Thromboembolism, (actual or risk of) Goal: Absence of venous thromboembolism (Risk) Outcome: Progressing as expected Problem: Discharge Planning Goal: Adequate for discharge Outcome: Progressing as expected Goal: Effective communication Outcome: Progressing as expected [facility] 2024-02-23 17:40:54 Patient admitted to 2215 for diagnosis of left sided sensory deficit present Patient agrees to admission, discussed plan of care with patient and family. Patient is awake, alert, oriented, resp reg unlabored, color appropriate for race, PIV intact No adverse reaction to medications administered while in ED Belongings with patient to unit [facility] 2024-02-23 17:39:37 Nurse Report Report given to Vishal ORTIZ. Chief complaint, assessment findings. Plan of care discussed at bedside with patient. Patient verbalized understanding. Nikia Jordan RN [facility] 2024-02-23 12:11:20 Dr. Cruz assessing the pt [facility] 2024-02-23 11:53:45 Pt came in via [facility] from home. Ems report" this is Ms. Choudhary,came in due blurring of vision and left hand tingling started yesterday morning, stroke scale negative, she has a hx oh heart attack a mos ago, afib and htn, BG 116" Able to verbalized name and birthday [facility] Nikia Jordan RN [facility] 2024-02-23 11:52:00 AdmissionCare Guideline: Hypertension - INPT, Inpatient Based on the indications selected for the patient, the bed status of Inpatient was determined to be MET The following indications were selected as present at the time of evaluation of the patient: - Clinical Indications for Admission to Inpatient Care - Admission is indicated for 1 or more of the following: - Other acute or worsening end organ damage due to severe hypertension AdmissionCare documentation entered by: Jaimie Cruz [facility], 28th edition, Copyright ? 2023 [facility] [employer], [facility] All Rights Reserved. [id number] [facility] 2023-12-20 12:43:03 TRANSITIONAL CARE MANAGEMENT ASSESSMENT 12/20/2023 Funmi Jarquin [id number] Funmi Jarquin is a 63 year old Black or female was admitted on 12/15/[address] She was discharged on 12/19/23 with discharge disposition of HR- Routine Discharge. Admitting Physician: Selina Charles Discharge Diagnosis: Mild troponin elevation 2/2 type II WA 2/2 HTN Emergency 2/2 amphetamine usage No linked episodes TCM [id number] outreach documentation: Discharge Assessment Chart Assessed: 12/20/23 Chart Reviewed - Post Discharge Call Deferred due to Change in Discharge Status.: Discharged to Other ([facility]) TCM Outreach Completed: 12/20/23 Future Appointments: Sonya Vernon RN [facility] 2023-12-19 13:57:20 Problem: Discharge Planning Goal: Adequate for discharge Outcome: Adequate for discharge Goal: Adequate to move to next level of care Outcome: Adequate for discharge Goal: Knowledge of medication management Outcome: Adequate for discharge Problem: Pain Goal: Control of pain at or below patient's documented comfort goal Outcome: Adequate for discharge Goal: Reduction in pain sensation Outcome: Adequate for discharge Problem: Bleeding, Risk of Goal: Absence of impaired coagulation signs and symptoms Outcome: Adequate for discharge Goal: Absence of active bleeding Outcome: Adequate for discharge Problem: Procedure Routine Goal: Absence of post-procedure complications Outcome: Adequate for discharge Goal: Knowledge of procedure Outcome: Adequate for discharge Problem: Suicide, Risk of Goal: Absence of self-harm Outcome: Adequate for discharge Problem: Anxiety Goal: Alleviation of anxiety Outcome: Adequate for discharge Dano Fleming RN [facility] 2023-12-19 06:09:34 Problem: Discharge Planning Goal: Adequate for discharge Outcome: Progressing as expected Goal: Adequate to move to next level of care Outcome: Progressing as expected Goal: Knowledge of medication management Outcome: Progressing as expected Familia Solis RN [facility] 2023-12-18 10:56:32 Problem: Discharge Planning Goal: Adequate for discharge Outcome: Progressing as expected Goal: Adequate to move to next level of care Outcome: Progressing as expected Goal: Knowledge of medication management Outcome: Progressing as expected Problem: Pain Goal: Control of pain at or below patient's documented comfort goal Outcome: Progressing as expected Goal: Reduction in pain sensation Outcome: Progressing as expected Problem: Bleeding, Risk of Goal: Absence of impaired coagulation signs and symptoms Outcome: Progressing as expected Goal: Absence of active bleeding Outcome: Progressing as expected Problem: Procedure Routine Goal: Absence of post-procedure complications Outcome: Progressing as expected Goal: Knowledge of procedure Outcome: Progressing as expected Problem: Suicide, Risk of Goal: Absence of self-harm Outcome: Progressing as expected Problem: Anxiety Goal: Alleviation of anxiety Outcome: Progressing as expected [facility] 2023-12-17 23:12:32 Problem: Discharge Planning Goal: Adequate for discharge Outcome: Progressing as expected Goal: Adequate to move to next level of care Outcome: Progressing as expected Goal: Knowledge of medication management Outcome: Progressing as expected Problem: Pain Goal: Control of pain at or below patient's documented comfort goal Outcome: Progressing as expected Goal: Reduction in pain sensation Outcome: Progressing as expected Problem: Bleeding, Risk of Goal: Absence of impaired coagulation signs and symptoms Outcome: Progressing as expected Goal: Absence of active bleeding Outcome: Progressing as expected Problem: Procedure Routine Goal: Absence of post-procedure complications Outcome: Progressing as expected Goal: Knowledge of procedure Outcome: Progressing as expected Problem: Suicide, Risk of Goal: Absence of self-harm Outcome: Progressing as expected Problem: Anxiety Goal: Alleviation of anxiety Outcome: Progressing as expected Brea Farah RN [facility] 2023-12-17 09:40:36 Problem: Discharge Planning Goal: Adequate for discharge Outcome: Progressing as expected Goal: Adequate to move to next level of care Outcome: Progressing as expected Goal: Knowledge of medication management Outcome: Progressing as expected Problem: Pain Goal: Control of pain at or below patient's documented comfort goal Outcome: Progressing as expected Goal: Reduction in pain sensation Outcome: Progressing as expected Problem: Bleeding, Risk of Goal: Absence of impaired coagulation signs and symptoms Outcome: Progressing as expected Goal: Absence of active bleeding Outcome: Progressing as expected Problem: Procedure Routine Goal: Absence of post-procedure complications Outcome: Progressing as expected Goal: Knowledge of procedure Outcome: Progressing as expected Problem: Suicide, Risk of Goal: Absence of self-harm Outcome: Progressing as expected Problem: Anxiety Goal: Alleviation of anxiety Outcome: Progressing as expected Taylor Duran RN [facility] 2023-12-16 22:41:57 Problem: Discharge Planning Goal: Adequate for discharge Outcome: Progressing as expected Goal: Adequate to move to next level of care Outcome: Progressing as expected Goal: Knowledge of medication management Outcome: Progressing as expected Problem: Pain Goal: Control of pain at or below patient's documented comfort goal Outcome: Progressing as expected Goal: Reduction in pain sensation Outcome: Progressing as expected Problem: Bleeding, Risk of Goal: Absence of impaired coagulation signs and symptoms Outcome: Progressing as expected Goal: Absence of active bleeding Outcome: Progressing as expected Problem: Procedure Routine Goal: Absence of post-procedure complications Outcome: Progressing as expected Goal: Knowledge of procedure Outcome: Progressing as expected Problem: Suicide, Risk of Goal: Absence of self-harm Outcome: Progressing as expected Problem: Anxiety Goal: Alleviation of anxiety Outcome: Progressing as expected [facility] 2023-12-16 10:48:35 Problem: Discharge Planning Goal: Adequate for discharge Outcome: Progressing as expected Goal: Adequate to move to next level of care Outcome: Progressing as expected Goal: Knowledge of medication management Outcome: Progressing as expected Problem: Pain Goal: Control of pain at or below patient's documented comfort goal Outcome: Progressing as expected Goal: Reduction in pain sensation Outcome: Progressing as expected Problem: Bleeding, Risk of Goal: Absence of impaired coagulation signs and symptoms Outcome: Progressing as expected Goal: Absence of active bleeding Outcome: Progressing as expected Problem: Procedure Routine Goal: Absence of post-procedure complications Outcome: Progressing as expected Goal: Knowledge of procedure Outcome: Progressing as expected Problem: Suicide, Risk of Goal: Absence of self-harm Outcome: Progressing as expected Esperanza Marsh RN [facility] 2023-12-16 06:40:32 Problem: Discharge Planning Goal: Adequate for discharge 12/16/2023639 by Brea Farah RN Outcome: Progressing as expected 12/16/2023639 by Brea Farah RN Outcome: Progressing as expected Goal: Adequate to move to next level of care 12/16/2023639 by Brea Farah RN Outcome: Progressing as expected 12/16/2023639 by Brea Farah RN Outcome: Progressing as expected Goal: Knowledge of medication management 12/16/2023639 by Brea Farah RN Outcome: Progressing as expected 12/16/2023639 by Brea Farah RN Outcome: Progressing as expected Problem: Pain Goal: Control of pain at or below patient's documented comfort goal 12/16/2023639 by Brea Farah RN Outcome: Progressing as expected 12/16/2023639 by Brea Farah RN Outcome: Progressing as expected Goal: Reduction in pain sensation 12/16/2023639 by Brea Farah, RN Outcome: Progressing as expected 12/16/2023639 by Brea Farah, RN Outcome: Progressing as expected Problem: Bleeding, Risk of Goal: Absence of impaired coagulation signs and symptoms 12/16/2023639 by Brea Farah, RN Outcome: Progressing as expected 12/16/2023639 by Brea Farah RN Outcome: Progressing as expected Goal: Absence of active bleeding 12/16/2023639 by Brea Farah RN Outcome: Progressing as expected 12/16/2023639 by Brea Farah RN Outcome: Progressing as expected Problem: Procedure Routine Goal: Absence of post-procedure complications 12/16/2023639 by Brea Farah RN Outcome: Progressing as expected 12/16/2023639 by Brea Farah RN Outcome: Progressing as expected Goal: Knowledge of procedure 12/16/2023639 by Brea Farah RN Outcome: Progressing as expected 12/16/2023639 by Brea Farah RN Outcome: Progressing as expected Problem: Suicide, Risk of Goal: Absence of self-harm Outcome: Progressing as expected [facility] 2023-12-16 03:16:25 Patient transferred to [facility] for diagnosis of uncontrolled HTN, NSTEMI, substance abuse situational anxiety, and chest pain Patient agrees to transfer/admit plan and verbalized understanding of plan of care, family aware of plan Patient awake alert, oriented, resp reg unlabored, skin w/d PIV patent, no s/s infiltration noted, No adverse reaction to medications given while in ED. Report given to [facility] personnel Delilah Ro RN [facility] 2023-12-15 21:02:05 Pt was recently released from intermediate and has recently had increased anxiety and depression since. States she is currently homeless and feels like she has nothing left anymore. Also says that she is tired and doesn't know what to do anymore so she came here. Reports recent onset of memory problems. Reports losing her son 3 years ago. Previous Suicide attempts that were not medically treated. Also states she has had behavioral outbursts such as shaving her hair. Pt states she is not suicidal currently, but did have SI this morning. Pt states she has audio hallucinations and paranoia of being followed. Also reports meth and zanax ingestion at 1000 today. States her sleep has not been regular as well. Pt is tearful and has rapid speech. Dress is appropriate. Haylie Arce RN [facility] - [facility] 2023-12-15 20:54:00 Associated Order(s): EKG-12 Lead ROUTINE ONCE Pre-Procedure Diagnose(s): Uncontrolled hypertension Post-Procedure Diagnose(s): Uncontrolled hypertension [facility] Emergency Department Note Patient Name: Funmi Jarquin Date of : 1960 63 year old female Treatment [id number] Primary Care Physician: No primary care provider on file. 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 treatment: None Travel and Exposure Screening: Symptoms Does patient have any of these symptoms?: (not recorded) Exposure Screening Has patient had contact with someone with a communicable disease in the last month?: (not recorded) Diseases exposed to:: (not recorded) Is Patient ?: (not recorded) Exposure Date: (not recorded) Chief Complaint: Chief Complaint Patient presents with Psych evaluation History of Present Illness: Funmi Jarquin is a 63 year old female with numerous medical conditions as listed below who presents to the ED for evaluation of anxious feeling upon awakening from sleep this morning. Pt reports that she just got out fo the intermediate after spending 7 days in intermediate. Pt reports that the last time she had used cocaine was about one year ago but admits to recent Amphetamine and Xanax us this morning. Pt is also complaining of chest tightness associated with mild SOB and palpitations Denies any headache, visual changes or focal weakness. History provided by: Patient and medical records public affairs manager used: No Chest Pain Pain location: L chest Pain quality: tightness Pain radiates to: Does not radiate Pain severity: Severe Onset quality: Gradual Duration: 1 day Timing: Sporadic Progression: Unchanged Chronicity: New Context: drug use, at rest and stress Context: not breathing, not eating, not lifting, not movement, not raising an arm and not trauma Relieved by: None tried Worsened by: Nothing Ineffective treatments: None tried Associated symptoms: anxiety, palpitations and shortness of breath Associated symptoms: no abdominal pain, no AICD problem, no altered mental status, no anorexia, no back pain, no claudication, no cough, no diaphoresis, no dizziness, no dysphagia, no fatigue, no fever, no headache, no heartburn, no lower extremity edema, no nausea, no near-syncope, no numbness, no orthopnea, no syncope, no vomiting and no weakness Risk factors: diabetes mellitus and hypertension Risk factors: no immobilization, not obese, not , no prior DVT/PE, no smoking and no surgery Past Medical History/Immunizations: Past Medical History: Diagnosis Date Anemia Anesthesia complication Hyperemesis Anxiety Arthritis Diabetes mellitus resolved Fibroids GERD (gastroesophageal reflux disease) Heart murmur Arythmia / 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 Palpitation Substance abuse THC / Cocaine Tetanus received in last 5 years: Yes Childhood immunizations: Up-to-date Allergies: Allergies Allergen Reactions Sulfa (Sulfonamide Antibiotics) Unknown - See comments Past Social History: Tobacco Use Former; Types: Cigarettes Smokeless Tobacco: Never used smokeless tobacco. Comments: quit smoking 2018 Alcohol Use Not Currently; 0.0 standard drinks of alcohol per week; 0 Standard drinks or equivalent. Drug Use Not Currently; Marijuana, Cocaine. Comments: past use Sexual Activity Not currently sexually active; Partners: Male. Comments: No sex in > 3 year Past Surgical History: Past Surgical History: Procedure Laterality Date COLONOSCOPY 2014 polyps / negative ESOPHAGOGASTRODUODENOSCOPY 11/2017 PA EXC TUMOR SOFT TISS FACE&SCALP SUBFASCIAL 2 CM/> SPINE SURGERY 2019 TUBAL LIGATION Review of Systems: Review of Systems Constitutional: Negative. Negative for diaphoresis, fatigue and fever. HENT: Negative. Negative for trouble swallowing. Eyes: Negative. Respiratory: Positive for shortness of breath. Negative for cough. Breasts: Negative. Cardiovascular: Positive for chest pain and palpitations. Negative for orthopnea, claudication, syncope and near-syncope. Gastrointestinal: Negative. Negative for abdominal pain, anorexia, heartburn, nausea and vomiting. Genitourinary: Negative. Musculoskeletal: Negative. Negative for back pain. Skin: Negative. Neurological: Negative. Negative for dizziness, weakness, numbness and headaches. Psychiatric/Behavioral: Negative. All other systems reviewed and are negative. Endocrine: Endocrine negative Physical Exam: ED Triage Vitals [12/15/232110] Weight 77.1 kg (170 lb) Actual or estimated Estimated by patient/family report Height 1.651 m (5' 5") BP (!) 222/125 Pulse 116 Resp 20 Temp 36.6 ?C (97.9 ?F) Temp source Axillary SpO2 100 % Measured on Room air Physical Exam Vitals and nursing note reviewed. Constitutional: General: She is not in acute distress. Appearance: Normal appearance. She is well-developed. She is not ill-appearing, toxic-appearing or diaphoretic. HENT: Head: Normocephalic and atraumatic. Nose: Nose normal. No congestion or rhinorrhea. Mouth/Throat: Mouth: Mucous membranes are moist. Pharynx: Oropharynx is clear. No oropharyngeal exudate or posterior oropharyngeal erythema. Eyes: General: No scleral icterus. Right eye: No discharge. Left eye: No discharge. Extraocular Movements: Extraocular movements intact. Conjunctiva/sclera: Conjunctivae normal. Pupils: Pupils are equal, round, and reactive to light. Neck: Thyroid: No thyromegaly. Cardiovascular: Rate and Rhythm: Normal rate and regular rhythm. Pulses: Normal pulses. Heart sounds: Normal heart sounds. No murmur heard. Pulmonary: Effort: Pulmonary effort is normal. No respiratory distress. Breath sounds: Normal breath sounds. No stridor. No wheezing, rhonchi or rales. Chest: Chest wall: No tenderness. Abdominal: General: Bowel sounds are normal. There is no distension. Palpations: Abdomen is soft. There is no mass. Tenderness: There is no abdominal tenderness. There is no right CVA tenderness, left CVA tenderness, guarding or rebound. Hernia: No hernia is present. Musculoskeletal: General: No swelling, tenderness, deformity or signs of injury. Normal range of motion. Cervical back: Normal range of motion and neck supple. No rigidity or tenderness. Right lower leg: No edema. Left lower leg: No edema. Lymphadenopathy: Cervical: No cervical adenopathy. Skin: General: Skin is warm and dry. Capillary Refill: Capillary refill takes less than 2 seconds. Coloration: Skin is not jaundiced or pale. Findings: No bruising, erythema, lesion or rash. Neurological: General: No focal deficit present. Mental Status: She is alert and oriented to person, place, and time. Cranial Nerves: No cranial nerve deficit. Sensory: No sensory deficit. Motor: No weakness or abnormal muscle tone. Coordination: Coordination normal. Gait: Gait normal. Deep Tendon Reflexes: Reflexes normal. Psychiatric: Behavior: Behavior normal. Thought Content: Thought content normal. Judgment: Judgment normal. Radiology: XR CHEST 1 VW Final Result Study: Single view chest. Ordering Physician: SHWETHA WHITAKER Date: 12/16/2023 12:00 AM History:Chest Pain, Uncontrolled Hypertension, Elevated Troponin I COMPARISON: 08/03/2023 Findings: Single frontal view chest demonstrates a normal heart size. The lungs are clear without infiltrate, pleural effusion or pneumothorax. No acute osseous abnormality is identified. IMPRESSION Impression: 1. No acute cardiopulmonary process is identified. RL: [id number] Lab Results: Lab Results TROPONIN I - Abnormal Result Value Ref Range TROPONIN I 0.043 (*) <=0.034 ng/mL CBC WITH DIFF - Abnormal WBC 11.97 (*) 4.30 - 11.10 10*3/?L RBC 5.12 3.93 - 5.25 10*6/?L HGB 13.2 11.6 - 15.0 g/dL HCT 40.5 35.7 - 45.2 % MCV 79.1 (*) 80.6 - 95.5 fL MCH 25.8 (*) 25.9 - 32.8 pg MCHC 32.6 31.6 - 35.1 g/dL RDW-SD 40.3 39.0 - 49.9 fL RDW-CV 14.1 12.0 - 15.5 % PLT 340 166 - 358 10*3/?L MPV 11.1 9.5 - 12.9 fL NRBC/100 WBC 0.0 0.0 - 10.0 /100 WBCs NRBC x10 3 <0.01 10*3/?L GRAN MAT (NEUT) % 45.8 % IMM GRAN % 0.30 % LYMPH % 40.6 % MONO % 12.1 % EOS % 0.5 % BASO % 0.7 % GRAN MAT x10 3 (ANC) 5.48 1.88 - 7.09 10*3/uL IMM GRAN x10 3 0.04 0.00 - 0.06 10*3/uL LYMPH x10 3 4.86 (*) 1.32 - 3.29 10*3/uL MONO x10 3 1.45 (*) 0.33 - 0.92 10*3/uL EOS x10 3 0.06 0.03 - 0.39 10*3/uL BASO x10 3 0.08 (*) 0.01 - 0.07 10*3/uL COMP. METABOLIC PANEL (37951) - Abnormal NA 136 135 - 145 mmol/L K 3.3 (*) 3.5 - 5.0 mmol/L CL 106 98 - 108 mmol/L CO2 TOTAL 25 23 - 31 mmol/L AGAP 5 2 - 16 BUN 19 7 - 23 mg/dL GLUCOSE 103 70 - 110 mg/dL CREATININE 0.78 0.50 - 1.04 mg/dL TOTAL BILI 0.7 0.1 - 1.1 mg/dL CALCIUM 8.6 8.6 - 10.6 mg/dL T PROTEIN 7.3 6.3 - 8.2 g/dL ALBUMIN 4.0 3.5 - 5.0 g/dL ALK PHOS 80 34 - 122 U/L ALTv 35 5 - 35 U/L AST(SGOT) 53 (*) 13 - 40 U/L eGFR 86.5 mL/min/1.73m2 CREATINE KINASE - Abnormal CK 375 (*) 33 - 194 U/L URINALYSIS - Abnormal APPEARANCE Clear Clear COLOR Margaux (*) Yellow PH 5.0 4.8 - 8.0 SP GRAVITY 1.026 1.003 - 1.030 GLU U QUAL Normal Normal BLOOD Negative Negative KETONES 5 mg/dL (*) Negative PROTEIN Negative Negative UROBILIN 2.0 mg/dL (*) Normal BILIRUBIN Negative Negative NITRITE Negative Negative LEUK SATHISH Negative Negative RBC/HPF 1 0 - 3 HPF WBC/HPF 3 0 - 5 HPF BACTERIA Few (*) Negative MUCOUS Moderate (*) Negative LPF SQ EPITH <1 HPF HYAL CAST 3 (*) <=2 LPF URINE DRUG (IMMUNOASSAY) - COMPREHENSIVE DRUG SCREEN - Abnormal AMPHET Presumptive Positive (*) Negative SHUKRI U Negative Negative BENZO U Presumptive Positive (*) Negative Cocaine Metabolite Negative Negative METHADONE Negative Negative OPIATES Negative Negative PCP Negative Negative THC Negative Negative PROTHROMBIN TIME / INR ACTIVATED PARTIAL THRMPLAS TANO CBC WITHOUT DIFF Orders and Treatments: Orders Placed This Encounter Procedures XR CHEST 1 VW Troponin I Cbc with Diff Comp. Metabolic Panel (02874) Creatine Kinase Urinalysis DRUG SCREEN PANEL 2 URINE Prothrombin Time / INR aPTT aPTT (for use with Heparin Infusion) CBC Without DIFF Orders Placed This Encounter Medications labetaloL (NORMODYNE) injection 20 mg aspirin chewable tablet 324 mg nitroglycerin (NITROSTAT) sublingual tablet 0.4 mg morpHINE (4 mg/mL) injection 4 mg HEPARIN SODIUM (PORCINE) 1,000 UNIT/ML BOLUS ACS ORDER SET heparin (1,000 unit/mL, 10 mL vial) for Rebolusing heparin 25,000 Units/250 mL (Premixed Bag) in 0.45 % NS First Provider Eval: ED Events Date/Time Event User Comments 12/15/232121 Medical Screening Begins SHWETHA WHITAKER MD -- 12/15/232121 First Provider Evaluation SHWETHA WHITAKER MD -- ED COURSE ED Course as of 12/16/23 0201 Sat Dec 16, 2023 0147 BENZO U(!): Presumptive Positive [WY] 0147 AMP METH(!): Presumptive Positive [WY] 0147 WBC x10 3 (!): 11.97 [WY] 0147 TROPONIN I(!): 0.043 [WY] 0147 CK(!): 375 [WY] 0147 K(!): 3.3 [WY] 0146 Currently totally asymptomatic and has no further complaints [WY] ED Course User Index [WY] Shwetha Whitaker MD Diagnosis/Impression as of 12/16/23 0201 Uncontrolled hypertension NSTEMI (non-ST elevated myocardial infarction) Substance abuse Situational anxiety Chest pain, unspecified type Procedures: EKG-12 Lead ROUTINE ONCE Date/Time: 12/15/2023 10:10 PM Performed by: Shwetha Whitaker MD Authorized by: Shwetha Whitaker MD ECG interpreted by ED Physician in the absence of a engineer specialist: yes Previous ECG: Previous ECG: Compared to current Similarity: Changes noted Interpretation: Interpretation: abnormal Rate: ECG rate: 93 ECG rate assessment: normal Rhythm: Rhythm: sinus rhythm Ectopy: Ectopy: none QRS: QRS axis: Right QRS intervals: Normal QRS conduction: normal ST segments: ST segments: Normal T waves: T waves: normal Q waves: Abnormal Q-waves: not present Other findings: Other findings: SHANDRA MDM: Medical Decision Making Funmi Jarquin is a 63 year old female with numerous medical conditions as listed above who presents to the ED with anxiety, uncontrolled hypertension and chest pain Problems Addressed: Chest pain, unspecified type: acute illness or injury Details: ED evaluation and management as documented in chart NSTEMI (non-ST elevated myocardial infarction): acute illness or injury Details: Unable to define if Tyoe I or II Will admit for further evaluation Situational anxiety: acute illness or injury Substance abuse: chronic illness or injury Uncontrolled hypertension: chronic illness or injury Amount and/or Complexity of Data Reviewed External Data Reviewed: labs, ECG and notes. Labs: ordered. Decision-making details documented in ED Course. Radiology: ordered and independent interpretation performed. Decision-making details documented in ED Course. ECG/medicine tests: ordered and independent interpretation performed. Decision-making details documented in ED Course. Discussion of management or test interpretation with external provider(s): Discussed with Dr Charles, Cardiology faculty at [facility] who has accepted pt for transfer to [facility] fo further management No bed available at Risk OTC drugs. Prescription drug management. Parenteral controlled substances. Drug therapy requiring intensive monitoring for toxicity. Decision regarding hospitalization. Flowsheet Documentation: Scoring Tools: No data recorded Disposition/Condition: ED Disposition None Discharge Medications: Patient's Medications START taking these medications No medications on file CONTINUE taking these medications which have NOT CHANGED ADVAIR HFA 45-21 MCG/ACTUATION INHALER ALBUTEROL (VENTOLIN HFA) 90 MCG/ACTUATION INHALER INHALE 2 PUFFS 4 TIMES A DAY NEEDED DYSPNEA ALPRAZOLAM (XANAX) 1 MG TABLET Take 1 mg by mouth 2 (two) times daily. AMLODIPINE (NORVASC) 10 MG TABLET Take 10 mg by mouth daily. ASPIRIN 81 MG EC TABLET Take 81 mg by mouth daily. AZELASTINE 0.05 % OPHTHALMIC SOLUTION BENZONATATE 100 MG CAPSULE Take 1 capsule by mouth 3 (three) times daily as needed for Cough. CLINDAMYCIN 300 MG CAPSULE TAKE 1 CAPSULE BY MOUTH EVERY 8 HOURS FOR 7 DAYS CLONAZEPAM 0.5 MG TABLET COMP-AIR NEBULIZER COMPRESSOR DIA USE DIRECTED FOR BREATHING TREATMENTS DULOXETINE 30 MG CAPSULE GABAPENTIN 400 MG CAPSULE Take 1 capsule by mouth. HYDROCODONE-ACETAMINOPHEN (NORCO) 10-325 MG TABLET Take 1 Tab by mouth every 6 (six) hours as needed. IPRATROPIUM 0.02 % NEBULIZER SOLUTION 2.5 mL. LEVALBUTEROL 0.63 MG/3 ML NEBULIZER SOLUTION USE 1 VIAL IN NEBULIZER 3 TIMES A DAY (J45.50) LEVOFLOXACIN 500 MG TABLET LISINOPRIL (PRINIVIL,ZESTRIL) 20 MG TABLET Take 20 mg by mouth daily. METHYLPREDNISOLONE (MEDROL, ANT,) 4 MG TABLETS Take by mouth SEE-INSTRUCTIONS. follow package directions METOPROLOL SUCCINATE XL (TOPROL XL) 25 MG 24 HR TABLET Take 25 mg by mouth daily. MONTELUKAST 10 MG TABLET OMEPRAZOLE 40 MG CAPSULE PREDNISONE 20 MG TABLET START taking Modified Medications as Prescribed No medications on file STOP taking these medications No medications on file Follow-up: Electronically signed by: Shwetha Whitaker MD 12/16/23 0201 [facility] [place] 2023-08-03 06:24:00 Pt given printed and verbal discharge instructions regarding drug use. Pt verbalized understanding of instructions, pt awake alert oriented, resp reg unlabored, skin w/d, color appropriate for race, moves all ext well,pt encouraged to follow up with pcp Advised to seek medical attention for new/prolonged/worsening of symptoms No adverse reaction to meds given in ER noted upon discharge PIV d'cd, dressing to site, catheter in tact. Awake, alert oriented, resp reg unlabored, skin w/d, pt leaving amb with steady gait, in no apparent distress EACH CONSULTANT [facility] 2023-08-03 04:11:07 Pt's friend Uziel called from phone # . Pt's friend stated their apartment currently has no central heating air and they are only using a space heater to warm the entire apartment. Uziel states the apartment is freezing cold. Uziel reports the pt took a CBD gummy and Gabapentin. Pt's phone #: [phone] EACH CONSULTANT [facility] 2023-08-03 01:07:42 Pt arrived by [facility]. Pt possibly took a Delta - 9 gummy around 11pm, and told roommate to call 911. A Ro RN [facility] 2023-08-03 01:03:00 [facility] Emergency Department Note Patient Name: Funmi Jarquin Date of : 1960 63 year old female Treatment Room: Room/bed info not found Primary Care Physician: Vini Sanches Patient Escorted by: Self [9] Mode of Arrival: EMS - [facility] ([facility]) [43] EMS Treatment Prior to ED Arrival: ICE CRUSHER treatment: None Travel and Exposure Screening: Symptoms Does patient have any of these symptoms?: (not recorded) Exposure Screening Has patient had contact with someone with a communicable disease in the last month?: (not recorded) Diseases exposed to:: (not recorded) Is Patient ?: (not recorded) Exposure Date: (not recorded) Chief Complaint: Chief Complaint Patient presents with Drug Problem History of Present Illness: Funmi is brought in by EMS for feeling too sleepy after taking a "gummy" she bought from someone. She doesn't know what she took, but asked her boyfriend to call 911. Pt had no specific complaints for EMS. Wakes to physical stimuli but can't stay awake. VSS. EKG NSR. No complaints on ER arrival, denies pain, unable to stay awake. Glucose 123. 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 Palpitation Substance abuse THC / Cocaine Tetanus received in last 5 years: Unable to assess Allergies: Allergies Allergen Reactions Sulfa (Sulfonamide Antibiotics) Unknown - See comments Past Social History: Tobacco Use Former; Types: Cigarettes Smokeless Tobacco: Never used smokeless tobacco. Comments: quit smoking 2018 Alcohol Use Not Currently; 0.0 standard drinks of alcohol per week; 0 Standard drinks or equivalent. Drug Use Not Currently; Marijuana, Cocaine. Comments: past use Sexual Activity Not currently sexually active; Partners: Male. Comments: No sex in > 3 year Past Surgical History: Past Surgical History: Procedure Laterality Date COLONOSCOPY 2014 polyps / negative ESOPHAGOGASTRODUODENOSCOPY 11/2017 PA EXC TUMOR SOFT TISS FACE&SCALP SUBFASCIAL 2 CM/> SPINE SURGERY 2019 TUBAL LIGATION Review of Systems: Review of Systems Unable to perform ROS Physical Exam: ED Triage Vitals [08/03/23 0111] Weight 86.2 kg (190 lb) Actual or estimated Height 1.651 m (5' 5") BP (!) 161/91 Pulse 66 Resp 14 Temp 34.4 ?C (93.9 ?F) Temp source Oral SpO2 96 % Measured on Room air Physical Exam Vitals and nursing note reviewed. Constitutional: Appearance: She is obese. She is not ill-appearing. Comments: Responds to physical stimuli, denies pain, can't stay awake. HENT: Head: Normocephalic and atraumatic. Eyes: Pupils: Pupils are equal, round, and reactive to light. Cardiovascular: Rate and Rhythm: Normal rate and regular rhythm. Pulses: Normal pulses. Heart sounds: Normal heart sounds. No murmur heard. Pulmonary: Effort: Pulmonary effort is normal. No respiratory distress. Breath sounds: Normal breath sounds. Abdominal: General: Bowel sounds are normal. Palpations: Abdomen is soft. Tenderness: There is no abdominal tenderness. Neurological: Comments: No facial droop. PERRL. Radiology: XR CHEST 1 VW Preliminary Result EXAM: XR CHEST 1 VW COMPARISON: None HISTORY: drug use FINDINGS: Lungs: The lungs are adequately expanded. No focal opacities or pleural abnormality. Heart/Mediastinum: The cardiac silhouette appears normal accounting for technique and degree of inspiration. Bones and soft tissues: No osseous abnormality is visualized. IMPRESSION No radiographic evidence of acute cardiopulmonary process. Preliminary Report Dictated by Resident: Nino Nguyen Lab Results: Lab Results CBC WITH DIFF - Abnormal Result Value Ref Range WBC 11.62 (*) 4.30 - 11.10 10*3/?L RBC 4.78 3.93 - 5.25 10*6/?L HGB 12.5 11.6 - 15.0 g/dL HCT 39.2 35.7 - 45.2 % MCV 82.0 80.6 - 95.5 fL MCH 26.2 25.9 - 32.8 pg MCHC 31.9 31.6 - 35.1 g/dL RDW-SD 41.2 39.0 - 49.9 fL RDW-CV 14.0 12.0 - 15.5 % PLT 331 166 - 358 10*3/?L MPV 10.2 9.5 - 12.9 fL NRBC/100 WBC 0.0 0.0 - 10.0 /100 WBCs NRBC x10 3 <0.01 10*3/?L SEG % 48 33 - 76 % LYMPH % 48 14 - 54 % EOS % 4 (*) 0 - 3 % ANC 5.58 1.88 - 7.09 10*3/uL COMP. METABOLIC PANEL (41109) - Abnormal NA 140 135 - 145 mmol/L K 3.8 3.5 - 5.0 mmol/L CL 105 98 - 108 mmol/L CO2 TOTAL 27 23 - 31 mmol/L AGAP 8 2 - 16 BUN 26 (*) 7 - 23 mg/dL GLUCOSE 125 (*) 70 - 110 mg/dL CREATININE 0.92 0.50 - 1.04 mg/dL TOTAL BILI 0.3 0.1 - 1.1 mg/dL CALCIUM 9.0 8.6 - 10.6 mg/dL T PROTEIN 7.8 6.3 - 8.2 g/dL ALBUMIN 4.2 3.5 - 5.0 g/dL ALK PHOS 69 34 - 122 U/L ALTv 32 5 - 35 U/L AST(SGOT) 41 (*) 13 - 40 U/L eGFR 71.0 mL/min/1.73m2 URINALYSIS - Abnormal APPEARANCE Clear Clear COLOR Yellow Yellow PH 6.0 4.8 - 8.0 SP GRAVITY 1.021 1.003 - 1.030 GLU U QUAL Normal Normal BLOOD Negative Negative KETONES Negative Negative PROTEIN Negative Negative UROBILIN Normal Normal BILIRUBIN Negative Negative NITRITE Negative Negative LEUK SATHISH 25/uL (*) Negative RBC/HPF 0 0 - 3 HPF WBC/HPF 7 (*) 0 - 5 HPF BACTERIA Negative Negative MUCOUS Slight (*) Negative LPF SQ EPITH 2 HPF POCT GLUCOSE (AUTOMATED) - Abnormal POCT GLU 123 (*) 70 - 110 mg/dL MAGNESIUM - Normal MAGNESIUM 2.1 1.7 - 2.4 mg/dL TROPONIN I - Normal TROPONIN I 0.004 <=0.034 ng/mL URINE DRUG (IMMUNOASSAY) - COMPREHENSIVE DRUG SCREEN EKG: If EKG completed, see Procedure Note. Orders and Treatments: Orders Placed This Encounter Procedures XR CHEST 1 VW Cbc with Diff Comp. Metabolic Panel (39690) Magnesium Troponin I Urinalysis DRUG PANEL 2 URINE POCT GLUCOSE (AUTOMATED) Orders Placed This Encounter Medications NaCl 0.9% (NS) bolus infusion 1,000 mL aspirin chewable tablet 324 mg First Provider Eval: ED Events Date/Time Event User Comments 08/03/23105 Medical Screening Begins DESTINY ROOT -- 08/03/23105 First Provider Evaluation DESTINY ROOT -- ED COURSE ED Course as of 08/03/23227 Roxana Aug 03, [id number] Pt care turned over to DR Whitaker at 0230. Pt history, exam, and pending eval discussed. [KB] 0227 TROPONIN I: 0.004 [KB] 0140 Pt points to her chest on re-exam when asked about pain. Tele NSR, VSS. ASA 324mg ordered [KB] ED Course User Index [KB] Geo Caceres PAC Diagnosis/Impression as of 08/03/23227 Drug use Procedures: Procedures MDM: Medical Decision Making Amount and/or Complexity of Data Reviewed Labs: ordered. Radiology: ordered. Risk OTC drugs. Prescription drug management. Flowsheet Documentation: Scoring Tools: No data recorded Disposition/Condition: pending ED Disposition None Electronically signed by: Geo Caceres PAC 08/03/23227 EACH CONSULTANT Associated attestation - Shwetha Whitaker MD - 08/03/2023 3:34 AM OUTREACH CONSULTANT Addendum I was personally available for consultation in the Emergency Department during this encounter and patient evaluation by ISA Caceres. [facility] 2023-07-20 02:23:42 Awake, alert oriented X4, respiratory even and unlabored,skin w/d color appropriate for race, moves all ext well, pt encouraged to follow up with pcp and or return as needed Pt given printed and verbal discharge instructions regarding Cough, Acute viral syndrome , patient verbralized understanding and signature obtained, patient denies any other concerns. Prescriptions provided Advised to seek medical attention for new/prolonged/worsening of symptoms, No adverse reaction to meds given in ER noted upon discharge Pt ambulated to the lobby with steady gait EACH CONSULTANT [facility] 2023-07-19 23:29:58 C/O cough, congestion and runny nose for 5 days and vomiting X3 today EACH CONSULTANT Heather Grimm RN [facility] 2020-03-20 12:59:00 [facility] ([facility]) EMERGENCY PROVIDER REPORT REPORT#:[id number] REPORT STATUS: Signed DATE:03/20/20 TIME: 1259 PATIENT: FUNMI JARQUIN UNIT #: [id number] ROOM: [facility] BED: 1 AGE: 59 SEX: F PCP PHYS: Dru Olmedo MD SERVICE AUTHOR: Santo Zimmer MD * ALL edits or amendments must be made on the electronic/computer document * HPI-General Illness Free Text HPI Notes Free Text HPI Notes 59-year-old female presents to the [facility] emergency department for evaluation. She had a recent gastric sleeve performed by Dr. Friedman on 03/17/2020. She states that since going home, she has been unable to keep anything down and has been having reflux to both solids and liquids since surgery. She does state that she has some mild epigastric and periumbilical abdominal pain, but this has improved since surgery. She denies any diarrhea, hematochezia. Denies flank pain, dysuria. She states that she has had a bowel movement for the last 5 days , although she is passing gas. Denies any [...] Palpitations. GI Reports: Abdominal pain, Nausea, Vomiting. Denies: Bloody/tarry stool, Diarrhea. Female Denies: Dysuria, Flank [...] or older: Never Smoker Physical Exam Vital Signs Vital [...] Vital Signs Reviewed, Vital signs normal Physical Exam General/Const General/Const Awake, Alert, No acute distress, Well appearing, Cooperative MS Head Head Atraumatic, Normocephalic Ears/Nose/Throat Ears/Nose/Throat Airway patent, Mucous membranes moist MS Neck Neck Supple, No meningismus Resp/Chest Respiratory/Chest Breath sounds NL, Breath sounds = bilat, No respiratory distress, No rales, No wheezing Cardiovascular Cardiovascular Heart rate NL, Regular rhythm, Heart sounds NL, No gallop, No rubs Abdomen/GI Abdomen/GI Some mild epigastric and periumbilical tenderness. Patient had gastric sleeve and umbilical hernia repaired 03/17. Incision sites closed, clean, dry. No surrounding erythema/warmth. No guarding/rigidity anywhere. MS Upper Extrem Upper Extremity/MS Inspection NL, Full range of motion MS Lower Extrem Lower Ext/Pelvis/MS Inspection NL, Full range of motion, No swelling, Non- tender Interpretation Diagnostics [...] Text Physical examination as above. Patient is pain-free while [...] Resting comfortably in bed. No pain currently while laying still. States she does have some epigastric pain whenever she moves. Time of Re-Eval 1351 ED Course Medication(s) [...] 4 MG X1ED STA 03/20 1257 DC 03/20 IV 03/20 1258 1314 Patient Discharge Departure [...] of this entry have been reviewed. Clinical Impression Clinical Impression Primary Impression: Postoperative complication Secondary Impressions: Epigastric discomfort, Nausea and vomiting, Reflux involving intestinal tract Disposition Decision Admit Admit Physician Name Rodo White MD )( Admission Accepts Yes )( Accepted Time 1509 )( Accepted Date 03/20/20 Discharge/Care Plan Referrals Dru Olmedo MD (PCP/Family) at 0720 RPT #:[id number] END OF REPORT [facility] 2020-03-20 09:14:00 [id number] [place] [address] PATIENT NAME: FUNMI JARQUIN ADMIT DATE: 03/17/20 ACCOUNT NO: [id number] ROOM NO: 0572 AGE: 59 REPORT TYPE: OPERATIVE REPORT SEX: F ADMITTING PHYSICIAN:Anthony Friedman MD ATTENDING PHYSICIAN:Anthony Friedman MD OPERATION DATE: 03/17/2020 PREOPERATIVE DIAGNOSIS: Pain, status post laparoscopic gastric sleeve. POSTOPERATIVE DIAGNOSIS: Pain, status post laparoscopic gastric sleeve. PROCEDURE PERFORMED: Placement of infusion catheter into the abdominal wall x 2. SURGEON: Anthony Friedman M.D. ART MUSEUM AIDE: ANESTHESIA: General endotracheal. ESTIMATED BLOOD LOSS: None. INDICATIONS FOR PROCEDURE: The patient is a 59-year-old woman who underwent a laparoscopic sleeve gastrectomy that requires multiple port placements in the mid abdomen. It causes significant amount of postoperative pain. The patient is also morbidly obese, causing an increased risk for deep vein thrombosis and pneumonia related to postoperative pain. PROCEDURE IN DETAIL: After the laparoscopic sleeve gastrectomy was completed, I passed two dilators and sheaths through a left subcostal skin incision into the abdominal wall and passed the sheaths down to the umbilical area. I removed the dilators, leaving the sheaths in place. I passed the catheters into the sheaths and removed the sheaths, leaving the catheters in place in the abdominal wall. Dictated By: Anthony Friedman MD WT: OP:PMIKAYLA/KETTY/MILES Conf#: [id number]/DID#: [id number] Authenticated by Anthony Friedman MD On 04/07/2020 10:28:33 AM at 1028 PATIENT NAME: FUNMI JARQUIN [facility] 2020-03-20 09:13:00 [id number] [place] [id number] PATIENT NAME: FUNMI JARQUIN ADMIT DATE: 03/17/20 ACCOUNT NO: [id number] ROOM NO: [facility]72 AGE: 59 REPORT TYPE: OPERATIVE REPORT [...] hernia. 5. Hepatomegaly. SURGEON: Anthony Friedman MD PRESCHOOL ASSISTANT TEACHER: Arcelia Aj, licensed neurosurgical physician assistant. ANESTHESIA: General endotracheal with local. ESTIMATED BLOOD LOSS: Minimal. INDICATION FOR PROCEDURE: The patient is a 59-year-old woman with a history of gastroesophageal reflux disease and hypertension related to her morbid obesity. The patient has a body mass index of 41. The patient was also found to have a 1 cm umbilical hernia and hepatomegaly on inspection of the abdomen during the operation. PROCEDURE IN DETAIL: The patient was given preoperative IV antibiotics and subcutaneous heparin. Patient was brought in the operating room and placed on the operating table in the supine position. Sequential compression devices were applied to both legs and activated. The patient was placed on general endotracheal anesthesia. The patient abdomen was sterilely prepped and draped. We injected the skin and subcutaneous tissues over the left lateral subcostal area with Marcaine. We made a 5-mm incision with the scalpel. We passed a 5-mm optical trocar through the abdominal wall using a laparoscope to visualize each PATIENT NAME: FUNMI JARQUIN MICK layer of the abdominal wall as the port was inserted and insufflated the abdomen to 15 mmHg pressure of CO2. We placed a 15-mm port and a 5-mm port at the umbilicus and a 5-mm port on the right lateral subcostal area under direct laparoscopic vision using Marcaine for local anesthesia. We used the LigaSure device to dissect the greater omentum off of the greater curvature of the stomach from 3 cm proximal to the pylorus up to the angle of His. We dissected the gastric fat pad off of the proximal stomach. We also looked at the esophageal hiatus and found there to be no significant hiatal hernia present. We inserted a 40-Telugu bougie in the mouth, passed it down the esophagus and into the stomach. We positioned the bougie along the lesser curvature with the tip of the bougie at the pylorus. We placed a laparoscopic Covidien stapler with a 60 mm black load and Connie-Strip staple line reinforcement on the stomach 3 cm proximal to the pylorus and directing the stapler towards the angle of His, bringing the stapler adjacent to the bougie. After firing the first stapler load, we continued firing the laparoscopic Covidien stapler with 60 mm black loads and Connie-Strip staple line reinforcement along the bougie until the stomach was completely divided up to the angle of His, leaving a 1 cm segment of stomach between the esophagus and the staple line. We removed the bougie and inserted an upper endoscope into the mouth, passed it down the esophagus and into the gastric sleeve. We inflated the gastric sleeve with air through the endoscope and passed saline over the staple line and we saw no leakage of air from the staple line. The inside of the sleeve was hemostatic and properly constructed. We removed the upper endoscope. We irrigated and suctioned the abdomen, sharp and burning. It was found to be hemostatic. We sutured the omentum to the lateral aspect of the spleen with a 2-0 Vicryl suture to keep the skin straight. We removed the partial stomach specimen from the abdomen through the 15 mm port site and we closed the fascial opening of the 15-mm port site with a suture passer and #1 Vicryl suture under direct laparoscopic vision. We deflated the abdomen and removed the ports. We closed the skin incisions with 4-0 Monocryl suture in a subcuticular fashion. We applied Dermabond to the wounds. The patient was awakened from general anesthesia, extubated, and taken to the PACU in stable condition. ADDENDUM: Prior to completion of the sleeve gastrectomy, we removed a small piece of the liver edge from the left lateral segment of the liver using the LigaSure device. The liver specimen was sent to pathology. We placed a 15-mm port through the umbilical hernia defect at the beginning of the operation and at the end of operation, we removed the 15-mm port and #1 Ethibond suture across the hernia defect in a rymcor-re-qbrhe fashion using the suture passer. Dictated By: Anthony Friedman MD WT: OP:SINDY/KETTY/MILES Conf#: [id number]/DID#: [id number] Authenticated by Anthony Friedman MD On 04/07/2020 10:29:05 AM at 1029 PATIENT NAME: FUNMI JARQUIN [facility] 2020-03-18 09:02:00 [id number] [facility] [address] [place] [address] PATIENT NAME: FUNMI JARQUIN ADMIT DATE: 03/17/20 ACCOUNT NO: [id number] ROOM NO: P.0572 AGE: 59 REPORT TYPE: DISCHARGE SUMMARY SEX: F ADMITTING PHYSICIAN:Anthony Friedman MD ATTENDING PHYSICIAN:Anthony Friedman MD ADMISSION DATE: 03/17/2020 DISCHARGE DATE: 03/18/2020 HISTORY AND HOSPITAL COURSE: The patient is a 59-year-old woman, who underwent a laparoscopic sleeve gastrectomy and umbilical hernia repair. She had an uneventful postoperative course and was discharged home on postoperative day #1 on a bariatric liquid diet. Please see her home medication reconciliation form for other medications. She will follow up with us in 2 weeks. Dictated By: Anthony Friedman MD WT: DS:SINDY/KETTY/MILES Conf#: [id number]/DID#: [id number] Authenticated by Anthony Friedman MD On 04/07/2020 10:28:32 AM at 1028 PATIENT NAME: FUNMI JARQUIN [facility] 2020-03-09 11:07:00 [id number] [place] [address] PATIENT NAME: FUNMI JARQUIN ADMIT DATE: 03/17/20 ACCOUNT NO: [id number] ROOM NO: P.SHA AGE: 59 REPORT TYPE: eELECTROCARDIOGRAM SEX: F ADMITTING PHYSICIAN: Anthony Friedman MD ATTENDING PHYSICIAN: Anthony Friedman MD Order: [id number] Test Reason : SDS Test Date/Time Stamp: [...] ECG No previous ECGs available Confirmed by KP DWYER ([id number]) on 03/17/2020 2:01:50 PM Referred By: Anthony Friedman Confirmed by:KP DWYER at 1402 PATIENT NAME: FUNMI JARQUIN [facility] 2020-02-14 13:51:00 [id number] [facility] [address] [place] [address] PATIENT NAME: FUNMI JARQUIN ADMIT DATE: 02/14/20 ACCOUNT NO: [id number] ROOM NO: AGE: 59 REPORT TYPE: ENDOSCOPY REPORT SEX: F ADMITTING PHYSICIAN: ATTENDING PHYSICIAN:Anthony Friedman MD [facility] Patient Name: Herbie Choudhary Attending MD: Anthony Friedman MD Procedure Date: 02/14/2020 1:51 PM Date of : 1960 Admit Type: Preadmit Age: 59 Room: Room 1 Gender: Female Note Status: Finalized Procedure: Upper GI endoscopy Pre Procedure Diagnosis: Heartburn Assistants: Anthony Friedman MD, Bailee Ervin RN (Nurse), Lorenzo Pereira, Health Professional, Genesis Jones MD Referring MD: Anthony Friedman [...] PM Procedure Date: 02/14/2020 1:51:31 PM Provation {[id number]}. pdf ProVation FT PDF at 1431 PATIENT NAME: FUNMI JARQUIN [facility] 2020-02-14 13:50:00 [id number] [facility] [address] [place] [id number] PATIENT NAME: FUNMI JARQUIN ADMIT DATE: 02/14/20 ACCOUNT NO: [id number] ROOM NO: AGE: 59 REPORT TYPE: ENDOSCOPY REPORT SEX: F ADMITTING PHYSICIAN: ATTENDING PHYSICIAN:Anthony Friedman MD [facility] Patient Name: Herbie Choudhary Attending MD: Anthony Friedman MD Procedure Date: 02/14/2020 1:50 PM Date of : 1960 Admit Type: Preadmit Age: 59 Room: Room 1 Gender: Female Note Status: Finalized Procedure: Colonoscopy Pre Procedure Diagnosis: Screening for colorectal malignant neoplasm Assistants: Anthony Friedman MD, Bailee Ervin RN (Nurse), Lorenzo Pereira, Health Professional, Genesis Jones MD Referring MD: Anthony Friedman [...] direct and retroflexion views. Complications: No immediate complications. [...] electronically. Number of Addenda: 0 PATIENT NAME: FUNMI JARQUIN Note Initiated On: 02/14/2020 1:50 PM Procedure Date: 02/14/2020 1:50:55 PM Provation {[id number]}. pdf ProVation FT PDF at 1441 PATIENT NAME: FUNMI JARQUIN [facility]
--- NOTE | 2024-10-02 13:26 | ER ---
Nurse's Notes [facility] Name: Funmi Stoner Age: 64 yrs Sex: Female : 1960 Arrival Date: 10/02/2024 Time: 11:39 Bed 3 Private MD: Diagnosis: Other conjunctivitis Presentation: 10/02 12:33 Chief complaint: Patient states: Bilateral eye pain and redness onset 1 week ago. pt cm10 also report left leg pain and neck pain s/p fall today. Coronavirus screen: Client denies travel out of the [place] in the last 14 days. Ebola Screen: Patient denies travel to an Ebola-affected area in the 21 days before illness onset. Initial Sepsis Screen: Does the patient meet any 2 criteria? No. Patient's initial sepsis screen is negative. Does the patient have a suspected source of infection? No. Patient's initial sepsis screen is negative. Risk Assessment: Do you want to hurt yourself or someone else? Patient reports no desire to harm self or others. Onset of symptoms was October 02, 2024. 12:33 Method Of Arrival: Ambulatory cm10 12:33 Acuity: [place] 4 cm10 Triage Assessment: 12:35 General: Appears in no apparent distress. uncomfortable, Behavior is calm, cooperative. cm10 Neuro: No deficits noted. Level of Consciousness is awake, alert, obeys commands, Oriented to person, place, time, situation, Appropriate for age. Respiratory: No deficits noted. Airway is patent Respiratory effort is even, unlabored, Respiratory pattern is regular, symmetrical. Historical: - Allergies: 12:35 Sulfa (Sulfonamide Antibiotics); cm10 - PMHx: 12:35 Anxiety; Asthma; Diabetes - NIDDM; Heart Valve problem; hot flashes; Hypertension; cm10 Irregular heart rate; Myocardial infarction; Panic Attacks; Rheumatoid Arthritis; - PSHx: 12:35 back; neck; Weight loss surgery; cm10 - Immunization history:: Adult Immunizations up to date. - Infectious Disease History:: Denies. - Social history:: Smoking status: Patient denies any tobacco usage or history of. Screenin:47 [facility] ED Fall Risk Assessment (Adult) History of falling in the last 3 months, db including since admission No falls in past 3 months (0 pts) Confusion or Disorientation No (0 pts) Intoxicated or Sedated No (0 pts) Impaired Gait No (0 pts) Mobility Assist Device Used No (0 pt) Altered Elimination No (0 pt) Score/Fall Risk Level 0 - 2 = Low Risk Oriented to surroundings, Maintained a safe environment. Abuse screen: Denies threats or abuse. Denies injuries from another. Nutritional screening: No deficits noted. 13:49 Tuberculosis screening: No symptoms or risk factors identified. db Assessment: 13:09 Reassessment: Patient appears in no apparent distress at this time. Patient and/or db family updated on plan of care and expected duration. Pain level reassessed. Patient is alert, oriented x 3, equal unlabored respirations, skin warm/dry/pink. 13:47 General: Appears in no apparent distress. comfortable, Behavior is calm, cooperative. db Pain: Complains of pain in right eye and left eye. Neuro: Level of Consciousness is awake, alert, obeys commands, Oriented to person, place, time, situation. Respiratory: Airway is patent Respiratory effort is even, unlabored, Respiratory pattern is regular, symmetrical. Vital Signs: 12:33 BP 198 / 118; Pulse 90; Resp 15; Temp 97.9(O); Pulse Ox 100% ; Weight 72.57 kg; Height cm10 5 ft. 5 in. ; Pain 10/10; 12:33 Body Mass Index 26.63 (72.57 kg, 165.1 cm) cm10 12:33 Pain Scale: Adult cm10 ED Course: 11:43 Patient arrived in ED. cj3 11:50 Cr Burnett MD is Attending Physician. sp3 12:35 Triage completed. cm10 12:35 Arm band placed on left wrist. Patient placed in waiting room. cm10 13:09 Kayla Ortiz, RN is Primary Nurse. db 13:25 Jose Scott MD is Referral Physician. sp3 13:47 Patient has correct armband on for positive identification. Bed in low position. Call db light in reach. Side rails up X 1. Provided Education on: DISCHARGE AND FOLLOWUP. Pulse ox on. NIBP on. Pillow given. 13:47 No provider procedures requiring assistance completed. Patient did not have IV access db during this emergency room visit. Administered Medications: No medications were administered Medication: 13:47 VIS not applicable for this client. db Outcome: 13:25 Discharge ordered by . sp3 13:47 Discharged to home ambulatory, db 13:47 Condition: stable 13:47 Discharge instructions given to patient, Instructed on discharge instructions, follow up and referral plans. Prescriptions given X 1, 13:49 Patient left the ED. db Signatures: Cr Burnett MD MD sp3 Kayla Ortiz, RN RN db Debbie Livingston RN RN cm10 Damaris Longoria 3 Corrections: (The following items were deleted from the chart) 13:48 13:47 Tuberculosis screening: db db
--- NOTE | 2024-10-02 13:26 | EDPHYS ---
Physician Documentation [facility] Name: Funmi Stoner Age: 64 yrs Sex: Female : 1960 Arrival Date: 10/02/2024 Time: 11:39 Bed 3 Private MD: ED Physician Cr Burnett HPI: 10/02 13:22 This 64 yrs old Black Female presents to ER via Ambulatory with complaints of Eye sp3 Problem, Leg Pain. 13:22 64-year-old female with a history of diabetes, hypertension, multiple instances of sp3 prior conjunctivitis secondary to hair dye presents again for recurrent bilateral conjunctivitis type irritation after using hair dye. She denies any other symptoms or changes in visual acuity. She had a slight mechanical fall injuring her neck and left leg but states that they are getting better and she does not think they are broken. Forces were not significant. . Historical: - Allergies: 12:35 Sulfa (Sulfonamide Antibiotics); cm10 - PMHx: 12:35 Anxiety; Asthma; Diabetes - NIDDM; Heart Valve problem; hot flashes; Hypertension; cm10 Irregular heart rate; Myocardial infarction; Panic Attacks; Rheumatoid Arthritis; - PSHx: 12:35 back; neck; Weight loss surgery; cm10 - Immunization history:: Adult Immunizations up to date. - Infectious Disease History:: Denies. - Social history:: Smoking status: Patient denies any tobacco usage or history of. ROS: 13:24 Constitutional: Negative for fever, chills, and weight loss, ENT: Negative for injury, sp3 pain, and discharge, Neck: Negative for injury, pain, and swelling, Cardiovascular: Negative for chest pain, palpitations, and edema, Respiratory: Negative for shortness of breath, cough, wheezing, and pleuritic chest pain, Abdomen/GI: Negative for abdominal pain, nausea, vomiting, diarrhea, and constipation, Back: Negative for injury and pain, Skin: Negative for injury, rash, and discoloration, Neuro: Negative for headache, weakness, numbness, tingling, and seizure, 13:24 All other systems are negative, Exam: 13:24 Constitutional: This is a well developed, well nourished patient who is awake, alert, sp3 and in no acute distress. Head/Face: Normocephalic, atraumatic. ENT: Nares patent. No nasal discharge, no septal abnormalities noted. External auditory canals are clear. Oropharynx with no redness, swelling, or masses, exudates, or evidence of obstruction, uvula midline. Mucous membranes moist. Neck: Trachea midline, no thyromegaly or masses palpated, and no cervical lymphadenopathy. Supple, full range of motion without nuchal rigidity, or vertebral point tenderness. No Meningismus. Chest/axilla: Normal chest wall appearance and motion. Nontender with no deformity. No lesions are appreciated. Cardiovascular: Regular rate and rhythm with a normal S1 and S2. No gallops, murmurs, or rubs. Normal PMI, no JVD. No pulse deficits. Respiratory: Lungs have equal breath sounds bilaterally, clear to auscultation and percussion. No rales, rhonchi or wheezes noted. No increased work of breathing, no retractions or nasal flaring. Abdomen/GI: Soft, non-tender, with normal bowel sounds. No distension or tympany. No guarding or rebound. No evidence of tenderness throughout. Back: No spinal tenderness. No costovertebral tenderness. Full range of motion. Skin: Warm, dry with normal turgor. Normal color with no rashes, no lesions, and no evidence of cellulitis. MS/ Extremity: Pulses equal, no cyanosis. Neurovascular intact. Full, normal range of motion. Neuro: Awake and alert, GCS 15, oriented to person, place, time, and situation. Cranial nerves II-XII grossly intact. Motor strength 5/5 in all extremities. Sensory grossly intact. Cerebellar exam normal. Normal gait. 13:24 Eyes: Bilateral conjunctiva erythematous and inflamed. Anterior chamber clear. Vision acuity normal.. Vital Signs: 12:33 BP 198 / 118; Pulse 90; Resp 15; Temp 97.9(O); Pulse Ox 100% ; Weight 72.57 kg; Height cm10 5 ft. 5 in. ; Pain 10/10; 12:33 Body Mass Index 26.63 (72.57 kg, 165.1 cm) cm10 12:33 Pain Scale: Adult cm10 MDM: 12:32 Medical Screening Exam initiated sp3 13:24 Data reviewed: vital signs, nurses notes, old medical records. ED course: Patient with sp3 bilateral conjunctivitis. I am not highly suspicious of anterior chamber pathology.. Administered Medications: No medications were administered Disposition Summary: 10/02/24 13:25 Discharge Ordered Notes: Location: Home sp3 Condition: Stable sp3 Diagnosis - Other conjunctivitis sp3 Followup: sp3 - With: Jose Scott MD - When: Upon discharge from the Emergency Department - Reason: Recheck today's complaints Discharge Instructions: - Discharge Summary Sheet sp3 - Bacterial Conjunctivitis, Adult sp3 Forms: - Medication Reconciliation Form sp3 - Antibiotic Education sp3 - Prescription Opioid Use sp3 - Patient Portal Instructions sp3 - Leadership Thank You Letter sp3 Prescriptions: - Maxitrol 3.5mg/mL-10,000 unit/mL-0.1 % Ophthalmic drops, suspension - instill 2 drop OPHTHALMIC route every 2 hours; 5 milliliter; Refills: 0, sp3 Product Selection Permitted Signatures: Cr Burnett MD MD sp3 Debbie Livingston RN RN cm10
[2024-10-02 19:22] VITALS: BP 198/118; TEMP 97.9; O2SAT 100
== END 2024-10-02 13:49 | disposition home or self-care (01) ==
LOC: ER 11:39
DX: H10.89 Other conjunctivitis (principal)